=== PATIENT | female | born 1955 | race Caucasian/White ===

== ENCOUNTER 2016-04-14 14:04 | Inpatient (IN) | payer MEDICARE ==
[2016-04-14] MEDS: DUONEB 0.5-3 MG/3 ml Neb IH SCH ×3 (15:05→22:35)
[2016-04-14] MEDS ORDERED: TYLENOL 325 MG PO PRN (15:24)
[2016-04-14] MEDS ORDERED: Zofran 4 MG/2 ML VIAL IV PRN (15:24)
[2016-04-14] MEDS ORDERED: solu-MEDROL 125 MG IV ONE (15:26)
[2016-04-14 15:47] LABS: Mean Cell Volume 96.9 fl (78-100); Mean Corpuscular Hemoglobin 29.7 pg (26-32); Mean Platelet Volume 9.2 fl (6-9.5); Platelet Count 182 K/mm3 (150-450); Red Blood Count 4.78 M/mm3 (4.1-5.4); Red Cell Distribution Width 14.4 % (11.5-14.0)
[2016-04-14 15:48] LABS: ALBUMIN 3.2 g/dL (3.4-5.0); ALKALINE PHOSPHATASE 92 U/L (46-116); ANION GAP 14.6 MEQ/L (5-15); BILIRUBIN,TOTAL 0.2 mg/dL (0.2-1.0); BLOOD UREA NITROGEN 14 mg/dL (9-20); CHLORIDE 102 mEq/L (98-107); Carbon Dioxide 28.1 mEq/L (21-32); Glucose 87 MG/DL (70-110); Potassium 4.4 mEq/L (3.5-5.1); SGOT/AST 14 U/L (15-37); SODIUM 140 mEq/L (136-145); Total Protein 7.4 gm/dL (6.4-8.2)
[2016-04-14] MEDS: ROCEPHIN 1 Gm-D5w 50 ml Bag** 50 ML IV SCH (15:53)
[2016-04-14 15:56] LABS: SGPT/ALT 11 U/L (12-78)
[2016-04-14] MEDS: Zithromax 500 MG/ 250 ML NaCl Premix 250 ML IV SCH (16:25)
--- NOTE | 2016-04-14 16:38 | XRAY ---
Indication: Cough, congestion, short of breath. Comparison: March 30, 2016 PA/lateral chest unchanged again with bibasilar infiltrates/atelectasis and left-sided AICD. Heart is not enlarged. No new cardiopulmonary abnormalities.
[2016-04-14] MEDS ORDERED: Zanaflex 4 MG PO PRN (17:31)
[2016-04-14] MEDS: NEURONTIN 300 MG PO SCH (17:39)
[2016-04-14] MEDS ORDERED: MORPHINE SULFATE 4 MG INJ IV PRN (17:42)
--- NOTE | 2016-04-14 17:57 | PCM.HP ---
History of Present Illness - Chief Complaint Chief Complaint: COPD exacerbation Date: 04/14/16 History of Present Illness: is a 61 year old female. who continues to smoke with a history of coronary artery disease and copd who has been having worsening congestion for the last week and coughed a few days ago and developed a focal area of pain when she coughs on the right side of her chest only painful with the coughing so she tries not to. She has been getting progressively more short of breath and wheezing. her albuterol at home she has been afraid to use because it makes her cough and her chest hurts when she coughs. She has no orthopnea no history of heart failure last Echo was 06/2015 with EF of 58%. 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 She is compliant with her xarelto. No swelling in her extremities. No fevers or vomiting. - Review of Systems Constitutional: Fatigue, Weakness, No Fever, No Chills Eyes: No Symptoms Ears, Nose, & Throat: Sinus Drainage Respiratory: Cough, Short Of Breath, Wheezing Cardiac: No Chest Pain, No Edema, No Palpitations, No Syncope, No Orthopnea, No PND Abdominal/Gastrointestinal: No Abdominal Pain, No Nausea, No Vomiting, No Diarrhea Genitourinary Symptoms: No Dysuria Musculoskeletal: No Back Pain, No Neck Pain Skin: No Rash Neurological: No Dizziness, No Focal Weakness, No Sensory Changes Psychological: No Symptoms Endocrine: No Symptoms Hematologic/Lymphatic: No Symptoms Immunological/Allergic: No Symptoms Medications & Allergies Home Medications: Home Medication List Furosemide 40 mg [Lasix 40 MG] 40 mg PO DAILY 07/17/12 [History Confirmed 04/14/16] Potassium Chloride 20 Meq Tab [Potassium Chloride 20 MEQ TABLET] 20 meq PO DAILY 07/17/12 [History Confirmed 04/14/16] Aspirin 81 gm Chew [Baby Aspirin 81 mg Chew] 81 mg PO DAILY 11/30/13 [ History Confirmed 04/14/16] Omeprazole 20 MG [Prilosec 20 mg] 20 mg PO BID 11/30/13 [History Confirmed 04/14] Rivaroxaban 10 mg Tablet [Xarelto 10 mg Tablet] 20 mg PO DAILY 11/30/13 [ History Confirmed 04/14/16] Tizanidine HCl 4 mg [Zanaflex 4 MG] 4 mg PO HS 11/30/13 [History Confirmed 04/14/16] Gabapentin [Neurontin] 1,200 mg PO DAILY 07/04/15 [History Confirmed 04/14/16] Metformin HCl 1000 mg [Glucophage 1000 MG] 1,000 mg PO BID 07/04/15 [History Confirmed 04/14/16] Pramipexole Di-HCl [Mirapex] 0.125 mg PO HS #30 tablet 12/29/15 [Rx Confirmed ] Pravastatin Sodium 20 mg PO QHS 02/04/16 [History Confirmed 04/14/16] Gabapentin [Neurontin] 600 mg PO QAM 03/15/16 [History Confirmed 04/14/16] Levothyroxine Sodium [Synthroid] 175 mcg PO DAILY 03/15/16 [History Confirmed ] Gabapentin [Neurontin] 1,200 mg PO HS 04/14/16 [History Confirmed 04/14/16] Gabapentin [Neurontin] 600 mg PO DAILY 04/14/16 [History Confirmed 04/14/16] Allergies/Adverse Reactions: Allergies Allergy/AdvReac Type Severity Reaction Status Date / Time No Known Drug Allergies Allergy Verified 03/15/16 09:42 - Past Medical History Past Medical History: Yes Neurological History: Peripheral Neuropathy, Other ENT History: Cataracts Cardiac History: Coronary Artery Disease, High Cholesterol, Hypertension Respiratory History: COPD, Pneumonia, Sleep Apnea, Other Endocrine Medical History: Diabetes Type II, Hyperthyroidism Musculoskelatal History: Osteoporosis, Rheumatoid Arthritis GI Medical History: Hernia History: No Pertinent History Pyscho-Social History: No Pertinent History Reproductive Disorders: No Pertinent History Comment: pt wear c-pap at night. pt has restless leg syndrome. - Female History Are you now?: No - Past Surgical History Past Surgical History: Yes Neuro Surgical History: No Pertinent History Cardiac History: Angioplasty, CABG, Cardiac Catheterization, Cardiac Stent, Internal Defibrillator, Pacemaker, Vascular Surgery, Other Respiratory Surgery: No Pertinent History GI Surgical History: Cholecystectomy Genitourinary Surgical Hx: No Pertinent History Musculskeletal Surgical Hx: Other Female Surgical History: Hysterectomy Other Surgical History: pt had CABG in July 2015, had sternum removed in August due to infection, Pt states her breast bones are held together with the muscles from her breasts. She has had varicose veins tied off. She states they were not stripped. She has also had bilateral carpal tunnel surgery. And she has had surgery on her big toe . Pt wears a brace on her left leg due to neuropathy - Social History Smoking Status: Current every day smoker How long have you smoked: "35 years" Exposure to second hand smoke: Yes Alcohol: None Drug Use: none - Physical Exam Vital Signs: Vital Signs - 24 hr Temp Pulse Resp BP Pulse Ox 04/14/16 15:55 98.2 F 102 H 18 145/68 04/14/16 15:27 98.2 F 102 H 18 145/68 88 L 04/14/16 15:08 96 H 24 92 L General Appearance: mild distress, alert, obese Neurologic Exam: oriented x 3, cooperative Eye Exam: No scleral icterus, No pale conjunctivae Ears, Nose, Throat Exam: moist mucous membranes, No pharyngeal erythema Neck Exam: non-tender, supple Respiratory Exam: chest tenderness (right sided point tenderness), prolonged expirations, rhonchi, wheezing, No crackles/rales (diffuse expiratory wheezing with air trapping sternum is absent there is heaving where it would be) Cardiovascular Exam: regular rate/rhythm, No murmur, No edema Gastrointestinal/Abdomen Exam: soft, normal bowel sounds, No tenderness, No distention, No mass, No guarding Extremity Exam: normal inspection, No calf tenderness, No pedal edema Skin Exam: warm, dry, No rash Results - Labs Lab/Micro Results: Lab Results-Last 24 Hours 04/14/16 04/14/16 Range/Units 15:10 15:10 WBC 7.0 (4.0-10.5) K/mm3 RBC 4.78 (4.1-5.4) M/mm3 Hgb 14.2 (12.0-16.0) gm/dl Hct 46.3 (35-47) % MCV 96.9 (78-100) fl MCH 29.7 (26-32) pg MCHC 30.7 L (32-36) g/dl RDW 14.4 H (11.5-14.0) % Plt Count 182 (150-450) K/mm3 MPV 9.2 (6-9.5) fl Sodium 140 (136-145) mEq/L Potassium 4.4 (3.5-5.1) mEq/L Chloride 102 (98-107) mEq/L Carbon Dioxide 28.1 (21-32) mEq/L Anion Gap 14.6 (5-15) MEQ/L BUN 14 (9-20) mg/dL Creatinine 0.68 (0.55-1.30) mg/dl Estimated GFR > 60 ML/MIN Glucose 87 (70-110) MG/DL Calcium 9.1 (8.5-10.1) mg/dL Total Bilirubin 0.2 (0.2-1.0) mg/dL AST 14 L (15-37) U/L ALT 11 L (12-78) U/L Alkaline Phosphatase 92 (46-116) U/L NT-Pro-B Natriuret Pep 1013 H (0-125) pg/ml Serum Total Protein 7.4 (6.4-8.2) gm/dL Albumin 3.2 L (3.4-5.0) g/dL - Radiology Impressions Radiology Exams & Impressions: Radiology Procedures Category Date Time Status CHEST 2 VIEWS (PA AND LAT) Stat Exams 04/14/16 15:24 Completed - Other Procedures and Tests Respiratory Therapy 04/14/16 15:00 Respiratory Nebulizer Q4H 04/14/16 15:05 Oxygen NASAL CANNULA 2 lpm Assessment/Plan (1) COPD exacerbation Current Visit: Yes Status: Acute Assessment & Plan: solumedrol, ceftriaxone, azithromycin, chest x-ray was unchanged nebs oxygen wean as tolerated ekg reviewed no changes continue home meds hold metformin start sliding scale continue xarelto Code(s): J44.1 - CHRONIC OBSTRUCTIVE PULMONARY DISEASE W (ACUTE) EXACERBATION (2) Acute hypoxemic respiratory failure Current Visit: Yes Status: Acute Code(s): J96.01 - ACUTE RESPIRATORY FAILURE WITH HYPOXIA (3) Coronary artery disease Current Visit: Yes Status: Chronic Code(s): I25.10 - ATHSCL HEART DISEASE OF [place] CORONARY ARTERY W/O ANG PCTRS (4) Sleep apnea Current Visit: Yes Status: Chronic Code(s): G47.30 - SLEEP APNEA, UNSPECIFIED (5) Tobacco abuse Current Visit: Yes Status: Chronic Code(s): Z72.0 - TOBACCO USE (6) History of pulmonary embolism Current Visit: Yes Status: Chronic Code(s): Z86.711 - PERSONAL HISTORY OF PULMONARY EMBOLISM (7) Hypertension Current Visit: Yes Status: Chronic Code(s): I10 - ESSENTIAL (PRIMARY) HYPERTENSION (8) Peripheral neuropathy Current Visit: Yes Status: Chronic Code(s): G62.9 - POLYNEUROPATHY, UNSPECIFIED (9) Type 2 diabetes mellitus Current Visit: Yes Status: Chronic
[2016-04-14 18:06] LABS: Eosinophil 1 % (0.00-3.0); Platelet Estimate NORMAL (NORMAL); Total Cells Counted 100
[2016-04-14] MEDS ORDERED: solu-MEDROL 40 MG ONE (21:38)
[2016-04-14] MEDS: Mirapex 0.5 MG Tablet PO SCH (21:43)
[2016-04-14] MEDS: Neurontin 400 MG PO SCH (21:43)
[2016-04-14] MEDS: ZOCOR 20MG PO SCH (21:44)
[2016-04-14] MEDS: Protonix 40MG Tablet PO SCH (21:44)
[2016-04-14] MEDS: solu-MEDROL 40 MG IV SCH (21:44)
[2016-04-14] MEDS ORDERED: NON-FORMULARY ITEM (Pramipexole Di-Hcl [Mirapex] 0.125 MG) PO SCH (22:00)
[2016-04-14] MEDS ORDERED: NON-FORMULARY ITEM (Omeprazole 20 Mg [Prilosec 20 Mg] 20 MG) PO SCH (22:00)
[2016-04-14] MEDS ORDERED: NON-FORMULARY ITEM (Pravastatin Sodium [Pravastatin Sodium] 20 MG) PO SCH (22:00)
[2016-04-14 23:57] LABS: Collection Type CLEAN CATCH
[2016-04-14 23:58] LABS: COMPLETE URINE MICROSCOPIC? NO
[2016-04-15] MEDS: DUONEB 0.5-3 MG/3 ml Neb IH SCH ×6 (02:48→22:59)
[2016-04-15] MEDS ORDERED: solu-MEDROL 40 MG ONE (05:42)
[2016-04-15] MEDS: solu-MEDROL 40 MG IV SCH ×3 (05:45→21:53)
[2016-04-15] MEDS: NovoLOG Insulin SQ PRN ×4 (07:48→21:52)
[2016-04-15] MEDS: NEURONTIN 300 MG PO SCH ×2 (07:48→16:43)
--- NOTE | 2016-04-15 08:23 | PCM.NOTE ---
Date and Time: 04/15/16818 Subjective Assessment: Feeling much better today still only having pain with the coughing which is much improved breathing much better. Still requiring oxygen she thinks she may need oxygen all the time as she has had chronic worsening copd. no swelling no PND Objective Exam General Appearance: no apparent distress, obese Neurologic Exam: alert, oriented x 3, cooperative Skin Exam: warm, dry Ears, Nose, Throat Exam: moist mucous membranes Neck Exam: non-tender, supple Respiratory Exam: prolonged expirations, rhonchi, wheezing, No crackles/rales Cardiovascular Exam: regular rate/rhythm, normal heart sounds, normal peripheral pulses Gastrointestinal/Abdomen Exam: soft, normal bowel sounds, No tenderness Extremity Exam: other (trace left pedal edema), No calf tenderness OBJECTIVE DATA Vital Signs: Vital Signs - 24 hr Temp Pulse Resp BP Pulse Ox 04/15/16 07:41 97.8 F 91 H 18 162/73 92 L 04/15/16 06:54 91 H 18 92 L 04/15/16 04:00 97.7 F 110 H 20 172/82 92 L 04/15/16 02:49 101 H 20 94 L 04/14/16 23:47 98.4 F 93 H 16 119/56 94 L 04/14/16 22:35 87 20 90 L 04/14/16 19:48 98.1 F 108 H 17 141/68 94 L 04/14/16 18:33 109 H 22 90 L 04/14/16 15:55 98.2 F 102 H 18 145/68 04/14/16 15:27 98.2 F 102 H 18 145/68 88 L 04/14/16 15:08 96 H 24 92 L Oxygen-Last 24 hours O2 Percentage 2 Liters = 28% O2 Percentage 2 Liters = 28% O2 Percentage 2 Liters = 28% O2 Percentage 2 Liters = 28% Pain Assessment - Last Documented Pain Intensity 0 Pain Scale Used 0-10 Pain Scale Intake and Output: Intake & Output 04/12/16 04/13/16 04/14/16 04/15/16 11:59 11:59 11:59 11:59 Intake Total 1620 Output Total 1500 Balance 120 Weight 96.615 kg Lab Results: Accuchecks Date 04/15/16 Time 07:30 Accucheck Value: 200 Accucheck Value: 260 Lab Results-Last 24 Hours 04/14/16 04/14/16 04/14/16 Range/Units 15:10 15:10 23:00 WBC 7.0 (4.0-10.5) K/mm3 RBC 4.78 (4.1-5.4) M/mm3 Hgb 14.2 (12.0-16.0) gm/dl Hct 46.3 (35-47) % MCV 96.9 (78-100) fl MCH 29.7 (26-32) pg MCHC 30.7 L (32-36) g/dl RDW 14.4 H (11.5-14.0) % Plt Count 182 (150-450) K/mm3 MPV 9.2 (6-9.5) fl Segmented Neutrophils 69 H (36.0-66.0) % Lymphocytes (Manual) 21 L (24-44) % Monocytes (Manual) 9 (0.0-12.0) % Eosinophils (Manual) 1 (0.00-3.0) % Differential Comment NORMAL Platelet Estimate NORMAL (NORMAL) Sodium 140 (136-145) mEq/L Potassium 4.4 (3.5-5.1) mEq/L Chloride 102 (98-107) mEq/L Carbon Dioxide 28.1 (21-32) mEq/L Anion Gap 14.6 (5-15) MEQ/L BUN 14 (9-20) mg/dL Creatinine 0.68 (0.55-1.30) mg/dl Estimated GFR > 60 ML/MIN Glucose 87 (70-110) MG/DL Calcium 9.1 (8.5-10.1) mg/dL Total Bilirubin 0.2 (0.2-1.0) mg/dL AST 14 L (15-37) U/L ALT 11 L (12-78) U/L Alkaline Phosphatase 92 (46-116) U/L NT-Pro-B Natriuret Pep 1013 H (0-125) pg/ml Serum Total Protein 7.4 (6.4-8.2) gm/dL Albumin 3.2 L (3.4-5.0) g/dL Ur Collection Type CLEAN CATCH Urine Color YELLOW (YELLOW) Urine Appearance CLEAR (CLEAR) Urine pH 5.0 (5-6) Ur Specific [place] 1.010 (1.005-1.025) Urine Protein NEGATIVE (Negative) Urine Glucose (UA) 250 (NEGATIVE) mg/dL Urine Ketones NEGATIVE (NEGATIVE) Urine Nitrite NEGATIVE (NEGATIVE) Urine Bilirubin NEGATIVE (NEGATIVE) Urine Urobilinogen 0.2 (0-1) mg/dL Urine WBC (Auto) NEGATIVE (NEGATIVE) Urine RBC (Auto) NEGATIVE (0-5) [place]/ul Specimen Received 04/14/16:2300 Radiology Exams: Radiology Procedures Category Date Time Status CHEST 2 VIEWS (PA AND LAT) Stat Exams 04/14/16 15:24 Completed Assessment/Plan (1) COPD exacerbation Current Visit: Yes Status: Acute Assessment & Plan: wean the iv steroids continue the antibiotics and oxygen and nebs she may require O2 at discharge great improvement overnight hope for stable enough for home tomorrow on po meds. Code(s): J44.1 - CHRONIC OBSTRUCTIVE PULMONARY DISEASE W (ACUTE) EXACERBATION (2) Acute hypoxemic respiratory failure Current Visit: Yes Status: Acute Code(s): J96.01 - ACUTE RESPIRATORY FAILURE WITH HYPOXIA (3) Coronary artery disease Current Visit: Yes Status: Chronic Assessment & Plan: follows in [facility] last echo this past spring with EF of 58% Code(s): I25.10 - ATHSCL HEART DISEASE OF [place] CORONARY ARTERY W/O ANG PCTRS (4) Sleep apnea Current Visit: Yes Status: Chronic Code(s): G47.30 - SLEEP APNEA, UNSPECIFIED (5) Tobacco abuse Current Visit: Yes Status: Chronic Code(s): Z72.0 - TOBACCO USE (6) History of pulmonary embolism Current Visit: Yes Status: Chronic Code(s): Z86.711 - PERSONAL HISTORY OF PULMONARY EMBOLISM (7) Hypertension Current Visit: Yes Status: Chronic Code(s): I10 - ESSENTIAL (PRIMARY) HYPERTENSION (8) Peripheral neuropathy Current Visit: Yes Status: Chronic Code(s): G62.9 - POLYNEUROPATHY, UNSPECIFIED (9) Type 2 diabetes mellitus Current Visit: Yes Status: Chronic
[2016-04-15] MEDS: XARELTO 10 MG TABLET PO SCH (09:04)
[2016-04-15] MEDS: Protonix 40MG Tablet PO SCH ×2 (09:04→21:52)
[2016-04-15] MEDS: SYNTHROID 100 MCG PO SCH (09:05)
[2016-04-15] MEDS: ECOTRIN 81 MG PO SCH (09:05)
[2016-04-15] MEDS: Klor Con 10 MEQ PO SCH (09:05)
[2016-04-15] MEDS: SYNTHROID 75 MCG PO SCH (09:05)
[2016-04-15] MEDS: Lasix 40 MG PO SCH (09:05)
[2016-04-15] MEDS ORDERED: NON-FORMULARY ITEM (Potassium Chloride 20 Meq Tab [Potassium Chloride 20 Meq Tablet] 20 ME PO SCH (10:00)
[2016-04-15] MEDS ORDERED: NON-FORMULARY ITEM (Gabapentin [Neurontin] 600 MG) PO SCH ×2 (10:00)
[2016-04-15] MEDS ORDERED: Protonix 40MG Tablet PO SCH (10:00)
[2016-04-15] MEDS ORDERED: NON-FORMULARY ITEM (Levothyroxine Sodium [Synthroid] 175 MCG) PO SCH (10:00)
[2016-04-15] MEDS: Neurontin 400 MG PO SCH ×2 (11:48→21:52)
[2016-04-15] MEDS: Tussionex Pennkinetic Susp PO PRN (11:51)
[2016-04-15] MEDS ORDERED: solu-MEDROL 125 MG IV SCH (14:00)
[2016-04-15] MEDS: ROCEPHIN 1 Gm-D5w 50 ml Bag** 50 ML IV SCH (16:43)
[2016-04-15] MEDS: Zithromax 500 MG/ 250 ML NaCl Premix 250 ML IV SCH (17:40)
[2016-04-15] MEDS: ZOCOR 20MG PO SCH (21:53)
[2016-04-15] MEDS: Mirapex 0.5 MG Tablet PO SCH (21:58)
[2016-04-15] MEDS ORDERED: Zanaflex 4 MG PO PRN (22:28)
[2016-04-15] MEDS ORDERED: Mirapex 0.5 MG Tablet ONE (22:31)
[2016-04-16] MEDS: DUONEB 0.5-3 MG/3 ml Neb IH SCH ×2 (03:25→06:43)
[2016-04-16] MEDS: solu-MEDROL 40 MG IV SCH (05:37)
[2016-04-16 07:19] VITALS: BP 151/69; PULSE 97; O2SAT 97
[2016-04-16 07:23] LABS: BLOOD UREA NITROGEN 22 mg/dL (9-20); CHLORIDE 103 mEq/L (98-107); Carbon Dioxide 31.2 mEq/L (21-32); Glucose 236 MG/DL (70-110); Potassium 4.7 mEq/L (3.5-5.1); SODIUM 141 mEq/L (136-145)
[2016-04-16] MEDS: XARELTO 10 MG TABLET PO SCH (07:50)
[2016-04-16] MEDS: NEURONTIN 300 MG PO SCH (07:51)
[2016-04-16] MEDS: ECOTRIN 81 MG PO SCH (07:51)
[2016-04-16] MEDS: Protonix 40MG Tablet PO SCH (07:51)
[2016-04-16] MEDS: Klor Con 10 MEQ PO SCH (07:51)
[2016-04-16] MEDS: SYNTHROID 75 MCG PO SCH (07:51)
[2016-04-16] MEDS: SYNTHROID 100 MCG PO SCH (07:51)
[2016-04-16] MEDS: Lasix 40 MG PO SCH (07:51)
[2016-04-16] MEDS: NovoLOG Insulin SQ PRN (07:51)
[2016-04-16] MEDS: Tussionex Pennkinetic Susp PO PRN (09:19)
--- NOTE | 2016-04-16 09:46 | PCM.DS ---
Discharge Summary Date of Admission: 04/14/16 17:55 Admitting Physician: YUMIKO SNOW Primary Care Provider: DENISE LENZ Allergies Allergies No Known Drug Allergies Allergy (Verified 03/15/16 09:42) Hospital Summary - Hospital Course Hospital Course: patient was admitted and doing much better, her shortness of breath has resolved. she has had some cough, hx of cabg and sternum removal from infection. - Vitals & Intake/Output Vital Signs: Vital Signs Temperature 97.8 F 04/16/16 07:18 Pulse Rate 97 H 04/16/16 07:18 Respiratory Rate 22 04/16/16 07:18 Blood Pressure 151/69 04/16/16 07:18 O2 Sat by Pulse Oximetry 97 04/16/16 07:18 Oxygen-Last Documented O2 Percentage 2 Liters = 28% Intake & Output: Intake & Output 04/13/16 04/14/16 04/15/16 04/16/16 11:59 11:59 11:59 11:59 Intake Total 1620 1230 Output Total 1900 1500 Balance -280 -270 Weight 96.615 kg - Lab Result Diagrams: 04/14/16 15:10 04/16/16 05:05 Lab Results-Last 24 Hrs: Accuchecks Date 04/15/16 Time 11:30 Accucheck Value: 306 Accucheck Value: 262 Accucheck Value: 340 Lab Results-Last 24 Hours 04/16/16 Range/Units 05:05 Sodium 141 (136-145) mEq/L Potassium 4.7 (3.5-5.1) mEq/L Chloride 103 (98-107) mEq/L Carbon Dioxide 31.2 (21-32) mEq/L Anion Gap 11.0 (5-15) MEQ/L BUN 22 H (9-20) mg/dL Creatinine 0.77 (0.55-1.30) mg/dl Estimated GFR > 60 ML/MIN Glucose 236 H (70-110) MG/DL Calcium 9.0 (8.5-10.1) mg/dL TSH 3rd Generation 0.540 (0.358-3.740) mIU/L Micro Results-Entire Visit: Accuchecks Date 04/15/16 Time 11:30 Accucheck Value: 306 Accucheck Value: 262 Accucheck Value: 340 - Radiology Exams Ordered Rad Exams-Entire Visit: Radiology Procedures Category Date Time Status CHEST 2 VIEWS (PA AND LAT) Stat Exams 04/14/16 15:24 Completed - Procedures and Test Procedures and Tests throughout Hospitalization: Therapy Orders & Screens 04/14/16 15:00 Respiratory Nebulizer Q4H Comment: DUONEB Q4 04/14/16 15:05 Oxygen NASAL CANNULA 2 lpm Comment: 04/14/16 15:24 EKG STAT Comment: Respiratory Therapy Consult ROUTINE Comment: Reason For Exam: 04/14/16 16:19 Smoking Cessation Education ONCE Comment: Diagnosis: COPD exacerbation Smoking Status: Current every day smoker How long have you smoked: "35 years" Have you smoked in the past 12 months: Yes Approximately how many cigarettes per day: 10 Do you dip or chew tobacco: No If,Former Smoker,when did you quit: june 2015 04/14/16 22:00 BiPap/CPAP Assessment Comment: HOME SETTINGS Diagnosis: COPD exacerbation Discharge Exam General Appearance: no apparent distress, alert Respiratory Exam: normal breath sounds, lungs clear, No respiratory distress Cardiovascular Exam: regular rate/rhythm, normal heart sounds Gastrointestinal/Abdomen Exam: soft, No tenderness, No mass Extremity Exam: normal inspection, normal range of motion Final Diagnosis/Problem List - Final Discharge Diagnosis/Problem (1) COPD exacerbation Current Visit: Yes Status: Acute Assessment & Plan: qualified for home oxygen, home on po levaquin and prednisone, neb at home. (2) Acute hypoxemic respiratory failure Current Visit: Yes Status: Acute (3) Coronary artery disease Current Visit: Yes Status: Chronic (4) Type 2 diabetes mellitus Current Visit: Yes Status: Chronic - Discharge Disposition: Home, Self-Care Condition: Stable Prescriptions: New Albuterol/Ipratropium 3ml Neb* [DUONEB 0.5-3 MG/3 ml Neb] 3 ml IH Q4-6HPRN PRN #100 ampul.neb PRN Reason: Cough Prednisone 20 mg [Deltasone 20 mg] 20 mg PO UD #18 tablet Levofloxacin [Levaquin] 500 mg PO DAILY #7 tablet Continue Potassium Chloride 20 Meq Tab [Potassium Chloride 20 MEQ TABLET] 20 meq PO DAILY Furosemide 40 mg [Lasix 40 MG] 40 mg PO DAILY Aspirin 81 gm Chew [Baby Aspirin 81 mg Chew] 81 mg PO DAILY Omeprazole 20 MG [Prilosec 20 mg] 20 mg PO BID Tizanidine HCl 4 mg [Zanaflex 4 MG] 4 mg PO HS Rivaroxaban 10 mg Tablet [Xarelto 10 mg Tablet] 20 mg PO DAILY Metformin HCl 1000 mg [Glucophage 1000 MG] 1,000 mg PO BID Gabapentin [Neurontin] 1,200 mg PO DAILY Pramipexole Di-HCl [Mirapex] 0.125 mg PO HS #30 tablet Pravastatin Sodium 20 mg PO QHS Gabapentin [Neurontin] 600 mg PO QAM Levothyroxine Sodium [Synthroid] 175 mcg PO DAILY Gabapentin [Neurontin] 600 mg PO DAILY Gabapentin [Neurontin] 1,200 mg PO HS Follow up with: DENISE LENZ [Primary Care Provider] - 1 Week Forms: Patient Portal Information
[2016-04-16] MEDS ORDERED: Mirapex 0.5 MG Tablet PO SCH (22:00)
== END 2016-04-16 10:55 | disposition home or self-care (01) | DRG 190 ==
LOC: MED SURG 14:04 → OBSVTOIN 17:55 → MED SURG 17:55
PROVIDERS: ADMIT Family Medicine; ATTEND Family Medicine
DX: J44.1 Chronic obstructive pulmonary disease with (acute) exacerbation (principal); J96.01 Acute respiratory failure with hypoxia; I25.810 Atherosclerosis of coronary artery bypass graft(s) without angina pectoris; E11.9 Type 2 diabetes mellitus without complications; Z79.4 Long term (current) use of insulin; Z79.899 Other long term (current) drug therapy; G62.9 Polyneuropathy, unspecified; I10 Essential (primary) hypertension; G47.30 Sleep apnea, unspecified; E05.90 Thyrotoxicosis, unspecified without thyrotoxic crisis or storm; M81.0 Age-related osteoporosis without current pathological fracture; M06.9 Rheumatoid arthritis, unspecified; Z95.810 Presence of automatic (implantable) cardiac defibrillator; Z72.0 Tobacco use; Z86.711 Personal history of pulmonary embolism; Z79.01 Long term (current) use of anticoagulants
CPT/HCPCS: 36415; 71020; 80048; 80053; 81002; 82962; 83880; 84443; 85025; 93005; 94640; 94660; 94760; J0456; J0696; J2920; J2930

== ENCOUNTER 2016-04-22 18:19 | Inpatient (IN) | payer MEDICARE ==
[2016-04-22] MEDS ORDERED: MORPHINE SULFATE 4 MG INJ IV ONE (19:03)
--- NOTE | 2016-04-22 19:09 | ERPHSYRPT ---
- History of Present Illness Time Seen by Provider: 04/22/16 19:00 Source: patient Exam Limitations: no limitations Patient Subjective Stated Complaint: pt states she was discharged from [facility] with pnuemonia 6 days ago. pt states she finished levaquin today. pt states her cough has become worse over the past 2 days and c/o pain with coughing and movement. Triage Nursing Assessment: pt pink, warm, dry. rhinchi noted in all posterior lung patiño. pt afebrile. pt on home o2. Physician History: 61 y/o female with history of COPD, recently diagnosed pneumonia, pacemaker, HTN and CAD comes to the ER with complaints of worsening shortness of breath, productive cough and right sided pleuritic chest pain. Pt arrives very anxious with a HR in the 120's. Pt stopped her levaquin 6 days ago. Pt denies any chest pain, dizziness, palpitations, nausea, vomiting or abdominal pain. Timing/Duration: day(s) Activities at Onset: none Severity of Dyspnea-Max: moderate Severity of Dyspnea-Current: moderate Possible Cause: occasional episodes Modifying Factors: Improves With: activity Allergies/Adverse Reactions: No Known Drug Allergies Allergy (Verified 04/22/16 18:42) Home Medications: Furosemide 40 mg [Lasix 40 MG] 40 mg PO DAILY 07/17/12 [History] Potassium Chloride 20 Meq Tab [Potassium Chloride 20 MEQ TABLET] 20 meq PO DAILY 07/17/12 [History] Aspirin 81 gm Chew [Baby Aspirin 81 mg Chew] 81 mg PO DAILY 11/30/13 [ History] Omeprazole 20 MG [Prilosec 20 mg] 20 mg PO BID 11/30/13 [History] Rivaroxaban 10 mg Tablet [Xarelto 10 mg Tablet] 20 mg PO DAILY 11/30/13 [ History] Tizanidine HCl 4 mg [Zanaflex 4 MG] 4 mg PO HS 11/30/13 [History] Metformin HCl 1000 mg [Glucophage 1000 MG] 1,000 mg PO BID 07/04/15 [History] Pravastatin Sodium 20 mg PO QHS 02/04/16 [History] Gabapentin [Neurontin] 600 mg PO QAM 03/15/16 [History] Levothyroxine Sodium [Synthroid] 175 mcg PO DAILY 03/15/16 [History] Gabapentin [Neurontin] 1,200 mg PO HS 04/14/16 [History] Gabapentin [Neurontin] 600 mg PO DAILY 04/14/16 [History] Hx Tetanus, Diphtheria Vaccination/Date Given: Yes (up to date) Hx Influenza Vaccination/Date Given: Yes Hx Pneumococcal Vaccination/Date Given: Yes Immunizations Up to Date: Yes - Review of Systems Constitutional: No Fever, No Chills Eyes: No Symptoms Ears, Nose, & Throat: No Symptoms Respiratory: Cough, Dyspnea, Dyspnea on Exertion (TRISTAN) Cardiac: No Chest Pain, No Edema, No Syncope Abdominal/Gastrointestinal: No Abdominal Pain, No Nausea, No Vomiting, No Diarrhea Genitourinary Symptoms: No Dysuria Musculoskeletal: No Back Pain, No Neck Pain Skin: No Rash Neurological: No Dizziness, No Focal Weakness, No Sensory Changes Psychological: No Symptoms Endocrine: No Symptoms All Other Systems: Reviewed and Negative - Past Medical History Pertinent Past Medical History: Yes Neurological History: Peripheral Neuropathy, Other ENT History: Cataracts Cardiac History: Coronary Artery Disease, High Cholesterol, Hypertension Respiratory History: COPD, Pneumonia, Sleep Apnea, Other Endocrine Medical History: Diabetes Type II, Hyperthyroidism Musculoskeletal History: Osteoporosis, Rheumatoid Arthritis GI Medical History: Hernia History: No Pertinent History Psycho-Social History: No Pertinent History Female Reproductive Disorders: No Pertinent History Other Medical History: pt wear c-pap at night. pt has restless leg syndrome. - Past Surgical History Past Surgical History: Yes Neuro Surgical History: No Pertinent History Cardiac: Angioplasty, CABG, Cardiac Catheterization, Cardiac Stent, Internal Defibrillator, Pacemaker, Vascular Surgery, Other Respiratory: No Pertinent History Gastrointestinal: Cholecystectomy Genitourinary: No Pertinent History Musculoskeletal: Other Female Surgical History: Hysterectomy Other Surgical History: pt had CABG in July 2015, had sternum removed in August due to infection, Pt states her breast bones are held together with the muscles from her breasts. She has had varicose veins tied off. She states they were not stripped. She has also had bilateral carpal tunnel surgery. And she has had surgery on her big toe . Pt wears a brace on her left leg due to neuropathy - Social History Smoking Status: Current every day smoker How long have you smoked: 45 Exposure to second hand smoke: Yes Drug Use: none Patient Lives Alone: No - Female History Hx Now: No - Nursing Vital Signs Nursing Vital Signs: Initial Vital Signs Temperature 97.9 F Temperature Source Oral Pulse Rate 110 Respiratory Rate 18 Blood Pressure [Right Arm] 143/72 Pain Intensity 2 - Physical Exam General Appearance: mild distress, alert, anxiety Eye Exam: PERRL/EOMI Ears, Nose, Throat Exam: hearing grossly normal Neck Exam: normal inspection, supple Respiratory Exam: crackles/rales Cardiovascular/Chest Exam: normal heart sounds, regular rate/rhythm Abdominal/Gastrointestinal Exam: soft, No tenderness, No distention, No mass Extremity Exam: non-tender, normal range of motion, normal inspection, no calf tenderness, no pedal edema Neurologic Exam: alert, oriented x 3, cooperative, 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 tested, sensation nml, No motor deficits Skin Exam: normal color, warm, No dry SpO2: 95 Oxygen Delivery: Nasal Cannula Ordered Tests: Active Orders 24 hr Category Date Time Status [facility] Specialists STAT Care 04/22/16 18:46 Active EKG-ER Only STAT Care 04/22/16 19:04 Active IV Insertion STAT Care 04/22/16 19:03 Active Oxygen-ED Only NASAL CANNULA 2 lpm Care 04/22/16 18:46 Active Pulse Oximetry (ED) STAT Care 04/22/16 18:46 Active CHEST WITH CONTRAST [CT] Stat Exams 04/22/16 19:02 Taken BLOOD CULTURE Stat Lab 04/22/16 21:39 Received CBC W DIFF Stat Lab 04/22/16 19:20 Completed CMP Stat Lab 04/22/16 19:20 Completed Manual Differential NC Stat Lab 04/22/16 19:20 Completed NT PRO BNP Stat Lab 04/22/16 19:20 Completed PT INR [PROTIME WITH INR] Stat Lab 04/22/16 19:20 Completed PTT Stat Lab 04/22/16 19:20 Completed TROPONIN Stat Lab 04/22/16 19:20 Completed Medication Summary Generic Name Dose Route Start Last Admin Trade Name Freq PRN Reason Stop Dose Admin Azithromycin 250 mls @ 125 mls/hr 04/22/16 21:21 04/22/16 21:26 Zithromax 500 Mg/ 250 Ml Nacl Premix IV 04/22/16 23:20 125 mls/hr STAT ONE Administration Ceftriaxone Sodium/Dextrose 50 mls @ 100 mls/hr 04/22/16 21:21 04/22/16 21:26 Rocephin 1 Gm-D5w 50 Ml Bag IV 04/22/16 21:50 100 mls/hr STAT ONE Administration Discontinued Medications Generic Name Dose Route Start Last Admin Trade Name Nancy PRN Reason Stop Dose Admin Azithromycin Confirm 04/22/16 21:25 Zithromax 500 Mg/ 250 Ml Nacl Premix Administered 04/22/16 21:26 Dose 250 mls @ ud IV .STK-MED ONE Ceftriaxone Sodium/Dextrose Confirm 04/22/16 21:25 Rocephin 1 Gm-D5w 50 Ml Bag Administered 04/22/16 21:26 Dose 50 mls @ ud IV .STK-MED ONE Morphine Sulfate 4 mg 04/22/16 19:03 04/22/16 19:15 Morphine Sulfate 4 Mg Inj IV 04/22/16 19:04 4 mg STAT ONE Administration Morphine Sulfate Confirm 04/22/16 19:14 Morphine Sulfate 4 Mg Inj Administered 04/22/16 19:15 Dose 4 mg .ROUTE .STK-MED ONE Lab/Rad Data: Laboratory Result Diagrams 04/22/16 19:20 04/22/16 19:20 Laboratory Results 04/22/16 04/22/16 04/22/16 Range/Units 19:20 19:20 19:20 WBC (4.0-10.5) K/mm3 RBC (4.1-5.4) M/mm3 Hgb (12.0-16.0) gm/dl Hct (35-47) % MCV (78-100) fl MCH (26-32) pg MCHC (32-36) g/dl RDW (11.5-14.0) % Plt Count (150-450) K/mm3 MPV (6-9.5) fl Segmented Neutrophils (36.0-66.0) % Band Neutrophils (0.0-2.0) % Lymphocytes (Manual) (24-44) % Monocytes (Manual) (0.0-12.0) % Differential Comment Atypical Lymphocytes % Platelet Estimate (NORMAL) INR 1.49 (0.8-3.0) PTT 35.1 (25.3-37.0) SECONDS Sodium 140 (136-145) mEq/L Potassium 4.6 (3.5-5.1) mEq/L Chloride 98 (98-107) mEq/L Carbon Dioxide 27.4 (21-32) mEq/L Anion Gap 19.3 H (5-15) MEQ/L BUN 24 H (9-20) mg/dL Creatinine 0.98 (0.55-1.30) mg/dl Estimated GFR > 60 ML/MIN Glucose 168 H (70-110) MG/DL Calcium 9.6 (8.5-10.1) mg/dL Total Bilirubin 0.3 (0.2-1.0) mg/dL AST 11 L (15-37) U/L ALT 15 (12-78) U/L Alkaline Phosphatase 96 (46-116) U/L Troponin I < 0.017 (0.000-0.056) ng/ml NT-Pro-B Natriuret Pep 732 H (0-125) pg/ml Serum Total Protein 7.8 (6.4-8.2) gm/dL Albumin 3.6 (3.4-5.0) g/dL 04/22/16 Range/Units 19:20 WBC 13.8 H (4.0-10.5) K/mm3 RBC 5.36 (4.1-5.4) M/mm3 Hgb 15.9 (12.0-16.0) gm/dl Hct 51.8 H (35-47) % MCV 96.6 (78-100) fl MCH 29.7 (26-32) pg MCHC 30.7 L (32-36) g/dl RDW 14.2 H (11.5-14.0) % Plt Count 232 (150-450) K/mm3 MPV 9.4 (6-9.5) fl Segmented Neutrophils 76 H (36.0-66.0) % Band Neutrophils 4 H (0.0-2.0) % Lymphocytes (Manual) 15 L (24-44) % Monocytes (Manual) 2 (0.0-12.0) % Differential Comment NORMAL Atypical Lymphocytes 3 % Platelet Estimate NORMAL (NORMAL) INR (0.8-3.0) PTT (25.3-37.0) SECONDS Sodium (136-145) mEq/L Potassium (3.5-5.1) mEq/L Chloride (98-107) mEq/L Carbon Dioxide (21-32) mEq/L Anion Gap (5-15) MEQ/L BUN (9-20) mg/dL Creatinine (0.55-1.30) mg/dl Estimated GFR ML/MIN Glucose (70-110) MG/DL Calcium (8.5-10.1) mg/dL Total Bilirubin (0.2-1.0) mg/dL AST (15-37) U/L ALT (12-78) U/L Alkaline Phosphatase (46-116) U/L Troponin I (0.000-0.056) ng/ml NT-Pro-B Natriuret Pep (0-125) pg/ml Serum Total Protein (6.4-8.2) gm/dL Albumin (3.4-5.0) g/dL - Progress Progress: improved Progress Note: 04/22/16 21:46 The CTA chest shows multilobar infiltrates in the right middle lobe, left lingula and left lower lobe. Pt also has a white count of 13,000, increased from previous value. Pt will be started on rocephin and azithromycin. Pt has been admitted to Dr Salgado for multilobar pneumonia - Departure Time of Disposition: 21:48 Departure Disposition: In-patient Admission Clinical Impression: Pneumonia Condition: Stable Critical Care Time: Yes Critical Care Time(excluding separately billable procedures): 75-104 minutes
[2016-04-22] MEDS ORDERED: MORPHINE SULFATE 4 MG INJ ONE (19:14)
[2016-04-22 19:48] LABS: INR 1.49 (0.8-3.0); PROTIME 16.5 SECONDS (9.95-12.35)
[2016-04-22 19:51] LABS: PTT 35.1 SECONDS (25.3-37.0)
[2016-04-22 20:00] LABS: Mean Cell Volume 96.6 fl (78-100); Mean Corpuscular Hemoglobin 29.7 pg (26-32); Mean Platelet Volume 9.4 fl (6-9.5); Platelet Count 232 K/mm3 (150-450); Red Blood Count 5.36 M/mm3 (4.1-5.4); Red Cell Distribution Width 14.2 % (11.5-14.0); White Blood Count 13.8 K/mm3 (4.0-10.5)
[2016-04-22 20:05] LABS: ALBUMIN 3.6 g/dL (3.4-5.0); ALKALINE PHOSPHATASE 96 U/L (46-116); ANION GAP 19.3 MEQ/L (5-15); BILIRUBIN,TOTAL 0.3 mg/dL (0.2-1.0); BLOOD UREA NITROGEN 24 mg/dL (9-20); CHLORIDE 98 mEq/L (98-107); Carbon Dioxide 27.4 mEq/L (21-32); Glucose 168 MG/DL (70-110); Potassium 4.6 mEq/L (3.5-5.1); SGOT/AST 11 U/L (15-37); SGPT/ALT 15 U/L (12-78); SODIUM 140 mEq/L (136-145); Total Protein 7.8 gm/dL (6.4-8.2)
[2016-04-22] MEDS ORDERED: HOLD METFORMIN PRODUCTS FOR 48 HOURS MC PRN (21:00)
[2016-04-22 21:06] LABS: ATYPICAL LYMPHS 3 %; BAND 4 % (0.0-2.0); Total Cells Counted 100
[2016-04-22 21:07] LABS: Platelet Estimate NORMAL (NORMAL)
[2016-04-22] MEDS ORDERED: ROCEPHIN 1 Gm-D5w 50 ml Bag** 50 ML IV ONE ×2 (21:21→21:25)
[2016-04-22] MEDS ORDERED: Zithromax 500 MG/ 250 ML NaCl Premix 250 ML IV ONE ×2 (21:21→21:25)
[2016-04-22] MEDS: Sodium Chloride 0.9% 1000 ML 1,000 ML IV SCH (23:17)
[2016-04-22] MEDS: DUONEB 0.5-3 MG/3 ml Neb IH SCH (23:42)
[2016-04-23] MEDS: NEURONTIN 300 MG PO SCH ×3 (00:59→22:01)
[2016-04-23] MEDS: Protonix 40MG Tablet PO SCH ×3 (01:00→22:01)
[2016-04-23] MEDS: Mirapex 0.5 MG Tablet PO SCH ×2 (01:00→22:00)
[2016-04-23] MEDS ORDERED: Zanaflex 4 MG PO PRN (01:00)
[2016-04-23] MEDS: ZOCOR 20MG PO SCH ×2 (01:01→22:01)
[2016-04-23] MEDS: MORPHINE SULFATE 2 MG INJ IV PRN ×3 (01:01→22:03)
[2016-04-23] MEDS: DUONEB 0.5-3 MG/3 ml Neb IH SCH ×6 (03:28→23:18)
[2016-04-23 06:00] LABS: Mean Cell Volume 98.4 fl (78-100); Mean Corpuscular Hemoglobin 29.7 pg (26-32); Mean Platelet Volume 9.4 fl (6-9.5); Platelet Count 198 K/mm3 (150-450); Red Blood Count 4.88 M/mm3 (4.1-5.4); Red Cell Distribution Width 14.1 % (11.5-14.0); White Blood Count 13.5 K/mm3 (4.0-10.5)
[2016-04-23 06:18] LABS: ANION GAP 10.5 MEQ/L (5-15); BLOOD UREA NITROGEN 23 mg/dL (9-20); CHLORIDE 102 mEq/L (98-107); Carbon Dioxide 34.3 mEq/L (21-32); Glucose 93 MG/DL (70-110); Potassium 4.6 mEq/L (3.5-5.1); SODIUM 142 mEq/L (136-145)
[2016-04-23 08:14] LABS: BAND 2 % (0.0-2.0); Eosinophil 2 % (0.00-3.0); Platelet Estimate NORMAL (NORMAL); Total Cells Counted 100
--- NOTE | 2016-04-23 08:46 | XRAY ---
Indication: Chest pain, short of breath, and cough. History of PE. Multiple contiguous axial images obtained through the chest using 80 cc Isovue 370 contrast and PE protocol. Comparison: None There is good opacification of the pulmonary arteries. No filling defect or pulmonary embolus. Heart is borderline enlarged. Left-sided AICD and lead. Aorta is minimally calcified without aneurysm/dissection. A few mediastinal and right hilar calcified nodes. No pathologic mediastinal/hilar lymphadenopathy. Examination of the lung parenchyma demonstrates partial consolidating opacities versus atelectasis in the right middle lobe, inferior lingula, and left lung base. No effusion. Right middle lobe calcified granuloma. Bony thorax intact with mild osteopenia, old left rib fractures, and bridging spinal osteophytes. Sternum is surgically absent. Limited upper abdomen demonstrates fatty liver and mild biliary prominence with the common bile duct up to 12 mm in diameter presumed related to cholecystectomy. Impression: 1. Negative for pulmonary embolus. 2. Right middle lobe, lingula, and left lung base consolidating airspace disease versus atelectasis. 3. Incidental borderline cardiomegaly and fatty liver. Comment: Preliminary interpretation was made by [facility]. No critical discrepancy. CTDI 23.68
[2016-04-23] MEDS ORDERED: Ativan 1 MG PO PRN (09:13)
--- NOTE | 2016-04-23 09:18 | PCM.HP ---
History of Present Illness - Chief Complaint Chief Complaint: PNEU History of Present Illness: is a 61 year old female who was admitted at [facility] last week for pneumonia. She went home on levaquin po but never got any better; when she ran out of po antibiotics she came to the ER. Still having cough productive of yellow sputum. Denies fever. Tolerating po well. She was admitted with pneumonia, elevated WBC count, tachycardia. She has been on O2 at home since her PNA admission. Has not been sleeping well due to pain from her coughing (in the chest). - Review of Systems Respiratory: Cough, Short Of Breath, Wheezing Cardiac: Chest Pain All Other Systems: Reviewed and Negative Medications & Allergies Home Medications: Home Medication List Furosemide 40 mg [Lasix 40 MG] 40 mg PO DAILY 07/17/12 [History Confirmed 04/22/16] Potassium Chloride 20 Meq Tab [Potassium Chloride 20 MEQ TABLET] 20 meq PO DAILY 07/17/12 [History Confirmed 04/22/16] Aspirin 81 gm Chew [Baby Aspirin 81 mg Chew] 81 mg PO DAILY 11/30/13 [ History Confirmed 04/22/16] Omeprazole 20 MG [Prilosec 20 mg] 20 mg PO BID 11/30/13 [History Confirmed 04/22] Rivaroxaban 10 mg Tablet [Xarelto 10 mg Tablet] 20 mg PO DAILY 11/30/13 [ History Confirmed 04/22/16] Tizanidine HCl 4 mg [Zanaflex 4 MG] 4 mg PO HS 11/30/13 [History Confirmed 04/22/16] Metformin HCl 1000 mg [Glucophage 1000 MG] 1,000 mg PO BID 07/04/15 [History Confirmed 04/22/16] Pramipexole Di-HCl [Mirapex] 0.125 mg PO HS #30 tablet 12/29/15 [Rx Confirmed ] Pravastatin Sodium 20 mg PO QHS 02/04/16 [History Confirmed 04/22/16] Gabapentin [Neurontin] 600 mg PO QAM 03/15/16 [History Confirmed 04/22/16] Levothyroxine Sodium [Synthroid] 175 mcg PO DAILY 03/15/16 [History Confirmed ] Gabapentin [Neurontin] 1,200 mg PO HS 04/14/16 [History Confirmed 04/22/16] Gabapentin [Neurontin] 600 mg PO DAILY 04/14/16 [History Confirmed 04/22/16] Albuterol/Ipratropium 3ml Neb* [DUONEB 0.5-3 MG/3 ml Neb] 3 ml IH Q4-6HPRN PRN #100 ampul.neb 04/16/16 [Rx Confirmed 04/22/16] Levofloxacin [Levaquin] 500 mg PO DAILY #7 tablet 04/16/16 [Rx Confirmed ] Prednisone 20 mg [Deltasone 20 mg] 20 mg PO UD #18 tablet 04/16/16 [Rx Confirmed 04/22/16] Allergies/Adverse Reactions: Allergies Allergy/AdvReac Type Severity Reaction Status Date / Time No Known Drug Allergies Allergy Verified 04/22/16 18:42 - Past Medical History Past Medical History: Yes Neurological History: Peripheral Neuropathy, Other ENT History: Cataracts Cardiac History: Coronary Artery Disease, High Cholesterol, Hypertension Respiratory History: COPD, Pneumonia, Sleep Apnea, Other Endocrine Medical History: Diabetes Type II, Hyperthyroidism Musculoskelatal History: Osteoporosis, Rheumatoid Arthritis GI Medical History: Hernia History: No Pertinent History Pyscho-Social History: No Pertinent History Reproductive Disorders: No Pertinent History Comment: pt wear c-pap at night. pt has restless leg syndrome. - Female History Are you now?: No - Past Surgical History Past Surgical History: Yes Neuro Surgical History: No Pertinent History Cardiac History: Angioplasty, CABG, Cardiac Catheterization, Cardiac Stent, Internal Defibrillator, Pacemaker, Vascular Surgery, Other Respiratory Surgery: No Pertinent History GI Surgical History: Cholecystectomy Genitourinary Surgical Hx: No Pertinent History Musculskeletal Surgical Hx: Other Female Surgical History: Hysterectomy Other Surgical History: pt had CABG in July 2015, had sternum removed in August due to infection, Pt states her breast bones are held together with the muscles from her breasts. She has had varicose veins tied off. She states they were not stripped. She has also had bilateral carpal tunnel surgery. And she has had surgery on her big toe . Pt wears a brace on her left leg due to neuropathy - Social History Smoking Status: Current every day smoker How long have you smoked: 45 Exposure to second hand smoke: Yes Alcohol: None Drug Use: none - Physical Exam Vital Signs: Vital Signs - 24 hr Temp Pulse Resp BP Pulse Ox 04/23/16 08:00 19 04/23/16 07:20 97.6 F 94 H 19 176/77 92 L 04/23/16 06:56 91 H 18 92 L 04/23/16 04:00 97.8 F 103 H 20 164/75 94 L 04/23/16 03:28 95 H 23 94 L 04/23/16 00:00 18 04/22/16 23:59 99.1 F 102 H 18 131/63 96 04/22/16 23:42 101 H 18 95 04/22/16 23:24 99.1 F 102 H 18 131/63 96 04/22/16 22:17 105 H 22 117/66 95 04/22/16 21:48 95 04/22/16 19:26 110 H 18 143/72 96 04/22/16 18:36 97.9 F 113 H 24 131/69 95 04/22/16 18:20 95 Oxygen-Last 24 hours O2 Percentage 2 Liters = 28% O2 Percentage 2 Liters = 28% O2 Percentage 2 Liters = 28% O2 Percentage 2 Liters = 28% O2 Percentage 2 Liters = 28% O2 Percentage 2 Liters = 28% O2 Percentage 2 Liters = 28% O2 Percentage 2 Liters = 28% General Appearance: no apparent distress, obese Neurologic Exam: alert, oriented x 3, cooperative Eye Exam: eyes nml inspection Neck Exam: normal inspection Respiratory Exam: normal breath sounds, rhonchi (throughout), wheezing ( throughout) Cardiovascular Exam: regular rate/rhythm, normal heart sounds, No murmur Gastrointestinal/Abdomen Exam: soft, other (several abdominal wounds, healed), No tenderness, No distention Back Exam: normal inspection Extremity Exam: other (abnormal nails bilat), No pedal edema, No swelling Skin Exam: normal color, warm, dry Results - Labs Lab/Micro Results: Lab Results-Last 24 Hours 04/23/16 04/23/16 Range/Units 05:40 05:40 WBC 13.5 H (4.0-10.5) K/mm3 RBC 4.88 (4.1-5.4) M/mm3 Hgb 14.5 (12.0-16.0) gm/dl Hct 48.0 H (35-47) % MCV 98.4 (78-100) fl MCH 29.7 (26-32) pg MCHC 30.2 L (32-36) g/dl RDW 14.1 H (11.5-14.0) % Plt Count 198 (150-450) K/mm3 MPV 9.4 (6-9.5) fl Segmented Neutrophils 82 H (36.0-66.0) % Band Neutrophils 2 (0.0-2.0) % Lymphocytes (Manual) 12 L (24-44) % Monocytes (Manual) 2 (0.0-12.0) % Eosinophils (Manual) 2 (0.00-3.0) % Differential Comment NORMAL Platelet Estimate NORMAL (NORMAL) Sodium 142 (136-145) mEq/L Potassium 4.6 (3.5-5.1) mEq/L Chloride 102 (98-107) mEq/L Carbon Dioxide 34.3 H (21-32) mEq/L Anion Gap 10.5 (5-15) MEQ/L BUN 23 H (9-20) mg/dL Creatinine 0.84 (0.55-1.30) mg/dl Estimated GFR > 60 ML/MIN Glucose 93 (70-110) MG/DL Calcium 9.1 (8.5-10.1) mg/dL - Other Procedures and Tests Respiratory Therapy 04/22/16 23:00 Respiratory Nebulizer Q4H 04/22/16 23:45 Flutter Therapy UD 04/23/16 00:52 BiPap/CPAP Assessment ROUTINE Assessment/Plan (1) Pneumonia Current Visit: Yes Status: Acute Qualifiers: Pneumonia type: due to unspecified organism Laterality: bilateral Lung location: unspecified part of lung Qualified Code(s): J18.9 - Pneumonia, unspecified organism Assessment & Plan: Was on po levaquin. 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 Code(s): J18.9 - PNEUMONIA, UNSPECIFIED ORGANISM (2) Hypertension Current Visit: No Status: Chronic Assessment & Plan: some elevated bp here, although did have one BP 110s systolic; observe. Resume home meds. Code(s): I10 - ESSENTIAL (PRIMARY) HYPERTENSION (3) Type 2 diabetes mellitus Current Visit: No Status: Chronic Qualifiers: Diabetes mellitus complication status: without complication Diabetes mellitus professor of genetics insulin use: without professor of genetics use Qualified Code(s): E11.9 - Type 2 diabetes mellitus without complications Assessment & Plan: Holding metformin x 48 h due to CTA of the chest. (4) Chest pain Current Visit: Yes Status: Acute Assessment & Plan: PE and AR ruled out. I think just musculoskeletal due to coughing s/p CABG and sternal surgery in the past 1 yr. Code(s): R07.9 - CHEST PAIN, UNSPECIFIED (5) History of pulmonary embolism Current Visit: No Status: Chronic Assessment & Plan: on xarelto. Code(s): Z86.711 - PERSONAL HISTORY OF PULMONARY EMBOLISM
[2016-04-23] MEDS: Sodium Chloride 0.9% 1000 ML 1,000 ML IV SCH ×2 (09:53→19:57)
[2016-04-23] MEDS: solu-MEDROL 40 MG IV SCH ×2 (09:54→17:08)
[2016-04-23] MEDS ORDERED: NON-FORMULARY ITEM (Gabapentin [Neurontin] 600 MG) PO SCH (10:00)
[2016-04-23] MEDS ORDERED: NON-FORMULARY ITEM (Potassium Chloride 20 Meq Tab [Potassium Chloride 20 Meq Tablet] 20 ME PO SCH (10:00)
[2016-04-23] MEDS ORDERED: NON-FORMULARY ITEM (Levothyroxine Sodium [Synthroid] 175 MCG) PO SCH (10:00)
[2016-04-23] MEDS: SYNTHROID 150 MCG PO SCH (10:41)
[2016-04-23] MEDS: ECOTRIN 81 MG PO SCH (10:41)
[2016-04-23] MEDS: SYNTHROID 25 MCG PO SCH (10:41)
[2016-04-23] MEDS: Lasix 40 MG PO SCH (10:41)
[2016-04-23] MEDS: XARELTO 10 MG TABLET PO SCH (10:42)
[2016-04-23] MEDS: Klor Con 10 MEQ PO SCH (10:42)
[2016-04-23] MEDS: Norco 10/325 MG Tablet PO PRN ×2 (10:51→18:02)
[2016-04-23] MEDS: NovoLOG Insulin SQ PRN ×2 (17:08→22:16)
[2016-04-23] MEDS: ROCEPHIN 1 Gm-D5w 50 ml Bag** 50 ML IV SCH (21:59)
[2016-04-23] MEDS: Zanaflex 4 MG PO SCH (22:01)
[2016-04-23] MEDS: Zithromax 500 MG/ 250 ML NaCl Premix 250 ML IV SCH (22:44)
[2016-04-24] MEDS: solu-MEDROL 40 MG IV SCH ×3 (01:05→17:12)
[2016-04-24] MEDS: MORPHINE SULFATE 2 MG INJ IV PRN ×4 (02:43→22:15)
[2016-04-24] MEDS: DUONEB 0.5-3 MG/3 ml Neb IH SCH ×6 (03:11→22:50)
[2016-04-24] MEDS: NEURONTIN 300 MG PO SCH ×2 (08:26→21:20)
[2016-04-24] MEDS: Sodium Chloride 0.9% 1000 ML 1,000 ML IV SCH ×2 (08:28→18:51)
[2016-04-24] MEDS: NovoLOG Insulin SQ PRN ×3 (08:29→17:14)
[2016-04-24] MEDS: Lasix 40 MG PO SCH (09:44)
[2016-04-24] MEDS: ECOTRIN 81 MG PO SCH (09:44)
[2016-04-24] MEDS: SYNTHROID 25 MCG PO SCH (09:44)
[2016-04-24] MEDS: Klor Con 10 MEQ PO SCH (09:44)
[2016-04-24] MEDS: SYNTHROID 150 MCG PO SCH (09:44)
[2016-04-24] MEDS: Protonix 40MG Tablet PO SCH ×2 (09:44→21:20)
[2016-04-24] MEDS: XARELTO 10 MG TABLET PO SCH (09:44)
--- NOTE | 2016-04-24 13:04 | PCM.NOTE ---
Date and Time: 04/24/16 1259 Subjective Assessment: Pt is feeling much better, breathing is better. On 2L NC at home and currently on 1.5L NC. - Review of Systems Constitutional: No Fever Respiratory: Cough, Wheezing Objective Exam General Appearance: no apparent distress, obese Neurologic Exam: alert, oriented x 3, cooperative Skin Exam: normal color, warm, dry Respiratory Exam: diminished breath sounds (fair air exchange), wheezing ( throughout), No crackles/rales, No rhonchi Cardiovascular Exam: regular rate/rhythm, normal heart sounds Extremity Exam: No pedal edema, No swelling Back Exam: normal inspection OBJECTIVE DATA Vital Signs: Vital Signs - 24 hr Temp Pulse Resp BP Pulse Ox 04/24/16 12:00 18 04/24/16 11:39 98.1 F 96 H 18 141/63 91 L 04/24/16 10:46 93 H 20 94 L 04/24/16 08:00 17 04/24/16 07:38 98.1 F 83 17 136/63 94 L 04/24/16 07:14 92 H 20 94 L 04/24/16 04:00 20 04/24/16 03:52 98.1 F 85 20 143/67 93 L 04/24/16 03:11 85 20 93 L 04/24/16 00:00 18 04/23/16 23:59 97.8 F 78 18 132/63 98 04/23/16 23:18 78 18 98 04/23/16 20:00 98.9 F 97 H 18 138/62 92 L 04/23/16 19:09 94 H 18 92 L 04/23/16 16:00 98.4 F 98 H 17 121/54 91 L 04/23/16 15:35 18 04/23/16 14:22 95 H 18 92 L Oxygen-Last 24 hours O2 Percentage 2 Liters = 28% O2 Percentage 2 Liters = 28% O2 Percentage 2 Liters = 28% O2 Percentage 2 Liters = 28% O2 Percentage 2 Liters = 28% O2 Percentage 2 Liters = 28% Pain Assessment - Last Documented Pain Intensity 2 Pain Scale Used 0-10 Pain Scale Intake and Output: Intake & Output 04/22/16 04/23/16 04/24/16 04/25/16 11:59 11:59 11:59 11:59 Intake Total 1181 2986 Output Total 1 Balance 1180 2986 Weight 95.118 kg Lab Results: Accuchecks Date 04/23/16 Time 16:30 Accucheck Value: 348 Accucheck Value: 356 Accucheck Value: 231 Lab Results-Last 24 Hours 04/24/16 Range/Units 05:40 Hemoglobin A1c 5.8 (4.5-6.2) Assessment/Plan (1) Pneumonia Current Visit: Yes Status: Acute Qualifiers: Pneumonia type: due to unspecified organism Laterality: bilateral Lung location: unspecified part of lung Qualified Code(s): J18.9 - Pneumonia, unspecified organism Assessment & Plan: Doing much better! Stay on IV steroids for now, will likely need several more days of treatment before d/c home. Code(s): J18.9 - PNEUMONIA, UNSPECIFIED ORGANISM (2) Hypertension Current Visit: No Status: Chronic Assessment & Plan: stable, systolic BP 130s-140s. Code(s): I10 - ESSENTIAL (PRIMARY) HYPERTENSION (3) Type 2 diabetes mellitus Current Visit: No Status: Chronic Qualifiers: Diabetes mellitus complication status: without complication Diabetes mellitus joint terminal attack controller insulin use: without retirement use Qualified Code(s): E11.9 - Type 2 diabetes mellitus without complications Assessment & Plan: BS currently 300s after addition of the steroid - add lantus. (4) Chest pain Current Visit: Yes Status: Acute Assessment & Plan: occurs only with coughing. Code(s): R07.9 - CHEST PAIN, UNSPECIFIED (5) History of pulmonary embolism Current Visit: No Status: Chronic Code(s): Z86.711 - PERSONAL HISTORY OF PULMONARY EMBOLISM
[2016-04-24] MEDS: Mirapex 0.5 MG Tablet PO SCH (21:19)
[2016-04-24] MEDS: Zanaflex 4 MG PO SCH (21:20)
[2016-04-24] MEDS: ZOCOR 20MG PO SCH (21:20)
[2016-04-24] MEDS: ROCEPHIN 1 Gm-D5w 50 ml Bag** 50 ML IV SCH (21:20)
[2016-04-24] MEDS ORDERED: Lantus Insulin SQ SCH (22:00)
[2016-04-24] MEDS: Zithromax 500 MG/ 250 ML NaCl Premix 250 ML IV SCH (22:08)
[2016-04-25] MEDS: solu-MEDROL 40 MG IV SCH ×2 (00:39→08:48)
[2016-04-25] MEDS: DUONEB 0.5-3 MG/3 ml Neb IH SCH ×2 (02:53→07:01)
[2016-04-25] MEDS: MORPHINE SULFATE 2 MG INJ IV PRN (04:46)
[2016-04-25 05:52] LABS: ANION GAP 11.8 MEQ/L (5-15); BLOOD UREA NITROGEN 21 mg/dL (9-20); CHLORIDE 105 mEq/L (98-107); Carbon Dioxide 30.2 mEq/L (21-32); Glucose 174 MG/DL (70-110); Potassium 5.1 mEq/L (3.5-5.1); SODIUM 142 mEq/L (136-145)
[2016-04-25 06:20] LABS: Mean Cell Volume 97.1 fl (78-100); Mean Corpuscular Hemoglobin 29.5 pg (26-32); Mean Platelet Volume 9.7 fl (6-9.5); Platelet Count 209 K/mm3 (150-450); Red Blood Count 4.47 M/mm3 (4.1-5.4); Red Cell Distribution Width 13.7 % (11.5-14.0); White Blood Count 12.6 K/mm3 (4.0-10.5)
[2016-04-25 07:02] VITALS: BP 130/75
[2016-04-25 07:03] VITALS: PULSE 91; O2SAT 97
[2016-04-25] MEDS: NEURONTIN 300 MG PO SCH (07:25)
[2016-04-25] MEDS: NovoLOG Insulin SQ PRN (07:26)
[2016-04-25 07:27] LABS: BAND 7 % (0.0-2.0); Platelet Estimate NORMAL (NORMAL); Total Cells Counted 100
[2016-04-25] MEDS ORDERED: Glucophage 500 MG PO SCH (08:00)
--- NOTE | 2016-04-25 08:36 | PCM.DS ---
Discharge Summary Date of Admission: 04/22/16 23:01 Admitting Physician: DENISE LENZ Primary Care Provider: DENISE LENZ Allergies Allergies No Known Drug Allergies Allergy (Verified 04/22/16 18:42) Hospital Summary - Hospital Course Hospital Course: Pt admitted with pneumonia after being treated inpatient for the same a week ago. Improved steadily on IV antibiotics with the addition of IV steroids. BS have been elevated into the 300s; now in the 200s with the addition of lantus. Today she is feeling "95% better" and feeling better than when she was discharged home last Monday. On 2 L NC. Beatriz po well. - Vitals & Intake/Output Vital Signs: Vital Signs Temperature 98.2 F 04/25/16 07:00 Pulse Rate 91 H 04/25/16 07:01 Respiratory Rate 18 04/25/16 07:01 Blood Pressure 130/75 04/25/16 07:00 O2 Sat by Pulse Oximetry 97 04/25/16 07:01 Oxygen-Last Documented O2 Percentage 2 Liters = 28% Intake & Output: Intake & Output 04/22/16 04/23/16 04/24/16 04/25/16 11:59 11:59 11:59 11:59 Intake Total 1181 2986 2588 Output Total 1 Balance 1180 2986 2588 Weight 95.118 kg - Lab Result Diagrams: 04/25/16 05:04 04/25/16 05:04 Lab Results-Last 24 Hrs: Accuchecks Date 04/25/16 Date 04/24/16 Time 07:27 Time 11:30 Accucheck Value: 226 Accucheck Value: 194 Accucheck Value: 290 Accucheck Value: 219 Lab Results-Last 24 Hours 04/24/16 04/25/16 04/25/16 Range/Units 05:40 05:04 05:04 WBC 12.6 H (4.0-10.5) K/mm3 RBC 4.47 (4.1-5.4) M/mm3 Hgb 13.2 (12.0-16.0) gm/dl Hct 43.4 (35-47) % MCV 97.1 (78-100) fl MCH 29.5 (26-32) pg MCHC 30.4 L (32-36) g/dl RDW 13.7 (11.5-14.0) % Plt Count 209 (150-450) K/mm3 MPV 9.7 H (6-9.5) fl Gran % (36.0-66.0) % Lymphocytes % (24.0-44.0) % Monocytes % (0.0-12.0) % Eosinophils % (0.00-5.0) % Basophils % (0.0-0.4) % Segmented Neutrophils 89 H (36.0-66.0) % Band Neutrophils 7 H (0.0-2.0) % Lymphocytes (Manual) 3 L (24-44) % Monocytes (Manual) 1 (0.0-12.0) % Basophils # (0-0.4) Differential Comment NORMAL Platelet Estimate NORMAL (NORMAL) Sodium 142 (136-145) mEq/L Potassium 5.1 (3.5-5.1) mEq/L Chloride 105 (98-107) mEq/L Carbon Dioxide 30.2 (21-32) mEq/L Anion Gap 11.8 (5-15) MEQ/L BUN 21 H (9-20) mg/dL Creatinine 0.66 (0.55-1.30) mg/dl Estimated GFR > 60 ML/MIN Glucose 174 H (70-110) MG/DL Hemoglobin A1c 5.8 (4.5-6.2) Calcium 8.5 (8.5-10.1) mg/dL Micro Results-Entire Visit: Accuchecks Date 04/25/16 Date 04/24/16 Time 07:27 Time 11:30 Accucheck Value: 226 Accucheck Value: 194 Accucheck Value: 290 Accucheck Value: 219 - Procedures and Test Procedures and Tests throughout Hospitalization: Therapy Orders & Screens 04/22/16 23:00 Respiratory Nebulizer Q4H Comment: DUONEB Q4 HOURS 04/22/16 23:40 Respiratory Therapy Consult ROUTINE Comment: Reason For Exam: 04/22/16 23:45 Flutter Therapy UD Comment: Diagnosis: PNEU 04/23/16 00:52 BiPap/CPAP Assessment ROUTINE Comment: 7CMH2O WITH 2L AT NIGHT PER PT'S HOME USE Diagnosis: PNEU Discharge Exam General Appearance: no apparent distress Neurologic Exam: alert, oriented x 3, cooperative Skin Exam: normal color, warm, dry Eye Exam: eyes nml inspection Respiratory Exam: normal breath sounds, lungs clear, No crackles/rales, No rhonchi, No wheezing Cardiovascular Exam: regular rate/rhythm, normal heart sounds Extremity Exam: other (LUE with bruising just proximal to elbow; s/p blood draw) Final Diagnosis/Problem List - Final Discharge Diagnosis/Problem (1) Pneumonia Current Visit: Yes Status: Acute Assessment & Plan: Much better, lungs sound great today and she is feeling very good. Home on po cefdinir and prednisone. O2 from [facility]. (2) Hypertension Current Visit: No Status: Chronic Assessment & Plan: stable. (3) Type 2 diabetes mellitus Current Visit: No Status: Chronic Assessment & Plan: Home on lantus 10 units at hs and novolog sliding scale while she is on her steroid. f/u with me in 1 wk. (4) Chest pain Current Visit: Yes Status: Resolved (5) History of pulmonary embolism Current Visit: No Status: Chronic (6) PITA (obstructive sleep apnea) Current Visit: Yes Status: Acute Assessment & Plan: Will schedule outpatient sleep study in several weeks. - Discharge Disposition: Home, Self-Care Condition: Stable Prescriptions: New Cefdinir 300 mg PO BID #20 capsule Prednisone 10 mg [Deltasone 10 mg] 10 mg PO DAILY #48 tablet Insulin Glargine [Lantus Insulin] 10 unit SQ HS #1 unit Insulin Aspart [NovoLOG Insulin] 5 units SQ ACHS PRN #1 unit PRN Reason: Hyperglycemia Continue Potassium Chloride 20 Meq Tab [Potassium Chloride 20 MEQ TABLET] 20 meq PO DAILY Furosemide 40 mg [Lasix 40 MG] 40 mg PO DAILY Aspirin 81 gm Chew [Baby Aspirin 81 mg Chew] 81 mg PO DAILY Omeprazole 20 MG [Prilosec 20 mg] 20 mg PO BID Tizanidine HCl 4 mg [Zanaflex 4 MG] 4 mg PO HS Rivaroxaban 10 mg Tablet [Xarelto 10 mg Tablet] 20 mg PO DAILY Metformin HCl 1000 mg [Glucophage 1000 MG] 1,000 mg PO BID Pramipexole Di-HCl [Mirapex] 0.125 mg PO HS #30 tablet Pravastatin Sodium 20 mg PO QHS Gabapentin [Neurontin] 600 mg PO QAM Levothyroxine Sodium [Synthroid] 175 mcg PO DAILY Gabapentin [Neurontin] 600 mg PO DAILY Gabapentin [Neurontin] 1,200 mg PO HS Albuterol/Ipratropium 3ml Neb* [DUONEB 0.5-3 MG/3 ml Neb] 3 ml IH Q4-6HPRN PRN #100 ampul.neb PRN Reason: Cough Discontinued Prednisone 20 mg [Deltasone 20 mg] 20 mg PO UD #18 tablet Levofloxacin [Levaquin] 500 mg PO DAILY #7 tablet Follow up with: DENISE LENZ [Primary Care Provider] - Forms: Patient Portal Information
[2016-04-25] MEDS: XARELTO 10 MG TABLET PO SCH (09:14)
[2016-04-25] MEDS: Lasix 40 MG PO SCH (09:14)
[2016-04-25] MEDS: SYNTHROID 25 MCG PO SCH (09:15)
[2016-04-25] MEDS: ECOTRIN 81 MG PO SCH (09:15)
[2016-04-25] MEDS: SYNTHROID 150 MCG PO SCH (09:15)
[2016-04-25] MEDS: Protonix 40MG Tablet PO SCH (09:15)
[2016-04-25] MEDS: Klor Con 10 MEQ PO SCH (09:15)
== END 2016-04-25 10:00 | disposition home or self-care (01) | DRG 194 ==
LOC: ED 18:19 → MED SURG 23:01
PROVIDERS: ADMIT Family Medicine; ATTEND Family Medicine
DX: J18.9 Pneumonia, unspecified organism (principal); I25.810 Atherosclerosis of coronary artery bypass graft(s) without angina pectoris; I10 Essential (primary) hypertension; E11.9 Type 2 diabetes mellitus without complications; Z79.4 Long term (current) use of insulin; R07.9 Chest pain, unspecified; Z86.711 Personal history of pulmonary embolism; G47.33 Obstructive sleep apnea (adult) (pediatric); E05.90 Thyrotoxicosis, unspecified without thyrotoxic crisis or storm; M81.0 Age-related osteoporosis without current pathological fracture; M06.9 Rheumatoid arthritis, unspecified; Z79.01 Long term (current) use of anticoagulants; Z79.899 Other long term (current) drug therapy; Z95.810 Presence of automatic (implantable) cardiac defibrillator
CPT/HCPCS: 36000; 36415; 71260; 80048; 80053; 82962; 83036; 83880; 84484; 85025; 85610; 85730; 87040; 93005; 93041; 94640; 94660; 94760; 96365; 96367; 99284; J0456; J0696; J2270; J2920

== ENCOUNTER 2016-05-09 10:29 | Inpatient (IN) | payer MEDICARE ==
[2016-05-09] MEDS ORDERED: Colace 100 MG PO PRN (11:28)
[2016-05-09] MEDS ORDERED: TYLENOL 325 MG PO PRN (11:28)
[2016-05-09] MEDS ORDERED: Lasix 40 MG PO SCH (11:28)
[2016-05-09] MEDS ORDERED: DULCOLAX 5 MG PO PRN (11:28)
[2016-05-09] MEDS ORDERED: DEXTROSE IV SCH (12:00)
[2016-05-09] MEDS: NEURONTIN 300 MG PO SCH ×2 (12:00→20:06)
[2016-05-09] MEDS ORDERED: ZOSYN IV SCH (12:00)
[2016-05-09] MEDS ORDERED: WATER IV SCH (12:00)
[2016-05-09] MEDS: NovoLOG Insulin SQ SCH ×3 (12:01→22:31)
[2016-05-09] MEDS: Sodium Chloride 0.9% 10 ML FLUSH Syringe IV SCH ×2 (13:57→22:30)
[2016-05-09] MEDS: Zosyn INJ 4.5 GM in D5w 100ML Mini Bag 100 ML 100 ML IV SCH ×2 (13:57→23:51)
[2016-05-09] MEDS: DUONEB 0.5-3 MG/3 ml Neb IH SCH ×3 (15:14→22:56)
[2016-05-09] MEDS ORDERED: Lasix 40 MG/4 ML IV ONE (20:08)
[2016-05-09] MEDS: ZOCOR 20MG PO SCH (22:21)
[2016-05-09] MEDS: Protonix 40MG Tablet PO SCH (22:21)
[2016-05-09] MEDS: Mirapex 0.5 MG Tablet PO SCH (22:21)
[2016-05-09] MEDS: Zanaflex 4 MG PO SCH (22:21)
[2016-05-09] MEDS: Neurontin 400 MG PO SCH (22:21)
[2016-05-09] MEDS: Lantus Insulin SQ SCH (22:30)
[2016-05-09] MEDS: NovoLOG Insulin SQ PRN (22:31)
[2016-05-09] MEDS: OXYCODONE-ACETAMINOPHEN 10-325 PO PRN (22:32)
[2016-05-10] MEDS: DUONEB 0.5-3 MG/3 ml Neb IH SCH ×6 (02:54→22:38)
[2016-05-10] MEDS: Sodium Chloride 0.9% 10 ML FLUSH Syringe IV SCH ×2 (07:02→14:09)
[2016-05-10] MEDS: Zosyn INJ 4.5 GM in D5w 100ML Mini Bag 100 ML 100 ML IV SCH ×2 (07:02→14:08)
[2016-05-10] MEDS: NovoLOG Insulin SQ SCH ×3 (07:38→16:59)
--- NOTE | 2016-05-10 08:53 | PCM.NOTE ---
Date and Time: 05/10/16 0847 Subjective Assessment: She had 3000 mL out yesterday after IV lasix 80mg. Swelling decreased in LE but still having more purple color to R toes than usual. Has known PVD with some blockage in L groin. c/o pain posterior lower ribs bilat, with coughing/inspiration. Had a BM. - Review of Systems Constitutional: No Fever Respiratory: Cough Musculoskeletal: Back Pain Objective Exam General Appearance: no apparent distress Neurologic Exam: alert, oriented x 3, cooperative Skin Exam: warm, dry Respiratory Exam: lungs clear, other (decreased breath sounds, fair to good air exchange), No crackles/rales, No rhonchi, No wheezing Cardiovascular Exam: regular rate/rhythm, normal heart sounds Gastrointestinal/Abdomen Exam: soft, No tenderness Extremity Exam: other (trace pretibial edema bilat. R toes purple discoloration with cap refill < 2 sec and warmth) OBJECTIVE DATA Vital Signs: Vital Signs - 24 hr Temp Pulse Resp BP Pulse Ox 05/10/16 07:25 98.2 F 97 H 97 H 142/61 19 L 05/10/16 07:00 101 H 16 98 05/10/16 04:00 16 05/10/16 02:54 104 H 18 95 05/10/16 00:00 16 05/09/16 22:56 104 H 21 98 05/09/16 20:00 17 05/09/16 19:47 107 H 17 99 05/09/16 18:58 107 H 17 99 05/09/16 15:52 20 05/09/16 15:00 100 H 16 97 05/09/16 11:01 98 H 20 98 05/09/16 10:47 98.2 F 98 H 18 119/57 98 Oxygen-Last 24 hours O2 Percentage 2 Liters = 28% O2 Percentage 2 Liters = 28% O2 Percentage 2 Liters = 28% Pain Assessment - Last Documented Pain Intensity 3 [facility] Intake and Output: Intake & Output 05/07/16 05/08/16 05/09/16 05/10/16 11:59 11:59 11:59 11:59 Intake Total 1882 Output Total 3025 Balance -1143 Weight 100.879 kg Lab Results: Accuchecks Date 05/10/16 Date 05/09/16 Date 05/09/16 Date 05/09/16 Time 07:30 Time 22:00 Time 16:09 Time 11:22 Accucheck Value: 95 Accucheck Value: 283 Accucheck Value: 115 Accucheck Value: 126 Assessment/Plan (1) Pneumonia Current Visit: No Status: Acute Qualifiers: Pneumonia type: due to unspecified organism Lung location: unspecified part of lung Assessment & Plan: On IV antibiotics, improving. Code(s): J18.9 - PNEUMONIA, UNSPECIFIED ORGANISM (2) COPD exacerbation Current Visit: No Status: Acute Assessment & Plan: as above. Code(s): J44.1 - CHRONIC OBSTRUCTIVE PULMONARY DISEASE W (ACUTE) EXACERBATION (3) Back pain Current Visit: Yes Status: Acute Qualifiers: Back pain location: low back pain Assessment & Plan: I think related to coughing. check cxr Code(s): M54.9 - DORSALGIA, UNSPECIFIED (4) Edema Current Visit: No Status: Acute Assessment & Plan: responding well to lasix. if echo not done in last 6mo will repeat. telemetry Code(s): R60.9 - EDEMA, UNSPECIFIED (5) Type 2 diabetes mellitus Current Visit: No Status: Chronic Qualifiers: Diabetes mellitus complication status: without complication Assessment & Plan: stable
[2016-05-10] MEDS: Protonix 40MG Tablet PO SCH (09:41)
[2016-05-10] MEDS: ECOTRIN 81 MG PO SCH (09:41)
[2016-05-10] MEDS: Lasix 40 MG/4 ML IV SCH (09:41)
[2016-05-10] MEDS: NEURONTIN 300 MG PO SCH ×3 (09:41→19:38)
[2016-05-10] MEDS: XARELTO 10 MG TABLET PO SCH (09:41)
[2016-05-10] MEDS: Klor Con 10 MEQ PO SCH (09:41)
[2016-05-10] MEDS: SYNTHROID 75 MCG PO SCH (09:42)
[2016-05-10] MEDS: SYNTHROID 100 MCG PO SCH (09:42)
[2016-05-10] MEDS: LEVOFLOXACIN 750MG/150ML D5W 150 ML IV SCH (09:42)
[2016-05-10] MEDS: OXYCODONE-ACETAMINOPHEN 10-325 PO PRN (09:48)
--- NOTE | 2016-05-10 09:57 | XRAY ---
Indication: Posterior chest pain. Comparison: May 08, 2016. PA/lateral chest unchanged again hyperinflated with right base infiltrate/atelectasis. Heart is not enlarged and again demonstrate a left-sided AICD. No new/acute findings.
[2016-05-10] MEDS ORDERED: Aplisol ID SCH (10:00)
[2016-05-10 10:47] LABS: ANION GAP 9.1 MEQ/L (5-15); BLOOD UREA NITROGEN 19 mg/dL (9-20); CHLORIDE 99 mEq/L (98-107); Carbon Dioxide 34.4 mEq/L (21-32); Glucose 174 MG/DL (70-110); Potassium 3.9 mEq/L (3.5-5.1); SODIUM 139 mEq/L (136-145)
[2016-05-10 10:53] LABS: Mean Cell Volume 98.9 fl (78-100); Mean Corpuscular Hemoglobin 29.9 pg (26-32); Mean Platelet Volume 9.5 fl (6-9.5); Platelet Count 154 K/mm3 (150-450); Red Blood Count 4.65 M/mm3 (4.1-5.4); Red Cell Distribution Width 14.8 % (11.5-14.0); White Blood Count 6.2 K/mm3 (4.0-10.5)
[2016-05-10] MEDS: NovoLOG Insulin SQ PRN (11:02)
[2016-05-10 12:50] LABS: BAND 5 % (0.0-2.0); Eosinophil 2 % (0.00-3.0); Platelet Estimate NORMAL (NORMAL); Total Cells Counted 100
--- NOTE | 2016-05-10 15:35 | XRAY ---
Indication: PVD. Two-dimensional sonogram and color Doppler imaging of the major arteries of the left and right leg was performed. Comparison: None Examination of the right leg demonstrates minimal/mild scattered arteriosclerotic disease in the common femoral, superficial femoral, popliteal, and posterior tibial arteries. Dorsal pedal artery occluded. No other critical stenosis or obstruction. Arterial waveforms are multiphasic. Examination of the left leg also demonstrates minimal/mild scattered arteriosclerotic disease in the common femoral, superficial femoral, popliteal, posterior tibial, and dorsal pedal arteries. No critical stenosis or obstruction. Arterial waveforms are monophasic throughout. Ankle brachial indices not obtained as the patient could not tolerate. Impression: Scattered arteriosclerotic disease bilaterally as detailed with right dorsal pedal artery occluded. Contrast enhanced CTA abdominal aorta with bilateral leg runoff may yield further information if clinically warranted.
[2016-05-11] MEDS ORDERED: HOLD METFORMIN PRODUCTS FOR 48 HOURS MC PRN (00:05)
[2016-05-11] MEDS: Lantus Insulin SQ SCH ×2 (00:55→23:07)
[2016-05-11] MEDS: Mirapex 0.5 MG Tablet PO SCH ×2 (00:57→23:03)
[2016-05-11] MEDS: Neurontin 400 MG PO SCH ×2 (00:58→23:04)
[2016-05-11] MEDS: Sodium Chloride 0.9% 10 ML FLUSH Syringe IV SCH ×4 (00:59→23:14)
[2016-05-11] MEDS: Protonix 40MG Tablet PO SCH ×3 (00:59→23:05)
[2016-05-11] MEDS: Zanaflex 4 MG PO SCH ×2 (00:59→23:05)
[2016-05-11] MEDS: NovoLOG Insulin SQ SCH ×5 (00:59→23:08)
[2016-05-11] MEDS: OXYCODONE-ACETAMINOPHEN 10-325 PO PRN ×3 (01:00→18:10)
[2016-05-11] MEDS: Zosyn INJ 4.5 GM in D5w 100ML Mini Bag 100 ML 100 ML IV SCH ×4 (01:00→23:15)
[2016-05-11] MEDS: ZOCOR 20MG PO SCH ×2 (01:00→23:14)
[2016-05-11] MEDS: DUONEB 0.5-3 MG/3 ml Neb IH SCH ×6 (03:14→23:14)
[2016-05-11] MEDS: NEURONTIN 300 MG PO SCH ×3 (08:35→20:10)
[2016-05-11] MEDS: Klor Con 10 MEQ PO SCH (08:36)
[2016-05-11] MEDS: ECOTRIN 81 MG PO SCH (08:36)
[2016-05-11] MEDS: SYNTHROID 100 MCG PO SCH (08:36)
[2016-05-11] MEDS: Lasix 40 MG/4 ML IV SCH (08:36)
[2016-05-11] MEDS: XARELTO 10 MG TABLET PO SCH (08:37)
[2016-05-11] MEDS: LEVOFLOXACIN 750MG/150ML D5W 150 ML IV SCH (08:37)
[2016-05-11] MEDS: SYNTHROID 75 MCG PO SCH (08:37)
--- NOTE | 2016-05-11 09:42 | XRAY ---
Indication: PVD. Occluded right dorsal pedal artery. Conventional contrast enhanced CTA abdominal aorta with bilateral runoff was performed using 150 cc Isovue 370 contrast. Two-dimensional sagittal and coronal reformatted images obtained. Additional 3-dimensional reformatted images obtained using a separate workstation. Comparison: None. Abdominal aorta is normal in course and caliber with mild scattered calcifications. Normal branching celiac, superior mesenteric, and inferior mesenteric arteries. The SMA demonstrates additional scattered calcifications without critical stenosis/obstruction. A single renal artery supplies each kidney. Mild calcification seen in the proximal right main renal artery and minimal calcifications at the origin of the left main renal artery without critical stenosis, obstruction, or vascular malformation. Right leg runoff demonstrates mild scattered calcifications in the common iliac, internal/external iliac branches, and lesser degree the common femoral arteries without critical stenosis/obstruction. Minimal calcification seen in the deep femoral branch. Superficial femoral artery demonstrates mild scattered calcifications throughout without critical stenosis/obstruction. Minimal calcifications in the proximal popliteal artery. Trifurcation vessels demonstrates scattered calcifications in the proximal anterior tibial artery with the distal artery attenuated. Dorsal pedal and posterior tibial artery appears patent as it crosses the ankle joint to supply the right foot. Left leg runoff demonstrates mild scattered calcifications in the common iliac, internal/external iliac and common femoral arteries without critical stenosis/obstruction. Minimal calcifications in the deep femoral artery. Minimal scattered calcification seen in the remaining superficial femoral and popliteal arteries. Trifurcation vessels demonstrates minimal calcifications in the proximal anterior and posterior tibial arteries with the distal arteries attenuated. Normal three-vessel runoff into the left foot. Lung bases demonstrates bibasilar atelectasis/scarring small hiatal hernia, and borderline cardiomegaly. No consolidation or effusion. Noncontrasted stomach and bowel loops appear nonobstructed. There is moderate diffuse scattered colonic fecal debris including rectum. No free fluid/air. 13 cm splenomegaly. Scattered hepatic/splenic calcified granulomas. Previous cholecystectomy and hysterectomy. Small 1.6 cm left gluteal fold sebaceous cyst. Lower extremities demonstrates left lower leg muscular atrophy compared to the contralateral leg. Remaining liver, pancreas, spleen, pancreas, adrenal glands, kidneys, ureters, and bladder appear unremarkable. No pathologic retroperitoneal lymphadenopathy. Impression: 1. Mild scattered arteriosclerotic calcifications of the abdominal aorta without aneurysm/dissection. Additional scattered calcifications in the proximal superior mesenteric and both main renal arteries without critical stenosis/obstruction. 2. Right leg runoff demonstrates scattered arteriosclerotic calcifications without critical stenosis/obstruction. Normal three-vessel runoff into the right foot. 3. Left leg runoff also demonstrates scattered arteriosclerotic calcifications without critical stenosis/obstruction. Normal three-vessel runoff into the left foot. 4. Incidental CT findings including hiatal hernia, cardiomegaly, splenomegaly, and fecal stasis without obstruction. 5. Left lower leg muscular atrophy. Comment: Preliminary interpretation was made by [facility]. No critical discrepancy. CT DI 17.19
--- NOTE | 2016-05-11 10:19 | PCM.NOTE ---
Date and Time: 05/11/16 1013 Subjective Assessment: She is breathing well, cough is now productive. No LE edema. HR increased to 140 x 3 last night, resolved with valsalva. She notes that this happens several times a day, cardiology is aware and she was asymptomatic. SHe states if there is any difference will let us know. Objective Exam General Appearance: no apparent distress, obese Neurologic Exam: alert, oriented x 3, cooperative Skin Exam: normal color, warm, dry Respiratory Exam: lungs clear, diminished breath sounds (good air exchange), No crackles/rales, No rhonchi, No wheezing Cardiovascular Exam: regular rate/rhythm, normal heart sounds Gastrointestinal/Abdomen Exam: soft, No tenderness Extremity Exam: No pedal edema, No swelling OBJECTIVE DATA Vital Signs: Vital Signs - 24 hr Temp Pulse Resp BP Pulse Ox 05/11/16 08:00 22 05/11/16 07:25 98.3 F 101 H 22 119/57 94 L 05/11/16 06:57 101 H 16 94 L 05/11/16 04:00 18 05/11/16 03:00 92 H 18 96 05/11/16 00:00 20 05/10/16 22:40 102 H 20 96 05/10/16 20:00 98.5 F 105 H 17 112/57 95 05/10/16 19:06 108 H 22 98 05/10/16 16:00 18 05/10/16 14:25 105 H 18 98 05/10/16 12:00 16 05/10/16 10:34 105 H 16 98 Oxygen-Last 24 hours O2 Percentage 2 Liters = 28% Pain Assessment - Last Documented Pain Intensity 6 Pain Scale Used 0-10 Pain Scale Intake and Output: Intake & Output 05/08/16 05/09/16 05/10/16 05/11/16 11:59 11:59 11:59 11:59 Intake Total 1852 1940 Output Total 3125 700 Balance -1243 1240 Weight 100.879 kg Lab Results: Accuchecks Date 05/11/16 Date 05/10/16 Date 05/10/16 Time 07:30 Time 16:30 Time 11:01 Accucheck Value: 108 Accucheck Value: 155 Accucheck Value: 126 Accucheck Value: 280 Lab Results-Last 24 Hours 05/10/16 05/10/16 Range/Units 09:40 09:40 WBC 6.2 (4.0-10.5) K/mm3 RBC 4.65 (4.1-5.4) M/mm3 Hgb 13.9 (12.0-16.0) gm/dl Hct 46.0 (35-47) % MCV 98.9 (78-100) fl MCH 29.9 (26-32) pg MCHC 30.2 L (32-36) g/dl RDW 14.8 H (11.5-14.0) % Plt Count 154 (150-450) K/mm3 MPV 9.5 (6-9.5) fl Segmented Neutrophils 84 H (36.0-66.0) % Band Neutrophils 5 H (0.0-2.0) % Lymphocytes (Manual) 6 L (24-44) % Monocytes (Manual) 3 (0.0-12.0) % Eosinophils (Manual) 2 (0.00-3.0) % Differential Comment NORMAL Platelet Estimate NORMAL (NORMAL) Sodium 139 (136-145) mEq/L Potassium 3.9 (3.5-5.1) mEq/L Chloride 99 (98-107) mEq/L Carbon Dioxide 34.4 H (21-32) mEq/L Anion Gap 9.1 (5-15) MEQ/L BUN 19 (9-20) mg/dL Creatinine 0.96 (0.55-1.30) mg/dl Estimated GFR > 60 ML/MIN Glucose 174 H (70-110) MG/DL Calcium 9.1 (8.5-10.1) mg/dL NT-Pro-B Natriuret Pep 625 H (0-125) pg/ml Radiology Exams: Radiology Procedures Category Date Time Status ARTERIAL BILAT LOWER EXTREMITY [US] Routine Exams 05/10/16 08:48 Completed CHEST 2 VIEWS (PA AND LAT) Routine Exams 05/10/16 08:49 Completed CTA ABD/PEL W FEM RUNOFF [CT] Routine Exams 05/10/16 18:45 Completed ECHO W/2D AND DOPPLER [US] Routine Exams 05/11/16 08:00 Taken Assessment/Plan (1) Pneumonia Current Visit: No Status: Acute Qualifiers: Pneumonia type: due to unspecified organism Lung location: unspecified part of lung Assessment & Plan: improving Code(s): J18.9 - PNEUMONIA, UNSPECIFIED ORGANISM (2) Tachycardia Current Visit: Yes Status: Acute Assessment & Plan: Chronic, asymptomatic, and cardiology is aware. Appears sinus. Code(s): R00.0 - TACHYCARDIA, UNSPECIFIED (3) COPD exacerbation Current Visit: No Status: Acute Code(s): J44.1 - CHRONIC OBSTRUCTIVE PULMONARY DISEASE W (ACUTE) EXACERBATION (4) Edema Current Visit: No Status: Acute Assessment & Plan: improved wiht lasix. will continue for now. echo result pending. Code(s): R60.9 - EDEMA, UNSPECIFIED (5) Type 2 diabetes mellitus Current Visit: No Status: Chronic Qualifiers: Diabetes mellitus complication status: without complication
[2016-05-11 11:01] LABS: Mean Cell Volume 98.1 fl (78-100); Mean Corpuscular Hemoglobin 29.2 pg (26-32); Mean Platelet Volume 9.1 fl (6-9.5); Platelet Count 165 K/mm3 (150-450); Red Blood Count 4.66 M/mm3 (4.1-5.4); Red Cell Distribution Width 14.8 % (11.5-14.0); White Blood Count 6.7 K/mm3 (4.0-10.5)
[2016-05-11 11:20] LABS: BAND 4 % (0.0-2.0); Platelet Estimate NORMAL (NORMAL); Total Cells Counted 100
[2016-05-11 11:57] LABS: ANION GAP 10.1 MEQ/L (5-15); BLOOD UREA NITROGEN 16 mg/dL (9-20); CHLORIDE 102 mEq/L (98-107); Carbon Dioxide 33.9 mEq/L (21-32); Glucose 142 MG/DL (70-110); MAGNESIUM 1.9 mg/dL (1.8-2.4); Potassium 4.2 mEq/L (3.5-5.1); SODIUM 142 mEq/L (136-145)
--- NOTE | 2016-05-11 12:31 | ECHO ---
Transthoracic echocardiographic examination and color Doppler was done on 05/11/2016. INDICATION: Cardiomyopathy, hypertension, diabetes, post coronary bypass surgery. IMPRESSION: 1) GLOBAL LEFT VENTRICULAR HYPOKINESIA. EJECTION FRACTION OF ABOUT 30%. 2) MILD MITRAL REGURGITATION. 3) MODERATELY DILATED LEFT ATRIUM. 4) MILD PULMONARY INSUFFICIENCY. 5) MILDLY DILATED LEFT VENTRICLE. The left ventricle is visualized and demonstrated global type of hypokinesia. Ejection fraction about 30%. The left ventricle appears to be mildly dilated. Left ventricular thickness is normal. The mitral valve is seen and this has a low flow characteristic suggest of decreased cardiac output. There is mild mitral regurgitation. Left atrium is mildly enlarged. The aortic valve is sclerotic but opens adequately. Right side chambers are normal. There is mild pulmonic insufficiency.
[2016-05-11] MEDS: NovoLOG Insulin SQ PRN (23:09)
[2016-05-12] MEDS: DUONEB 0.5-3 MG/3 ml Neb IH SCH ×2 (03:09→07:04)
[2016-05-12] MEDS: Zosyn INJ 4.5 GM in D5w 100ML Mini Bag 100 ML 100 ML IV SCH (06:28)
[2016-05-12] MEDS: Sodium Chloride 0.9% 10 ML FLUSH Syringe IV SCH (06:34)
[2016-05-12 07:07] VITALS: O2SAT 99
[2016-05-12 07:29] VITALS: BP 115/55; PULSE 91
[2016-05-12] MEDS: NovoLOG Insulin SQ SCH (07:56)
[2016-05-12] MEDS: SYNTHROID 100 MCG PO SCH (09:00)
[2016-05-12] MEDS: XARELTO 10 MG TABLET PO SCH (09:00)
[2016-05-12] MEDS: Lasix 40 MG/4 ML IV SCH (09:00)
[2016-05-12] MEDS: SYNTHROID 75 MCG PO SCH (09:00)
[2016-05-12] MEDS: LEVOFLOXACIN 750MG/150ML D5W 150 ML IV SCH (09:00)
[2016-05-12] MEDS: ECOTRIN 81 MG PO SCH (09:00)
[2016-05-12] MEDS: Klor Con 10 MEQ PO SCH (09:00)
[2016-05-12] MEDS: Protonix 40MG Tablet PO SCH (09:00)
[2016-05-12] MEDS: NEURONTIN 300 MG PO SCH (09:02)
--- NOTE | 2016-05-12 09:04 | PCM.DS ---
Discharge Summary Date of Admission: 05/09/16 10:30 Admitting Physician: DENISE LENZ Primary Care Provider: DENISE LENZ Allergies Allergies No Known Drug Allergies Allergy (Verified 04/22/16 18:42) Hospital Summary - Hospital Course Hospital Course: She was admitted for the third time recently with pneumonia. Treated based on a sputum culture. She has recovered steadily. Some increased LE edema which resolved with IV lasix (she does take lasix at home). She had some purple discoloration of her R toes with the edema; arterial doppler suspicious for dorsalis pedis occlusion, but CTA with no blockages. She is still coughing. Tired and falls asleep during the day. Does have PITA and is using CPAP but not sure about her setting; has repeat sleep study later on this month. - Vitals & Intake/Output Vital Signs: Vital Signs Temperature 98.8 F 05/12/16 07:28 Pulse Rate 91 H 05/12/16 07:28 Respiratory Rate 20 05/12/16 07:28 Blood Pressure 115/55 05/12/16 07:28 O2 Sat by Pulse Oximetry 99 05/12/16 07:28 Oxygen-Last Documented O2 Percentage 2 Liters = 28% Intake & Output: Intake & Output 05/09/16 05/10/16 05/11/16 05/12/16 11:59 11:59 11:59 11:59 Intake Total 1882 1940 2320 Output Total 3125 1600 Balance -1878 556 8512 Weight 100.879 kg - Lab Result Diagrams: 05/11/16 10:51 05/11/16 10:51 Lab Results-Last 24 Hrs: Accuchecks Date 05/12/16 Date 05/11/16 Date 05/11/16 Date 05/11/16 Time 07:30 Time 22:00 Time 16:30 Time 11:30 Accucheck Value: 118 Accucheck Value: 204 Accucheck Value: 162 Accucheck Value: 152 Lab Results-Last 24 Hours 05/11/16 05/11/16 Range/Units 10:51 10:51 WBC 6.7 (4.0-10.5) K/mm3 RBC 4.66 (4.1-5.4) M/mm3 Hgb 13.6 (12.0-16.0) gm/dl Hct 45.7 (35-47) % MCV 98.1 (78-100) fl MCH 29.2 (26-32) pg MCHC 29.8 L (32-36) g/dl RDW 14.8 H (11.5-14.0) % Plt Count 165 (150-450) K/mm3 MPV 9.1 (6-9.5) fl Segmented Neutrophils 71 H (36.0-66.0) % Band Neutrophils 4 H (0.0-2.0) % Lymphocytes (Manual) 20 L (24-44) % Monocytes (Manual) 1 (0.0-12.0) % Differential Comment NORMAL Platelet Estimate NORMAL (NORMAL) Sodium 142 (136-145) mEq/L Potassium 4.2 (3.5-5.1) mEq/L Chloride 102 (98-107) mEq/L Carbon Dioxide 33.9 H (21-32) mEq/L Anion Gap 10.1 (5-15) MEQ/L BUN 16 (9-20) mg/dL Creatinine 0.90 (0.55-1.30) mg/dl Estimated GFR > 60 ML/MIN Glucose 142 H (70-110) MG/DL Calcium 9.2 (8.5-10.1) mg/dL Magnesium 1.9 (1.8-2.4) mg/dL Micro Results-Entire Visit: Accuchecks Date 05/12/16 Date 05/11/16 Date 05/11/16 Date 05/11/16 Time 07:30 Time 22:00 Time 16:30 Time 11:30 Accucheck Value: 118 Accucheck Value: 204 Accucheck Value: 162 Accucheck Value: 152 - Radiology Exams Ordered Rad Exams-Entire Visit: Radiology Procedures Category Date Time Status ARTERIAL BILAT LOWER EXTREMITY [US] Routine Exams 05/10/16 08:48 Completed CHEST 2 VIEWS (PA AND LAT) Routine Exams 05/10/16 08:49 Completed CTA ABD/PEL W FEM RUNOFF [CT] Routine Exams 05/10/16 18:45 Completed ECHO W/2D AND DOPPLER [US] Routine Exams 05/11/16 08:00 Draft - Procedures and Test Procedures and Tests throughout Hospitalization: Therapy Orders & Screens 05/09/16 10:46 BiPap/CPAP Assessment ROUTINE Comment: RT to titrate and maintain spo2 >92% Diagnosis: Infection requiring I.V. Antibiotics 05/09/16 10:50 Oxygen NASAL CANNULA 2 lpm Comment: RT to titrate and maintain spo2 >92% Diagnosis: Infection requiring I.V. Antibiotics 05/09/16 15:00 Respiratory Nebulizer Q4H Comment: Diagnosis: Infection requiring I.V. Antibiotics 05/11/16 10:16 EKG ROUTINE Comment: Diagnosis: Infection requiring I.V. Antibiotics Discharge Exam General Appearance: no apparent distress, obese Neurologic Exam: alert, oriented x 3, cooperative Skin Exam: normal color, warm, dry Respiratory Exam: normal breath sounds, prolonged expirations, No crackles/rales , No rhonchi, No wheezing Cardiovascular Exam: regular rate/rhythm, normal heart sounds Extremity Exam: other (pedal pulses 2+R, 1+ L), No pedal edema, No swelling Final Diagnosis/Problem List - Final Discharge Diagnosis/Problem (1) Pneumonia Current Visit: No Status: Acute Assessment & Plan: Much improved, will send home on bactrim (sputum cx grew Stentrophomonas multophilis, susceptible to vancomycin and bactrim). F/u in 1 wk. (2) Tachycardia Current Visit: Yes Status: Acute Assessment & Plan: INtermittent, asymptomatic; per pt cardiology is aware. (3) COPD exacerbation Current Visit: No Status: Acute (4) Edema Current Visit: No Status: Chronic Assessment & Plan: home on home dose of lasix. (5) Type 2 diabetes mellitus Current Visit: No Status: Chronic Assessment & Plan: stable - Discharge Disposition: Home, Self-Care Condition: Good Prescriptions: New Sulfamethoxazole/Trimethoprim [Bactrim Ds Tablet] 1 each PO BID #20 tablet Continue Potassium Chloride 20 Meq Tab [Potassium Chloride 20 MEQ TABLET] 20 meq PO DAILY Furosemide 40 mg [Lasix 40 MG] 40 mg PO DAILY Aspirin 81 gm Chew [Baby Aspirin 81 mg Chew] 81 mg PO DAILY Omeprazole 20 MG [Prilosec 20 mg] 20 mg PO BID Tizanidine HCl 4 mg [Zanaflex 4 MG] 4 mg PO HS Rivaroxaban 10 mg Tablet [Xarelto 10 mg Tablet] 20 mg PO DAILY Metformin HCl 1000 mg [Glucophage 1000 MG] 1,000 mg PO BID Pramipexole Di-HCl [Mirapex] 0.125 mg PO HS #30 tablet Pravastatin Sodium 20 mg PO QHS Gabapentin [Neurontin] 600 mg PO QAM Levothyroxine Sodium [Synthroid] 175 mcg PO DAILY Gabapentin [Neurontin] 1,200 mg PO HS Albuterol/Ipratropium 3ml Neb* [DUONEB 0.5-3 MG/3 ml Neb] 3 ml IH Q4-6HPRN PRN #100 ampul.neb PRN Reason: Cough Insulin Glargine [Lantus Insulin] 10 unit SQ HS #1 unit Insulin Aspart [NovoLOG Insulin] 5 units SQ ACHS PRN #1 unit PRN Reason: Hyperglycemia Gabapentin 400 mg [Neurontin 400 MG] 600 mg PO LUNCH Gabapentin 400 mg [Neurontin 400 MG] 600 mg PO QPM Docusate Sodium 100 mg [Colace 100 MG] 100 mg PO DAILY PRN PRN PRN Reason: Constipation Discontinued Cefdinir 300 mg PO BID #20 capsule Prednisone 10 mg [Deltasone 10 mg] 20 mg PO DAILY
[2016-05-20] MEDS ORDERED: Aplisol ID SCH (10:00)
== END 2016-05-12 10:35 | disposition home or self-care (01) | DRG 194 ==
LOC: MED SURG 10:30
PROVIDERS: ADMIT Family Medicine; ATTEND Family Medicine
DX: J18.9 Pneumonia, unspecified organism (principal); J44.1 Chronic obstructive pulmonary disease with (acute) exacerbation; I25.810 Atherosclerosis of coronary artery bypass graft(s) without angina pectoris; R00.0 Tachycardia, unspecified; R60.9 Edema, unspecified; E11.9 Type 2 diabetes mellitus without complications; Z79.4 Long term (current) use of insulin; I10 Essential (primary) hypertension; G62.9 Polyneuropathy, unspecified; E05.90 Thyrotoxicosis, unspecified without thyrotoxic crisis or storm; G47.33 Obstructive sleep apnea (adult) (pediatric); M81.0 Age-related osteoporosis without current pathological fracture; M06.9 Rheumatoid arthritis, unspecified; R79.89 Other specified abnormal findings of blood chemistry; M54.9 Dorsalgia, unspecified; E78.00 Pure hypercholesterolemia, unspecified; E66.01 Morbid (severe) obesity due to excess calories; Z86.711 Personal history of pulmonary embolism; Z79.01 Long term (current) use of anticoagulants; Z79.899 Other long term (current) drug therapy; I25.2 Old myocardial infarction; Z72.0 Tobacco use
CPT/HCPCS: 36415; 71020; 75635; 80048; 82962; 83735; 83880; 85025; 93005; 93306; 93925; 94640; 94660; 94760; J1940; J1956; J2543

== ENCOUNTER 2016-08-07 21:20 | Emergency (ER) | payer MEDICARE ==
[2016-08-07] MEDS ORDERED: Phenergan 25 MG INJ IM ONE (21:43)
[2016-08-07] MEDS ORDERED: DILAUDID 2 MG INJECTION IM STA (21:43)
[2016-08-07] MEDS ORDERED: Phenergan 25 MG INJ ONE (21:50)
[2016-08-07] MEDS ORDERED: Hydromorphone 1 mg/ml Ampule ONE (21:51)
--- NOTE | 2016-08-07 22:09 | ERPHSYRPT ---
- History of Present Illness Time Seen by Provider: 08/07/16 21:30 Source: patient Exam Limitations: clinical condition Patient Subjective Stated Complaint: PT STS SAT DOWN ON BED LAST NIGHT TO REMOVE SHOES AND THEN COULDN'T GET UP FROM BED, TROUBLE STANDING UP, PAIN RT SIDE OF BACK. PT STS PAIN SHOOTS IN BACK, WAXES AND WANES, WORSE WITH MOVEMENT. RATES PAIN 10/10. STS HOME MEDS SHE TOOK DID NOT HELP. Triage Nursing Assessment: PT ALERT, ORIENTED, ANSWERS ALL QUESTIONS APPROPRIATELY. SKIN P/W/D, RESPS NON-LABORED. PT GRIMACES WITH MOVEMENT. LOOSE COUGH NOTED. PT ABLE TO TRANSFER CAR TO WHEELCHAIR AND WHEELCHAIR TO BED WITH ASSIST X 2. Physician History: PATIENT WITH LONGSTANDING HISTORY OF PERIPHERAL NEUROPATHY, SCIATICA, CHRONIC PAIN SYNDROME, COMPLAINS OF SEVERE LOWER BACK PAIN SINCE LAST NIGHT. DENIES TRAUMA OR INJURY, HAS LIMITED RANGE OF MOTION DUE TO PAIN DISCOMFORT. Timing/Duration: yesterday Method of Injury: unknown Quality: burning, sharp Back Pain Location: lumbar spine Back Pain Radiation: buttocks Severity of Pain-Max: severe Severity of Pain-Current: severe Modifying Factors: Improves With: movement Associated Symptoms: tingling in legs/feet (CHRONIC PARESTHESIA LEFT LEG), lower back pain Previous symptoms: same symptoms as today Allergies/Adverse Reactions: No Known Drug Allergies Allergy (Verified 08/07/16 22:09) Home Medications: Furosemide 40 mg [Lasix 40 MG] 40 mg PO DAILY 07/17/12 [History] Potassium Chloride 20 Meq Tab [Potassium Chloride 20 MEQ TABLET] 20 meq PO DAILY 07/17/12 [History] Aspirin 81 gm Chew [Baby Aspirin 81 mg Chew] 81 mg PO DAILY 11/30/13 [ History] Omeprazole 20 MG [Prilosec 20 mg] 20 mg PO BID 11/30/13 [History] Rivaroxaban 10 mg Tablet [Xarelto 10 mg Tablet] 20 mg PO DAILY 11/30/13 [ History] Tizanidine HCl 4 mg [Zanaflex 4 MG] 8 mg PO HS 11/30/13 [History] Metformin HCl 1000 mg [Glucophage 1000 MG] 1,000 mg PO TID 07/04/15 [History] Pravastatin Sodium 20 mg PO QHS 02/04/16 [History] Gabapentin [Neurontin] 600 mg PO QAM 03/15/16 [History] Levothyroxine Sodium [Synthroid] 175 mcg PO DAILY 03/15/16 [History] Gabapentin [Neurontin] 1,200 mg PO HS 04/14/16 [History] Gabapentin 400 mg [Neurontin 400 MG] 1,200 mg PO LUNCH 05/04/16 [History] Gabapentin 400 mg [Neurontin 400 MG] 600 mg PO QPM 05/04/16 [History] Docusate Sodium 100 mg [Colace 100 MG] 100 mg PO BID 05/08/16 [History] Hydrocodone Bit/Acetaminophen [Hydrocodon-Acetaminophn 10-325] 1 each PO BID PRN PRN 08/07/16 [History] Hx Tetanus, Diphtheria Vaccination/Date Given: Yes Hx Influenza Vaccination/Date Given: Yes Hx Pneumococcal Vaccination/Date Given: Yes Immunizations Up to Date: Yes - Review of Systems Constitutional: No Fever, No Chills Eyes: No Symptoms Ears, Nose, & Throat: No Symptoms Respiratory: No Symptoms, No Cough, No Dyspnea Cardiac: No Symptoms, No Chest Pain, No Edema, No Syncope Abdominal/Gastrointestinal: No Symptoms, No Abdominal Pain, No Nausea, No Vomiting, No Diarrhea Genitourinary Symptoms: No Symptoms, No Dysuria Musculoskeletal: No Symptoms, Back Pain, No Neck Pain Skin: No Rash Neurological: Parasthesia, No Dizziness, No Focal Weakness, No Sensory Changes Psychological: No Symptoms Endocrine: No Symptoms All Other Systems: Reviewed and Negative - Past Medical History Pertinent Past Medical History: Yes Neurological History: Peripheral Neuropathy, Other ENT History: Cataracts Cardiac History: Coronary Artery Disease, High Cholesterol, Hypertension, Myocardial Infarction ([place]) Respiratory History: COPD, Pneumonia, Sleep Apnea, Other Endocrine Medical History: Diabetes Type II, Hyperthyroidism Musculoskeletal History: Osteoporosis, Rheumatoid Arthritis GI Medical History: Hernia History: No Pertinent History Psycho-Social History: No Pertinent History Female Reproductive Disorders: No Pertinent History Other Medical History: pt wear c-pap at night. pt has restless leg syndrome. - Past Surgical History Past Surgical History: Yes Neuro Surgical History: No Pertinent History Cardiac: Angioplasty, CABG, Cardiac Catheterization, Cardiac Stent, Internal Defibrillator, Pacemaker, Vascular Surgery, Other Respiratory: No Pertinent History Gastrointestinal: Cholecystectomy Genitourinary: No Pertinent History Musculoskeletal: Other Female Surgical History: Hysterectomy Other Surgical History: pt had CABG in July 2015, had sternum removed in August due to infection, Pt states her breast bones are held together with the muscles from her breasts. She has had varicose veins tied off. She states they were not stripped. She has also had bilateral carpal tunnel surgery. And she has had surgery on her big toe . Pt wears a brace on her left leg due to neuropathy - Social History Smoking Status: Current every day smoker How long have you smoked: 40+ Exposure to second hand smoke: No Drug Use: none Patient Lives Alone: No - Female History Hx Now: No - Nursing Vital Signs Temperature: 98.9 F Temperature Source: Oral Pulse Rate: 109 Respiratory Rate: 18 Pain Intensity: 10 - Physical Exam General Appearance: moderate distress Eye Exam: PERRL/EOMI, eyes nml inspection Neck Exam: normal inspection Respiratory Exam: normal breath sounds Cardiovascular Exam: regular rate/rhythm Gastrointestinal Exam: soft, normal bowel sounds, No tenderness, No mass Back Exam: vertebral tenderness, decreased range of motion, point tenderness (L- 1 TO L-5 RIGHT PARASPINAL TENDERNESS) Extremity Exam: normal inspection, normal range of motion Neurologic Exam: alert, normal mood/affect Skin Exam: normal color SpO2 Interpretation: normal SpO2: 95 Oxygen Delivery: Room Air - CT Exams Lumbar Spine CT Interpretation: Tele-radiologist Report (THERE IS MULTILEVEL LUMBAR DISC AFNORMALITIES, PRODUCING A MULTILEVEL NEUROFORAMINAL STENOSIS MOST PRONOUNCED AT THE LEFT L5-S-1) Ordered Tests: Active Orders 24 hr Category Date Time Status Oxygen-ED Only NASAL CANNULA 2 lpm Care 08/07/16 22:43 Active LUMBAR SPINE W/O [CT] Stat Exams 08/07/16 21:44 Taken Medication Summary Discontinued Medications Generic Name Dose Route Start Last Admin Trade Name Freq PRN Reason Stop Dose Admin Hydromorphone HCl 2 mg 08/07/16 21:43 08/07/16 21:53 Dilaudid 2 Mg Injection IM 08/07/16 21:44 2 mg STAT STA Administration Hydromorphone HCl Confirm 08/07/16 21:51 Hydromorphone 1 Mg/Ml Ampule Administered 08/07/16 21:52 Dose 2 mg .ROUTE .STK-MED ONE Promethazine HCl 12.5 mg 08/07/16 21:43 08/07/16 21:52 Phenergan 25 Mg Inj IM 08/07/16 21:44 12.5 mg STAT ONE Administration Promethazine HCl Confirm 08/07/16 21:50 Phenergan 25 Mg Inj Administered 08/07/16 21:51 Dose 25 mg .ROUTE .STK-MED ONE - Progress Progress: improved Progress Note: 08/07/16 22:09 PATIENT GIVEN DILAUDID 2MG/PHENERGAN 12.5MG IM Counseled pt/family regarding: diagnosis, need for follow-up, rad results - Departure Time of Disposition: 23:58 Departure Disposition: Home Clinical Impression: LUMBAR DEGENERATIVE DISC DISEASE Condition: Stable Critical Care Time: No Additional Instructions: CONSULT YOUR FAMILY PHYSICIAN FOR EVALUATION AND REFERRAL TO PAIN CLINIC. AMBULATE WITH WALKER ASSISTANCE. NORCO 10/325 EVERY 4 HOURS FOR PAIN. VALIUM 5MG TWICE DAILY FOR MUSCLE SPASM. Prescriptions: Hydrocodone/APAP 10/325 mg [[place] 10/325 MG Tablet] 1 tab PO Q4H PRN PRN # 20 tablet PRN Reason: Pain Diazepam 5 mg [Valium 5 MG] 5 mg PO BIDPRN PRN #15 tablet PRN Reason: Muscle Spasms
[2016-08-07 23:40] VITALS: O2SAT 95
[2016-08-08 00:29] VITALS: BP 132/73; PULSE 100
--- NOTE | 2016-08-08 09:10 | XRAY ---
Indication: Intractable low back pain. Multiple contiguous axial images obtained through the lumbar spine. Sagittal and coronal reformatted images obtained. Comparison: January 03, 2014. Axial images again demonstrates multilevel degenerative disc disease with endplate spurring and vacuum disc phenomena again greatest at the L5-S1 level. Stable left L5-S1 foraminal stenosis. No disc herniation or spinal canal stenosis. Sagittal and coronal reformatted images again demonstrates moderate levorotoscoliosis centered at the L3 level. Stable multilevel degenerative disc space narrowing. No acute compression fracture or subluxation. Visualized noncontrasted soft tissues again demonstrates heavy aortoiliac calcifications without AAA. Impression: Stable multilevel degenerative spondylosis and levorotoscoliosis. No new/acute findings. Comment: Preliminary interpretation was made by [facility]. No discrepancy. CT DI 152.84
== END 2016-08-08 00:41 | disposition home or self-care (01) ==
LOC: ED 21:20
DX: M51.36 Other intervertebral disc degeneration, lumbar region (principal); M54.5 Low back pain; Z79.01 Long term (current) use of anticoagulants; Z79.899 Other long term (current) drug therapy; I25.10 Atherosclerotic heart disease of native coronary artery without angina pectoris; E78.00 Pure hypercholesterolemia, unspecified; I10 Essential (primary) hypertension; I25.2 Old myocardial infarction; E11.9 Type 2 diabetes mellitus without complications
CPT/HCPCS: 72131; 99284; J1170; J2550

== ENCOUNTER 2016-08-19 20:38 | Emergency (ER) | payer MEDICARE ==
--- NOTE | 2016-08-19 21:08 | ERPHSYRPT ---
- History of Present Illness Time Seen by Provider: 08/19/16 21:00 Source: patient Exam Limitations: no limitations Physician History: Pt. with weakness/dizziness for past 2 day but worse at 5 PM today. Denies syncope/pre-syncope symptoms, chest or abdominal pain, but noted with headaches , continued cough and stated dx. with pneumonia X 3 this past year. Denies any fever, chills, SOB, N/V/D, sore throat or congestion. Held BP meds today due to low BP, 82/62 at 5PM to day and 78/56 at 6PM. Denies any numbness, tingling or weakness or extremities Timing/Duration: day(s) (2), constant Severity: moderate Modifying Factors: Improves With: movement (worsens dizziness) Associated Symptoms: weakness, No nausea, No vomiting, No abdominal pain, No shortness of breath, No chest pain, No fever Allergies/Adverse Reactions: No Known Drug Allergies Allergy (Verified 08/19/16 21:56) Home Medications: Furosemide 40 mg [Lasix 40 MG] 40 mg PO DAILY 07/17/12 [History] Potassium Chloride 20 Meq Tab [Potassium Chloride 20 MEQ TABLET] 20 meq PO DAILY 07/17/12 [History] Aspirin 81 gm Chew [Baby Aspirin 81 mg Chew] 81 mg PO DAILY 11/30/13 [ History] Omeprazole 20 MG [Prilosec 20 mg] 20 mg PO BID 11/30/13 [History] Rivaroxaban 10 mg Tablet [Xarelto 10 mg Tablet] 20 mg PO DAILY 11/30/13 [ History] Tizanidine HCl 4 mg [Zanaflex 4 MG] 8 mg PO HS 11/30/13 [History] Metformin HCl 1000 mg [Glucophage 1000 MG] 1,000 mg PO TID 07/04/15 [History] Pravastatin Sodium 20 mg PO QHS 02/04/16 [History] Gabapentin [Neurontin] 600 mg PO QAM 03/15/16 [History] Levothyroxine Sodium [Synthroid] 175 mcg PO DAILY 03/15/16 [History] Gabapentin [Neurontin] 1,200 mg PO HS 04/14/16 [History] Gabapentin 400 mg [Neurontin 400 MG] 1,200 mg PO LUNCH 05/04/16 [History] Gabapentin 400 mg [Neurontin 400 MG] 600 mg PO QPM 05/04/16 [History] Docusate Sodium 100 mg [Colace 100 MG] 100 mg PO BID 05/08/16 [History] Hydrocodone Bit/Acetaminophen [Hydrocodon-Acetaminophn 10-325] 1 each PO BID PRN PRN 08/07/16 [History] Hx Tetanus, Diphtheria Vaccination/Date Given: Yes Hx Influenza Vaccination/Date Given: Yes Hx Pneumococcal Vaccination/Date Given: Yes - Review of Systems Constitutional: Fatigue, Weakness Eyes: No Symptoms Ears, Nose, & Throat: No Symptoms Respiratory: Cough, No Dyspnea Cardiac: Edema, Palpitations, No Chest Pain, No Syncope Abdominal/Gastrointestinal: No Symptoms, No Abdominal Pain, No Nausea, No Vomiting, No Diarrhea Genitourinary Symptoms: No Dysuria Musculoskeletal: No Back Pain, No Neck Pain Skin: No Rash Neurological: No Symptoms, No Dizziness, No Focal Weakness, No Sensory Changes Psychological: No Symptoms Endocrine: No Symptoms Hematologic/Lymphatic: No Symptoms All Other Systems: Reviewed and Negative - Past Medical History Pertinent Past Medical History: Yes Neurological History: Peripheral Neuropathy, Other ENT History: Cataracts Cardiac History: Coronary Artery Disease, High Cholesterol, Hypertension, Myocardial Infarction ([place]) Respiratory History: COPD, Pneumonia, Sleep Apnea, Other Endocrine Medical History: Diabetes Type II, Hyperthyroidism Musculoskeletal History: Osteoporosis, Rheumatoid Arthritis GI Medical History: Hernia History: No Pertinent History Psycho-Social History: No Pertinent History Female Reproductive Disorders: No Pertinent History Other Medical History: pt wear c-pap at night. pt has restless leg syndrome. - Past Surgical History Past Surgical History: Yes Neuro Surgical History: No Pertinent History Cardiac: Angioplasty, CABG, Cardiac Catheterization, Cardiac Stent, Internal Defibrillator, Pacemaker, Vascular Surgery, Other Respiratory: No Pertinent History Gastrointestinal: Cholecystectomy Genitourinary: No Pertinent History Musculoskeletal: Other Female Surgical History: Hysterectomy Other Surgical History: pt had CABG in July 2015, had sternum removed in August due to infection, Pt states her breast bones are held together with the muscles from her breasts. She has had varicose veins tied off. She states they were not stripped. She has also had bilateral carpal tunnel surgery. And she has had surgery on her big toe . Pt wears a brace on her left leg due to neuropathy - Social History Smoking Status: Current every day smoker How long have you smoked: 40+ Exposure to second hand smoke: No Drug Use: none Patient Lives Alone: No Significant Family History: no pertinent family hx - Female History Hx Now: No - Nursing Vital Signs Nursing Vital Signs: Initial Vital Signs Temperature 99.0 F Temperature Source Oral Pulse Rate 118 Respiratory Rate 24 Blood Pressure [Left Arm] 120/64 Blood Pressure [Right Arm] 107/56 Pain Intensity 0 - Physical Exam General Appearance: no apparent distress, alert Eye Exam: PERRL/EOMI, eyes nml inspection Ears, Nose, Throat Exam: normal ENT inspection, TMs normal, pharynx normal, moist mucous membranes Neck Exam: normal inspection, non-tender, supple, full range of motion Respiratory Exam: normal breath sounds, lungs clear, diminished breath sounds, rhonchi (intermittent), No respiratory distress Cardiovascular Exam: normal heart sounds, normal peripheral pulses, tachycardia , edema (+1 pitting pedal edema) Gastrointestinal/Abdomen Exam: soft, normal bowel sounds, No tenderness, No mass Back Exam: normal inspection, normal range of motion, No CVA tenderness, No vertebral tenderness Extremity Exam: normal inspection, normal range of motion, pelvis stable, pedal edema (+1-2 pitting edema) Neurologic Exam: alert, oriented x 3, cooperative, normal mood/affect, nml cerebellar function, nml station & gait, sensation nml, No motor deficits Skin Exam: normal color, warm, dry, No rash Lymphatic Exam: No adenopathy - Course Nursing assessment & vital signs reviewed: Yes EKG Interpreted by Me: RATE ([id number]), Sinus Tach, Left [place] Deviation, NORMAL QRS, Non-specific ST Changes, Other (compared to EKG on 08/10 essentially unchanged except for tachycardia) - Radiology Exams Chest X-ray Interpretation: Teleradiologist Report, Pneumonia (interstial edema) Ordered Tests: Active Orders 24 hr Category Date Time Status Maintenance And Operations Supervisor STAT Care 08/19/16 21:11 Active EKG-ER Only STAT Care 08/19/16 21:11 Active IV Insertion STAT Care 08/19/16 21:11 Active Orthostatic Vital Signs STAT Care 08/19/16 21:11 Active Oxygen-ED Only NASAL CANNULA 2 lpm Care 08/19/16 22:16 Active CHEST 1 VIEW (PORTABLE) Stat Exams 08/19/16 21:12 Taken BNP [NT PRO BNP] Stat Lab 08/19/16 21:30 Completed CBC W DIFF Stat Lab 08/19/16 21:30 Completed CMP Stat Lab 08/19/16 21:30 Completed Manual Differential NC Stat Lab 08/19/16 21:30 Completed TROPONIN Stat Lab 08/19/16 21:30 Completed UA W/RFX UR CULTURE Stat Lab 08/19/16 21:30 Completed Medication Summary Generic Name Dose Route Start Last Admin Trade Name Freq PRN Reason Stop Dose Admin Sodium Chloride 1,000 mls @ 50 mls/hr 08/19/16 22:45 08/19/16 22:43 Sodium Chloride 0.9% 1000 Ml IV 09/18/16 22:44 50 mls/hr .Q20H AMISH Administration Ceftriaxone Sodium/Dextrose 1 g in 50 mls @ 100 mls/hr 08/19/16 23:18 Rocephin 1 Gm-D5w 50 Ml Bag IV 08/19/16 23:47 STAT STA Azithromycin 500 mg in 250 mls @ 250 mls/hr 08/19/16 23:18 Zithromax 500 Mg/ 250 Ml Nacl Premix IV 08/20/16 00:17 STAT STA Discontinued Medications Generic Name Dose Route Start Last Admin Trade Name Freq PRN Reason Stop Dose Admin Sodium Chloride 500 mls @ 999 mls/hr 08/19/16 21:11 08/19/16 21:53 Sodium Chloride 0.9% 1000 Ml IV 08/19/16 21:41 999 mls/hr .Q31M STA Administration Sodium Chloride Confirm 08/19/16 21:51 Sodium Chloride 0.9% 1000 Ml Administered 08/19/16 21:52 Dose 1,000 mls @ ud .ROUTE .K-MED ONE Lab/Rad Data: Laboratory Result Diagrams 08/19/16 21:30 08/19/16 21:30 Laboratory Results 08/19/16 08/19/16 08/19/16 Range/Units 21:30 21:30 21:30 WBC (4.0-10.5) K/mm3 RBC (4.1-5.4) M/mm3 Hgb (12.0-16.0) gm/dl Hct (35-47) % MCV (78-100) fl MCH (26-32) pg MCHC (32-36) g/dl RDW (11.5-14.0) % Plt Count (150-450) K/mm3 MPV (6-9.5) fl Segmented Neutrophils (36.0-66.0) % Lymphocytes (Manual) (24-44) % Monocytes (Manual) (0.0-12.0) % Eosinophils (Manual) (0.00-3.0) % Differential Comment Platelet Estimate (NORMAL) Sodium 140 (136-145) mEq/L Potassium 4.2 (3.5-5.1) mEq/L Chloride 105 (98-107) mEq/L Carbon Dioxide 30.2 (21-32) mEq/L Anion Gap 8.5 (5-15) MEQ/L BUN 13 (9-20) mg/dL Creatinine 0.72 (0.55-1.30) mg/dl Estimated GFR > 60 ML/MIN Glucose 93 (70-110) MG/DL Calcium 9.2 (8.5-10.1) mg/dL Total Bilirubin 0.30 (0.2-1.0) mg/dL AST 8 L (15-37) U/L ALT 11 L (12-78) U/L Alkaline Phosphatase 85 (46-116) U/L Troponin I < 0.017 (0.000-0.056) ng/ml NT-Pro-B Natriuret Pep 1810 H (0-125) pg/ml Serum Total Protein 6.7 (6.4-8.2) gm/dL Albumin 3.1 L (3.4-5.0) g/dL Ur Collection Type CCMS Urine Color YELLOW (YELLOW) Urine Appearance CLEAR (CLEAR) Urine pH 7.0 (5-6) Ur Specific [place] 1.015 (1.005-1.025) Urine Protein NEGATIVE (Negative) Urine Glucose (UA) NEGATIVE (NEGATIVE) mg/dL Urine Ketones NEGATIVE (NEGATIVE) Urine Nitrite NEGATIVE (NEGATIVE) Urine Bilirubin NEGATIVE (NEGATIVE) Urine Urobilinogen 0.2 (0-1) mg/dL Urine WBC (Auto) NEGATIVE (NEGATIVE) Urine RBC (Auto) NEGATIVE (0-5) [place]/ul Specimen Received [id number] Range/Units 21:30 WBC 9.3 (4.0-10.5) K/mm3 RBC 4.48 (4.1-5.4) M/mm3 Hgb 12.5 (12.0-16.0) gm/dl Hct 40.6 (35-47) % MCV 90.6 (78-100) fl MCH 27.9 (26-32) pg MCHC 30.8 L (32-36) g/dl RDW 14.7 H (11.5-14.0) % Plt Count 204 (150-450) K/mm3 MPV 9.2 (6-9.5) fl Segmented Neutrophils 71 H (36.0-66.0) % Lymphocytes (Manual) 20 L (24-44) % Monocytes (Manual) 7 (0.0-12.0) % Eosinophils (Manual) 2 (0.00-3.0) % Differential Comment NORMAL Platelet Estimate NORMAL (NORMAL) Sodium (136-145) mEq/L Potassium (3.5-5.1) mEq/L Chloride (98-107) mEq/L Carbon Dioxide (21-32) mEq/L Anion Gap (5-15) MEQ/L BUN (9-20) mg/dL Creatinine (0.55-1.30) mg/dl Estimated GFR ML/MIN Glucose (70-110) MG/DL Calcium (8.5-10.1) mg/dL Total Bilirubin (0.2-1.0) mg/dL AST (15-37) U/L ALT (12-78) U/L Alkaline Phosphatase (46-116) U/L Troponin I (0.000-0.056) ng/ml NT-Pro-B Natriuret Pep (0-125) pg/ml Serum Total Protein (6.4-8.2) gm/dL Albumin (3.4-5.0) g/dL Ur Collection Type Urine Color (YELLOW) Urine Appearance (CLEAR) Urine pH (5-6) Ur Specific [place] (1.005-1.025) Urine Protein (Negative) Urine Glucose (UA) (NEGATIVE) mg/dL Urine Ketones (NEGATIVE) Urine Nitrite (NEGATIVE) Urine Bilirubin (NEGATIVE) Urine Urobilinogen (0-1) mg/dL Urine WBC (Auto) (NEGATIVE) Urine RBC (Auto) (0-5) Efrani/ul Specimen Received - Progress Progress: improved Progress Note: 08/19/16 21:39 Pt. given IVF's. Resting very comfortably, NAD. Pt. given Zithromax/Rocephin 08/19/16 23:[address] Other (Dr. Lord at 11:25P and agrees to transfer) Counseled pt/family regarding: lab results, diagnosis, rad results - Departure Time of Disposition: 23:25 Departure Disposition: Transfer ([facility] Clinical Impression: Pneumonia, CHF (congestive heart failure) Condition: Stable Critical Care Time: No Instructions: Heart Failure
[2016-08-19 21:48] LABS: Mean Cell Volume 90.6 fl (78-100); Mean Corpuscular Hemoglobin 27.9 pg (26-32); Mean Platelet Volume 9.2 fl (6-9.5); Platelet Count 204 K/mm3 (150-450); Red Blood Count 4.48 M/mm3 (4.1-5.4); Red Cell Distribution Width 14.7 % (11.5-14.0); White Blood Count 9.3 K/mm3 (4.0-10.5)
[2016-08-19] MEDS ORDERED: Sodium Chloride 0.9% 1000 ML 1,000 ML ONE (21:51)
[2016-08-19 21:55] LABS: ADD URINE CULTURE? NO (NO); COMPLETE URINE MICROSCOPIC? NO; Collection Type CCMS
[2016-08-19 22:11] LABS: ALBUMIN 3.1 g/dL (3.4-5.0); ALKALINE PHOSPHATASE 85 U/L (46-116); ANION GAP 8.5 MEQ/L (5-15); BLOOD UREA NITROGEN 13 mg/dL (9-20); CHLORIDE 105 mEq/L (98-107); Carbon Dioxide 30.2 mEq/L (21-32); Glucose 93 MG/DL (70-110); Potassium 4.2 mEq/L (3.5-5.1); SGOT/AST 8 U/L (15-37); SGPT/ALT 11 U/L (12-78); SODIUM 140 mEq/L (136-145); Total Protein 6.7 gm/dL (6.4-8.2)
[2016-08-19 22:12] LABS: TROPONIN < 0.017 ng/ml (0.000-0.056)
[2016-08-19 22:15] VITALS: BP 120/64; PULSE 118; O2SAT 86
[2016-08-19 22:44] LABS: Eosinophil 2 % (0.00-3.0); Total Cells Counted 100
[2016-08-19 22:45] LABS: Platelet Estimate NORMAL (NORMAL)
[2016-08-19] MEDS ORDERED: Sodium Chloride 0.9% 1000 ML 1,000 ML IV SCH (22:45)
[2016-08-19] MEDS ORDERED: ROCEPHIN 1 Gm-D5w 50 ml Bag** 1 G/50 ML IVPB IV STA (23:18)
[2016-08-19] MEDS ORDERED: Zithromax 500 MG/ 250 ML NaCl Premix 500 MG/250 ML IVPB IV STA (23:18)
[2016-08-19] MEDS ORDERED: ROCEPHIN 1 Gm-D5w 50 ml Bag** 1 G/50 ML IVPB IV ONE (23:31)
[2016-08-19] MEDS ORDERED: Zithromax 500 MG/ 250 ML NaCl Premix 500 MG/250 ML IVPB IV ONE (23:52)
--- NOTE | 2016-08-20 06:46 | XRAY ---
Indication: Weakness. Comparison: May 10, 2016. Portable chest demonstrates cardiomegaly with mild central vascular prominence and left-sided AICD. New right base infiltrate and small bibasilar effusions. Bony thorax intact again with mild osteopenia. Impression: Mild CHF. Right base pneumonic infiltrate. Comment: Preliminary interpretation was made by [facility]. No discrepancy.
== END 2016-08-20 00:17 ==
LOC: ED 20:38
DX: J18.9 Pneumonia, unspecified organism (principal); I50.9 Heart failure, unspecified; R53.1 Weakness; Z79.899 Other long term (current) drug therapy; Z79.84 Long term (current) use of oral hypoglycemic drugs
CPT/HCPCS: 36000; 36415; 71010; 80053; 81002; 83880; 84484; 85025; 93005; 93041; 96360; 96361; 96365; 96367; 99285; J0456; J0696

== ENCOUNTER 2016-10-27 20:49 | Observation (INO) | payer MEDICARE ==
[2016-10-27] MEDS ORDERED: Hydromorphone 1 mg/ml Ampule IV ONE (21:39)
[2016-10-27] MEDS ORDERED: Phenergan 25 MG INJ IV ONE (21:39)
[2016-10-27] MEDS ORDERED: CLINDAMYCIN-D5W 900 MG/50 ML*** 900 MG/50 ML BAG IV STA (21:43)
[2016-10-27] MEDS ORDERED: Sodium Chloride 0.9% 1000 ML 1,000 ML IV SCH (21:45)
--- NOTE | 2016-10-27 21:51 | ERPHSYRPT ---
- History of Present Illness Time Seen by Provider: 10/27/16 21:31 Source: patient Exam Limitations: no limitations Patient Subjective Stated Complaint: pt states she has been having swelling of lower ext since last night. states she normally has edema in the lt foot, but has swelling in bilat lower ext up to thighs at this time. states she had a hard area behind her rt knee. states this began after she had an EMG with dr hyatt yesterday Triage Nursing Assessment: pt alert and oriented, answers questions approp. pt ambulatory with slow gait noted. respirations nonlabored with occasional moist cough noted. +2 edema to rt leg up to thigh and +3 edema to lt leg to thigh. Physician History: PT HAD AN EMG YESTERDAY OF HER RIGHT LEG AND ARM AT [facility] BY DR HYATT. TODAY PT HAS HAD SWELLING, PAIN AND PINK DISCOLORATION OF THE RIGHT LOWER LEG WITH NAUSEA AND A HEADACHE. PT DENIES FEVER, VOMITING, DIARRHEA. PT ALSO C/ O PAIN, SWELLING AND HARD KNOTS IN HER LOWER ABDOMEN FOR THE PAST 3 WEEKS. Allergies/Adverse Reactions: sulfamethoxazole [From Bactrim] Allergy (Verified 10/27/16 21:12) trimethoprim [From Bactrim] Allergy (Verified 10/27/16 21:12) Home Medications: Potassium Chloride 20 Meq Tab [Potassium Chloride 20 MEQ TABLET] 20 meq PO DAILY 07/17/12 [History] Aspirin 81 gm Chew [Baby Aspirin 81 mg Chew] 81 mg PO DAILY 11/30/13 [ History] Omeprazole 20 MG [Prilosec 20 mg] 20 mg PO BID 11/30/13 [History] Rivaroxaban 10 mg Tablet [Xarelto 10 mg Tablet] 20 mg PO DAILY 11/30/13 [ History] Tizanidine HCl 4 mg [Zanaflex 4 MG] 8 mg PO HS 11/30/13 [History] Metformin HCl 1000 mg [Glucophage 1000 MG] 1,000 mg PO TID 07/04/15 [History] Pravastatin Sodium 20 mg PO QHS 02/04/16 [History] Gabapentin [Neurontin] 600 mg PO QAM 03/15/16 [History] Levothyroxine Sodium [Synthroid] 175 mcg PO DAILY 03/15/16 [History] Gabapentin [Neurontin] 1,200 mg PO HS 04/14/16 [History] Gabapentin 400 mg [Neurontin 400 MG] 1,200 mg PO LUNCH 05/04/16 [History] Gabapentin 400 mg [Neurontin 400 MG] 600 mg PO QPM 05/04/16 [History] Docusate Sodium 100 mg [Colace 100 MG] 100 mg PO BID 05/08/16 [History] Enalapril Maleate 2.5 mg PO BID 08/19/16 [History] Furosemide [Lasix] 20 mg PO DAILY 08/19/16 [History] Nebivolol HCl [Bystolic] 2.5 mg PO DAILY 08/19/16 [History] Hx Tetanus, Diphtheria Vaccination/Date Given: Yes Hx Influenza Vaccination/Date Given: Yes Hx Pneumococcal Vaccination/Date Given: Yes Immunizations Up to Date: Yes - Review of Systems Constitutional: No Fever Respiratory: No Dyspnea Cardiac: No Chest Pain Abdominal/Gastrointestinal: Abdominal Pain, Nausea, No Vomiting, No Diarrhea Musculoskeletal: Other (SWELLING, PAIN AND PINK DISCOLORATION OF THE RIGHT LOWER LEG TODAY) Neurological: Headache All Other Systems: Reviewed and Negative - Past Medical History Pertinent Past Medical History: Yes Neurological History: Peripheral Neuropathy, Other ENT History: Cataracts Cardiac History: Coronary Artery Disease, High Cholesterol, Hypertension, Myocardial Infarction (SD) Respiratory History: COPD, Pneumonia, Sleep Apnea, Other Endocrine Medical History: Diabetes Type II, Hyperthyroidism Musculoskeletal History: Osteoporosis, Rheumatoid Arthritis GI Medical History: Hernia History: No Pertinent History Psycho-Social History: No Pertinent History Female Reproductive Disorders: No Pertinent History Other Medical History: pt wear c-pap at night. pt has restless leg syndrome. - Past Surgical History Past Surgical History: Yes Neuro Surgical History: No Pertinent History Cardiac: Angioplasty, CABG, Cardiac Catheterization, Cardiac Stent, Internal Defibrillator, Pacemaker, Vascular Surgery, Other Respiratory: No Pertinent History Gastrointestinal: Cholecystectomy Genitourinary: No Pertinent History Musculoskeletal: Other Female Surgical History: Hysterectomy Other Surgical History: pt had CABG in July 2015, had sternum removed in August due to infection, Pt states her breast bones are held together with the muscles from her breasts. She has had varicose veins tied off. She states they were not stripped. She has also had bilateral carpal tunnel surgery. And she has had surgery on her big toe . Pt wears a brace on her left leg due to neuropathy - Social History Smoking Status: Current every day smoker How long have you smoked: 40+ Exposure to second hand smoke: No Drug Use: none Patient Lives Alone: No Significant Family History: no pertinent family hx - Female History Hx Now: No - Nursing Vital Signs Nursing Vital Signs: Initial Vital Signs Temperature 98.4 F 10/27/16 21:03 Pulse Rate 100 H 10/27/16 21:03 Respiratory Rate 18 10/27/16 21:03 Blood Pressure 122/69 10/27/16 21:03 O2 Sat by Pulse Oximetry 94 L 10/27/16 21:03 Pain Scale Pain Intensity 4 - Physical Exam General Appearance: alert Eye Exam: eyes nml inspection Ears, Nose, Throat Exam: TMs normal, pharynx normal, moist mucous membranes Neck Exam: normal inspection Respiratory Exam: lungs clear Cardiovascular Exam: normal heart sounds Gastrointestinal/Abdomen Exam: normal bowel sounds, tenderness (LOWER ABDOMENL IS MILDLY TENDER, MILDLY ERYTHEMATOUS AND WARM.) Back Exam: normal inspection Extremity Exam: tenderness (MILD TENDERNESS, ERYTHEMA AND WARMTH OF THE RIGHT LEG) Neurologic Exam: alert, cooperative SpO2 Interpretation: normal SpO2: 94 Oxygen Delivery: Room Air - Course Nursing assessment & vital signs reviewed: Yes - CT Exams Abdomen/Pelvis CT Interpretation: Tele-radiologist Report (NO ACUTE INTRA-ABDOMINAL OR INTRA- PELVIC ABNORMALITY. PROBABLE HYDROSTTIC PULMONARY EDEMA, SMALL BILATERAL PLEURAL EFFUSIONS. INCREASED ATTENUATION OF THEVENTRAL ABDOMINAL WALL SUBCUTANEOUS TISSUES POSSIBLY EDEMA AND/OR CELLULITIS. ) - Radiology Ultrasound Exam Right Venous Lower Extremity Ultrasound: Other (TECH REPORT: NO DVT) Ordered Tests: Active Orders 24 hr Category Date Time Status IV Insertion STAT Care 10/27/16 21:39 Active ABDOMEN AND PELVIS W/0 CONTRAS [CT] Stat Exams 10/27/16 21:51 Taken VENOUS UNILAT/LIMITED EXTREMIT [US] Stat Exams 10/27/16 21:44 Taken AMYLASE Stat Lab 10/27/16 21:50 Completed BLOOD CULTURE Stat Lab 10/27/16 21:50 Received CBC W DIFF Stat Lab 10/27/16 21:50 Completed CMP Stat Lab 10/27/16 21:50 Completed LIPASE Stat Lab 10/27/16 21:50 Completed Manual Differential NC Stat Lab 10/27/16 21:50 Completed UA W/RFX UR CULTURE Stat Lab 10/27/16 22:15 Completed Medication Summary Generic Name Dose Route Start Last Admin Trade Name Nancy PRN Reason Stop Dose Admin Sodium Chloride 1,000 mls @ 100 mls/hr 10/27/16 21:45 10/27/16 22:19 Sodium Chloride 0.9% 1000 Ml IV 11/26/16 21:44 100 mls/hr .Q10H AMISH Administration Discontinued Medications Generic Name Dose Route Start Last Admin Trade Name Nancy PRN Reason Stop Dose Admin Hydromorphone HCl 1 mg 10/27/16 21:39 10/27/16 22:18 Hydromorphone 1 Mg/Ml Ampule IV 10/27/16 21:40 1 mg STAT ONE Administration Hydromorphone HCl Confirm 10/27/16 22:08 Hydromorphone 1 Mg/Ml Ampule Administered 10/27/16 22:09 Dose 1 mg .ROUTE .STK-MED ONE Clindamycin HCl/Dextrose 900 mg in 50 mls @ 100 mls/hr 10/27/16 21:43 22:19 Clindamycin-D5w 900 Mg/50 Ml IV 10/27/16 22:12 100 mls/hr STAT STA Administration Clindamycin HCl/Dextrose Confirm 10/27/16 22:08 Clindamycin-D5w 900 Mg/50 Ml Administered 10/27/16 22:09 Dose 900 mg in 50 mls @ ud IV .STK-MED ONE Promethazine HCl 12.5 mg 10/27/16 21:39 10/27/16 22:18 Phenergan 25 Mg Inj IV 10/27/16 21:40 12.5 mg STAT ONE Administration Promethazine HCl Confirm 10/27/16 22:07 Phenergan 25 Mg Inj Administered 10/27/16 22:08 Dose 25 mg .ROUTE .STK-MED ONE Lab/Rad Data: Laboratory Result Diagrams 10/27/16 21:50 10/27/16 21:50 Laboratory Results 10/27/16 10/27/16 10/27/16 Range/Units 22:15 21:50 21:50 WBC 6.3 (4.0-10.5) K/mm3 RBC 4.47 (4.1-5.4) M/mm3 Hgb 11.9 L (12.0-16.0) gm/dl Hct 40.2 (35-47) % MCV 89.9 (78-100) fl MCH 26.6 (26-32) pg MCHC 29.6 L (32-36) g/dl RDW 16.4 H (11.5-14.0) % Plt Count 249 (150-450) K/mm3 MPV 9.3 (6-9.5) fl Segmented Neutrophils 72 H (36.0-66.0) % Band Neutrophils 3 H (0.0-2.0) % Lymphocytes (Manual) 20 L (24-44) % Monocytes (Manual) 3 (0.0-12.0) % Eosinophils (Manual) 2 (0.00-3.0) % Differential Comment NORMAL Platelet Estimate NORMAL (NORMAL) Sodium 139 (136-145) mEq/L Potassium 4.2 (3.5-5.1) mEq/L Chloride 102 (98-107) mEq/L Carbon Dioxide 28.0 (21-32) mEq/L Anion Gap 12.9 (5-15) MEQ/L BUN 13 (9-20) mg/dL Creatinine 0.90 (0.55-1.30) mg/dl Estimated GFR > 60 ML/MIN Glucose 121 H (70-110) MG/DL Calcium 9.0 (8.5-10.1) mg/dL Total Bilirubin 0.40 (0.2-1.0) mg/dL AST 14 L (15-37) U/L ALT 13 (12-78) U/L Alkaline Phosphatase 98 (46-116) U/L Serum Total Protein 7.6 (6.4-8.2) gm/dL Albumin 3.4 (3.4-5.0) g/dL Amylase 40 (25-115) U/L Lipase 70 L (73-393) U/L Ur Collection Type CLEAN CATCH Urine Color YELLOW (YELLOW) Urine Appearance CLEAR (CLEAR) Urine pH 6.0 (5-6) Ur Specific [place] 1.010 (1.005-1.025) Urine Protein NEGATIVE (Negative) Urine Ketones NEGATIVE (NEGATIVE) Urine Blood NEGATIVE (0-5) [place]/ul Urine Nitrite NEGATIVE (NEGATIVE) Urine Bilirubin NEGATIVE (NEGATIVE) Urine Urobilinogen NORMAL (0-1) mg/dL Ur Leukocyte Esterase NEGATIVE (NEGATIVE) Urine Glucose NEGATIVE (NEGATIVE) mg/dL Specimen Received 10/27/167 - Progress Discussed with : Roxana ([id number] - ADMIT) - Departure Time of Disposition: 23:52 Departure Disposition: Observation Clinical Impression: CELLULITIS OF THE RIGHT LEG, PN, CAD, HTN, COPD, DM, RA, RLS, CELLULITIS OF LOWER ABDOMINAL WALL Condition: Stable Critical Care Time: No Referrals: DENISE LENZ [Primary Care Provider] -
[2016-10-27] MEDS ORDERED: Phenergan 25 MG INJ ONE (22:07)
[2016-10-27] MEDS ORDERED: CLINDAMYCIN-D5W 900 MG/50 ML*** 900 MG/50 ML BAG IV ONE (22:08)
[2016-10-27] MEDS ORDERED: Hydromorphone 1 mg/ml Ampule ONE (22:08)
[2016-10-27] MEDS ORDERED: Sodium Chloride 0.9% 1000 ML 1,000 ML ONE (22:08)
[2016-10-27 22:19] LABS: Mean Cell Volume 89.9 fl (78-100); Mean Corpuscular Hemoglobin 26.6 pg (26-32); Mean Platelet Volume 9.3 fl (6-9.5); Platelet Count 249 K/mm3 (150-450); Red Blood Count 4.47 M/mm3 (4.1-5.4); Red Cell Distribution Width 16.4 % (11.5-14.0); White Blood Count 6.3 K/mm3 (4.0-10.5)
[2016-10-27 22:21] LABS: ADD URINE CULTURE? NO (NO); Bilirubin NEGATIVE (NEGATIVE); Blood NEGATIVE Ery/ul (0-5); COMPLETE URINE MICROSCOPIC? NO; Collection Type CLEAN CATCH; Glucose NEGATIVE (NEGATIVE); Leukocyte Esterase NEGATIVE (NEGATIVE)
[2016-10-27 22:54] LABS: ALBUMIN 3.4 g/dL (3.4-5.0); ALKALINE PHOSPHATASE 98 U/L (46-116); ANION GAP 12.9 MEQ/L (5-15); BLOOD UREA NITROGEN 13 mg/dL (9-20); CHLORIDE 102 mEq/L (98-107); Glucose 121 MG/DL (70-110); LIPASE 70 U/L (73-393); Potassium 4.2 mEq/L (3.5-5.1); SGOT/AST 14 U/L (15-37); SGPT/ALT 13 U/L (12-78); SODIUM 139 mEq/L (136-145); Total Protein 7.6 gm/dL (6.4-8.2)
[2016-10-27 22:59] LABS: BAND 3 % (0.0-2.0); Eosinophil 2 % (0.00-3.0); Platelet Estimate NORMAL (NORMAL); Total Cells Counted 100
[2016-10-28] MEDS ORDERED: NovoLOG Insulin SQ PRN (00:45)
[2016-10-28] MEDS ORDERED: DILAUDID 2 MG INJECTION IV PRN (00:45)
[2016-10-28] MEDS ORDERED: TYLENOL 325 MG PO PRN (00:45)
[2016-10-28] MEDS ORDERED: Phenergan 25 MG INJ IV PRN (00:45)
[2016-10-28] MEDS: CLINDAMYCIN-D5W 600 MG/50 ML*** 600 MG/50 ML BAG IV SCH ×5 (02:20→23:12)
[2016-10-28] MEDS: Sodium Chloride 0.9% 1000 ML 1,000 ML IV SCH ×3 (02:21→22:21)
[2016-10-28 05:56] LABS: Mean Cell Volume 91.6 fl (78-100); Mean Corpuscular Hemoglobin 26.6 pg (26-32); Platelet Count 222 K/mm3 (150-450); Red Blood Count 4.17 M/mm3 (4.1-5.4); Red Cell Distribution Width 16.5 % (11.5-14.0); White Blood Count 5.1 K/mm3 (4.0-10.5)
[2016-10-28 06:19] LABS: ALBUMIN 3.1 g/dL (3.4-5.0); ALKALINE PHOSPHATASE 82 U/L (46-116); ANION GAP 10.8 MEQ/L (5-15); BLOOD UREA NITROGEN 11 mg/dL (9-20); CHLORIDE 105 mEq/L (98-107); Carbon Dioxide 28.6 mEq/L (21-32); Glucose 95 MG/DL (70-110); SGOT/AST 10 U/L (15-37); SGPT/ALT 8 U/L (12-78); SODIUM 140 mEq/L (136-145); Total Protein 6.9 gm/dL (6.4-8.2)
[2016-10-28] MEDS: PROVENTIL 2.5 MG/3 ML NEB IH PRN ×2 (07:25→22:42)
[2016-10-28 08:32] LABS: BAND 2 % (0.0-2.0); Eosinophil 2 % (0.00-3.0); Metamyelocyte 2 %; Total Cells Counted 100
--- NOTE | 2016-10-28 08:32 | PCM.HP ---
History of Present Illness - Chief Complaint Chief Complaint: cellulitis rt lower leg, cellulitis of lower abd wall History of Present Illness: is a 61 year old female with diabetes who had an EMG of RUE and RLE 2d ago. Yesterday she noticed increased swelling and mild erythema to R lower extremity with some discomfort; pt was also nauseated. She went to the ER and U/S was negative for DVT. She was treated with some IV clindamycin and admitted for cellulitis. This morning she is denying pain. Her swelling has improved. She is tolerating po well. Denies fever. - Review of Systems Respiratory: Cough (chronic - sees pulmonology) Cardiac: Edema (bilat; R>L) Abdominal/Gastrointestinal: Nausea Musculoskeletal: Back Pain (chronic) Skin: Cellulitis Psychological: No Anxiety, No Depression, No Suicidal Ideations All Other Systems: Reviewed and Negative Medications & Allergies Home Medications: Home Medication List Potassium Chloride 20 Meq Tab [Potassium Chloride 20 MEQ TABLET] 20 meq PO DAILY 07/17/12 [History Confirmed 10/27/16] Aspirin 81 gm Chew [Baby Aspirin 81 mg Chew] 81 mg PO DAILY 11/30/13 [ History Confirmed 10/27/16] Omeprazole 20 MG [Prilosec 20 mg] 20 mg PO BID 11/30/13 [History Confirmed 10/27] Rivaroxaban 10 mg Tablet [Xarelto 10 mg Tablet] 20 mg PO DAILY 11/30/13 [ History Confirmed 10/27/16] Tizanidine HCl 4 mg [Zanaflex 4 MG] 8 mg PO HS 11/30/13 [History Confirmed 10/27/16] Metformin HCl 1000 mg [Glucophage 1000 MG] 1,000 mg PO TID 07/04/15 [History Confirmed 10/27/16] Pramipexole Di-HCl [Mirapex] 0.125 mg PO HS #30 tablet 12/29/15 [Rx Confirmed ] Pravastatin Sodium 20 mg PO QHS 02/04/16 [History Confirmed 10/27/16] Gabapentin [Neurontin] 600 mg PO QAM 03/15/16 [History Confirmed 10/27/16] Levothyroxine Sodium [Synthroid] 175 mcg PO DAILY 12/20/16 [History Confirmed ] Gabapentin [Neurontin] 1,200 mg PO HS 04/14/16 [History Confirmed 10/27/16] Albuterol/Ipratropium 3ml Neb* [DUONEB 0.5-3 MG/3 ml Neb] 3 ml IH Q4-6HPRN PRN #100 ampul.neb 04/16/16 [Rx Confirmed 10/27/16] Gabapentin 400 mg [Neurontin 400 MG] 1,200 mg PO LUNCH 05/04/16 [History Confirmed 10/27/16] Gabapentin 400 mg [Neurontin 400 MG] 600 mg PO QPM 05/04/16 [History Confirmed 10/27/16] Docusate Sodium 100 mg [Colace 100 MG] 100 mg PO BID 05/08/16 [History Confirmed 10/27/16] Hydrocodone/APAP 10/325 mg [[place] 10/325 MG Tablet] 1 tab PO Q4H PRN PRN # 20 tablet 08/07/16 [Rx Confirmed 10/27/16] Enalapril Maleate 2.5 mg PO BID 08/19/16 [History Confirmed 10/27/16] Furosemide [Lasix] 20 mg PO DAILY 08/19/16 [History Confirmed 10/27/16] Allergies/Adverse Reactions: Allergies Allergy/AdvReac Type Severity Reaction Status Date / Time sulfamethoxazole Allergy Verified 10/27/16 21:12 [From Bactrim] trimethoprim [From Bactrim] Allergy Verified 10/27/16 21:12 - Past Medical History Past Medical History: Yes Neurological History: Peripheral Neuropathy, Other ENT History: Cataracts Cardiac History: Coronary Artery Disease, High Cholesterol, Hypertension Respiratory History: COPD, Pneumonia, Sleep Apnea, Other Endocrine Medical History: Diabetes Type II, Hyperthyroidism Musculoskelatal History: Osteoporosis, Rheumatoid Arthritis GI Medical History: Hernia History: No Pertinent History Pyscho-Social History: No Pertinent History Reproductive Disorders: No Pertinent History Comment: pt wear c-pap at night. pt has restless leg syndrome. - Female History Are you now?: No - Past Surgical History Past Surgical History: Yes Neuro Surgical History: No Pertinent History Cardiac History: Angioplasty, CABG, Cardiac Catheterization, Cardiac Stent, Internal Defibrillator, Pacemaker, Vascular Surgery, Other Respiratory Surgery: No Pertinent History GI Surgical History: Cholecystectomy Genitourinary Surgical Hx: No Pertinent History Musculskeletal Surgical Hx: Other Female Surgical History: Hysterectomy Other Surgical History: pt had CABG in July 2015, had sternum removed in August due to infection, Pt states her breast bones are held together with the muscles from her breasts. She has had varicose veins tied off. She states they were not stripped. She has also had bilateral carpal tunnel surgery. And she has had surgery on her big toe . Pt wears a brace on her left leg due to neuropathy - Social History Smoking Status: Current every day smoker How long have you smoked: 40+ Exposure to second hand smoke: No Alcohol: None Drug Use: none Significant Family History: no pertinent family hx - Physical Exam Vital Signs: Vital Signs - 24 hr Temp Pulse Resp BP Pulse Ox 10/28/16 07:26 98.3 F 115 H 20 151/55 94 L 10/28/16 07:25 116 H 22 91 L 10/28/16 03:54 18 10/28/16 01:40 94 H 18 96 10/28/16 00:51 98.5 F 100 H 19 112/56 95 10/27/16 23:52 94 L 10/27/16 22:54 101 H 18 121/69 96 10/27/16 21:50 101 H 18 123/73 96 10/27/16 21:03 98.4 F 100 H 18 122/69 94 L Oxygen-Last 24 hours O2 Percentage 2 Liters = 28% O2 Percentage 3 Liters = 32% O2 Percentage 3 Liters = 32% O2 Percentage 3 Liters = 32% O2 Percentage 3 Liters = 32% General Appearance: no apparent distress, obese Neurologic Exam: alert, oriented x 3, cooperative Eye Exam: eyes nml inspection Respiratory Exam: normal breath sounds, lungs clear, prolonged expirations, No crackles/rales, No rhonchi, No wheezing Cardiovascular Exam: regular rate/rhythm, normal heart sounds, No murmur Gastrointestinal/Abdomen Exam: soft, normal bowel sounds, No tenderness, No distention, No guarding, No rebound Back Exam: normal inspection, No CVA tenderness Extremity Exam: swelling (2+ pretibial edema on R, 1+ on L. There is very mild edema anterior R lower leg with no increased warmth. R knee with no edema.) Skin Exam: warm, dry Results - Labs Lab/Micro Results: Accuchecks Date 10/28/16 Time 07:29 Accucheck Value: 95 Lab Results-Last 24 Hours 10/28/16 10/28/16 Range/Units 05:40 05:40 WBC 5.1 (4.0-10.5) K/mm3 RBC 4.17 (4.1-5.4) M/mm3 Hgb 11.1 L (12.0-16.0) gm/dl Hct 38.2 (35-47) % MCV 91.6 (78-100) fl MCH 26.6 (26-32) pg MCHC 29.1 L (32-36) g/dl RDW 16.5 H (11.5-14.0) % Plt Count 222 (150-450) K/mm3 MPV 9.0 (6-9.5) fl Sodium 140 (136-145) mEq/L Potassium 4.0 (3.5-5.1) mEq/L Chloride 105 (98-107) mEq/L Carbon Dioxide 28.6 (21-32) mEq/L Anion Gap 10.8 (5-15) MEQ/L BUN 11 (9-20) mg/dL Creatinine 0.82 (0.55-1.30) mg/dl Estimated GFR > 60 ML/MIN Glucose 95 (70-110) MG/DL Calcium 8.8 (8.5-10.1) mg/dL Total Bilirubin 0.30 (0.2-1.0) mg/dL AST 10 L (15-37) U/L ALT 8 L (12-78) U/L Alkaline Phosphatase 82 (46-116) U/L Serum Total Protein 6.9 (6.4-8.2) gm/dL Albumin 3.1 L (3.4-5.0) g/dL Accuchecks Date 10/28/16 Time 07:29 Accucheck Value: 95 - Other Procedures and Tests Respiratory Therapy 10/28/16 01:39 Respiratory Nebulizer UD 10/28/16 01:40 BiPap/CPAP Assessment ROUTINE Assessment/Plan (1) Cellulitis Current Visit: Yes Status: Acute Qualifiers: Site of cellulitis: extremity Site of cellulitis of extremity: lower extremity Laterality: right Qualified Code(s): L03.115 - Cellulitis of right lower limb Assessment & Plan: This cellulitis is subtle, but I am continuing her treatment for three reasons : she has a photo on her phone that appears to show a bit more erythema than I am now appreciating; and she was having nausea and feeling ill when the leg started having swelling and erythema, and the nausea has resolved today; and she is diabetic. I anticipate she will d/c home on po meds tomorrow. Code(s): L03.90 - CELLULITIS, UNSPECIFIED (2) Morbid obesity Current Visit: No Status: Chronic Code(s): E66.01 - MORBID (SEVERE) OBESITY DUE TO EXCESS CALORIES (3) PITA (obstructive sleep apnea) Current Visit: No Status: Chronic Code(s): G47.33 - OBSTRUCTIVE SLEEP APNEA (ADULT) (PEDIATRIC) (4) Peripheral neuropathy Current Visit: No Status: Chronic Qualifiers: Peripheral neuropathy type: idiopathic neuropathy, unspecified Qualified Code(s): G60.9 - Hereditary and idiopathic neuropathy, unspecified Assessment & Plan: EMG just done 2d ago Code(s): G62.9 - POLYNEUROPATHY, UNSPECIFIED (5) Type 2 diabetes mellitus Current Visit: No Status: Chronic Qualifiers: Diabetes mellitus complication status: with neurologic complications Diabetes mellitus complication detail: with polyneuropathy Diabetes mellitus snf insulin use: without termite renewal 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 will cover with SS insulin.
[2016-10-28 08:33] LABS: Platelet Estimate NORMAL (NORMAL)
--- NOTE | 2016-10-28 09:18 | XRAY ---
Indication: Lower abdomen/pelvic swelling. Multiple contiguous axial images obtained through the abdomen and pelvis without contrast as ordered. Comparison: CTA exam May 10, 2016. Lung bases again demonstrates cardiomegaly with now interstitial pulmonary edema and small bibasilar effusions favoring cardiac decompensation. Due to patient's body habitus, portion of the left anterior lateral abdomen not included in the [id number]. There is also mild respiration artifact. Visualized anterior abdomen/pelvis demonstrates new cutaneous/subcutaneous induration favoring inflammation. No suspicious fluid or air collection. Noncontrasted stomach and bowel loops appear nonobstructed. No free fluid/air. Again a few hepatic/splenic calcified granulomas, left renal cyst, cholecystectomy, and hysterectomy. Remaining liver, pancreas, spleen, adrenal glands, kidneys, ureters, and bladder appear unremarkable for noncontrast exam. There remains moderate/advanced aortoiliac calcifications without AAA. Osseous structures intact again with mild degenerative changes throughout the spine. Impression: 1. New anterior abdominal cutaneous/subcutaneous induration. Rule out cellulitis. 2. Stable left renal cyst, arteriosclerotic disease, and evidence for old granulomatous disease. 3. No new or acute intra-abdominal/pelvic abnormalities on this noncontrast exam. 4. Again cardiomegaly with new pulmonary edema and bibasilar effusions favoring cardiac decompensation. Comment: Preliminary interpretation was made by [facility]. No discrepancy. CT DI 23.65
--- NOTE | 2016-10-28 09:21 | XRAY ---
Indication: Pain, swelling, and erythema. Two-dimensional sonogram and color Doppler imaging of the major venous vessels of the right leg was performed. Comparison: None No thrombus seen in the examined deep venous vessels of the right leg including greater saphenous vein. Veins demonstrate normal compressibility. Venous waveforms are normal with and without augmentation. At the level of the calf, there is subcutaneous and deep soft tissue swelling/edema without focal fluid collection. Impression: Right leg negative for DVT. Calf swelling/edema. Comment: Preliminary report was given.
[2016-10-28] MEDS ORDERED: Norco 10/325 MG Tablet PO PRN (09:56)
[2016-10-28] MEDS ORDERED: DUONEB 0.5-3 MG/3 ml Neb IH PRN (09:56)
[2016-10-28] MEDS ORDERED: ECOTRIN 81 MG PO SCH (10:00)
[2016-10-28] MEDS ORDERED: LASIX 20 MG PO SCH (10:00)
[2016-10-28] MEDS ORDERED: XARELTO 10 MG TABLET PO SCH (10:00)
[2016-10-28] MEDS ORDERED: SYNTHROID 100 MCG PO SCH (10:00)
[2016-10-28] MEDS ORDERED: NON-FORMULARY ITEM (Levothyroxine Sodium [Synthroid] 175 MCG) PO SCH (10:00)
[2016-10-28] MEDS ORDERED: NON-FORMULARY ITEM (Omeprazole 20 Mg [Prilosec 20 Mg] 20 MG) PO SCH (10:00)
[2016-10-28] MEDS ORDERED: BABY ASPIRIN 81 MG CHEW PO SCH (10:00)
[2016-10-28] MEDS ORDERED: NON-FORMULARY ITEM (Gabapentin [Neurontin] 600 MG) PO SCH (10:00)
[2016-10-28] MEDS ORDERED: NON-FORMULARY ITEM (Potassium Chloride 20 Meq Tab [Potassium Chloride 20 Meq Tablet] 20 ME PO SCH (10:00)
[2016-10-28] MEDS ORDERED: ENALAPRIL MALEATE 2.5 MG PO SCH (10:00)
[2016-10-28] MEDS ORDERED: Klor Con 10 MEQ PO SCH (10:15)
[2016-10-28] MEDS: Colace 100 MG PO SCH ×2 (10:44→21:27)
[2016-10-28] MEDS: NEURONTIN 300 MG PO SCH ×2 (10:44→12:18)
[2016-10-28] MEDS: Protonix 40MG Tablet PO SCH ×2 (10:50→21:26)
[2016-10-28] MEDS: Vasotec 5 MG PO SCH ×2 (10:51→21:26)
[2016-10-28] MEDS ORDERED: Neurontin 400 MG PO SCH ×3 (12:00→22:00)
[2016-10-28] MEDS ORDERED: Glucophage 500 MG PO SCH (12:00)
[2016-10-28] MEDS: DUONEB 0.5-3 MG/3 ml Neb IH SCH ×2 (15:16→18:52)
[2016-10-28] MEDS ORDERED: NEURONTIN 300 MG PO SCH (17:00)
[2016-10-28] MEDS ORDERED: NON-FORMULARY ITEM (Pramipexole Di-Hcl [Mirapex] 0.125 MG) PO SCH (22:00)
[2016-10-28] MEDS ORDERED: NON-FORMULARY ITEM (Pravastatin Sodium [Pravastatin Sodium] 20 MG) PO SCH (22:00)
[2016-10-28] MEDS ORDERED: Zanaflex 4 MG PO SCH (22:00)
[2016-10-28] MEDS ORDERED: Mirapex 0.5 MG Tablet PO SCH (22:00)
[2016-10-28] MEDS ORDERED: ZOCOR 20MG PO SCH (22:00)
[2016-10-29] MEDS: DUONEB 0.5-3 MG/3 ml Neb IH SCH (05:36)
[2016-10-29] MEDS: CLINDAMYCIN-D5W 600 MG/50 ML*** 600 MG/50 ML BAG IV SCH (05:44)
[2016-10-29 08:04] VITALS: BP 122/68; PULSE 120; O2SAT 96
--- NOTE | 2016-10-29 09:05 | PCM.DCORD ---
- Discharge Discharge Date: 10/29/16 Disposition: Home, Self-Care Condition: Stable Prescriptions: New Clindamycin HCl 300 mg PO QID #48 capsule Continue Potassium Chloride 20 Meq Tab [Potassium Chloride 20 MEQ TABLET] 20 meq PO DAILY Aspirin 81 gm Chew [Baby Aspirin 81 mg Chew] 81 mg PO DAILY Omeprazole 20 MG [Prilosec 20 mg] 20 mg PO BID Tizanidine HCl 4 mg [Zanaflex 4 MG] 8 mg PO HS Rivaroxaban 10 mg Tablet [Xarelto 10 mg Tablet] 20 mg PO DAILY Metformin HCl 1000 mg [Glucophage 1000 MG] 1,000 mg PO TID Pramipexole Di-HCl [Mirapex] 0.125 mg PO HS #30 tablet Pravastatin Sodium 20 mg PO QHS Gabapentin [Neurontin] 600 mg PO QAM Levothyroxine Sodium [Synthroid] 175 mcg PO DAILY Gabapentin [Neurontin] 1,200 mg PO HS Albuterol/Ipratropium 3ml Neb* [DUONEB 0.5-3 MG/3 ml Neb] 3 ml IH Q4-6HPRN PRN #100 ampul.neb PRN Reason: Cough Gabapentin 400 mg [Neurontin 400 MG] 1,200 mg PO LUNCH Gabapentin 400 mg [Neurontin 400 MG] 600 mg PO QPM Docusate Sodium 100 mg [Colace 100 MG] 100 mg PO BID Hydrocodone/APAP 10/325 mg [[place] 10/325 MG Tablet] 1 tab PO Q4H PRN PRN #20 tablet PRN Reason: Pain Enalapril Maleate 2.5 mg PO BID Furosemide [Lasix] 20 mg PO DAILY Follow up with: DENISE LENZ [Primary Care Provider] -
[2016-10-29] MEDS ORDERED: SYNTHROID 75 MCG PO SCH (10:00)
--- NOTE | 2016-10-30 17:07 | PCM.DS ---
Discharge Summary Date of Admission: 10/28/16 00:32 Date of Discharge: 10/29/16 Admitting Physician: DENISE LENZ Primary Care Provider: DENISE LENZ Allergies Allergies sulfamethoxazole [From Bactrim] Allergy (Verified 10/27/16 21:12) trimethoprim [From Bactrim] Allergy (Verified 10/27/16 21:12) Hospital Summary - Hospital Course Hospital Course: Patient has history of sever infections and diabetes mellitus and developed worsening infection in lower extremity was worsening and was started on keflex took 2 doses and presented to ED where she was started on clindamycin IV and the redness in the leg improved. She has had warmth and induration in the subcutaneous tissue without redness of the pannus fora bout 2 to 3 weeks prior to arrival and this persists at time of discharge. CT showed evidence of possible infectionwithout evidence of abscess. She was improving on the clinda so was discharged on her home medications and po clinda to complete a 14 day coarse for cellutlis and panniculitis. - Vitals & Intake/Output Vital Signs: Vital Signs Temperature 98 F 10/29/16 08:00 Pulse Rate 120 H 10/29/16 08:00 Respiratory Rate 22 10/29/16 08:00 Blood Pressure 122/68 10/29/16 08:00 O2 Sat by Pulse Oximetry 96 10/29/16 08:00 Oxygen-Last Documented O2 Percentage 3 Liters = 32% Intake & Output: Intake & Output 10/28/16 10/29/16 10/30/16 10/31/16 11:59 11:59 11:59 11:59 Intake Total 240 1692 Output Total 1200 Balance 240 492 Weight 108.771 kg 108.136 kg - Lab Result Diagrams: 10/28/16 05:40 10/28/16 05:40 - Procedures and Test Procedures and Tests throughout Hospitalization: Therapy Orders & Screens 10/28/16 01:39 Respiratory Nebulizer UD Comment: q2 prn Albuterol 10/28/16 01:40 BiPap/CPAP Assessment ROUTINE Comment: 10/28/16 11:32 Respiratory Nebulizer QID Comment: Diagnosis: cellulitis rt lower leg, cellulitis of lower abd wall Discharge Exam General Appearance: no apparent distress, alert, obese Neurologic Exam: alert, oriented x 3, cooperative, normal mood/affect, nml cerebellar function, sensation nml, No motor deficits Skin Exam: normal color, warm, dry, other (pannus with pea due orange changes and warmth no redness mild tenderness no fluctuance. No redness of the lower extremities. The lower extremities are cool to touch.) Eye Exam: PERRL, EOMI, eyes nml inspection Ears, Nose, Throat Exam: normal ENT inspection, pharynx normal, moist mucous membranes Neck Exam: normal inspection, non-tender, supple, full range of motion Respiratory Exam: normal breath sounds, lungs clear, No respiratory distress Cardiovascular Exam: regular rate/rhythm, murmur Gastrointestinal/Abdomen Exam: soft, No tenderness, No mass Extremity Exam: normal inspection, normal range of motion Back Exam: normal inspection, normal range of motion, No CVA tenderness, No vertebral tenderness Pelvic Exam: deferred Rectal Exam: deferred Final Diagnosis/Problem List - Final Discharge Diagnosis/Problem (1) Panniculitis Status: Acute (2) Cellulitis Status: Acute (3) Coronary artery disease Status: Chronic (4) Diabetes mellitus Status: Chronic (5) History of pulmonary embolism Status: Chronic (6) Hypertension Status: Chronic (7) Morbid obesity Status: Chronic (8) PITA (obstructive sleep apnea) Status: Chronic (9) Peripheral neuropathy Status: Chronic - Discharge Disposition: Home, Self-Care Condition: Stable Prescriptions: New Clindamycin HCl 300 mg PO QID #48 capsule Continue Potassium Chloride 20 Meq Tab [Potassium Chloride 20 MEQ TABLET] 20 meq PO DAILY Aspirin 81 gm Chew [Baby Aspirin 81 mg Chew] 81 mg PO DAILY Omeprazole 20 MG [Prilosec 20 mg] 20 mg PO BID Tizanidine HCl 4 mg [Zanaflex 4 MG] 8 mg PO HS Rivaroxaban 10 mg Tablet [Xarelto 10 mg Tablet] 20 mg PO DAILY Metformin HCl 1000 mg [Glucophage 1000 MG] 1,000 mg PO TID Pramipexole Di-HCl [Mirapex] 0.125 mg PO HS #30 tablet Pravastatin Sodium 20 mg PO QHS Gabapentin [Neurontin] 600 mg PO QAM Levothyroxine Sodium [Synthroid] 175 mcg PO DAILY Gabapentin [Neurontin] 1,200 mg PO HS Albuterol/Ipratropium 3ml Neb* [DUONEB 0.5-3 MG/3 ml Neb] 3 ml IH Q4-6HPRN PRN #100 ampul.neb PRN Reason: Cough Gabapentin 400 mg [Neurontin 400 MG] 1,200 mg PO LUNCH Gabapentin 400 mg [Neurontin 400 MG] 600 mg PO QPM Docusate Sodium 100 mg [Colace 100 MG] 100 mg PO BID Hydrocodone/APAP 10/325 mg [[place] 10/325 MG Tablet] 1 tab PO Q4H PRN PRN #20 tablet PRN Reason: Pain Enalapril Maleate 2.5 mg PO BID Furosemide [Lasix] 20 mg PO DAILY Instructions: Cellulitis -- Adult Follow up with: DENISE LENZ [Primary Care Provider] - Call for Appointment Forms: Discharge Instructions, Patient Portal Information
== END 2016-10-29 10:00 | disposition home or self-care (01) ==
LOC: ED 20:49 → MED SURG 10-28 00:32
PROVIDERS: ADMIT Family Medicine; ATTEND Family Medicine
DX: M79.3 Panniculitis, unspecified (principal); L03.311 Cellulitis of abdominal wall; I25.810 Atherosclerosis of coronary artery bypass graft(s) without angina pectoris; E11.42 Type 2 diabetes mellitus with diabetic polyneuropathy; Z79.4 Long term (current) use of insulin; Z86.711 Personal history of pulmonary embolism; I10 Essential (primary) hypertension; E66.01 Morbid (severe) obesity due to excess calories; J44.9 Chronic obstructive pulmonary disease, unspecified; G47.33 Obstructive sleep apnea (adult) (pediatric); M81.0 Age-related osteoporosis without current pathological fracture; M06.9 Rheumatoid arthritis, unspecified; E05.90 Thyrotoxicosis, unspecified without thyrotoxic crisis or storm; Z79.01 Long term (current) use of anticoagulants; Z79.899 Other long term (current) drug therapy; Z72.0 Tobacco use
CPT/HCPCS: 36000; 36415; 74176; 80053; 81002; 82150; 82962; 83690; 85025; 87040; 93268; 93971; 94640; 94660; 94760; 96360; 96361; 96365; 96374; 96375; 99285; G0378; J1170; J2550; A9270-GY

== ENCOUNTER 2017-01-08 18:37 | Inpatient (IN) | payer MEDICARE ==
--- NOTE | 2017-01-08 19:13 | ERPHSYRPT ---
- History of Present Illness Time Seen by Provider: 01/08/17 19:13 Source: patient Exam Limitations: no limitations Patient Subjective Stated Complaint: PT states "I think I have pneumonia again and my right side and back hurt." Triage Nursing Assessment: Pt alert and oriented X 3, skin pwd. Pt ambulates with a slow shuffling gait, coughing, audible rhonchi noted. Pt able to speak in clear full sentences. Pt coughing up thick white sputum. Physician History: The patient is a 61-year-old female with her daughter complaining of worsening cough for 3 days. The cough is very loose and not very productive. She denies fever or chills. She has a history of frequent pneumonia. She thinks she may have pneumonia. She uses supplemental O2 at home at 2-3 L. Her past medical history is significant for pneumonia, congestive heart failure, COPD, sleep apnea, diabetes, pulmonary embolism, coronary artery disease, and peripheral neuropathy. Timing/Duration: day(s) (3) Cough Quality/Degree: moderate, dry cough Possible Cause: occasional episodes Modifying Factors: Improves With: nothing Associated Symptoms: cough, shortness of breath, No fever, No chills Allergies/Adverse Reactions: sulfamethoxazole [From Bactrim] Allergy (Verified 10/27/16 21:12) trimethoprim [From Bactrim] Allergy (Verified 10/27/16 21:12) Home Medications: Aspirin 81 mg PO DAILY 01/08/17 [History] Furosemide [Lasix] 20 mg PO HS PRN 01/08/17 [History] Furosemide [Lasix] 40 mg PO BID 01/08/17 [History] Gabapentin [Neurontin] 1,200 mg PO HS 01/08/17 [History] Gabapentin [Neurontin] 1,200 mg PO LUNCH 01/08/17 [History] Gabapentin [Neurontin] 600 mg PO BREAKFAST 01/08/17 [History] Gabapentin [Neurontin] 600 mg PO DINNER 01/08/17 [History] Levothyroxine Sodium 175 mcg PO DAILY 01/08/17 [History] Metoprolol Tartrate 25 mg [Lopressor 25MG Tab] 12.5 mg PO BID 01/08/17 [ History] Omeprazole 20 mg PO BID 01/08/17 [History] Oxycodone HCl/Acetaminophen [Percocet 10-325 mg Tablet] 1 each PO QID PRN [History] Potassium Chloride 10 Meq Tab* [Klor Con 10 MEQ] 10 meq PO BID 01/08/17 [ History] Pramipexole Di-HCl 0.5 mg [Mirapex 0.5 MG Tablet] 0.5 mg PO HS 01/08/17 [ History] Pravastatin Sodium 20 mg PO HS 01/08/17 [History] Rivaroxaban [Xarelto] 20 mg PO DAILY 01/08/17 [History] Sacubitril/Valsartan [Entresto 24 mg-26 mg Tablet] 1 each PO BID 01/08/17 [ History] Tizanidine HCl 4 mg [Zanaflex 4 MG] 8 mg PO HS 01/08/17 [History] Hx Tetanus, Diphtheria Vaccination/Date Given: No Hx Influenza Vaccination/Date Given: Yes Hx Pneumococcal Vaccination/Date Given: Yes Immunizations Up to Date: Yes - Review of Systems Constitutional: No Fever, No Chills Eyes: No Symptoms Ears, Nose, & Throat: No Symptoms Respiratory: Cough, Dyspnea Cardiac: No Chest Pain, No Edema, No Syncope Abdominal/Gastrointestinal: No Abdominal Pain, No Nausea, No Vomiting, No Diarrhea Genitourinary Symptoms: No Dysuria Musculoskeletal: No Back Pain, No Neck Pain Skin: No Rash Neurological: No Dizziness, No Focal Weakness, No Sensory Changes Psychological: No Symptoms Endocrine: No Symptoms Hematologic/Lymphatic: No Symptoms Immunological/Allergic: No Symptoms All Other Systems: Reviewed and Negative - Past Medical History Pertinent Past Medical History: Yes Neurological History: Peripheral Neuropathy, Other ENT History: Cataracts Cardiac History: Coronary Artery Disease, High Cholesterol, Hypertension Respiratory History: COPD, Pneumonia, Sleep Apnea, Other Endocrine Medical History: Diabetes Type II, Hyperthyroidism Musculoskeletal History: Osteoporosis, Rheumatoid Arthritis GI Medical History: Hernia History: No Pertinent History Psycho-Social History: No Pertinent History Female Reproductive Disorders: No Pertinent History Other Medical History: pt wear c-pap at night. pt has restless leg syndrome. - Past Surgical History Past Surgical History: Yes Neuro Surgical History: No Pertinent History Cardiac: Angioplasty, CABG, Cardiac Catheterization, Cardiac Stent, Internal Defibrillator, Pacemaker, Vascular Surgery, Other Respiratory: No Pertinent History Gastrointestinal: Cholecystectomy Genitourinary: No Pertinent History Musculoskeletal: Other Female Surgical History: Hysterectomy Other Surgical History: pt had CABG in July 2015, had sternum removed in August due to infection, Pt states her breast bones are held together with the muscles from her breasts. She has had varicose veins tied off. She states they were not stripped. She has also had bilateral carpal tunnel surgery. And she has had surgery on her big toe . Pt wears a brace on her left leg due to neuropathy - Social History Smoking Status: Current every day smoker How long have you smoked: 40 Exposure to second hand smoke: Yes Drug Use: none Patient Lives Alone: No Significant Family History: no pertinent family hx - Female History Hx Last Menstrual Period: none Hx Now: No - Nursing Vital Signs Nursing Vital Signs: Initial Vital Signs Temperature 98.7 F 01/08/17 18:43 Pulse Rate 106 H 01/08/17 18:43 Respiratory Rate 24 01/08/17 18:43 Blood Pressure 135/68 01/08/17 18:43 O2 Sat by Pulse Oximetry 92 L 01/08/17 18:43 Pain Scale Pain Intensity 9 - Physical Exam General Appearance: no apparent distress, alert Eye Exam: PERRL/EOMI, eyes nml inspection Ears, Nose, Throat Exam: normal ENT inspection, TMs normal, pharynx normal, moist mucous membranes Neck Exam: normal inspection, non-tender, supple, full range of motion Respiratory Exam: crackles/rales Cardiovascular Exam: regular rate/rhythm, normal heart sounds Gastrointestinal/Abdomen Exam: soft, No tenderness Pelvic Exam: not done Rectal Exam: not done Back Exam: normal inspection, No CVA tenderness, No vertebral tenderness Extremity Exam: pedal edema Neurologic Exam: alert, oriented x 3, cooperative, normal mood/affect, sensation nml, No motor deficits Skin Exam: normal color, warm, dry, No rash Lymphatic Exam: No adenopathy SpO2 Interpretation: normal SpO2: 94 Oxygen Delivery: Nasal Cannula - Course EKG Interpreted by Me: RATE, Sinus Rhythm, Left Olive Deviation, NORMAL INTERVALS , NORMAL QRS, Other (ST depression in V2. comp ekg 08/19/16) - Radiology Exams Chest X-ray Interpretation: Interpreted by me, Infiltrates, Other (increased pulmonary vascular congestion. 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 Care 01/08/17 19:13 Active Catheter-[place] STAT Care 01/08/17 19:35 Active Clean Catch Urine Specimen STAT Care 01/08/17 19:47 Active EKG-ER Only STAT Care 01/08/17 18:54 Active IV Insertion STAT Care 01/08/17 19:11 Active Oxygen-ED Only NASAL CANNULA 3 lpm Care 01/08/17 19:13 Active CHEST 1 VIEW (PORTABLE) Stat Exams 01/08/17 18:56 Taken BNP [NT PRO BNP] Stat Lab 01/08/17 17:12 Completed CBC Stat Lab 01/08/17 19:12 Completed CMP Stat Lab 01/08/17 19:12 Completed UA W/RFX UR CULTURE Stat Lab 01/08/17 19:36 Ordered Medication Summary Discontinued Medications Generic Name Dose Route Start Last Admin Trade Name Freq PRN Reason Stop Dose Admin Furosemide 40 mg 01/08/17 19:35 01/08/17 19:42 Lasix 40 Mg/4 Ml IV 01/08/17 19:36 40 mg STAT ONE Administration Furosemide Confirm 01/08/17 19:39 Lasix 40 Mg/4 Ml Administered 01/08/17 19:40 Dose 40 mg .ROUTE .STK-MED ONE Lab/Rad Data: Laboratory Result Diagrams 01/08/17 19:12 01/08/17 19:12 Laboratory Results 01/08/17 01/08/17 01/08/17 Range/Units 19:12 19:12 17:12 WBC 9.1 (4.0-10.5) K/mm3 RBC 4.26 (4.1-5.4) M/mm3 Hgb 10.8 L (12.0-16.0) gm/dl Hct 37.3 (35-47) % MCV 87.6 (78-100) fl MCH 25.3 L (26-32) pg MCHC 29.0 L (32-36) g/dl RDW 17.2 H (11.5-14.0) % Plt Count 209 (150-450) K/mm3 MPV 8.5 (6-9.5) fl Sodium 137 (136-145) mEq/L Potassium 4.4 (3.5-5.1) mEq/L Chloride 100 (98-107) mEq/L Carbon Dioxide 30.4 (21-32) mEq/L Anion Gap 11.3 (5-15) MEQ/L BUN 17 (9-20) mg/dL Creatinine 0.84 (0.55-1.30) mg/dl Estimated GFR > 60 ML/MIN Glucose 115 H (70-110) MG/DL Calcium 8.7 (8.5-10.1) mg/dL Total Bilirubin 0.50 (0.2-1.0) mg/dL AST 11 L (15-37) U/L ALT 10 L (12-78) U/L Alkaline Phosphatase 100 (46-116) U/L NT-Pro-B Natriuret Pep 3684 H (0-125) pg/ml Serum Total Protein 7.2 (6.4-8.2) gm/dL Albumin 3.3 L (3.4-5.0) g/dL - Progress Progress: improved Blood Culture(s) Obtained: Yes Antibiotics given: Yes Discussed with : Nan Will see patient in: hospital (full admit) Counseled pt/family regarding: lab results, diagnosis, rad results - Departure Time of Disposition: 19:56 Departure Disposition: In-patient Admission Clinical Impression: CHF (congestive heart failure), Infiltrate noted on imaging study Condition: Stable Critical Care Time: No Referrals: DENISE LENZ [Primary Care Provider] - Instructions: Heart Failure Additional Instructions: You have congestive heart failure and an infiltrate with possible pneumonia. You're being admitted per Dr. [place]. You were given Lasix 40 mg and Rocephin 1 g by IV in the ER.
[2017-01-08 19:17] LABS: Mean Cell Volume 87.6 fl (78-100); Mean Platelet Volume 8.5 fl (6-9.5); Platelet Count 209 K/mm3 (150-450); Red Blood Count 4.26 M/mm3 (4.1-5.4); Red Cell Distribution Width 17.2 % (11.5-14.0); White Blood Count 9.1 K/mm3 (4.0-10.5)
[2017-01-08 19:32] LABS: Mean Corpuscular Hemoglobin 25.3 pg (26-32)
[2017-01-08] MEDS ORDERED: Lasix 40 MG/4 ML IV ONE (19:35)
[2017-01-08 19:38] LABS: ALBUMIN 3.3 g/dL (3.4-5.0); ALKALINE PHOSPHATASE 100 U/L (46-116); ANION GAP 11.3 MEQ/L (5-15); BLOOD UREA NITROGEN 17 mg/dL (9-20); CHLORIDE 100 mEq/L (98-107); Carbon Dioxide 30.4 mEq/L (21-32); Glucose 115 MG/DL (70-110); Potassium 4.4 mEq/L (3.5-5.1); SGOT/AST 11 U/L (15-37); SGPT/ALT 10 U/L (12-78); SODIUM 137 mEq/L (136-145); Total Protein 7.2 gm/dL (6.4-8.2)
[2017-01-08] MEDS ORDERED: Lasix 40 MG/4 ML ONE (19:39)
[2017-01-08] MEDS ORDERED: ROCEPHIN 1 Gm-D5w 50 ml Bag** 1 G/50 ML IVPB IV STA (19:55)
[2017-01-08 20:01] LABS: ADD URINE CULTURE? NO (NO); Bilirubin NEGATIVE (NEGATIVE); Blood NEGATIVE Ery/ul (0-5); COMPLETE URINE MICROSCOPIC? NO; Collection Type CLEAN CATCH; Glucose NEGATIVE (NEGATIVE); Leukocyte Esterase NEGATIVE (NEGATIVE)
[2017-01-08] MEDS ORDERED: ROCEPHIN 1 Gm-D5w 50 ml Bag** 1 G/50 ML IVPB IV ONE (20:15)
[2017-01-08] MEDS ORDERED: Zithromax 500 MG/ 250 ML NaCl Premix 500 MG/250 ML IVPB IV ONE (20:54)
[2017-01-08] MEDS ORDERED: Neurontin 400 MG PO SCH (22:00)
[2017-01-08] MEDS: PROVENTIL 2.5 MG/3 ML NEB IH SCH (22:03)
[2017-01-08] MEDS ORDERED: PROVENTIL 2.5 MG/3 ML NEB IH ONE (22:12)
[2017-01-08] MEDS: Klor Con 10 MEQ PO SCH (22:16)
[2017-01-08] MEDS: Mirapex 0.5 MG Tablet PO SCH (22:17)
[2017-01-08] MEDS: Lopressor 25MG Tab PO SCH (22:17)
[2017-01-08] MEDS: Protonix 20MG Tablet PO SCH (22:18)
[2017-01-08] MEDS: OXYCODONE-ACETAMINOPHEN 10-325 PO PRN (22:19)
[2017-01-08] MEDS: Zanaflex 4 MG PO SCH (22:19)
[2017-01-08] MEDS: ZOCOR 20MG PO SCH (22:21)
[2017-01-09] MEDS: PROVENTIL 2.5 MG/3 ML NEB IH SCH ×6 (03:05→23:15)
[2017-01-09 06:09] LABS: Mean Cell Volume 88.8 fl (78-100); Mean Platelet Volume 9.3 fl (6-9.5); Platelet Count 210 K/mm3 (150-450); Red Blood Count 4.09 M/mm3 (4.1-5.4); Red Cell Distribution Width 17.2 % (11.5-14.0); White Blood Count 8.5 K/mm3 (4.0-10.5)
[2017-01-09 06:15] LABS: Mean Corpuscular Hemoglobin 25.1 pg (26-32)
[2017-01-09 06:22] LABS: ANION GAP 10.6 MEQ/L (5-15); BLOOD UREA NITROGEN 18 mg/dL (9-20); CHLORIDE 102 mEq/L (98-107); Carbon Dioxide 31.7 mEq/L (21-32); Glucose 89 MG/DL (70-110); Potassium 4.4 mEq/L (3.5-5.1); SODIUM 140 mEq/L (136-145)
[2017-01-09] MEDS: OXYCODONE-ACETAMINOPHEN 10-325 PO PRN ×3 (07:18→22:42)
--- NOTE | 2017-01-09 08:35 | XRAY ---
Indication: Short of breath. Comparison: November 01, 2016. Portable chest again demonstrates cardiomegaly with a left-sided AICD, vascular congestion, pulmonary edema, and bibasilar infiltrates/atelectasis/effusions favoring cardiac decompensation. Superimposed pneumonia not completely excluded.
[2017-01-09] MEDS ORDERED: Tussionex Pennkinetic Susp PO PRN (08:36)
--- NOTE | 2017-01-09 08:42 | PCM.HP ---
History of Present Illness - Chief Complaint Chief Complaint: CHF History of Present Illness: is a 61 year old female with hx COPD and CHF who was admitted to hospital yesterday with 3d of increased cough and yellow/white-frothy sputum production. She was found to have bibasilar infiltrates/atelectasis and was admitted for CHF exacerbation/possible pneumonia. She was given IV lasix 40mg x 1 and started on rocehpin and zithromax IV. She denies any fever at home. Beatriz po but overall her appetite has been a little decreased recently. Denies CP /SOB. She is having back pain that is worse when she coughs; the Percocet is not keeping her pain at bay. She notes that DR. Kern presribes her neurontin and she takes 600mg with her meals and 1200mg at night. - Review of Systems Constitutional: Weight Loss (minimal ) Respiratory: Cough, Wheezing Musculoskeletal: Back Pain Skin: Cellulitis (recently treated with Keflex) Psychological: No Anxiety, No Depression, No Suicidal Ideations Medications & Allergies Home Medications: Home Medication List Aspirin 81 mg PO DAILY 01/08/17 [History Confirmed 01/08/17] Furosemide [Lasix] 20 mg PO HS PRN 01/08/17 [History Confirmed 01/08/17] Furosemide [Lasix] 40 mg PO BID 01/08/17 [History Confirmed 01/08/17] Gabapentin [Neurontin] 1,200 mg PO HS 01/08/17 [History Confirmed 01/08/17] Gabapentin [Neurontin] 1,200 mg PO LUNCH 01/08/17 [History Confirmed 01/08/17] Gabapentin [Neurontin] 600 mg PO BREAKFAST 01/08/17 [History Confirmed 01/08/17] Gabapentin [Neurontin] 600 mg PO DINNER 01/08/17 [History Confirmed 01/08/17] Levothyroxine Sodium 175 mcg PO DAILY 01/08/17 [History Confirmed 01/08/17] Metoprolol Tartrate 25 mg [Lopressor 25MG Tab] 12.5 mg PO BID 01/08/17 [ History Confirmed 01/08/17] Omeprazole 20 mg PO BID 01/08/17 [History Confirmed 01/08/17] Oxycodone HCl/Acetaminophen [Percocet 10-325 mg Tablet] 1 each PO QID PRN [History Confirmed 01/08/17] Potassium Chloride 10 Meq Tab* [Klor Con 10 MEQ] 10 meq PO BID 01/08/17 [ History Confirmed 01/08/17] Pramipexole Di-HCl 0.5 mg [Mirapex 0.5 MG Tablet] 0.5 mg PO HS 01/08/17 [ History Confirmed 01/08/17] Pravastatin Sodium 20 mg PO HS 01/08/17 [History Confirmed 01/08/17] Rivaroxaban [Xarelto] 20 mg PO DAILY 01/08/17 [History Confirmed 01/08/17] Sacubitril/Valsartan [Entresto 24 mg-26 mg Tablet] 1 each PO BID 01/08/17 [ History Confirmed 01/08/17] Tizanidine HCl 4 mg [Zanaflex 4 MG] 8 mg PO HS 01/08/17 [History Confirmed 01/08/17] Allergies/Adverse Reactions: Allergies Allergy/AdvReac Type Severity Reaction Status Date / Time sulfamethoxazole Allergy Verified 10/27/16 21:12 [From Bactrim] trimethoprim [From Bactrim] Allergy Verified 10/27/16 21:12 - Past Medical History Past Medical History: Yes Neurological History: Peripheral Neuropathy, Other ENT History: Cataracts Cardiac History: Coronary Artery Disease, High Cholesterol, Hypertension Respiratory History: COPD, Pneumonia, Sleep Apnea, Other Endocrine Medical History: Diabetes Type II, Hyperthyroidism Musculoskelatal History: Osteoporosis, Rheumatoid Arthritis GI Medical History: Hernia History: No Pertinent History Pyscho-Social History: No Pertinent History Reproductive Disorders: No Pertinent History Comment: Pt does wear C-Pap at night and supplimental O2 at 3L when needed. Takes albuterol breathing Txs as needed as well. - Female History Hx Last Menstrual Period: none Are you now?: No - Past Surgical History Past Surgical History: Yes Neuro Surgical History: No Pertinent History Cardiac History: Angioplasty, CABG, Cardiac Catheterization, Cardiac Stent, Internal Defibrillator, Pacemaker, Vascular Surgery, Other Respiratory Surgery: No Pertinent History GI Surgical History: Cholecystectomy Genitourinary Surgical Hx: No Pertinent History Musculskeletal Surgical Hx: Other Female Surgical History: Hysterectomy Other Surgical History: pt had CABG in July 2015, had sternum removed in August due to infection, Pt states her breast bones are held together with the muscles from her breasts. She has had varicose veins tied off. She states they were not stripped. She has also had bilateral carpal tunnel surgery. And she has had surgery on her big toe . Pt wears a brace on her left leg due to neuropathy - Social History Smoking Status: Current every day smoker How long have you smoked: 40 yrs Exposure to second hand smoke: Yes Alcohol: None Drug Use: none Significant Family History: no pertinent family hx - Physical Exam Vital Signs: Vital Signs - 24 hr Temp Pulse Resp BP Pulse Ox 01/09/17 08:00 98.2 F 98 H 22 100/58 93 L 01/09/17 04:00 98.0 F 86 18 107/53 90 L 01/09/17 03:06 86 18 89 L 01/09/17 01:00 98.0 F 113 H 18 137/55 90 L 01/09/17 00:00 98.0 F 113 H 18 137/55 90 L 01/08/17 22:03 100 H 18 92 L 01/08/17 20:49 99.0 F 102 H 18 118/59 93 L 01/08/17 20:22 84 20 126/76 95 01/08/17 20:02 94 L 01/08/17 19:33 96 H 24 126/73 95 01/08/17 18:43 98.7 F 106 H 24 135/68 94 L Oxygen-Last 24 hours O2 Percentage 3 Liters = 32% O2 Percentage 5 Liters = 40% O2 Percentage 3 Liters = 32% O2 Percentage 3 Liters = 32% O2 Percentage 3 Liters = 32% O2 Percentage 3 Liters = 32% O2 Percentage 3 Liters = 32% O2 Percentage 3 Liters = 32% O2 Percentage 3 Liters = 32% O2 Percentage 3 Liters = 32% Oxygen Flowrate (L/min)-RT 5 Oxygen Flowrate (L/min)-RT 3 General Appearance: no apparent distress, alert, obese Neurologic Exam: oriented x 3, cooperative Eye Exam: eyes nml inspection Ears, Nose, Throat Exam: moist mucous membranes Neck Exam: normal inspection, non-tender, No lymphadenopathy Respiratory Exam: diminished breath sounds, wheezing (exp wheezing throughout), No crackles/rales, No rhonchi Cardiovascular Exam: regular rate/rhythm, normal heart sounds, No murmur Gastrointestinal/Abdomen Exam: soft, No tenderness, No distention, No mass Back Exam: normal inspection Extremity Exam: pedal edema (L, 1+ pretibial edema. none on R. Calluses heels bilat.) Skin Exam: normal color, warm, dry Results - Labs Lab/Micro Results: Lab Results-Last 24 Hours 01/09/17 01/09/17 Range/Units 05:24 05:24 WBC 8.5 (4.0-10.5) K/mm3 RBC 4.09 L (4.1-5.4) M/mm3 Hgb 10.3 L (12.0-16.0) gm/dl Hct 36.3 (35-47) % MCV 88.8 (78-100) fl MCH 25.1 L (26-32) pg MCHC 28.4 L (32-36) g/dl RDW 17.2 H (11.5-14.0) % Plt Count 210 (150-450) K/mm3 MPV 9.3 (6-9.5) fl Sodium 140 (136-145) mEq/L Potassium 4.4 (3.5-5.1) mEq/L Chloride 102 (98-107) mEq/L Carbon Dioxide 31.7 (21-32) mEq/L Anion Gap 10.6 (5-15) MEQ/L BUN 18 (9-20) mg/dL Creatinine 0.85 (0.55-1.30) mg/dl Estimated GFR > 60 ML/MIN Glucose 89 (70-110) MG/DL Calcium 9.0 (8.5-10.1) mg/dL NT-Pro-B Natriuret Pep 5006 H (0-125) pg/ml Slides for Path Review YES - Other Procedures and Tests Respiratory Therapy 01/09/17 03:00 neb [Respiratory Nebulizer] Q4H Assessment/Plan (1) COPD exacerbation Current Visit: No Status: Acute Assessment & Plan: On IV rocephin and zithromax. WIll add steroid for the wheezing. Code(s): J44.1 - CHRONIC OBSTRUCTIVE PULMONARY DISEASE W (ACUTE) EXACERBATION (2) CHF (congestive heart failure) Current Visit: Yes Status: Acute Qualifiers: Congestive heart failure type: unspecified congestive heart failure type Congestive heart failure chronicity: acute on chronic Qualified Code(s): I50.9 - Heart failure, unspecified Assessment & Plan: WIll continue IV lasix and recheck BMP, BNP in a.m. Code(s): I50.9 - HEART FAILURE, UNSPECIFIED (3) Chronic pain Current Visit: No Status: Acute Qualifiers: Chronic pain type: chronic pain syndrome Qualified Code(s): G89.4 - Chronic pain syndrome Assessment & Plan: WIll increase her percocet to 2 po q4h prn. If not helping would change to oxycodone. Code(s): G89.29 - OTHER CHRONIC PAIN (4) Neuropathy of left lower extremity Current Visit: No Status: Acute Assessment & Plan: She is on a large amount of neurontin; it is written by Dr. Kern. Code(s): G57.92 - UNSPECIFIED MONONEUROPATHY OF LEFT LOWER LIMB (5) Pneumonia Current Visit: No Status: Acute Qualifiers: Pneumonia type: due to unspecified organism Laterality: bilateral Lung location: lower lobe of lung Qualified Code(s): J18.9 - Pneumonia, unspecified organism Assessment & Plan: on IV antibiotics. Code(s): J18.9 - PNEUMONIA, UNSPECIFIED ORGANISM (6) Type 2 diabetes mellitus Current Visit: No Status: Chronic Qualifiers: Diabetes mellitus complication status: with neurologic complications Diabetes mellitus complication detail: with polyneuropathy Diabetes mellitus fdc insulin use: without fdc use Qualified Code(s): E11.42 - Type 2 diabetes mellitus with diabetic polyneuropathy Assessment & Plan: Check BS and observe.
--- NOTE | 2017-01-09 09:28 | XRAY ---
Indication: Back pain. Comparison: December 23, 2015. Two-view thoracic spine again demonstrates osteopenia and multilevel osteophytes without acute fracture or suspicious bony lesions. Again there is cardiomegaly with partially visualized left-sided AICD and new right base infiltrate/atelectasis/effusion.
--- NOTE | 2017-01-09 09:32 | XRAY ---
Indication: Back pain. Comparison: CT lumbar spine August 07, 2016. 5 views of the lumbar spine unchanged again demonstrating osteopenia, multilevel degenerative spondylosis, levorotoscoliosis, and aortoiliac calcifications. No new/acute findings.
[2017-01-09] MEDS ORDERED: Zithromax 500 MG/ 250 ML NaCl Premix 500 MG/250 ML IVPB IV SCH (10:00)
[2017-01-09] MEDS ORDERED: Lasix 40 MG/4 ML IV SCH ×2 (10:00)
[2017-01-09] MEDS: Lopressor 25MG Tab PO SCH ×2 (11:06→21:57)
[2017-01-09] MEDS: Protonix 20MG Tablet PO SCH (11:07)
[2017-01-09] MEDS: NEURONTIN 300 MG PO SCH ×4 (11:07→22:48)
[2017-01-09] MEDS: solu-MEDROL 40 MG IV SCH ×3 (11:08→21:58)
[2017-01-09] MEDS: Klor Con 10 MEQ PO SCH ×2 (11:08→21:57)
[2017-01-09] MEDS ORDERED: ENOXAPARIN SODIUM SQ SCH (11:45)
[2017-01-09] MEDS ORDERED: Lasix 40 MG/4 ML IV ONE (17:00)
[2017-01-09] MEDS ORDERED: MEDICATION INTERVENTION MC PRN (18:34)
[2017-01-09] MEDS: Mirapex 0.5 MG Tablet PO SCH (21:56)
[2017-01-09] MEDS: Zanaflex 4 MG PO SCH (21:57)
[2017-01-09] MEDS: Protonix 40MG Tablet PO SCH (21:57)
[2017-01-09] MEDS: ZOCOR 20MG PO SCH (21:57)
[2017-01-09] MEDS ORDERED: NON-FORMULARY ITEM (Sacubitril/Valsartan [Entresto 24 Mg-26 Mg Tablet] 1 EACH) PO SCH (22:00)
[2017-01-09] MEDS ORDERED: NON-FORMULARY ITEM (Omeprazole [Omeprazole] 20 MG) PO SCH (22:00)
[2017-01-09] MEDS: ROCEPHIN 1 Gm-D5w 50 ml Bag** 1 G/50 ML IVPB IV SCH (22:30)
[2017-01-09] MEDS: Zithromax 500 MG/ 250 ML NaCl Premix 500 MG/250 ML IVPB IV SCH (23:15)
[2017-01-10 02:05] LABS: A-aADO2 204; ARTERIAL BLD GAS O2 SATURATION 97.5 % (95-100); ARTERIAL BLOOD GAS BASE EXCESS 6.7 (-2.0-2.0); ARTERIAL BLOOD GAS FIO2 50 %; ARTERIAL BLOOD GAS PO2 83 mmHg (75-100); ARTERIAL BLOOD GAS pH 7.38 (7.35-7.45)
[2017-01-10 02:06] LABS: ALLEN TEST OK? YES
[2017-01-10 05:49] LABS: Mean Cell Volume 88.6 fl (78-100); Platelet Count 206 K/mm3 (150-450); Red Blood Count 4.02 M/mm3 (4.1-5.4); Red Cell Distribution Width 16.8 % (11.5-14.0); White Blood Count 7.7 K/mm3 (4.0-10.5)
[2017-01-10 05:57] LABS: Mean Corpuscular Hemoglobin 25.3 pg (26-32)
[2017-01-10 06:15] LABS: ANION GAP 8.2 MEQ/L (5-15); BLOOD UREA NITROGEN 32 mg/dL (9-20); CHLORIDE 102 mEq/L (98-107); Carbon Dioxide 33.2 mEq/L (21-32); Glucose 160 MG/DL (70-110); Potassium 4.6 mEq/L (3.5-5.1); SODIUM 139 mEq/L (136-145)
[2017-01-10 07:05] LABS: Platelet Estimate NORMAL (NORMAL); Total Cells Counted 100
[2017-01-10 07:06] LABS: ANISOCYTOSIS 1+; Hypochromia 1+
[2017-01-10] MEDS: PROVENTIL 2.5 MG/3 ML NEB IH SCH ×5 (07:16→22:59)
--- NOTE | 2017-01-10 08:32 | XRAY ---
Indication: Short of breath and cough. Comparison: One day earlier. Portable chest again demonstrates left-sided AICD and cardiomegaly with interval worsening bibasilar infiltrates/atelectasis/effusions favoring worsening cardiac decompensation.
--- NOTE | 2017-01-10 08:51 | PCM.NOTE ---
Date and Time: 01/10/17848 Subjective Assessment: Overnight her pulse was elevated in the 120s and her O2 sat decreased and she was on bipap overnight. Throughout she was feeling good, up to the restroom without issues. This morning she states she feels better than at admission. Her pulse currently in the 80s. On O2 per [place]. - Review of Systems Constitutional: No Fever Respiratory: Cough Objective Exam General Appearance: no apparent distress, alert Neurologic Exam: oriented x 3, cooperative Skin Exam: normal color, warm, dry Respiratory Exam: diminished breath sounds, wheezing (scattered throughout), No crackles/rales, No rhonchi Cardiovascular Exam: regular rate/rhythm, normal heart sounds, No murmur Gastrointestinal/Abdomen Exam: soft, normal bowel sounds Extremity Exam: pedal edema (1+ pretibial edema bilat) OBJECTIVE DATA Vital Signs: Vital Signs - 24 hr Temp Pulse Resp BP Pulse Ox 01/10/17 07:31 97.4 F 88 17 101/58 95 01/10/17 05:00 96.9 F 64 16 109/58 98 01/10/17 03:40 16 01/10/17 03:00 85 13 98 01/10/17 01:00 98.0 F 79 14 84/49 81 L 01/10/17 00:00 14 01/09/17 23:00 94 H 20 89 L 01/09/17 21:00 98.4 F 104 H 22 107/51 91 L 01/09/17 20:00 22 01/09/17 19:00 114 H 18 98 01/09/17 16:32 99.1 F 116 H 18 118/69 90 L 01/09/17 16:00 20 01/09/17 15:34 115 H 20 97 01/09/17 13:17 97 F 87 20 103/59 01/09/17 12:00 22 01/09/17 11:00 89 22 93 L Oxygen-Last 24 hours O2 Percentage 5 Liters = 40% O2 Percentage 3 Liters = 32% Pain Assessment - Last Documented Pain Intensity 0 Pain Scale Used 0-10 Pain Scale Intake and Output: Intake & Output 01/07/17 01/08/17 01/09/17 01/10/17 11:59 11:59 11:59 11:59 Intake Total 580 920 Output Total 1200 1750 Balance -620 -830 Weight 104.462 kg 104.326 kg Lab Results: Lab Results-Last 24 Hours 01/09/17 01/10/17 01/10/17 Range/Units 17:15 01:50 05:10 WBC 7.7 (4.0-10.5) K/mm3 RBC 4.02 L (4.1-5.4) M/mm3 Hgb 10.2 L (12.0-16.0) gm/dl Hct 35.6 (35-47) % MCV 88.6 (78-100) fl MCH 25.3 L (26-32) pg MCHC 28.7 L (32-36) g/dl RDW 16.8 H (11.5-14.0) % Plt Count 206 (150-450) K/mm3 MPV 9.0 (6-9.5) fl Segmented Neutrophils 88 H (36.0-66.0) % Lymphocytes (Manual) 7 L (24-44) % Monocytes (Manual) 5 (0.0-12.0) % Differential Comment ABNORMAL Platelet Estimate NORMAL (NORMAL) Hypochromasia 1+ Anisocytosis 1+ Puncture Site RIGHT RADIAL pCO2 56 H (35-45) mmHg pO2 83 (75-100) mmHg Base Excess 6.7 H (-2.0-2.0) O2 Saturation 95.0 (94-100) g/dF ABG pH 7.38 (7.35-7.45) ABG HCO3 33.1 H* (22-28) ABG O2 Sat (Measured) 97.5 (95-100) % Vasu Test YES A-a Gradient 204 a/A Ratio 0.29 Hemoglobin 10.7 Carboxyhemoglobin 2.2 (0.0-6.9) % THgb Methemoglobin 0.5 L (1.4-1.5) % Potassium 4.7 (3.5-5.1) Temperature 37.0 C POC O2 Flow Rate 50 % Sodium (136-145) mEq/L Chloride (98-107) mEq/L Carbon Dioxide (21-32) mEq/L Anion Gap (5-15) MEQ/L BUN (9-20) mg/dL Creatinine (0.55-1.30) mg/dl Estimated GFR ML/MIN Glucose (70-110) MG/DL Calcium (8.5-10.1) mg/dL Troponin I < 0.017 (0.000-0.056) ng/ml NT-Pro-B Natriuret Pep (0-125) pg/ml 01/10/17 Range/Units 05:10 WBC (4.0-10.5) K/mm3 RBC (4.1-5.4) M/mm3 Hgb (12.0-16.0) gm/dl Hct (35-47) % MCV (78-100) fl MCH (26-32) pg MCHC (32-36) g/dl RDW (11.5-14.0) % Plt Count (150-450) K/mm3 MPV (6-9.5) fl Segmented Neutrophils (36.0-66.0) % Lymphocytes (Manual) (24-44) % Monocytes (Manual) (0.0-12.0) % Differential Comment Platelet Estimate (NORMAL) Hypochromasia Anisocytosis Puncture Site pCO2 (35-45) mmHg pO2 (75-100) mmHg Base Excess (-2.0-2.0) O2 Saturation (94-100) g/dF ABG pH (7.35-7.45) ABG HCO3 (22-28) ABG O2 Sat (Measured) (95-100) % Vasu Test A-a Gradient a/A Ratio Hemoglobin Carboxyhemoglobin (0.0-6.9) % THgb Methemoglobin (1.4-1.5) % Potassium 4.6 (3.5-5.1) Temperature C POC O2 Flow Rate % Sodium 139 (136-145) mEq/L Chloride 102 (98-107) mEq/L Carbon Dioxide 33.2 H (21-32) mEq/L Anion Gap 8.2 (5-15) MEQ/L BUN 32 H (9-20) mg/dL Creatinine 0.90 (0.55-1.30) mg/dl Estimated GFR > 60 ML/MIN Glucose 160 H (70-110) MG/DL Calcium 8.9 (8.5-10.1) mg/dL Troponin I (0.000-0.056) ng/ml NT-Pro-B Natriuret Pep 6471 H (0-125) pg/ml Radiology Exams: Radiology Procedures Category Date Time Status CHEST 1 VIEW (PORTABLE) Stat Exams 01/09/17 16:49 Completed ECHO W/2D AND DOPPLER [US] Routine Exams 01/10/17 08:00 Ordered LUMBAR COMPLETE (MIN 4 VIEWS) Routine Exams 01/09/17 Completed THORACIC SPINE (AP,LAT,SWIMM) Routine Exams 01/09/17 Completed Multi-Disciplinary Progress Notes: Multi-Disciplinary Progress Notes 01/10/17 01:14 Respiratory Note by Lacie Haro Pt SpO2 on home unit CPAP with 6LPM bled inline was found to be 81%. Patient BP is also decreased, otherwise no distress noted. Patient states, she "feels fine". Patient did state she sees pulmonology with Dr. Siddiqi. Patient has bilateral diffuse inspiratory crackles and a loose non-productive cough. Placed patient on bipap of 12/6 and 50%. SpO2 did increase to 94%. Dr. Schmidt notified via telephone and orders recieved VO/TO to continue bipap and draw ABG in 1hour @0150. RT to call physician if significant results. Initialized on 01/10/17 01:14 - END OF NOTE Assessment/Plan (1) COPD exacerbation Current Visit: Yes Status: Acute Assessment & Plan: on IV rocephin and zithromax Code(s): J44.1 - CHRONIC OBSTRUCTIVE PULMONARY DISEASE W (ACUTE) EXACERBATION (2) CHF (congestive heart failure) Current Visit: Yes Status: Acute Qualifiers: Congestive heart failure type: unspecified congestive heart failure type Congestive heart failure chronicity: acute on chronic Qualified Code(s): I50.9 - Heart failure, unspecified Assessment & Plan: IV lasix 80mg daily Code(s): I50.9 - HEART FAILURE, UNSPECIFIED (3) Chronic pain Current Visit: Yes Status: Chronic Qualifiers: Chronic pain type: chronic pain syndrome Qualified Code(s): G89.4 - Chronic pain syndrome Code(s): G89.29 - OTHER CHRONIC PAIN (4) Neuropathy of left lower extremity Current Visit: Yes Status: Chronic Code(s): G57.92 - UNSPECIFIED MONONEUROPATHY OF LEFT LOWER LIMB (5) Pneumonia Current Visit: No Status: Deleted Qualifiers: Pneumonia type: due to unspecified organism Laterality: bilateral Lung location: lower lobe of lung Qualified Code(s): J18.9 - Pneumonia, unspecified organism Code(s): J18.9 - PNEUMONIA, UNSPECIFIED ORGANISM (6) Type 2 diabetes mellitus Current Visit: No Status: Chronic Qualifiers: Diabetes mellitus complication status: with neurologic complications Diabetes mellitus complication detail: with polyneuropathy Diabetes mellitus ad terminal makeup operator insulin use: without ad terminal makeup operator use Qualified Code(s): E11.42 - Type 2 diabetes mellitus with diabetic polyneuropathy
[2017-01-10] MEDS ORDERED: DULCOLAX 5 MG PO PRN (08:52)
[2017-01-10] MEDS: SYNTHROID 75 MCG PO SCH (09:48)
[2017-01-10] MEDS: solu-MEDROL 40 MG IV SCH ×3 (09:48→21:47)
[2017-01-10] MEDS: NEURONTIN 300 MG PO SCH ×4 (09:48→23:17)
[2017-01-10] MEDS: Protonix 40MG Tablet PO SCH ×2 (09:48→21:51)
[2017-01-10] MEDS: XARELTO 10 MG TABLET PO SCH (09:48)
[2017-01-10] MEDS: ECOTRIN 81 MG PO SCH (09:48)
[2017-01-10] MEDS: Klor Con 10 MEQ PO SCH ×2 (09:48→21:51)
[2017-01-10] MEDS: SYNTHROID 100 MCG PO SCH (09:48)
[2017-01-10] MEDS: Lopressor 25MG Tab PO SCH ×2 (09:49→21:51)
[2017-01-10] MEDS ORDERED: NON-FORMULARY ITEM (Aspirin [Aspirin] 81 MG) PO SCH (10:00)
[2017-01-10] MEDS ORDERED: LASIX 80 MG PO SCH (10:00)
[2017-01-10] MEDS ORDERED: Lasix 40 MG/4 ML IV SCH (10:00)
[2017-01-10] MEDS ORDERED: NON-FORMULARY ITEM (Rivaroxaban [Xarelto] 20 MG) PO SCH (10:00)
[2017-01-10] MEDS ORDERED: LEVOTHYROXINE SODIUM 175 MCG PO SCH (10:00)
[2017-01-10] MEDS ORDERED: Colace 100 MG PO PRN (11:23)
[2017-01-10] MEDS: Lasix 40 MG/4 ML IV SCH (12:20)
[2017-01-10] MEDS: OXYCODONE-ACETAMINOPHEN 10-325 PO PRN (14:17)
[2017-01-10] MEDS: Zanaflex 4 MG PO SCH (21:50)
[2017-01-10] MEDS: Mirapex 0.5 MG Tablet PO SCH (21:51)
[2017-01-10] MEDS: ZOCOR 20MG PO SCH (21:51)
[2017-01-10] MEDS: ROCEPHIN 1 Gm-D5w 50 ml Bag** 1 G/50 ML IVPB IV SCH (21:55)
[2017-01-10] MEDS: Zithromax 500 MG/ 250 ML NaCl Premix 500 MG/250 ML IVPB IV SCH (23:16)
[2017-01-11] MEDS: PROVENTIL 2.5 MG/3 ML NEB IH SCH ×3 (03:00→12:09)
[2017-01-11 08:09] LABS: Mean Cell Volume 89.5 fl (78-100); Mean Platelet Volume 9.3 fl (6-9.5); Platelet Count 206 K/mm3 (150-450); Red Blood Count 4.27 M/mm3 (4.1-5.4); Red Cell Distribution Width 16.9 % (11.5-14.0); White Blood Count 8.9 K/mm3 (4.0-10.5)
[2017-01-11 08:28] LABS: ANION GAP 7.7 MEQ/L (5-15); BLOOD UREA NITROGEN 32 mg/dL (9-20); CHLORIDE 104 mEq/L (98-107); Carbon Dioxide 33.9 mEq/L (21-32); Glucose 161 MG/DL (70-110); Potassium 5.2 mEq/L (3.5-5.1); SODIUM 140 mEq/L (136-145)
--- NOTE | 2017-01-11 08:32 | PCM.DS ---
Discharge Summary Date of Admission: 01/08/17 20:36 Admitting Physician: DENISE LENZ Primary Care Provider: DENISE LENZ Allergies Allergies sulfamethoxazole [From Bactrim] Allergy (Verified 10/27/16 21:12) trimethoprim [From Bactrim] Allergy (Verified 10/27/16 21:12) Hospital Summary - Hospital Course Hospital Course: Pt admitted with COPD exacerbation and CHF, on IV antibiotics and IV lasix. Her second hospital night she had tachycardia and increased oxygen requirement although she did not feel ill. She was on bipap that evening and by morning her HR was normal. She feels that her breating is much better, she feels overall "100%" better than at admission. Beatriz po well. Labs are pending; if they are reasonable pt may go home today. If marked abnormalities will keep her at least another day. - Vitals & Intake/Output Vital Signs: Vital Signs Temperature 97.9 F 01/11/17 07:25 Pulse Rate 79 01/11/17 07:25 Respiratory Rate 18 01/11/17 07:25 Blood Pressure 105/59 01/11/17 07:25 O2 Sat by Pulse Oximetry 95 01/11/17 08:11 Oxygen-Last Documented O2 Percentage 5 Liters = 40% Intake & Output: Intake & Output 01/08/17 01/09/17 01/10/17 01/11/17 11:59 11:59 11:59 11:59 Intake Total 378 505 5481 Output Total 1200 2050 1999 Balance -620 -3110 -394 Weight 104.462 kg 104.326 kg 101.35 kg - Lab Result Diagrams: 01/11/17 07:52 01/10/17 05:10 Lab Results-Last 24 Hrs: Lab Results-Last 24 Hours 01/11/17 Range/Units 07:52 WBC 8.9 (4.0-10.5) K/mm3 RBC 4.27 (4.1-5.4) M/mm3 Hgb 10.7 L (12.0-16.0) gm/dl Hct 38.2 (35-47) % MCV 89.5 (78-100) fl MCH 25.0 L (26-32) pg MCHC 28.0 L (32-36) g/dl RDW 16.9 H (11.5-14.0) % Plt Count 206 (150-450) K/mm3 MPV 9.3 (6-9.5) fl - Radiology Exams Ordered Rad Exams-Entire Visit: Radiology Procedures Category Date Time Status CHEST 1 VIEW (PORTABLE) Stat Exams 01/09/17 16:49 Completed ECHO W/2D AND DOPPLER [US] Routine Exams 01/10/17 08:00 Taken - Procedures and Test Procedures and Tests throughout Hospitalization: Therapy Orders & Screens 01/08/17 21:40 RT Screen per Nursing Assess ONCE Comment: Protocol Order Physician Instructions: Greater than 3 points order RT Admission Screen Reason For Exam: Triggered on Admission Diagnosis: CHF Diagnosis: CHF Pneumonia: No Home O2: Yes: 3L per [place] Asthma: No CHF: Yes Home CPAP/BIPAP: Yes Home Nebs/MDI: Yes Total Points: 18 Smoking Cessation Education ONCE Comment: Diagnosis: CHF Smoking Status: Current every day smoker How long have you smoked: 40 yrs Have you smoked in the past 12 months: Yes Approximately how many cigarettes per day: half a pack/day Do you dip or chew tobacco: No If,Former Smoker,when did you quit: june 2015 01/09/17 03:00 neb [Respiratory Nebulizer] Q4H Comment: Diagnosis: CHF 01/09/17 19:00 Respiratory Nebulizer Q4H Comment: Diagnosis: CHF 01/10/17 00:55 BiPap/CPAP Assessment ROUTINE Comment: Diagnosis: CHF Discharge Exam General Appearance: no apparent distress, alert, obese Neurologic Exam: oriented x 3, cooperative Skin Exam: normal color, warm, dry Respiratory Exam: lungs clear, diminished breath sounds, No crackles/rales, No rhonchi, No wheezing Cardiovascular Exam: regular rate/rhythm, normal heart sounds, No murmur Extremity Exam: swelling (trace LE edema bilat), other (chronic venous stasis change LE bilat) Final Diagnosis/Problem List - Final Discharge Diagnosis/Problem (1) COPD exacerbation Current Visit: Yes Status: Acute Assessment & Plan: Home on po augmentin; treated here with rocephin and zithromax IV. (2) CHF (congestive heart failure) Current Visit: Yes Status: Acute Assessment & Plan: clinically she appears to be doing well. Labs pending. (3) Chronic pain Current Visit: Yes Status: Chronic (4) Neuropathy of left lower extremity Current Visit: Yes Status: Chronic (5) Type 2 diabetes mellitus Current Visit: No Status: Chronic - Discharge Disposition: Home, Self-Care Condition: Stable Prescriptions: No Action Pravastatin Sodium 20 mg PO HS Furosemide [Lasix] 40 mg PO BID Aspirin 81 mg PO DAILY Furosemide [Lasix] 20 mg PO HS PRN PRN Reason: edema Pramipexole Di-HCl 0.5 mg [Mirapex 0.5 MG Tablet] 0.5 mg PO HS Potassium Chloride 10 Meq Tab* [Klor Con 10 MEQ] 10 meq PO BID Levothyroxine Sodium 175 mcg PO DAILY Tizanidine HCl 4 mg [Zanaflex 4 MG] 8 mg PO HS Omeprazole 20 mg PO BID Oxycodone HCl/Acetaminophen [Percocet 10-325 mg Tablet] 1 each PO QID PRN PRN Reason: Pain Gabapentin [Neurontin] 1,200 mg PO HS Gabapentin [Neurontin] 600 mg PO DINNER Gabapentin [Neurontin] 1,200 mg PO LUNCH Gabapentin [Neurontin] 600 mg PO BREAKFAST Metoprolol Tartrate 25 mg [Lopressor 25MG Tab] 12.5 mg PO BID Sacubitril/Valsartan [Entresto 24 mg-26 mg Tablet] 1 each PO BID Rivaroxaban [Xarelto] 20 mg PO DAILY Instructions: Heart Failure Additional Instructions: You have congestive heart failure and an infiltrate with possible pneumonia. You're being admitted per Dr. [place]. You were given Lasix 40 mg and Rocephin 1 g by IV in the ER. Follow up with: DENISE LENZ [Primary Care Provider] -
--- NOTE | 2017-01-11 09:06 | PCM.DCORD ---
- Discharge Disposition: Home, Self-Care Condition: Stable Prescriptions: New Amoxicillin/Potassium Clav [Augmentin 875-125 Tablet] 875 mg PO BID #20 tablet Prednisone 20 mg [Deltasone 20 mg] 20 mg PO DAILY #17 tablet Prednisone 20 mg [Deltasone 20 mg] 60 mg PO DAILY tablet Continue Pravastatin Sodium 20 mg PO HS Furosemide [Lasix] 40 mg PO BID Aspirin 81 mg PO DAILY Furosemide [Lasix] 20 mg PO HS PRN PRN Reason: edema Pramipexole Di-HCl 0.5 mg [Mirapex 0.5 MG Tablet] 0.5 mg PO HS Levothyroxine Sodium 175 mcg PO DAILY Tizanidine HCl 4 mg [Zanaflex 4 MG] 8 mg PO HS Omeprazole 20 mg PO BID Oxycodone HCl/Acetaminophen [Percocet 10-325 mg Tablet] 1 each PO QID PRN PRN Reason: Pain Gabapentin [Neurontin] 1,200 mg PO HS Gabapentin [Neurontin] 600 mg PO DINNER Gabapentin [Neurontin] 1,200 mg PO LUNCH Gabapentin [Neurontin] 600 mg PO BREAKFAST Metoprolol Tartrate 25 mg [Lopressor 25MG Tab] 12.5 mg PO BID Sacubitril/Valsartan [Entresto 24 mg-26 mg Tablet] 1 each PO BID Rivaroxaban [Xarelto] 20 mg PO DAILY Discontinued Potassium Chloride 10 Meq Tab* [Klor Con 10 MEQ] 10 meq PO BID Instructions: Heart Failure Additional Instructions: You have congestive heart failure and an infiltrate with possible pneumonia. You're being admitted per Dr. [place]. You were given Lasix 40 mg and Rocephin 1 g by IV in the ER. Follow up with: DENISE LENZ [Primary Care Provider] -
[2017-01-11] MEDS: XARELTO 10 MG TABLET PO SCH ×2 (09:41→09:44)
[2017-01-11] MEDS: ECOTRIN 81 MG PO SCH (09:42)
[2017-01-11] MEDS: NEURONTIN 300 MG PO SCH (09:45)
[2017-01-11] MEDS: Lopressor 25MG Tab PO SCH (09:45)
[2017-01-11] MEDS: SYNTHROID 75 MCG PO SCH (09:45)
[2017-01-11] MEDS: Protonix 40MG Tablet PO SCH (09:46)
[2017-01-11] MEDS: Lasix 40 MG/4 ML IV SCH (09:46)
[2017-01-11] MEDS: SYNTHROID 100 MCG PO SCH (09:46)
[2017-01-11] MEDS: OXYCODONE-ACETAMINOPHEN 10-325 PO PRN (09:54)
[2017-01-11] MEDS ORDERED: DELTASONE 20 MG PO SCH (10:00)
[2017-01-11 11:09] VITALS: BP 117/62
[2017-01-11 12:14] VITALS: PULSE 81; O2SAT 94
--- NOTE | 2017-01-12 11:41 | ECHO ---
Transthoracic echocardiographic examination and color Doppler was done on 01/10/2017. INDICATION: Shortness of breath, coronary artery disease, tachycardia. IMPRESSION: 1) GLOBAL LEFT VENTRICLE HYPOKINESIA. EJECTION FRACTION OF AROUND 20%. 2) MODEATE MITRAL REGURGITATION. 3) MODERATE TRICUSPID REGURGITATION. RIGHT VENTRICULAR SYSTOLIC PRESSURE OF 43 MM OF MERCURY SUGGESTIVE OF MILD TO MODERATE PULMONARY HYPERTENSION. 4) DILATED LEFT VENTRICLE. 5) MODEDARTELY DILATED LEFT ATRIUM. 6) MILDLY DILATED RIGHT SIDE CHAMBERS. 7) PACEMAKER/ICD ELECTRODE RIGHT VENTRICLE. 8) MILD PULMONIC INSUFFICIENCY. 9) LEFT VENTRICULAR DIASTOLIC DYSFUNCTION. The left ventricle is visualized and demonstrated a global-type of hypokinesia. Ejection fraction around 20%. The left ventricle is mild to moderately dilated. The left ventricular wall thickness is somewhat thin. The mitral valve has a low flow characteristic. It has some calcification. Color flow study demonstrated some moderate mitral regurgitation. Tissue Doppler study of the lateral mitral annulus suggests left ventricular diastolic dysfunction. The left atrium is moderately dilated. The aortic valve is sclerotic with no significant gradient across the left ventricular outflow tract. The right side chambers are mildly dilated. There is moderate tricuspid regurgitation. Right ventricular systolic pressure of 43 mm of Mercury. There is also trace pulmonic insufficiency. There is a pacemaker/ICD electrode in the right ventricle.
== END 2017-01-11 12:55 | disposition home or self-care (01) | DRG 192 ==
LOC: ED 18:37 → MED SURG 20:36
PROVIDERS: ADMIT Family Medicine; ATTEND Family Medicine
DX: J44.1 Chronic obstructive pulmonary disease with (acute) exacerbation (principal); I50.9 Heart failure, unspecified; G89.29 Other chronic pain; F45.42 Pain disorder with related psychological factors; G57.92 Unspecified mononeuropathy of left lower limb; E11.42 Type 2 diabetes mellitus with diabetic polyneuropathy; I10 Essential (primary) hypertension; G47.30 Sleep apnea, unspecified; E05.90 Thyrotoxicosis, unspecified without thyrotoxic crisis or storm; M81.0 Age-related osteoporosis without current pathological fracture; M06.9 Rheumatoid arthritis, unspecified; Z79.01 Long term (current) use of anticoagulants; Z79.899 Other long term (current) drug therapy; Z95.810 Presence of automatic (implantable) cardiac defibrillator; Z72.0 Tobacco use
CPT/HCPCS: 36000; 36415; 36600; 71010; 72072; 72110; 80048; 80053; 81002; 82375; 82803; 83880; 84484; 85025; 85027; 87040; 93005; 93041; 93306; 94002; 94003; 94640; 94760; 96374; 99285; J0456; J0696; J1940; J2920; A9270-GY; J7506

== ENCOUNTER 2017-04-25 13:37 | Inpatient (IN) | payer MEDICARE ==
[2017-04-25] MEDS ORDERED: TYLENOL 325 MG (14:42)
[2017-04-25] MEDS ORDERED: Sodium Chloride 0.9% 1000 ML 1,000 ML (14:42)
[2017-04-25] MEDS: Sodium Chloride 0.9% 1000 ML 1,000 ML IV ×2 (14:44→19:50)
[2017-04-25] MEDS: TYLENOL 325 MG PO ×2 (14:44→21:11)
[2017-04-25 14:53] LABS: Lactic Acid 1.4 (0.4-2.0)
[2017-04-25 15:02] LABS: BASOPHIL % 0.1 % (0.0-0.4); Basophil (Absolute #) 0.02 (0-0.4); Eosinophil (Absolute #) 0 (0-0.5); Granulocyte Absolute (ANC) 15.39 (1.4-6.9); Granulocytes % 89.9 % (36.0-66.0); Hematocrit 40.5 % (35-47); Hemoglobin 11.9 gm/dl (12.0-16.0); Lymphocyte (Absolute #) 0.86 (1.0-4.6); Mean Cell Volume 86.5 fl (78-100); Mean Corpuscular Hemoglobin 25.4 pg (26-32); Mean Corpuscular Hgb Concent. 29.4 g/dl (32-36); Mean Platelet Volume 8.8 fl (6-9.5); Monocyte (Absolute #) 0.85 (0.0-1.3); Platelet Count 164 K/mm3 (150-450); Red Blood Count 4.68 M/mm3 (4.1-5.4); White Blood Count 17.1 K/mm3 (4.0-10.5)
[2017-04-25 15:03] LABS: ADD MANUAL DIFF? NO (NO)
[2017-04-25] MEDS ORDERED: ROCEPHIN 1 Gm-D5w 50 ml Bag** 1 G/50 ML IVPB IV (15:41)
[2017-04-25] MEDS ORDERED: Zithromax 500 MG/ 250 ML NaCl Premix 500 MG/250 ML IVPB IV (15:42)
[2017-04-25] MEDS: ROCEPHIN 1 Gm-D5w 50 ml Bag** 1 G/50 ML IVPB IV (15:43)
[2017-04-25 15:48] LABS: ALBUMIN 3.1 g/dL (3.4-5.0); ALKALINE PHOSPHATASE 90 U/L (46-116); ANION GAP 12.6 MEQ/L (5-15); Appearance CLEAR (CLEAR); BLOOD UREA NITROGEN 18 mg/dL (9-20); CHLORIDE 100 mEq/L (98-107); Calcium 8.8 mg/dL (8.5-10.1); Carbon Dioxide 27.8 mEq/L (21-32); Collection Type CLEAN CATCH; Creatinine 1 1.08 mg/dl (0.55-1.30); EST GLOMERULAR FILTRATION RATE 54 ML/MIN; Glucose 120 MG/DL (70-110); Leukocyte Esterase NEGATIVE (NEGATIVE); Nitrite NEGATIVE (NEGATIVE); Potassium 3.7 mEq/L (3.5-5.1); SGOT/AST 42 U/L (15-37); SGPT/ALT 15 U/L (12-78); SODIUM 137 mEq/L (136-145); Total Protein 7.4 gm/dL (6.4-8.2)
[2017-04-25 15:49] LABS: Bilirubin NEGATIVE (NEGATIVE); Blood 50 Ery/ul (0-5); COMPLETE URINE MICROSCOPIC? YES; Glucose NEGATIVE (NEGATIVE); Ketones NEGATIVE (NEGATIVE); Protein,Urine Dip TRACE (Negative); Urobilinogen NORMAL mg/dL (0-1)
[2017-04-25 15:51] LABS: ADD URINE CULTURE? NO (NO); Epithelial Cells FEW /HPF (FEW)
[2017-04-25 16:09] LABS: INFLUENZA A NEGATIVE (NEGATIVE)
[2017-04-25 16:09] LABS: INFLUENZA B NEGATIVE (NEGATIVE); RESPIRATORY SYNCTIAL VIRUS NEGATIVE (Negative)
[2017-04-25] MEDS: Zithromax 500 MG/ 250 ML NaCl Premix 500 MG/250 ML IVPB IV (16:20)
[2017-04-25 16:48] LABS: VBG BASE EXCESS 3.5 (-2.0-2.0); VBG CARBOXYHEMOGLOBIN 4.3 % T HGB (0.0-6.9); VBG HCO3- 28.5 meq/L (22-28); VBG HEMOGLOBIN 12.3; VBG O2 SATURATION 89.1 (95-100); VBG PCO2 44 mm/Hg (42-55); VBG PO2 49 mm/Hg (25-40); VBG POTASSIUM 3.3 (3.5-5.1); VBG pH 7.42 (7.32-7.42)
[2017-04-25 16:50] LABS: Lactic Acid 0.6 (0.4-2.0)
[2017-04-25] MEDS: DUONEB 0.5-3 MG/3 ml Neb IH ×2 (19:38→23:20)
[2017-04-25] MEDS: Tamiflu 75MG Capsule PO (21:12)
[2017-04-25] MEDS: Pepcid 20 MG VIAL IV (21:12)
[2017-04-25] MEDS: Sinemet 25/100 MG PO (22:07)
[2017-04-25] MEDS: Colace 100 MG PO (22:07)
[2017-04-25] MEDS: NEURONTIN 300 MG PO (22:07)
[2017-04-25] MEDS: Mirapex 0.5 MG Tablet PO (22:08)
[2017-04-26] MEDS: DUONEB 0.5-3 MG/3 ml Neb IH ×6 (03:37→23:09)
[2017-04-26] MEDS: TYLENOL 325 MG PO (03:47)
[2017-04-26] MEDS: Sodium Chloride 0.9% 1000 ML 1,000 ML IV ×2 (05:23→17:52)
[2017-04-26 05:44] LABS: BASOPHIL % 0.2 % (0.0-0.4); Basophil (Absolute #) 0.02 (0-0.4); Eosinophil % 0.1 % (0.00-5.0); Eosinophil (Absolute #) 0.01 (0-0.5); Granulocyte Absolute (ANC) 8.49 (1.4-6.9); Hematocrit 35.1 % (35-47); Hemoglobin 10.3 gm/dl (12.0-16.0); Lymphocyte (Absolute #) 0.89 (1.0-4.6); Lymphocytes % 8.9 % (24.0-44.0); Mean Cell Volume 87.8 fl (78-100); Mean Corpuscular Hgb Concent. 29.3 g/dl (32-36); Mean Platelet Volume 9.4 fl (6-9.5); Monocyte (Absolute #) 0.58 (0.0-1.3); Monocytes % 5.8 % (0.0-12.0); Platelet Count 143 K/mm3 (150-450); Red Cell Distribution Width 17.1 % (11.5-14.0)
[2017-04-26 05:48] LABS: ADD MANUAL DIFF? NO (NO); Mean Corpuscular Hemoglobin 25.7 pg (26-32)
[2017-04-26 06:04] LABS: ALBUMIN 2.6 g/dL (3.4-5.0); ALKALINE PHOSPHATASE 81 U/L (46-116); ANION GAP 10.7 MEQ/L (5-15); BLOOD UREA NITROGEN 19 mg/dL (9-20); CHLORIDE 106 mEq/L (98-107); Calcium 8.4 mg/dL (8.5-10.1); Creatinine 1 0.73 mg/dl (0.55-1.30); EST GLOMERULAR FILTRATION RATE > 60 ML/MIN; Glucose 88 MG/DL (70-110); Potassium 3.7 mEq/L (3.5-5.1); SGOT/AST 35 U/L (15-37); SODIUM 139 mEq/L (136-145); Total Protein 6.6 gm/dL (6.4-8.2)
[2017-04-26 06:55] LABS: SGPT/ALT < 6 U/L (12-78)
[2017-04-26 08:08] LABS: HEMOGLOBIN A1C 6.1 (4.5-6.2)
[2017-04-26] MEDS ORDERED: Zanaflex 4 MG PO (09:04)
[2017-04-26] MEDS: XARELTO 10 MG TABLET PO (09:23)
[2017-04-26] MEDS: SYNTHROID 100 MCG PO (09:24)
[2017-04-26] MEDS: NEURONTIN 300 MG PO ×2 (09:24→18:29)
[2017-04-26] MEDS: Klor Con 10 MEQ PO ×2 (09:24→20:48)
[2017-04-26] MEDS: Tamiflu 75MG Capsule PO ×2 (09:24→20:48)
[2017-04-26] MEDS: SYNTHROID 75 MCG PO (09:24)
[2017-04-26] MEDS: LASIX 20 MG PO ×2 (09:24→17:11)
[2017-04-26] MEDS: ECOTRIN 81 MG PO (09:24)
[2017-04-26] MEDS: Protonix 40MG Tablet PO ×2 (09:25→20:48)
[2017-04-26] MEDS: Pepcid 20 MG VIAL IV ×2 (09:25→20:51)
[2017-04-26] MEDS: Colace 100 MG PO (09:26)
[2017-04-26] MEDS ORDERED: OLODATEROL HCL IH (10:00)
[2017-04-26] MEDS ORDERED: NON-FORMULARY ITEM (Potassium Chloride [Potassium Chloride] 10 MEQ) PO (10:00)
[2017-04-26] MEDS ORDERED: NON-FORMULARY ITEM (Rivaroxaban [Xarelto] 20 MG) PO (10:00)
[2017-04-26] MEDS ORDERED: NON-FORMULARY ITEM (Gabapentin [Neurontin] 600 MG) PO (10:00)
[2017-04-26] MEDS ORDERED: LEVOTHYROXINE SODIUM 175 MCG PO (10:00)
[2017-04-26] MEDS ORDERED: TIZANIDINE HCL 4 MG PO (10:00)
[2017-04-26] MEDS ORDERED: NON-FORMULARY ITEM (Omeprazole [Omeprazole] 20 MG) PO (10:00)
[2017-04-26] MEDS ORDERED: NON-FORMULARY ITEM (Aspirin [Aspirin] 81 MG) PO (10:00)
[2017-04-26] MEDS ORDERED: TIOTROPIUM BR IH (10:00)
[2017-04-26] MEDS: ROCEPHIN 1 Gm-D5w 50 ml Bag** 1 G/50 ML IVPB IV (10:06)
[2017-04-26] MEDS: Zithromax 500 MG/ 250 ML NaCl Premix 500 MG/250 ML IVPB IV (11:48)
[2017-04-26] MEDS: Lopressor 25MG Tab PO ×2 (12:08→20:49)
[2017-04-26] MEDS: OXYCODONE-ACETAMINOPHEN 10-325 PO ×2 (12:54→20:48)
[2017-04-26] MEDS ORDERED: Colace 100 MG PO (13:32)
[2017-04-26] MEDS: Neurontin 400 MG PO ×2 (17:10→20:48)
[2017-04-26] MEDS: Sinemet 25/100 MG PO (20:48)
[2017-04-26] MEDS: ZOCOR 20MG PO (20:48)
[2017-04-26] MEDS: PATIENT OWN MEDICATION PO (20:50)
[2017-04-26] MEDS ORDERED: Mirapex 0.5 MG Tablet PO (22:00)
[2017-04-26] MEDS ORDERED: NON-FORMULARY ITEM (Pravastatin Sodium [Pravastatin Sodium] 20 MG) PO (22:00)
[2017-04-27] MEDS: DUONEB 0.5-3 MG/3 ml Neb IH ×6 (03:30→23:29)
[2017-04-27] MEDS: Sodium Chloride 0.9% 1000 ML 1,000 ML IV ×4 (03:54→23:15)
[2017-04-27] MEDS ORDERED: LASIX 20 MG PO (08:24)
[2017-04-27 08:44] LABS: Hematocrit 35.5 % (35-47); Hemoglobin 10.4 gm/dl (12.0-16.0); Mean Cell Volume 88.1 fl (78-100); Mean Corpuscular Hemoglobin 25.8 pg (26-32); Mean Corpuscular Hgb Concent. 29.3 g/dl (32-36); Mean Platelet Volume 8.6 fl (6-9.5); Platelet Count 144 K/mm3 (150-450); Red Blood Count 4.03 M/mm3 (4.1-5.4); White Blood Count 6.5 K/mm3 (4.0-10.5)
[2017-04-27 09:03] LABS: BLOOD UREA NITROGEN 14 mg/dL (9-20); CHLORIDE 106 mEq/L (98-107); Calcium 8.5 mg/dL (8.5-10.1); Carbon Dioxide 28.3 mEq/L (21-32); Creatinine 1 0.76 mg/dl (0.55-1.30); EST GLOMERULAR FILTRATION RATE > 60 ML/MIN; Glucose 111 MG/DL (70-110); Potassium 3.7 mEq/L (3.5-5.1); SODIUM 140 mEq/L (136-145)
[2017-04-27] MEDS: XARELTO 10 MG TABLET PO (09:06)
[2017-04-27] MEDS: Lopressor 25MG Tab PO ×2 (09:06→21:35)
[2017-04-27] MEDS: SYNTHROID 75 MCG PO (09:07)
[2017-04-27] MEDS: Pepcid 20 MG VIAL IV ×2 (09:07→21:36)
[2017-04-27] MEDS: Protonix 40MG Tablet PO ×2 (09:07→21:35)
[2017-04-27] MEDS: ROCEPHIN 1 Gm-D5w 50 ml Bag** 1 G/50 ML IVPB IV (09:07)
[2017-04-27] MEDS: ECOTRIN 81 MG PO (09:07)
[2017-04-27] MEDS: SYNTHROID 100 MCG PO (09:07)
[2017-04-27] MEDS: PATIENT OWN MEDICATION PO ×2 (09:07→21:40)
[2017-04-27] MEDS: NEURONTIN 300 MG PO ×2 (09:07→18:31)
[2017-04-27] MEDS: Lasix 40 MG PO ×2 (09:07→17:08)
[2017-04-27] MEDS: Tamiflu 75MG Capsule PO ×2 (09:09→21:35)
[2017-04-27] MEDS: Klor Con 10 MEQ PO ×2 (09:09→21:34)
[2017-04-27] MEDS: Zithromax 500 MG/ 250 ML NaCl Premix 500 MG/250 ML IVPB IV (10:40)
[2017-04-27] MEDS: NovoLOG Insulin SQ (11:18)
[2017-04-27] MEDS: OXYCODONE-ACETAMINOPHEN 10-325 PO ×2 (14:34→21:42)
[2017-04-27] MEDS: Neurontin 400 MG PO ×2 (17:08→21:36)
[2017-04-27] MEDS: ZOCOR 20MG PO (21:35)
[2017-04-27] MEDS: Sinemet 25/100 MG PO (21:35)
[2017-04-28] MEDS: Sodium Chloride 0.9% 1000 ML 1,000 ML IV (05:54)
[2017-04-28 06:19] LABS: BLOOD UREA NITROGEN 18 mg/dL (9-20); CHLORIDE 108 mEq/L (98-107); Calcium 8.5 mg/dL (8.5-10.1); Carbon Dioxide 26.6 mEq/L (21-32); Creatinine 1 0.75 mg/dl (0.55-1.30); EST GLOMERULAR FILTRATION RATE > 60 ML/MIN; Glucose 104 MG/DL (70-110); Potassium 4.1 mEq/L (3.5-5.1); SODIUM 142 mEq/L (136-145)
[2017-04-28] MEDS: DUONEB 0.5-3 MG/3 ml Neb IH (06:48)
[2017-04-28] MEDS: NEURONTIN 300 MG PO (08:55)
[2017-04-28 13:41] LABS: Slide Review NO
== END 2017-04-28 10:15 | disposition home or self-care (01) ==
LOC: ED 13:37 → ICU 18:01 → MED SURG 04-27 12:03
CPT/HCPCS: 36000; 36415; 71045; 80048; 80053; 81000; 82805; 82962; 83036; 83605; 85025; 85027; 87040; 87631; 93005; 93041; 93268; 93971; 94150; 94640; 94760; 96360; 96361; 96365; 96367; 97161-GP; 97530-GP; 99285; G0378; J0456; J0696; P9612

== ENCOUNTER 2018-01-02 12:05 | Observation (INO) | payer MEDICARE ==
--- NOTE | 2018-01-02 12:12 | ERPHSYRPT ---
- History of Present Illness Time Seen by Provider: 01/02/18 12:11 Source: patient, family Exam Limitations: no limitations Physician History: 62 y/o white female presents with chest congestion. pt sent to ED from Dr. Schmidt's office for evaluation. pt underwent a cabg in 2016. since then pt has had a sternectomy secondary to infection and has a defibrillator in place. pt has had several bouts of pneumonia. pt has had a cough for 3 weeks. she is currently on steroids. pt has been on z pack, amoxicillin and levaquin over last 3 weeks. pt states she has seen her design printer balloon and director of transportation within the last [address] schmidt sent pt to ED for evaluation and possible admission for IV antibx per pt. pt also has h/o chf. Timing/Duration: week(s) (3) Severity: mild Associated Symptoms: shortness of breath, cough, No nausea, No vomiting, No abdominal pain, No chest pain, No fever, No headaches, No loss of appetite, No malaise, No syncope, No seizure Allergies/Adverse Reactions: sulfamethoxazole [From Bactrim] Allergy (Verified 10/27/16 21:12) trimethoprim [From Bactrim] Allergy (Verified 10/27/16 21:12) Home Medications: Aspirin 81 mg PO DAILY 01/08/17 [History] Furosemide [Lasix] 40 mg PO DAILY 01/08/17 [History] Gabapentin [Neurontin] 600 mg PO QID 01/08/17 [History] Levothyroxine Sodium 175 mcg PO DAILY 01/08/17 [History] Omeprazole 20 mg PO BID 01/08/17 [History] Pravastatin Sodium 20 mg PO HS 01/08/17 [History] Rivaroxaban [Xarelto] 20 mg PO DAILY 01/08/17 [History] Carbidopa/Levodopa [Carbidopa-Levo 25-100 Tab] 1 each PO HS 04/25/17 [History] Docusate Sodium [Doc-Q-Lace] 100 mg PO BIDPRN PRN 04/25/17 [History] Metoprolol Tartrate 12.5 mg PO BID 04/25/17 [History] Oxycodone / APAP 10/325 mg [Oxycodone-Acetaminophen 10-325] 1 tab PO Q6HPRN PRN 04/25/17 [History] Potassium Chloride 10 meq PO BID 04/25/17 [History] Tiotropium Br/Olodaterol HCl [Stiolto Respimat Inhal [place]] 1 puff IH DAILY [History] Tizanidine HCl [Zanaflex] 4 mg PO BID 04/25/17 [History] Furosemide 20 mg [Lasix 20 mg] 20 mg PO DAILY PRN PRN 04/26/17 [History] Sacubitril/Valsartan [Entresto 24 mg-26 mg Tablet] 1 tab PO BID 04/26/17 [ History] Hx Tetanus, Diphtheria Vaccination/Date Given: No Hx Influenza Vaccination/Date Given: Yes Hx Pneumococcal Vaccination/Date Given: Yes - Review of Systems Constitutional: No Symptoms, No Fever, No Chills Eyes: No Symptoms, No Discharge, No Eye Pain Ears, Nose, & Throat: No Symptoms, No Ear Pain, No Mouth Pain, No Mouth Swelling , No Painful Swallowing Respiratory: Cough, Dyspnea, No Stridor, No Wheezing Cardiac: No Symptoms, No Chest Pain, No Edema, No Palpitations, No Syncope Abdominal/Gastrointestinal: No Symptoms, No Abdominal Pain, No Nausea, No Vomiting, No Diarrhea Genitourinary Symptoms: No Symptoms, No Dysuria, No Frequency, No Hematuria Musculoskeletal: No Symptoms, No Arthralgias, No Back Pain, No Neck Pain, No Deformity, No Fall, No Injury Skin: No Symptoms Neurological: No Symptoms Psychological: No Symptoms Endocrine: No Symptoms Hematologic/Lymphatic: No Symptoms Immunological/Allergic: No Symptoms All Other Systems: Reviewed and Negative - Past Medical History Pertinent Past Medical History: Yes Neurological History: Peripheral Neuropathy ENT History: Cataracts Cardiac History: Arrhythmia, Coronary Artery Disease, High Cholesterol, Hypertension Respiratory History: COPD, Sleep Apnea Endocrine Medical History: Diabetes Type II, Hypothyroidism Musculoskeletal History: Arthritis, Osteoarthritis, Rheumatoid Arthritis GI Medical History: Hernia History: No Pertinent History Psycho-Social History: No Pertinent History Female Reproductive Disorders: No Pertinent History Other Medical History: Pacemaker and defibrillator, O2 as needed, - Past Surgical History Past Surgical History: Yes Neuro Surgical History: No Pertinent History Cardiac: Angioplasty, CABG, Cardiac Catheterization, Cardiac Stent, Internal Defibrillator, Pacemaker, Vascular Surgery, Other Respiratory: No Pertinent History Gastrointestinal: Cholecystectomy Genitourinary: No Pertinent History Musculoskeletal: Other Female Surgical History: Hysterectomy Other Surgical History: pt had CABG in July 2015, had sternum removed in August due to infection, Pt states her breast bones are held together with the muscles from her breasts. She has had varicose veins tied off. She states they were not stripped. She has also had bilateral carpal tunnel surgery. And she has had surgery on her big toe . Pt wears a brace on her left leg due to neuropathy - Social History Smoking Status: Current every day smoker How long have you smoked: years Exposure to second hand smoke: Yes Drug Use: none Patient Lives Alone: No Significant Family History: no pertinent family hx - Nursing Vital Signs Nursing Vital Signs: Initial Vital Signs Temperature 99.1 F 01/02/18 12:05 Pulse Rate 95 H 01/02/18 12:05 Respiratory Rate 22 01/02/18 12:05 Blood Pressure 109/77 01/02/18 12:05 O2 Sat by Pulse Oximetry 92 L 01/02/18 12:05 Pain Scale Pain Intensity 0 - Physical Exam General Appearance: no apparent distress, alert, anxiety Eye Exam: PERRL/EOMI, eyes nml inspection Ears, Nose, Throat Exam: normal ENT inspection, TMs normal Neck Exam: normal inspection, non-tender, supple, full range of motion Respiratory Exam: airway intact, rhonchi (right upper lobe), No chest tenderness , No lungs clear, No respiratory distress, No accessory muscle use, No wheezing , No stridor Cardiovascular Exam: normal heart sounds, normal peripheral pulses, tachycardia Gastrointestinal/Abdomen Exam: soft, normal bowel sounds, No tenderness, No guarding, No rebound Pelvic Exam: not done Rectal Exam: not done Extremity Exam: normal inspection, normal range of motion, pelvis stable Neurologic Exam: alert, oriented x 3, cooperative, service center appraiser II-XII nml as tested Skin Exam: normal color, warm, dry Lymphatic Exam: No adenopathy SpO2 Interpretation: normal - Course Nursing assessment & vital signs reviewed: Yes EKG Interpreted by Me: RATE (112), Left Wishek Deviation, NORMAL INTERVALS (pt has defibrillator in place. when compared to ekg of 04/25/17 no change), Non- specific ST Changes Ordered Tests: Active Orders 24 hr Category Date Time Status Professor Of Music STAT Care 01/02/18 12:32 Active EKG-ER Only STAT Care 01/02/18 12:30 Active IV Insertion STAT Care 01/02/18 12:30 Active Pulse Oximetry (ED) STAT Care 01/02/18 12:30 Active CHEST WITH CONTRAST [CT] Stat Exams 01/02/18 12:31 Completed BLOOD CULTURE Stat Lab 01/02/18 12:59 Received CBC W DIFF Stat Lab 01/02/18 12:50 Completed CMP Stat Lab 01/02/18 12:50 Completed Lactic Acid Stat Lab 01/02/18 12:45 Completed Manual Differential NC Stat Lab 01/02/18 12:50 Completed NT PRO BNP Stat Lab 01/02/18 12:50 Completed TROPONIN Q3H Lab 01/02/18 15:45 Ordered TROPONIN Q3H Lab 01/02/18 18:45 Ordered TROPONIN Q3H Lab 01/02/18 21:45 Ordered Transfer Order Routine Transfer 01/02/18 Ordered Medication Summary Discontinued Medications Generic Name Dose Route Start Last Admin Trade Name Freq PRN Reason Stop Dose Admin Oxycodone/Acetaminophen 1 tab 01/02/18 15:47 Percocet Tablet 5/325mg PO 01/02/18 15:48 STAT STA Lab/Rad Data: Laboratory Result Diagrams 01/02/18 12:50 01/02/18 12:50 Laboratory Results 01/02/18 01/02/18 01/02/18 Range/Units 12:50 12:50 12:45 WBC 11.7 H (4.0-10.5) K/mm3 RBC 5.03 (4.1-5.4) M/mm3 Hgb 13.1 (12.0-16.0) gm/dl Hct 44.0 (35-47) % MCV 87.5 (78-100) fl MCH 26.0 (26-32) pg MCHC 29.8 L (32-36) g/dl RDW 18.9 H (11.5-14.0) % Plt Count 166 (150-450) K/mm3 MPV 9.4 (6-9.5) fl Gran % LAST MODEL DEPARTMENT SUPERVISOR Eos # (Auto) LAST MODEL DEPARTMENT SUPERVISOR Absolute Lymphs (auto) LAST MODEL DEPARTMENT SUPERVISOR Absolute Monos (auto) LAST MODEL DEPARTMENT SUPERVISOR Lymphocytes % LAST MODEL DEPARTMENT SUPERVISOR Monocytes % LAST MODEL DEPARTMENT SUPERVISOR Eosinophils % LAST MODEL DEPARTMENT SUPERVISOR Basophils % LAST MODEL DEPARTMENT SUPERVISOR Absolute Granulocytes 10.40 H (1.4-6.9) Segmented Neutrophils 87 H (36.0-66.0) % Band Neutrophils 3 H (0.0-2.0) % Lymphocytes (Manual) 9 L (24-44) % Basophils (Manual) 1 (0.0-1.0) % Basophils # LAST MODEL DEPARTMENT SUPERVISOR Platelet Estimate NORMAL (NORMAL) RBC Morphology NORMAL Sodium 137 (137-145) mmol/L Potassium 4.2 (3.5-5.1) mmol/L Chloride 101 (98-107) mmol/L Carbon Dioxide 28 (22-30) mmol/L Anion Gap 12.4 (5-15) MEQ/L BUN 13 (7-17) mg/dL Creatinine 0.58 (0.52-1.04) mg/dL Estimated GFR > 60.0 ML/MIN Glucose 132 H (74-106) mg/dL Lactic Acid 0.9 (0.4-2.0) Calcium 8.9 (8.4-10.2) mg/dL Total Bilirubin 0.60 (0.2-1.3) mg/dL AST 13 L (14-36) U/L ALT 5 (0-35) U/L Alkaline Phosphatase 97 (38-126) U/L NT-Pro-B Natriuret Pep 889 (0-900) pg/mL Serum Total Protein 6.7 (6.3-8.2) g/dL Albumin 3.9 (3.5-5.0) g/dL cxr- left upper lobe hazy airspace dz - Progress Progress: re-examined Progress Note: 01/02/18 15:[address] schmidt regarding pts hx, condition, lab, ekg and xray results. she accepts pt for admission. i am to order rocephin and zithromax. Discussed with : Roxana Will see patient in: hospital (observation) Counseled pt/family regarding: lab results, diagnosis, rad results - Departure Time of Disposition: 15:40 Departure Disposition: Observation Clinical Impression: Pneumonia Condition: Stable Critical Care Time: No Referrals: DENISE SCHMIDT [Primary Care Provider] -
[2018-01-02 13:07] LABS: Hemoglobin 13.1 gm/dl (12.0-16.0); Mean Cell Volume 87.5 fl (78-100); Mean Corpuscular Hgb Concent. 29.8 g/dl (32-36); Mean Platelet Volume 9.4 fl (6-9.5); Platelet Count 166 K/mm3 (150-450); Red Blood Count 5.03 M/mm3 (4.1-5.4); Red Cell Distribution Width 18.9 % (11.5-14.0); White Blood Count 11.7 K/mm3 (4.0-10.5)
[2018-01-02 13:37] LABS: ALBUMIN 3.9 g/dL (3.5-5.0); ALKALINE PHOSPHATASE 97 U/L (38-126); ANION GAP 12.4 MEQ/L (5-15); BLOOD UREA NITROGEN 13 mg/dL (7-17); CHLORIDE 101 mmol/L (98-107); Calcium 8.9 mg/dL (8.4-10.2); Carbon Dioxide 28 mmol/L (22-30); Creatinine 1 0.58 mg/dL (0.52-1.04); Glucose 132 mg/dL (74-106); NT PRO BNP 889 pg/mL (0-900); Potassium 4.2 mmol/L (3.5-5.1); SGOT/AST 13 U/L (14-36); SODIUM 137 mmol/L (137-145); Total Protein 6.7 g/dL (6.3-8.2)
[2018-01-02 14:01] LABS: SGPT/ALT 5 U/L (0-35)
[2018-01-02 15:09] LABS: BAND 3 % (0.0-2.0); Basophil 1 % (0.0-1.0); Lymphocytes 9 % (24-44); Neutrophils 87 % (36.0-66.0); Total Cells Counted 100
[2018-01-02 15:10] LABS: Platelet Estimate NORMAL (NORMAL)
--- NOTE | 2018-01-02 15:19 | XRAY ---
Indication: Cough and congestion 3 weeks. Multiple contiguous axial images obtained through the chest using 80 cc Isovue 370 contrast. Comparison: CT chest without contrast June 06, 2016. Study study degraded by respiration artifact. Heart is now enlarged again with CABG surgery and left-sided AICD. Aorta remains minimally calcified without aneurysm/dissection. Stable distal paratracheal and right hilar calcified nodes. Again subcarinal node today measuring 1.5 x 1.9 cm, previously 1.8 x 2.6 cm. No pathologic hilar lymphadenopathy. Examination of the lung parenchyma again demonstrates mild/moderate bilateral dependent atelectasis, left base subsegmental atelectasis, and inferior right upper lobe calcified granuloma. New hazy left lung airspace disease greatest in the upper lobe. No consolidation or effusion. Bony thorax demonstrates osteopenia, multilevel spinal degenerative osteophytes, and old bilateral rib fractures. Limited upper abdomen again demonstrates fatty liver, cholecystectomy, and hepatic/splenic calcified granulomas. Impression: 1. New left lung airspace disease without consolidation/effusion. 2. Cardiomegaly without naomi CHF. 3. Interval diminished subcarinal adenopathy. 4. Stable fatty liver and evidence for old granulomatous disease. CT DI 34.69
[2018-01-02] MEDS ORDERED: PERCOCET TABLET 5/325MG PO STA (15:47)
[2018-01-02] MEDS ORDERED: PERCOCET TABLET 5/325MG ONE (15:51)
[2018-01-02] MEDS ORDERED: Zofran 4 MG/2 ML VIAL IV PRN (16:27)
[2018-01-02] MEDS ORDERED: TYLENOL 325 MG PO PRN (16:27)
[2018-01-02] MEDS: Zithromax 500 MG/ 250 ML NaCl Premix 500 MG/250 ML IVPB IV SCH (17:17)
[2018-01-02] MEDS: ROCEPHIN 1 Gm-D5w 50 ml Bag** 1 G/50 ML IVPB IV SCH (17:17)
[2018-01-02] MEDS ORDERED: OXYCODONE-ACETAMINOPHEN 10-325 PO PRN (18:04)
[2018-01-02] MEDS: HOLD METFORMIN PRODUCTS FOR 48 HOURS MC SCH (18:51)
[2018-01-02] MEDS: DUONEB 0.5-3 MG/3 ml Neb IH SCH ×2 (18:55→22:54)
[2018-01-02] MEDS: Lopressor 25MG Tab PO SCH (21:01)
[2018-01-02] MEDS: Protonix 40MG Tablet PO SCH (21:02)
[2018-01-02] MEDS: ZOCOR 20MG PO SCH (21:02)
[2018-01-02] MEDS: Sinemet 25/100 MG PO SCH (21:03)
[2018-01-02] MEDS ORDERED: NEURONTIN 300 MG PO SCH (22:00)
[2018-01-03] MEDS: DUONEB 0.5-3 MG/3 ml Neb IH SCH ×6 (02:56→22:56)
[2018-01-03 05:52] LABS: Granulocyte Absolute (ANC) 6.81 (1.4-6.9); Hematocrit 42.6 % (35-47); Hemoglobin 12.4 gm/dl (12.0-16.0); Mean Cell Volume 88.9 fl (78-100); Mean Corpuscular Hemoglobin 25.9 pg (26-32); Mean Corpuscular Hgb Concent. 29.1 g/dl (32-36); Mean Platelet Volume 9.4 fl (6-9.5); Platelet Count 156 K/mm3 (150-450); Red Blood Count 4.79 M/mm3 (4.1-5.4); Red Cell Distribution Width 19.5 % (11.5-14.0); White Blood Count 8.8 K/mm3 (4.0-10.5)
[2018-01-03 06:10] LABS: ALBUMIN 3.6 g/dL (3.5-5.0); ALKALINE PHOSPHATASE 107 U/L (38-126); ANION GAP 8.9 MEQ/L (5-15); BLOOD UREA NITROGEN 18 mg/dL (7-17); CHLORIDE 102 mmol/L (98-107); Calcium 8.4 mg/dL (8.4-10.2); Carbon Dioxide 31 mmol/L (22-30); Creatinine 1 0.77 mg/dL (0.52-1.04); Glucose 144 mg/dL (74-106); NT PRO BNP 844 pg/mL (0-900); Potassium 3.8 mmol/L (3.5-5.1); SGOT/AST 9 U/L (14-36); SGPT/ALT 10 U/L (0-35); SODIUM 138 mmol/L (137-145); Total Protein 6.3 g/dL (6.3-8.2)
[2018-01-03] MEDS ORDERED: OXYCODONE-ACETAMINOPHEN 10-325 PO PRN (06:44)
[2018-01-03] MEDS ORDERED: Nitrostat 0.4 MG Tablet SL PRN (07:08)
[2018-01-03] MEDS ORDERED: NYSTOP 30 GM CREAM TP PRN (07:08)
[2018-01-03] MEDS ORDERED: NYSTOP POWDER 15 GM TP PRN (07:08)
[2018-01-03 07:57] LABS: ANISOCYTOSIS 1+; Lymphocytes 16 % (24-44); Monocyte 6 % (0.0-12.0); Neutrophils 78 % (36.0-66.0); Platelet Estimate NORMAL (NORMAL); Total Cells Counted 100
[2018-01-03] MEDS: Sinemet 25/100 MG PO SCH ×2 (08:16→21:24)
[2018-01-03] MEDS ORDERED: KENALOG 0.1% CREAM 15 GM TP PRN (08:18)
[2018-01-03] MEDS: NEURONTIN 300 MG PO SCH ×2 (08:35→11:30)
[2018-01-03] MEDS: Protonix 40MG Tablet PO SCH ×2 (09:03→21:24)
[2018-01-03] MEDS: Lopressor 25MG Tab PO SCH ×2 (09:03→21:23)
[2018-01-03] MEDS: Zithromax 500 MG/ 250 ML NaCl Premix 500 MG/250 ML IVPB IV SCH (09:06)
[2018-01-03] MEDS: PATIENT OWN MEDICATION IH SCH (09:08)
--- NOTE | 2018-01-03 09:09 | PCM.HP ---
History of Present Illness - Chief Complaint Chief Complaint: pneumonia History of Present Illness: is a 62 year old female with DM, CAD, CHF, and COPD who was admitted through the ER with pneumonia yesterday. She was treated outpatient for 3 weeks with po antibiotics and continued to worsen. Denies fever. Did not have SOB, just cough. CT chest w L airspace disease. Feeling better this morning. - Review of Systems Constitutional: No Fever Respiratory: Cough, No Short Of Breath All Other Systems: Reviewed and Negative Medications & Allergies Home Medications: Home Medication List Furosemide [Lasix] 40 mg PO DAILY 01/08/17 [History Confirmed 01/02/18] Gabapentin [Neurontin] 600 mg PO UD 01/08/17 [History Confirmed 01/03/18] Levothyroxine Sodium 175 mcg PO DAILY 01/08/17 [History Confirmed 01/02/18] Omeprazole 20 mg PO BID 01/08/17 [History Confirmed 01/02/18] Pravastatin Sodium 20 mg PO HS 01/08/17 [History Confirmed 01/02/18] Rivaroxaban [Xarelto] 20 mg PO DAILY 01/08/17 [History Confirmed 01/02/18] Carbidopa/Levodopa [Carbidopa-Levo 25-100 Tab] 1 each PO BID 04/25/17 [History Confirmed 01/02/18] Metoprolol Tartrate 12.5 mg PO BID 04/25/17 [History Confirmed 01/02/18] Oxycodone / APAP 10/325 mg [Oxycodone-Acetaminophen 10-325] 1 tab PO Q4H PRN 04/25/17 [History Confirmed 01/02/18] Potassium Chloride 20 meq PO DAILY 04/25/17 [History Confirmed 01/02/18] Tiotropium Br/Olodaterol HCl [Stiolto Respimat Inhal [place]] 1 puff IH DAILY [History Confirmed 01/02/18] Fluocinonide/Emollient Base [Fluocinonide-E 0.05% Cream] 1 gm TOP BID 01/02/18 [ History Confirmed 01/02/18] Fluticasone Propionate [Flonase NASAL] 2 sprays NS DAILY 01/02/18 [ History Confirmed 01/02/18] Methotrexate Sodium 2.5 mg [Trexall 2.5 mg] 5 tab PO WEEKLY 01/02/18 [ History Confirmed 01/02/18] Nitroglycerin 0.4 mg Tablet [Nitrostat 0.4 MG Tablet] 0.4 mg SL Q5MIN PRN MR X 3 PRN 01/02/18 [History Confirmed 01/02/18] Nystatin Cream 30 gm [Nystop 30 gm Cream] 30 gm TP BIDPRN PRN 01/02/18 [ History Confirmed 01/02/18] Nystatin Powder 15 gm [Nystop Powder 15 gm] 15 gm TP BIDPRN PRN 01/02/18 [ History Confirmed 01/02/18] Prednisone 20 mg [Deltasone 20 mg] 10 mg PO DAILY 01/02/18 [History Confirmed 01/02/18] Sacubitril/Valsartan [Entresto 24 mg-26 mg Tablet] 1 each PO DAILY 01/02/18 [ History Confirmed 01/02/18] Gabapentin [Neurontin] 1,200 mg PO UD 01/03/18 [History Confirmed 01/03/18] Allergies/Adverse Reactions: Allergies Allergy/AdvReac Type Severity Reaction Status Date / Time sulfamethoxazole Allergy Verified 01/02/18 16:36 [From Bactrim] trimethoprim [From Bactrim] Allergy Verified 01/02/18 16:36 - Past Medical History Past Medical History: Yes Neurological History: Peripheral Neuropathy ENT History: Cataracts Cardiac History: Arrhythmia, Congestive Heart Failure, Coronary Artery Disease, High Cholesterol, Hypertension Respiratory History: COPD, Sleep Apnea Endocrine Medical History: Diabetes Type II, Hypothyroidism Musculoskelatal History: Arthritis, Osteoarthritis, Rheumatoid Arthritis GI Medical History: Hernia History: No Pertinent History Pyscho-Social History: No Pertinent History Reproductive Disorders: No Pertinent History Comment: Pacemaker and defibrillator, O2 as needed CPAP at [facility] - Female History Are you now?: No - Past Surgical History Past Surgical History: Yes Neuro Surgical History: No Pertinent History Cardiac History: Angioplasty, CABG, Cardiac Catheterization, Cardiac Stent, Internal Defibrillator, Pacemaker, Vascular Surgery, Other Respiratory Surgery: No Pertinent History GI Surgical History: Cholecystectomy Genitourinary Surgical Hx: No Pertinent History Musculskeletal Surgical Hx: Other Female Surgical History: Hysterectomy Other Surgical History: pt had CABG in July 2015, had sternum removed in August due to infection, Pt states her breast bones are held together with the muscles from her breasts. She has had varicose veins tied off. She states they were not stripped. She has also had bilateral carpal tunnel surgery. And she has had surgery on her big toe . Pt wears a brace on her left leg due to neuropathy - Social History Smoking Status: Current every day smoker How long have you smoked: 40 Exposure to second hand smoke: Yes Alcohol: None Drug Use: none Significant Family History: no pertinent family hx - Physical Exam Vital Signs: Vital Signs - 24 hr Temp Pulse Resp BP Pulse Ox 01/03/18 07:41 18 01/03/18 07:04 98.2 F 108 H 18 104/62 100 01/03/18 06:35 109 H 20 98 01/03/18 04:00 16 01/03/18 03:52 98.2 F 105 H 16 124/57 95 01/03/18 02:56 105 H 16 95 01/03/18 00:00 18 01/02/18 23:43 98.5 F 83 18 120/59 94 L 01/02/18 22:54 115 H 16 91 L 01/02/18 20:00 20 01/02/18 19:49 98.5 F 98 H 20 109/51 96 01/02/18 18:55 90 20 91 L 01/02/18 17:11 93 L 01/02/18 16:27 98.1 F 87 18 120/66 93 L 01/02/18 15:29 98.0 F 90 18 110/64 99 01/02/18 13:56 98.0 F 112 H 24 112/69 97 01/02/18 12:58 117 H 28 H 119/89 90 L 01/02/18 12:47 92 L 01/02/18 12:14 93 L 01/02/18 12:05 99.1 F 95 H 22 109/77 92 L Oxygen-Last 24 hours O2 Percentage 3 Liters = 32% O2 Percentage 3 Liters = 32% O2 Percentage 3 Liters = 32% O2 Percentage 3 Liters = 32% General Appearance: no apparent distress, alert, obese Neurologic Exam: oriented x 3, cooperative Eye Exam: eyes nml inspection Ears, Nose, Throat Exam: moist mucous membranes Neck Exam: normal inspection, non-tender, No lymphadenopathy Respiratory Exam: diminished breath sounds, prolonged expirations, No crackles/ rales, No rhonchi, No wheezing Cardiovascular Exam: regular rate/rhythm, normal heart sounds, No murmur Gastrointestinal/Abdomen Exam: soft, normal bowel sounds, No tenderness, No distention, No mass, No guarding, No rebound Back Exam: normal inspection, No rash Extremity Exam: swelling (trace pretibial edema bilat) Skin Exam: normal color, warm, dry, No rash Results - Labs Lab/Micro Results: Lab Results-Last 24 Hours 01/02/18 01/02/18 01/02/18 Range/Units 12:45 12:50 12:50 WBC 11.7 H (4.0-10.5) K/mm3 RBC 5.03 (4.1-5.4) M/mm3 Hgb 13.1 (12.0-16.0) gm/dl Hct 44.0 (35-47) % MCV 87.5 (78-100) fl MCH 26.0 (26-32) pg MCHC 29.8 L (32-36) g/dl RDW 18.9 H (11.5-14.0) % Plt Count 166 (150-450) K/mm3 MPV 9.4 (6-9.5) fl Gran % SLIP INJECTOR AND APPLICATOR Eos # (Auto) SLIP INJECTOR AND APPLICATOR Absolute Lymphs (auto) SLIP INJECTOR AND APPLICATOR Absolute Monos (auto) SLIP INJECTOR AND APPLICATOR Lymphocytes % SLIP INJECTOR AND APPLICATOR Monocytes % SLIP INJECTOR AND APPLICATOR Eosinophils % SLIP INJECTOR AND APPLICATOR Basophils % SLIP INJECTOR AND APPLICATOR Absolute Granulocytes 10.40 H (1.4-6.9) Segmented Neutrophils 87 H (36.0-66.0) % Band Neutrophils 3 H (0.0-2.0) % Lymphocytes (Manual) 9 L (24-44) % Monocytes (Manual) (0.0-12.0) % Basophils (Manual) 1 (0.0-1.0) % Basophils # SLIP INJECTOR AND APPLICATOR Platelet Estimate NORMAL (NORMAL) RBC Morphology NORMAL Anisocytosis Sodium 137 (137-145) mmol/L Potassium 4.2 (3.5-5.1) mmol/L Chloride 101 (98-107) mmol/L Carbon Dioxide 28 (22-30) mmol/L Anion Gap 12.4 (5-15) MEQ/L BUN 13 (7-17) mg/dL Creatinine 0.58 (0.52-1.04) mg/dL Estimated GFR > 60.0 ML/MIN Glucose 132 H (74-106) mg/dL Lactic Acid 0.9 (0.4-2.0) Calcium 8.9 (8.4-10.2) mg/dL Total Bilirubin 0.60 (0.2-1.3) mg/dL AST 13 L (14-36) U/L ALT 5 (0-35) U/L Alkaline Phosphatase 97 (38-126) U/L Troponin I (0.000-0.034) ng/mL NT-Pro-B Natriuret Pep 889 (0-900) pg/mL Serum Total Protein 6.7 (6.3-8.2) g/dL Albumin 3.9 (3.5-5.0) g/dL 01/02/18 01/03/18 01/03/18 Range/Units 16:18 05:29 05:29 WBC 8.8 (4.0-10.5) K/mm3 RBC 4.79 (4.1-5.4) M/mm3 Hgb 12.4 (12.0-16.0) gm/dl Hct 42.6 (35-47) % MCV 88.9 (78-100) fl MCH 25.9 L (26-32) pg MCHC 29.1 L (32-36) g/dl RDW 19.5 H (11.5-14.0) % Plt Count 156 (150-450) K/mm3 MPV 9.4 (6-9.5) fl Gran % Eos # (Auto) Absolute Lymphs (auto) Absolute Monos (auto) Lymphocytes % Monocytes % Eosinophils % Basophils % Absolute Granulocytes 6.81 (1.4-6.9) Segmented Neutrophils 78 H (36.0-66.0) % Band Neutrophils (0.0-2.0) % Lymphocytes (Manual) 16 L (24-44) % Monocytes (Manual) 6 (0.0-12.0) % Basophils (Manual) (0.0-1.0) % Basophils # Platelet Estimate NORMAL (NORMAL) RBC Morphology ABNORMAL Anisocytosis 1+ Sodium 138 (137-145) mmol/L Potassium 3.8 (3.5-5.1) mmol/L Chloride 102 (98-107) mmol/L Carbon Dioxide 31 H (22-30) mmol/L Anion Gap 8.9 (5-15) MEQ/L BUN 18 H (7-17) mg/dL Creatinine 0.77 (0.52-1.04) mg/dL Estimated GFR > 60.0 ML/MIN Glucose 144 H (74-106) mg/dL Lactic Acid (0.4-2.0) Calcium 8.4 (8.4-10.2) mg/dL Total Bilirubin 0.20 (0.2-1.3) mg/dL AST 9 L (14-36) U/L ALT 10 (0-35) U/L Alkaline Phosphatase 107 (38-126) U/L Troponin I < 0.012 (0.000-0.034) ng/mL NT-Pro-B Natriuret Pep 844 (0-900) pg/mL Serum Total Protein 6.3 (6.3-8.2) g/dL Albumin 3.6 (3.5-5.0) g/dL - Radiology Impressions Radiology Exams & Impressions: Radiology Procedures Category Date Time Status CHEST WITH CONTRAST [CT] Stat Exams 01/02/18 12:31 Completed - Other Procedures and Tests Respiratory Therapy 01/02/18 17:11 Respiratory Therapy Assessment DAILY 01/02/18 17:12 Oxygen NASAL CANNULA 3 lpm Peak Expiratory Flow Rate ONCE Assessment/Plan (1) Pneumonia Current Visit: Yes Status: Acute Qualifiers: Pneumonia type: due to unspecified organism Laterality: left Lung location: upper lobe of lung Qualified Code(s): J18.1 - Lobar pneumonia, unspecified organism Assessment & Plan: Feeling much better, on day #2 of rocephin and zithromax. Will need at least another day, but possibly several, before discharge to home. Code(s): J18.9 - PNEUMONIA, UNSPECIFIED ORGANISM (2) Failure of outpatient treatment Current Visit: No Status: Acute Code(s): Z78.9 - OTHER SPECIFIED HEALTH STATUS (3) CHF (congestive heart failure) Current Visit: No Status: Chronic Qualifiers: Qualified Code(s): I50.9 - Heart failure, unspecified Code(s): I50.9 - HEART FAILURE, UNSPECIFIED (4) COPD (chronic obstructive pulmonary disease) Current Visit: No Status: Chronic Qualifiers: COPD type: emphysema Emphysema type: unspecified Qualified Code(s): J43.9 - Emphysema, unspecified (5) Coronary artery disease Current Visit: No Status: Chronic Qualifiers: Coronary Disease-Associated Artery/Lesion type: bypass graft [place] vs. transplanted heart: [place] heart Associated angina: without angina Qualified Code(s): I25.810 - Atherosclerosis of coronary artery bypass graft(s) without angina pectoris Code(s): I25.10 - ATHSCL HEART DISEASE OF [place] CORONARY ARTERY W/O ANG PCTRS (6) Diabetes mellitus Current Visit: No Status: Chronic Qualifiers: Diabetes mellitus type: type 2 Diabetes mellitus long distance operator insulin use: without long distance operator use Diabetes mellitus complication status: with circulatory complication Diabetes mellitus complication detail: with other circulatory complications Qualified Code(s): E11.59 - Type 2 diabetes mellitus with other circulatory complications Code(s): E11.9 - TYPE 2 DIABETES MELLITUS WITHOUT COMPLICATIONS (7) History of pulmonary embolism Current Visit: No Status: Chronic Code(s): Z86.711 - PERSONAL HISTORY OF PULMONARY EMBOLISM (8) Hypertension Current Visit: No Status: Chronic Qualifiers: Hypertension type: essential hypertension Qualified Code(s): I10 - Essential (primary) hypertension Code(s): I10 - ESSENTIAL (PRIMARY) HYPERTENSION (9) Tobacco abuse Current Visit: No Status: Chronic Code(s): Z72.0 - TOBACCO USE
[2018-01-03] MEDS ORDERED: NON-FORMULARY ITEM (Sacubitril/Valsartan [Entresto 24 Mg-26 Mg Tablet] 1 EACH) PO SCH (10:00)
[2018-01-03] MEDS ORDERED: SYNTHROID 75 MCG PO SCH (10:00)
[2018-01-03] MEDS ORDERED: DELTASONE 20 MG PO SCH (10:00)
[2018-01-03] MEDS ORDERED: NON-FORMULARY ITEM (Potassium Chloride [Potassium Chloride] 20 MEQ) PO SCH (10:00)
[2018-01-03] MEDS ORDERED: NON-FORMULARY ITEM (Rivaroxaban [Xarelto] 20 MG) PO SCH (10:00)
[2018-01-03] MEDS ORDERED: Flonase NASAL NS PRN (10:00)
[2018-01-03] MEDS ORDERED: FLUZONE QUAD (36mo-64yo) 2018-2019 SYRINGE IM ONE (10:00)
[2018-01-03] MEDS ORDERED: ENTRESTO 49 MG-51 MG TABLET PO SCH (10:00)
[2018-01-03] MEDS ORDERED: LEVOTHYROXINE SODIUM 175 MCG PO SCH (10:00)
[2018-01-03] MEDS ORDERED: FLUOCINONIDE TOP SCH (10:00)
[2018-01-03] MEDS ORDERED: Klor Con 10 MEQ PO SCH (10:00)
[2018-01-03] MEDS ORDERED: DELTASONE 10 MG PO SCH (10:00)
[2018-01-03] MEDS ORDERED: Lasix 40 MG PO SCH (10:00)
[2018-01-03] MEDS ORDERED: EMOLLIENT BASE TOP SCH (10:00)
[2018-01-03] MEDS ORDERED: PATIENT OWN MEDICATION IH SCH (10:00)
[2018-01-03] MEDS ORDERED: SYNTHROID 100 MCG PO SCH (10:00)
[2018-01-03] MEDS: HOLD METFORMIN PRODUCTS FOR 48 HOURS MC SCH (10:19)
[2018-01-03] MEDS: ROCEPHIN 1 Gm-D5w 50 ml Bag** 1 G/50 ML IVPB IV SCH (11:01)
[2018-01-03] MEDS: Neurontin 400 MG PO SCH ×2 (17:46→21:33)
[2018-01-03] MEDS ORDERED: XARELTO 10 MG TABLET PO SCH (18:00)
[2018-01-03] MEDS: ZOCOR 20MG PO SCH (21:24)
[2018-01-04] MEDS: DUONEB 0.5-3 MG/3 ml Neb IH SCH ×2 (03:00→07:18)
[2018-01-04] MEDS: PATIENT OWN MEDICATION IH SCH (07:23)
[2018-01-04 07:39] VITALS: BP 131/65; PULSE 108; O2SAT 97
[2018-01-04] MEDS: NEURONTIN 300 MG PO SCH (08:33)
--- NOTE | 2018-01-04 08:38 | PCM.DS ---
Discharge Summary Date of Admission: 01/03/18 13:12 Admitting Physician: DENISE LENZ Primary Care Provider: DENISE LENZ Allergies Allergies sulfamethoxazole [From Bactrim] Allergy (Verified 01/02/18 16:36) unable to remember trimethoprim [From Bactrim] Allergy (Verified 01/02/18 16:36) Hospital Summary - Hospital Course Hospital Course: Pt admitted through ER with chest discomfort after battling a respiratory illness x 3 weeks outpatient. She was given po zithromax, then po amoxicillin, then po levaquin and still felt very poor. Was admitted and put on IV rocephin and zithromax. She felt much better the next morning, and better still today. Would like to go home. Sending pt home on po augmentin and diflucan. - Vitals & Intake/Output Vital Signs: Vital Signs Temperature 97.6 F 01/04/18 04:00 Pulse Rate 108 H 01/04/18 07:38 Respiratory Rate 20 01/04/18 07:38 Blood Pressure 131/65 01/04/18 07:38 O2 Sat by Pulse Oximetry 97 01/04/18 07:38 Oxygen-Last Documented O2 Percentage 3 Liters = 32% Intake & Output: Intake & Output 01/01/18 01/02/18 01/03/18 01/04/18 11:59 11:59 11:59 11:59 Intake Total 2019 156 Output Total 250 Balance 2019 1310 Weight 107 kg 109.6 kg - Lab Result Diagrams: 01/03/18 05:29 01/03/18 05:29 - Radiology Exams Ordered Rad Exams-Entire Visit: Radiology Procedures Category Date Time Status CHEST WITH CONTRAST [CT] Stat Exams 01/02/18 12:31 Completed - Procedures and Test Procedures and Tests throughout Hospitalization: Therapy Orders & Screens 01/02/18 16:27 Respiratory Therapy Consult ROUTINE Comment: Reason For Exam: 01/02/18 17:11 Respiratory Nebulizer Q4H Comment: Respiratory Therapy Assessment DAILY Comment: 01/02/18 17:12 Oxygen NASAL CANNULA 3 lpm Comment: Peak Expiratory Flow Rate ONCE Comment: Reason For Exam: 01/02/18 17:16 RT Screen per Nursing Assess ONCE Comment: Protocol Order Physician Instructions: Greater than 3 points order RT Admission Screen Reason For Exam: Triggered on Admission Diagnosis: pneumonia Diagnosis: pneumonia Pneumonia: Yes Home O2: Yes Asthma: No CHF: Yes Home CPAP/BIPAP: Yes Home Nebs/MDI: Yes Total Points: 21 Smoking Cessation Education ONCE Comment: Diagnosis: pneumonia Smoking Status: Current every day smoker How long have you smoked: 40 Have you smoked in the past 12 months: Yes Approximately how many cigarettes per day: 10 Do you dip or chew tobacco: No If,Former Smoker,when did you quit: . 01/03/18 23:57 Respiratory MDI DAILY Comment: STIOLTO 2 PUFFS DAILY PT'S HOME MED Diagnosis: PNEUMONIA, SOB, FAILED OUTPATIENT Discharge Exam General Appearance: no apparent distress (Very well appearing. Sitting up in chair with her own pants on, hospital gown on. Talking and laughing with family member.), alert, obese Neurologic Exam: oriented x 3, cooperative Skin Exam: normal color, warm, dry, No rash Ears, Nose, Throat Exam: moist mucous membranes Neck Exam: normal inspection Respiratory Exam: diminished breath sounds, prolonged expirations, No crackles/ rales, No rhonchi, No wheezing Cardiovascular Exam: regular rate/rhythm, normal heart sounds, No murmur Extremity Exam: other (leg brace on L leg), No swelling Back Exam: normal inspection, No rash Final Diagnosis/Problem List - Final Discharge Diagnosis/Problem (1) Pneumonia Current Visit: Yes Status: Acute Assessment & Plan: Much improved. Home today on po augmentin. (2) Failure of outpatient treatment Current Visit: No Status: Acute (3) CHF (congestive heart failure) Current Visit: No Status: Chronic (4) COPD (chronic obstructive pulmonary disease) Current Visit: No Status: Chronic (5) Coronary artery disease Current Visit: No Status: Chronic (6) Diabetes mellitus Current Visit: No Status: Chronic (7) History of pulmonary embolism Current Visit: No Status: Chronic (8) Hypertension Current Visit: No Status: Chronic Assessment & Plan: BP very good here. (9) Tobacco abuse Current Visit: No Status: Chronic - Discharge Disposition: Home, Self-Care Condition: Good Prescriptions: New Cefdinir 300 mg PO BID #14 capsule Fluconazole [Diflucan] 150 mg PO DAILY #1 tablet Continue Pravastatin Sodium 20 mg PO HS Furosemide [Lasix] 40 mg PO DAILY Levothyroxine Sodium 175 mcg PO DAILY Omeprazole 20 mg PO BID Gabapentin [Neurontin] 600 mg PO UD Rivaroxaban [Xarelto] 20 mg PO DAILY Potassium Chloride 20 meq PO DAILY Carbidopa/Levodopa [Carbidopa-Levo 25-100 Tab] 1 each PO BID Metoprolol Tartrate 12.5 mg PO BID Tiotropium Br/Olodaterol HCl [Stiolto Respimat Inhal [place]] 1 puff IH DAILY Oxycodone / APAP 10/325 mg [Oxycodone-Acetaminophen 10-325] 1 tab PO Q4H PRN PRN Reason: Pain Prednisone 20 mg [Deltasone 20 mg] 10 mg PO DAILY Nystatin Powder 15 gm [Nystop Powder 15 gm] 15 gm TP BIDPRN PRN PRN Reason: yeast Nystatin Cream 30 gm [Nystop 30 gm Cream] 30 gm TP BIDPRN PRN PRN Reason: yeast Nitroglycerin 0.4 mg Tablet [Nitrostat 0.4 MG Tablet] 0.4 mg SL Q5MIN PRN MR X 3 PRN PRN Reason: Chest Pain Methotrexate Sodium 2.5 mg [Trexall 2.5 mg] 5 tab PO WEEKLY Fluticasone Propionate [Flonase NASAL] 2 sprays NS DAILY Fluocinonide/Emollient Base [Fluocinonide-E 0.05% Cream] 1 gm TOP BID Sacubitril/Valsartan [Entresto 24 mg-26 mg Tablet] 1 each PO DAILY Gabapentin [Neurontin] 1,200 mg PO UD Follow up with: DENISE LENZ [Primary Care Provider] - 1 Week
== END 2018-01-04 10:15 | disposition home or self-care (01) ==
LOC: ED 12:05 → MED SURG 16:26 → OBSVTOIN 01-03 13:12 → INTOOBSV 01-03 13:12
PROVIDERS: ADMIT Family Medicine; ATTEND Family Medicine
DX: J18.9 Pneumonia, unspecified organism (principal); Z78.9 Other specified health status; I50.9 Heart failure, unspecified; I25.810 Atherosclerosis of coronary artery bypass graft(s) without angina pectoris; J44.9 Chronic obstructive pulmonary disease, unspecified; E11.9 Type 2 diabetes mellitus without complications; I10 Essential (primary) hypertension; E78.00 Pure hypercholesterolemia, unspecified; G47.30 Sleep apnea, unspecified; E03.9 Hypothyroidism, unspecified; M19.90 Unspecified osteoarthritis, unspecified site; G62.9 Polyneuropathy, unspecified; M06.9 Rheumatoid arthritis, unspecified; Z23 Encounter for immunization; Z86.718 Personal history of other venous thrombosis and embolism; Z79.01 Long term (current) use of anticoagulants; Z79.899 Other long term (current) drug therapy; Z72.0 Tobacco use
CPT/HCPCS: 36000; 36415; 71260; 80053; 83605; 83880; 84484; 85025; 87040; 93005; 93041; 94150; 94640; 94760; 99285; G0378; 90686; G0008; J0456; J0696; J2405; A9270-GY

== ENCOUNTER 2018-02-10 22:22 | Emergency (ER) | payer MEDICARE ==
[2018-02-10] MEDS ORDERED: CLINDAMYCIN-D5W 600 MG/50 ML*** 600 MG/50 ML BAG IV (23:20)
[2018-02-10] MEDS: Cleocin Phosphate IV 600 MG/4 ML IV (23:26)
[2018-02-10 23:34] LABS: BASOPHIL % 0.4 % (0.0-0.4); Basophil (Absolute #) 0.03 (0-0.4); Eosinophil % 1.2 % (0.00-5.0); Granulocyte Absolute (ANC) 6.78 (1.4-6.9); Granulocytes % 81.5 % (36.0-66.0); Hematocrit 40.4 % (35-47); Lymphocyte (Absolute #) 0.92 (1.0-4.6); Lymphocytes % 11.1 % (24.0-44.0); Mean Cell Volume 93.3 fl (78-100); Mean Corpuscular Hemoglobin 27.7 pg (26-32); Mean Corpuscular Hgb Concent. 29.7 g/dl (32-36); Monocyte (Absolute #) 0.48 (0.0-1.3); Monocytes % 5.8 % (0.0-12.0); Platelet Count 204 K/mm3 (150-450); Red Blood Count 4.33 M/mm3 (4.1-5.4); Red Cell Distribution Width 20.3 % (11.5-14.0); White Blood Count 8.3 K/mm3 (4.0-10.5)
[2018-02-10 23:35] LABS: ADD MANUAL DIFF? NO (NO)
[2018-02-10 23:54] LABS: ANION GAP 13.3 MEQ/L (5-15); BLOOD UREA NITROGEN 21 mg/dL (7-17); CHLORIDE 101 mmol/L (98-107); Calcium 8.8 mg/dL (8.4-10.2); Carbon Dioxide 26 mmol/L (22-30); Creatinine 1 0.68 mg/dL (0.52-1.04); EST GLOMERULAR FILTRATION RATE > 60.0 ML/MIN; Glucose 153 mg/dL (74-106); Potassium 4.5 mmol/L (3.5-5.1); SODIUM 136 mmol/L (137-145)
[2018-02-11] MEDS ORDERED: CLEOCIN 150 MG CAPSULE ×2 (00:22→00:32)
[2018-02-11] MEDS: CLEOCIN 150 MG CAPSULE PO (00:23)
[2018-02-11] MEDS ORDERED: CLEOCIN 150 MG CAPSULE PO (10:00)
== END 2018-02-11 01:00 | disposition home or self-care (01) ==
LOC: ED 02-11 01:00
CPT/HCPCS: 36000; 36415; 80048; 85025; 99284

== ENCOUNTER 2018-05-19 12:01 | Inpatient (IN) | payer MEDICARE ==
[2018-05-19] MEDS ORDERED: Rocephin 1000 MG INJ IM STA (12:29)
[2018-05-19] MEDS ORDERED: TYLENOL 325 MG PO STA (12:29)
--- NOTE | 2018-05-19 12:38 | ERPHSYRPT ---
- History of Present Illness Time Seen by Provider: 05/19/18 12:13 Source: patient, family Exam Limitations: no limitations Physician History: patient being treated for cellulitis- started on keflex 14 days ago- recd Rocephin IM this week; got better; now increased redness both lower legs; hot to touch; clear weeping right; fever and chills last night; no sorethroat; no cough or SOb; no N&V; no GUsymptoms; past hs 2016; no recent trauma Timing/Duration: today (fever and chills), yesterday (worse), week(s) (onset), gradual onset, worse Fever Severity: severe (last night wit chills) Fever Therapy PENETRATION TESTER: Acetaminophen Associated Symptoms: No abdominal pain, No chest pain, No confusion, No cough, No diaphoresis, No headache, No muscle aches, No nausea/vomiting, No shortness of breath, No sore throat, No stiff neck, No syncope International travel in last 2 weeks: No Allergies/Adverse Reactions: sulfamethoxazole [From Bactrim] Allergy (Verified 05/19/18 12:31) unable to remember trimethoprim [From Bactrim] Allergy (Verified 05/19/18 12:31) Home Medications: Furosemide [Lasix] 40 mg PO DAILY 01/08/17 [History] Gabapentin [Neurontin] 600 mg PO UD 01/08/17 [History] Levothyroxine Sodium 175 mcg PO DAILY 01/08/17 [History] Omeprazole 20 mg PO BID 01/08/17 [History] Pravastatin Sodium 20 mg PO HS 01/08/17 [History] Rivaroxaban [Xarelto] 20 mg PO DAILY 01/08/17 [History] Carbidopa/Levodopa [Carbidopa-Levo 25-100 Tab] 1 each PO BID 04/25/17 [History] Metoprolol Tartrate 12.5 mg PO BID 04/25/17 [History] Oxycodone / APAP 10/325 mg [Oxycodone-Acetaminophen 10-325] 1 tab PO Q4H PRN 04/25/17 [History] Potassium Chloride 20 meq PO DAILY 04/25/17 [History] Tiotropium Br/Olodaterol HCl [Stiolto Respimat Inhal [place]] 1 puff IH DAILY [History] Fluocinonide/Emollient Base [Fluocinonide-E 0.05% Cream] 1 gm TOP BID 01/02/18 [ History] Fluticasone Propionate [Flonase NASAL] 2 sprays NS DAILY 01/02/18 [History ] Methotrexate Sodium 2.5 mg [Trexall 2.5 mg] 5 tab PO WEEKLY 01/02/18 [ History] Nitroglycerin 0.4 mg Tablet [Nitrostat 0.4 MG Tablet] 0.4 mg SL Q5MIN PRN MR X 3 PRN 01/02/18 [History] Nystatin Cream 30 gm [Nystop 30 gm Cream] 30 gm TP BIDPRN PRN 01/02/18 [ History] Nystatin Powder 15 gm [Nystop Powder 15 gm] 15 gm TP BIDPRN PRN 01/02/18 [ History] Prednisone 20 mg [Deltasone 20 mg] 10 mg PO DAILY 01/02/18 [History] Sacubitril/Valsartan [Entresto 24 mg-26 mg Tablet] 1 each PO DAILY 01/02/18 [ History] Gabapentin [Neurontin] 1,200 mg PO UD 01/03/18 [History] Hx Tetanus, Diphtheria Vaccination/Date Given: Yes Hx Influenza Vaccination/Date Given: Yes Hx Pneumococcal Vaccination/Date Given: Yes - Review of Systems Constitutional: Fever, Chills Eyes: No Symptoms Ears, Nose, & Throat: No Symptoms Respiratory: No Cough, No Dyspnea, No Wheezing Cardiac: No Chest Pain, No Palpitations, No Syncope Abdominal/Gastrointestinal: No Abdominal Pain, No Nausea, No Vomiting, No Diarrhea Genitourinary Symptoms: No Dysuria, No Frequency, No Hematuria, No Hesitancy, No Incontinence, No Urgency, No Flank Pain Musculoskeletal: No Symptoms Skin: Cellulitis (bilateral lowre extremities), No Pruritis, No Rash Neurological: No Symptoms Psychological: No Symptoms Endocrine: No Symptoms Hematologic/Lymphatic: No Symptoms Immunological/Allergic: No Symptoms - Past Medical History Pertinent Past Medical History: Yes Neurological History: Peripheral Neuropathy ENT History: Cataracts Cardiac History: Arrhythmia, Coronary Artery Disease, High Cholesterol, Hypertension, Myocardial Infarction ([place]) Respiratory History: COPD, Sleep Apnea Endocrine Medical History: Diabetes Type II Musculoskeletal History: Arthritis, Degenerative Disk Disease, Osteoarthritis, Rheumatoid Arthritis GI Medical History: Hernia History: No Pertinent History Psycho-Social History: No Pertinent History Female Reproductive Disorders: No Pertinent History Other Medical History: Pacemaker and defibrillator, O2 as needed CPAP at [facility] - Past Surgical History Past Surgical History: Yes Neuro Surgical History: No Pertinent History Cardiac: Angioplasty, CABG, Cardiac Catheterization, Cardiac Stent, Internal Defibrillator, Pacemaker, Vascular Surgery, Other Respiratory: No Pertinent History Gastrointestinal: Cholecystectomy Genitourinary: No Pertinent History Musculoskeletal: Other Female Surgical History: Hysterectomy Other Surgical History: pt had CABG in July 2015, had sternum removed in August due to infection, Pt states her breast bones are held together with the muscles from her breasts. She has had varicose veins tied off. She states they were not stripped. She has also had bilateral carpal tunnel surgery. And she has had surgery on her big toe . Pt wears a brace on her left leg due to neuropathy - Social History Smoking Status: Current every day smoker How long have you smoked: 40 Exposure to second hand smoke: Yes Alcohol Use: None Drug Use: none Patient Lives Alone: No Significant Family History: no pertinent family hx - Female History Hx Now: No - Nursing Vital Signs Nursing Vital Signs: Initial Vital Signs Temperature 98.2 F 05/19/18 12:18 Pulse Rate 108 H 05/19/18 12:18 Respiratory Rate 18 05/19/18 12:18 Blood Pressure 122/75 05/19/18 12:18 O2 Sat by Pulse Oximetry 97 05/19/18 12:18 Pain Scale Pain Intensity 6 - Physical Exam General Appearance: moderate distress, alert, obese Eye Exam: PERRL/EOMI, eyes nml inspection ENT Exam: normal ENT inspection, no apparent trauma, hearing grossly normal, TMs normal, pharynx normal, No nasal congestion, No pharyngeal erythema, No tonsillar exudate Neck Exam: normal inspection, non-tender, supple, full range of motion, trachea midline, No JVD, No lymphadenopathy (R), No lymphadenopathy (L), No stiff neck, No meningismus Respiratory Exam: normal breath sounds, chest non-tender, lungs clear, no respiratory distress, no accessory muscle use, No crackles/rales, No rhonchi, No wheezing Cardiovascular/Chest Exam: normal heart sounds, regular rate/rhythm, normal peripheral pulses, No murmur, No edema, No JVD Gastrointestinal/Abdominal Exam: soft, non tender, no guarding, no organomegaly , normal bowel sounds, No no distention, No rebound Pelvic Exam: deferred Rectal Exam: deferred Extremity Exam: non-tender, normal range of motion, normal capillary refill, no calf tenderness, no pedal edema, inflammation (bilateral lowre with redness and heat), No normal inspection (red cellulitis), No mauri's sign, No joint swelling Neurologic Exam: alert, oriented x 3, cooperative, soil chemist II-XII nml as tested, normal mood/affect Skin Exam: normal color, warm, dry, other (bilateral red lower extremities with increased warmth and clear weeping right without distal defecits; no proximal lymphadenitis or angitis), No rash, No petechiae, No cyanosis Lymphatic: No adenopathy - Course Nursing assessment & vital signs reviewed: Yes Ordered Tests: Active Orders 24 hr Category Date Time Status Accucheck ACHS Care 05/19/18 13:49 Ordered Accucheck STAT Care 05/19/18 12:29 Active Call Admit Doctor for Orders ON ADMISSION Care 05/19/18 13:50 Ordered Cath for Specimen-Straight STAT Care 05/19/18 12:31 Active Code Status Order ROUTINE Care 05/19/18 13:49 Ordered Fall Protocol ROUTINE Care 05/19/18 13:50 Ordered IV Care Q6H Care 05/19/18 13:49 Ordered IV Insertion STAT Care 05/19/18 12:[address] in Observation ROUTINE Care 05/19/18 13:49 Ordered Pulse Oximetry (ED) STAT Care 05/19/18 12:29 Active Rectal Temperature STAT Care 05/19/18 12:29 Active [place] ROUTINE Care 05/19/18 13:49 Ordered Weight,Daily 0600 Care 05/19/18 13:49 Ordered 1800 Calorie ADA Diet 05/19/18 Dinner Ordered BLOOD CULTURE Stat Lab 05/19/18 13:00 Received CBC W DIFF Stat Lab 05/19/18 12:55 Completed CMP Stat Lab 05/19/18 12:55 Completed CULTURE,WOUND Stat Lab 05/19/18 12:55 Received Lactic Acid Stat Lab 05/19/18 12:56 Completed UA W/RFX UR CULTURE Stat Lab 05/19/18 12:55 Completed Transfer Order Routine Transfer 05/19/18 Ordered Medication Summary Generic Name Dose Route Start Last Admin Trade Name Nancy PRN Reason Stop Dose Admin Ceftriaxone Sodium mg 05/19/18 12:29 Rocephin 1000 Mg Inj IM 05/19/18 12:30 STAT STA Sodium Chloride 1,000 mls @ 100 mls/hr 05/19/18 12:30 05/19/18 13:07 Sodium Chloride 0.9% 1000 Ml IV 06/18/18 12:29 100 mls/hr .Q10H AMISH Administration Discontinued Medications Generic Name Dose Route Start Last Admin Trade Name Nancy PRN Reason Stop Dose Admin Acetaminophen 650 mg 05/19/18 12:29 05/19/18 13:07 Tylenol 325 Mg PO 05/19/18 12:30 650 mg STAT STA Administration Acetaminophen Confirm 05/19/18 13:04 Tylenol 325 Mg Administered 05/19/18 13:05 Dose 650 mg .ROUTE .Transactiv-MED ONE Lab/Rad Data: Laboratory Result Diagrams 05/19/18 12:55 05/19/18 12:55 Laboratory Results 05/19/18 05/19/18 05/19/18 Range/Units 12:56 12:55 12:55 WBC (4.0-10.5) K/mm3 RBC (4.1-5.4) M/mm3 Hgb (12.0-16.0) gm/dl Hct (35-47) % MCV (78-100) fl MCH (26-32) pg MCHC (32-36) g/dl RDW (11.5-14.0) % Plt Count (150-450) K/mm3 MPV (6-9.5) fl Gran % (36.0-66.0) % Eos # (Auto) (0-0.5) Absolute Lymphs (auto) (1.0-4.6) Absolute Monos (auto) (0.0-1.3) Lymphocytes % (24.0-44.0) % Monocytes % (0.0-12.0) % Eosinophils % (0.00-5.0) % Basophils % (0.0-0.4) % Absolute Granulocytes (1.4-6.9) Basophils # (0-0.4) Sodium 137 (137-145) mmol/L Potassium 4.1 (3.5-5.1) mmol/L Chloride 102 (98-107) mmol/L Carbon Dioxide 30 (22-30) mmol/L Anion Gap 9.3 (5-15) MEQ/L BUN 13 (7-17) mg/dL Creatinine 0.69 (0.52-1.04) mg/dL Estimated GFR > 60.0 ML/MIN Glucose 147 H (74-106) mg/dL Lactic Acid 1.3 (0.4-2.0) Calcium 9.1 (8.4-10.2) mg/dL Total Bilirubin 0.60 (0.2-1.3) mg/dL AST 18 (14-36) U/L ALT 9 (0-35) U/L Alkaline Phosphatase 94 (38-126) U/L Serum Total Protein 7.1 (6.3-8.2) g/dL Albumin 3.9 (3.5-5.0) g/dL Urine Color ANA (YELLOW) Urine Appearance SLIGHTLY CLOUDY (CLEAR) Urine pH 5.0 (5-6) Ur Specific [place] 1.031 (1.005-1.025) Urine Protein 30 (Negative) Urine Ketones TRACE (NEGATIVE) Urine Blood NEGATIVE (0-5) [place]/ul Urine Nitrite NEGATIVE (NEGATIVE) Urine Bilirubin SMALL (NEGATIVE) Urine Urobilinogen 2 (0-1) mg/dL Ur Leukocyte Esterase NEGATIVE (NEGATIVE) Urine WBC (Auto) 0-2 (0-5) /HPF Urine RBC (Auto) NONE (0-2) /HPF U Epithel Cells (Auto) RARE (FEW) /HPF Urine Bacteria (Auto) RARE (NEGATIVE) /HPF Urine Mucus (Auto) SLIGHT (NEGATIVE) /HPF Urine Culture Reflexed NO (NO) Urine Glucose NEGATIVE (NEGATIVE) mg/dL 05/19/18 Range/Units 12:55 WBC 6.8 (4.0-10.5) K/mm3 RBC 4.21 (4.1-5.4) M/mm3 Hgb 11.7 L (12.0-16.0) gm/dl Hct 40.0 (35-47) % MCV 95.0 (78-100) fl MCH 27.7 (26-32) pg MCHC 29.3 L (32-36) g/dl RDW 19.6 H (11.5-14.0) % Plt Count 189 (150-450) K/mm3 MPV 9.1 (6-9.5) fl Gran % 81.4 H (36.0-66.0) % Eos # (Auto) 0.15 (0-0.5) Absolute Lymphs (auto) 0.64 L (1.0-4.6) Absolute Monos (auto) 0.46 (0.0-1.3) Lymphocytes % 9.4 L (24.0-44.0) % Monocytes % 6.7 (0.0-12.0) % Eosinophils % 2.2 (0.00-5.0) % Basophils % 0.3 (0.0-0.4) % Absolute Granulocytes 5.56 (1.4-6.9) Basophils # 0.02 (0-0.4) Sodium (137-145) mmol/L Potassium (3.5-5.1) mmol/L Chloride (98-107) mmol/L Carbon Dioxide (22-30) mmol/L Anion Gap (5-15) MEQ/L BUN (7-17) mg/dL Creatinine (0.52-1.04) mg/dL Estimated GFR ML/MIN Glucose (74-106) mg/dL Lactic Acid (0.4-2.0) Calcium (8.4-10.2) mg/dL Total Bilirubin (0.2-1.3) mg/dL AST (14-36) U/L ALT (0-35) U/L Alkaline Phosphatase (38-126) U/L Serum Total Protein (6.3-8.2) g/dL Albumin (3.5-5.0) g/dL Urine Color (YELLOW) Urine Appearance (CLEAR) Urine pH (5-6) Ur Specific [place] (1.005-1.025) Urine Protein (Negative) Urine Ketones (NEGATIVE) Urine Blood (0-5) [place]/ul Urine Nitrite (NEGATIVE) Urine Bilirubin (NEGATIVE) Urine Urobilinogen (0-1) mg/dL Ur Leukocyte Esterase (NEGATIVE) Urine WBC (Auto) (0-5) /HPF Urine RBC (Auto) (0-2) /HPF U Epithel Cells (Auto) (FEW) /HPF Urine Bacteria (Auto) (NEGATIVE) /HPF Urine Mucus (Auto) (NEGATIVE) /HPF Urine Culture Reflexed (NO) Urine Glucose (NEGATIVE) mg/dL reviewed - Progress Progress: unchanged, re-examined (after tests) Progress Note: 05/19/18 12:39 cultures done; lab pending; meds and IV fluids ordered; will monitor and recheck ; daughter at bedside 05/19/18 13:40 recheck and no change ua , cbc and cmp unremarkable bs 147 05/19/18 13:41 lactat 1.3; no change in exam; family at bedside; Dr Montana will be contacted for disposition; he was and will admit to Obs for failed OP therapy of cellulits patient and family notified 05/19/18 13:52 Dr Montana consulted and will place in OBS and start on Vancomycin Discussed with .: Nan (consulted and will admit to OBS) Will see patient in: hospital (observation) Counseled pt/family regarding: lab results, diagnosis, need for follow-up - Departure Time of Disposition: 13:46 Departure Disposition: Observation Clinical Impression: cellulits bilateral lower legs failed OP, Diabetes mellitus Condition: Stable Critical Care Time: No Referrals: DENISE LENZ [Primary Care Provider] - KARENA MONTANA [ACTIVE STAFF] -
[2018-05-19] MEDS ORDERED: TYLENOL 325 MG ONE (13:04)
[2018-05-19] MEDS: Sodium Chloride 0.9% 1000 ML 1,000 ML IV SCH (13:07)
[2018-05-19 13:10] LABS: BASOPHIL % 0.3 % (0.0-0.4); Basophil (Absolute #) 0.02 (0-0.4); Eosinophil % 2.2 % (0.00-5.0); Eosinophil (Absolute #) 0.15 (0-0.5); Granulocyte Absolute (ANC) 5.56 (1.4-6.9); Granulocytes % 81.4 % (36.0-66.0); Hemoglobin 11.7 gm/dl (12.0-16.0); Lymphocyte (Absolute #) 0.64 (1.0-4.6); Lymphocytes % 9.4 % (24.0-44.0); Mean Corpuscular Hemoglobin 27.7 pg (26-32); Mean Corpuscular Hgb Concent. 29.3 g/dl (32-36); Mean Platelet Volume 9.1 fl (6-9.5); Monocyte (Absolute #) 0.46 (0.0-1.3); Monocytes % 6.7 % (0.0-12.0); Platelet Count 189 K/mm3 (150-450); Red Blood Count 4.21 M/mm3 (4.1-5.4); Red Cell Distribution Width 19.6 % (11.5-14.0); White Blood Count 6.8 K/mm3 (4.0-10.5)
[2018-05-19 13:31] LABS: Appearance SLIGHTLY CLOUDY (CLEAR); Bacteria RARE /HPF (NEGATIVE); Bilirubin SMALL (NEGATIVE); Blood NEGATIVE Ery/ul (0-5); Epithelial Cells RARE /HPF (FEW); Glucose NEGATIVE (NEGATIVE); Ketones TRACE (NEGATIVE); Leukocyte Esterase NEGATIVE (NEGATIVE); Mucus SLIGHT /HPF (NEGATIVE); Nitrite NEGATIVE (NEGATIVE); Protein,Urine Dip 30 (Negative); Specific Gravity 1.031 (1.005-1.025); Urobilinogen 2 mg/dL (0-1); WBC 0-2 /HPF (0-5)
[2018-05-19 13:32] LABS: ALBUMIN 3.9 g/dL (3.5-5.0); ALKALINE PHOSPHATASE 94 U/L (38-126); ANION GAP 9.3 MEQ/L (5-15); BLOOD UREA NITROGEN 13 mg/dL (7-17); CHLORIDE 102 mmol/L (98-107); Calcium 9.1 mg/dL (8.4-10.2); Carbon Dioxide 30 mmol/L (22-30); Creatinine 1 0.69 mg/dL (0.52-1.04); Glucose 147 mg/dL (74-106); Potassium 4.1 mmol/L (3.5-5.1); SGOT/AST 18 U/L (14-36); SGPT/ALT 9 U/L (0-35); SODIUM 137 mmol/L (137-145); Total Protein 7.1 g/dL (6.3-8.2)
[2018-05-19] MEDS ORDERED: ROCEPHIN 1 Gm-D5w 50 ml Bag** 1 G/50 ML IVPB IV ONE ×2 (14:00→14:02)
[2018-05-19] MEDS ORDERED: Sodium Chloride 0.9% 1000 ML 1,000 ML IV SCH (14:00)
[2018-05-19] MEDS: VANCOCIN 1 GM VIAL*** 1 GM in Sodium Chloride 0.9% 250 ML 250 ML IV SCH ×2 (15:10→22:09)
[2018-05-19] MEDS: OXYCODONE-ACETAMINOPHEN 10-325 PO PRN (20:21)
[2018-05-19] MEDS: ZOCOR 20MG PO SCH (20:22)
[2018-05-19] MEDS: Protonix 40MG Tablet PO SCH (20:22)
[2018-05-19] MEDS: Lopressor 25MG Tab PO SCH ×2 (20:22→20:30)
[2018-05-19] MEDS: Sinemet 25/100 MG PO SCH ×2 (20:23→20:30)
[2018-05-19] MEDS ORDERED: NEURONTIN 300 MG PO SCH (22:00)
[2018-05-20] MEDS: OXYCODONE-ACETAMINOPHEN 10-325 PO PRN ×5 (00:34→21:37)
[2018-05-20] MEDS: Sodium Chloride 0.9% 1000 ML 1,000 ML IV SCH (00:36)
[2018-05-20] MEDS ORDERED: NYSTOP POWDER 15 GM TP PRN (08:17)
[2018-05-20] MEDS ORDERED: NYSTOP 30 GM CREAM TP PRN (08:17)
[2018-05-20] MEDS ORDERED: Nitrostat 0.4 MG Tablet SL PRN (08:17)
[2018-05-20] MEDS: XARELTO 10 MG TABLET PO SCH (09:01)
[2018-05-20] MEDS: Klor Con 10 MEQ PO SCH (09:01)
[2018-05-20] MEDS: NEURONTIN 300 MG PO SCH ×2 (09:02→12:48)
[2018-05-20] MEDS: Lasix 40 MG PO SCH (09:02)
[2018-05-20] MEDS: SYNTHROID 100 MCG PO SCH (09:02)
[2018-05-20] MEDS: ENTRESTO 49 MG-51 MG TABLET PO SCH (09:03)
[2018-05-20] MEDS: Protonix 40MG Tablet PO SCH ×2 (09:04→21:19)
[2018-05-20] MEDS: SYNTHROID 75 MCG PO SCH (09:04)
[2018-05-20] MEDS: Sinemet 25/100 MG PO SCH ×2 (09:04→21:19)
[2018-05-20] MEDS: Lopressor 25MG Tab PO SCH ×2 (09:05→21:20)
[2018-05-20] MEDS: Flonase NASAL NS SCH (09:05)
[2018-05-20] MEDS: PATIENT OWN MEDICATION IH SCH (09:18)
[2018-05-20] MEDS: VANCOCIN 1 GM VIAL*** 1 GM in Sodium Chloride 0.9% 250 ML 250 ML IV SCH ×2 (09:56→21:19)
[2018-05-20] MEDS ORDERED: NON-FORMULARY ITEM (Potassium Chloride [Potassium Chloride] 20 MEQ) PO SCH (10:00)
[2018-05-20] MEDS ORDERED: OLODATEROL HCL IH SCH (10:00)
[2018-05-20] MEDS ORDERED: TIOTROPIUM BR IH SCH (10:00)
[2018-05-20] MEDS ORDERED: NON-FORMULARY ITEM (Rivaroxaban [Xarelto] 20 MG) PO SCH (10:00)
[2018-05-20] MEDS ORDERED: DIFLUCAN PO PRN (10:00)
[2018-05-20] MEDS ORDERED: NON-FORMULARY ITEM (Sacubitril/Valsartan [Entresto 24 Mg-26 Mg Tablet] 1 EACH) PO SCH (10:00)
[2018-05-20] MEDS ORDERED: LEVOTHYROXINE SODIUM 175 MCG PO SCH (10:00)
[2018-05-20] MEDS: Bactroban OINTMENT TP SCH (12:28)
[2018-05-20] MEDS: Neurontin 400 MG PO SCH ×2 (17:11→21:19)
[2018-05-20] MEDS: ZOCOR 20MG PO SCH (21:19)
[2018-05-21] MEDS: OXYCODONE-ACETAMINOPHEN 10-325 PO PRN ×4 (03:32→22:37)
[2018-05-21 05:44] LABS: BASOPHIL % 0.3 % (0.0-0.4); Basophil (Absolute #) 0.02 (0-0.4); Eosinophil % 3.4 % (0.00-5.0); Eosinophil (Absolute #) 0.22 (0-0.5); Granulocyte Absolute (ANC) 4.38 (1.4-6.9); Granulocytes % 66.7 % (36.0-66.0); Hematocrit 35.6 % (35-47); Hemoglobin 10.2 gm/dl (12.0-16.0); Lymphocyte (Absolute #) 1.22 (1.0-4.6); Lymphocytes % 18.6 % (24.0-44.0); Mean Cell Volume 96.5 fl (78-100); Mean Corpuscular Hemoglobin 27.6 pg (26-32); Mean Corpuscular Hgb Concent. 28.7 g/dl (32-36); Mean Platelet Volume 9.3 fl (6-9.5); Monocyte (Absolute #) 0.72 (0.0-1.3); Platelet Count 171 K/mm3 (150-450); Red Blood Count 3.69 M/mm3 (4.1-5.4); Red Cell Distribution Width 19.6 % (11.5-14.0); White Blood Count 6.6 K/mm3 (4.0-10.5)
[2018-05-21 05:51] LABS: ALBUMIN 3.2 g/dL (3.5-5.0); ALKALINE PHOSPHATASE 91 U/L (38-126); ANION GAP 6.9 MEQ/L (5-15); BLOOD UREA NITROGEN 12 mg/dL (7-17); CHLORIDE 103 mmol/L (98-107); Calcium 8.5 mg/dL (8.4-10.2); Carbon Dioxide 31 mmol/L (22-30); Creatinine 1 0.73 mg/dL (0.52-1.04); Glucose 109 mg/dL (74-106); Potassium 4.3 mmol/L (3.5-5.1); SGOT/AST 12 U/L (14-36); SODIUM 137 mmol/L (137-145); Total Protein 5.9 g/dL (6.3-8.2)
[2018-05-21 06:11] LABS: SGPT/ALT 5 U/L (0-35)
[2018-05-21] MEDS: PATIENT OWN MEDICATION IH SCH (07:44)
[2018-05-21] MEDS: NEURONTIN 300 MG PO SCH ×2 (07:54→12:02)
[2018-05-21 08:12] LABS: Slide Review 1 YES
--- NOTE | 2018-05-21 08:39 | HP ---
CHIEF COMPLAINT: Swelling, redness and pain in the legs. HISTORY OF PRESENT ILLNESS: The patient is a 63 year-old white female with recurrent cellulitis of lower extremities who has failed outpatient therapy. She presented herself to the emergency room after feeling worse and having some chills. She was verified that she had cellulitis of both lower extremities and was admitted to the hospital for IV antibiotic treatment with Vancomycin. PAST MEDICAL/SURGICAL HISTORY: Otherwise significant for coronary artery disease. She had a coronary artery bypass graft and in fact she had her sternum removed due to infection after the coronary artery bypass graft. The patient also has history of diabetes mellitus type 2 which she is currently not on medication for because she has lost a lot of weight. She does check her sugars intermittently at home. She also has a history of cholecystectomy and hysterectomy. HOME MEDICATIONS: Lasix 40 mg a day, Neurontin 600 mg a day, levothyroxine 175 mcg a day, omeprazole 20 mg b.i.d., Pravastatin 20 mg a day, Xarelto 20 mg a day, carbidopa-levodopa 25/100 b.i.d., metoprolol 12.5 mg b.i.d., oxycodone 10/325 mg, potassium 20 mEq a day, Stalevo inhaler. She is on Fluocinonide cream, Flonase nasal spray, methotrexate five tablets once a week, nitroglycerin 0.4 mg a day, Nystatin cream and powder, prednisone 20 mg half tablet daily, Entresto 24/ daily. ALLERGIES: BACTRIM. PHYSICAL EXAMINATION: Vital signs on admission showed temperature 98.2F, pulse 108, respiratory rate 18, blood pressure 122/75. O2 saturation 97%. HEENT: Normocephalic, atraumatic. Pupils equal round reactive to light. Extraocular movements intact. She is wearing oxygen per nasal cannula. Oropharynx is pink and moist. NECK: Supple without lymphadenopathy, thyromegaly or JVD. CHEST: Clear to auscultation with good air movement bilaterally. HEART: Regular rate and rhythm without significant murmurs, rubs or gallops. ABDOMEN: Soft. No palpable masses. EXTREMITIES: Reveal the swelling in the lower extremities as well as redness and warmth over both lower extremities from the ankle to the knee. NEUROLOGIC: The patient is alert and oriented x3. No focal deficits are noted. LAB DATA AND TESTS: The patient's lactic acid was 1.3, glucose 147 nonfasting, BUN 13, creatinine 0.69. Electrolytes were normal. Liver enzymes were normal. White blood cell count 6,800, hemoglobin 11.7, PLT count 189,000. UA specific gravity 1.031, white blood cell 0 to 2 per high power field but otherwise negative. ASSESSMENT: A patient with failed outpatient therapy for cellulitis. She has been admitted to the hospital for IV Vancomycin. She will be continued on her usual home medications. It is noted she previously received one dose of IV Rocephin in the emergency room as well.
--- NOTE | 2018-05-21 09:20 | PCM.NOTE ---
Date and Time: 05/21/18914 Subjective Assessment: She says her legs are much better than they were on admission, with decreased redness and swelling. She has been tolerating po, but requests to be off the diabetic diet. - Review of Systems Constitutional: No Fever Respiratory: No Short Of Breath Objective Exam General Appearance: no apparent distress, obese Neurologic Exam: alert, oriented x 3, cooperative Respiratory Exam: lungs clear, diminished breath sounds (good air exchange), wheezing (faint, scattered), No crackles/rales, No rhonchi Cardiovascular Exam: regular rate/rhythm, normal heart sounds, No murmur Gastrointestinal/Abdomen Exam: soft, normal bowel sounds, No tenderness, No distention, No mass, No guarding, No rebound Extremity Exam: other (bilat anterior LE with mild erythema, trace edema. Feet with pedal pulses + bilat, trace edema.) OBJECTIVE DATA Vital Signs: Vital Signs - 24 hr Temp Pulse Resp BP Pulse Ox 05/21/18 07:44 86 18 93 L 05/21/18 07:38 98.6 F 90 20 118/57 93 L 05/21/18 04:00 98.0 F 82 17 115/54 95 05/21/18 00:00 99.2 F 84 19 113/55 93 L 05/20/18 20:22 91 L 05/20/18 19:53 98.9 F 84 18 102/52 93 L 05/20/18 16:00 98.5 F 95 H 18 105/56 94 L 05/20/18 12:00 98.1 F 82 18 132/60 96 05/20/18 09:21 94 H 20 92 L Oxygen-Last 24 hours O2 Percentage 2 Liters = 28% O2 Percentage 2 Liters = 28% O2 Percentage 2 Liters = 28% O2 Percentage 2 Liters = 28% O2 Percentage 3 Liters = 32% Pain Assessment - Last Documented Pain Intensity 0 Pain Scale Used 0-10 Pain Scale Intake and Output: Intake & Output 05/18/18 05/19/18 05/20/18 05/21/18 11:59 11:59 11:59 11:59 Intake Total 3030 2180 Balance 3030 2180 Weight 114.2 kg 117 kg Lab Results: Lab Results-Last 24 Hours 05/19/18 05/21/18 05/21/18 Range/Units 12:30 05:13 05:13 WBC 6.6 (4.0-10.5) K/mm3 RBC 3.69 L (4.1-5.4) M/mm3 Hgb 10.2 L (12.0-16.0) gm/dl Hct 35.6 (35-47) % MCV 96.5 (78-100) fl MCH 27.6 (26-32) pg MCHC 28.7 L (32-36) g/dl RDW 19.6 H (11.5-14.0) % Plt Count 171 (150-450) K/mm3 MPV 9.3 (6-9.5) fl Gran % 66.7 H (36.0-66.0) % Eos # (Auto) 0.22 (0-0.5) Absolute Lymphs (auto) 1.22 (1.0-4.6) Absolute Monos (auto) 0.72 (0.0-1.3) Lymphocytes % 18.6 L (24.0-44.0) % Monocytes % 11.0 (0.0-12.0) % Eosinophils % 3.4 (0.00-5.0) % Basophils % 0.3 (0.0-0.4) % Absolute Granulocytes 4.38 (1.4-6.9) Basophils # 0.02 (0-0.4) Sodium 137 (137-145) mmol/L Potassium 4.3 (3.5-5.1) mmol/L Chloride 103 (98-107) mmol/L Carbon Dioxide 31 H (22-30) mmol/L Anion Gap 6.9 (5-15) MEQ/L BUN 12 (7-17) mg/dL Creatinine 0.73 (0.52-1.04) mg/dL Estimated GFR > 60.0 ML/MIN Glucose 109 H (74-106) mg/dL Hemoglobin A1c 5.74 (4.5-6.0) % Calcium 8.5 (8.4-10.2) mg/dL Total Bilirubin 0.30 (0.2-1.3) mg/dL AST 12 L (14-36) U/L ALT 5 (0-35) U/L Alkaline Phosphatase 91 (38-126) U/L Serum Total Protein 5.9 L (6.3-8.2) g/dL Albumin 3.2 L (3.5-5.0) g/dL Slides for Path Review YES Assessment/Plan (1) Cellulitis of leg Current Visit: Yes Status: Acute Qualifiers: Laterality: unspecified laterality Qualified Code(s): L03.119 - Cellulitis of unspecified part of limb Assessment & Plan: Much better on vancomycin - will complete 3 d of vancomycin and plan to send pt home tomorrow. (2) Failure of outpatient treatment Current Visit: No Status: Acute Code(s): Z78.9 - OTHER SPECIFIED HEALTH STATUS (3) Diabetes mellitus Current Visit: Yes Status: Chronic Qualifiers: Diabetes mellitus type: type 2 Diabetes mellitus detention insulin use: without detention use Diabetes mellitus complication status: with neurologic complications Diabetes mellitus complication detail: with unspecified neuropathy Qualified Code(s): E11.40 - Type 2 diabetes mellitus with diabetic neuropathy, unspecified Assessment & Plan: Has been controlling sugars without meds. Code(s): E11.9 - TYPE 2 DIABETES MELLITUS WITHOUT COMPLICATIONS (4) CHF (congestive heart failure) Current Visit: No Status: Chronic Qualifiers: Heart failure type: systolic Heart failure chronicity: chronic Qualified Code(s): I50.22 - Chronic systolic (congestive) heart failure Code(s): I50.9 - HEART FAILURE, UNSPECIFIED (5) COPD (chronic obstructive pulmonary disease) Current Visit: No Status: Chronic Qualifiers: COPD type: unspecified COPD Qualified Code(s): J44.9 - Chronic obstructive pulmonary disease, unspecified (6) Coronary artery disease Current Visit: No Status: Chronic Qualifiers: Coronary Disease-Associated Artery/Lesion type: [place] artery [place] vs. transplanted heart: [place] heart Associated angina: without angina Qualified Code(s): I25.10 - Atherosclerotic heart disease of [place] coronary artery without angina pectoris Code(s): I25.10 - ATHSCL HEART DISEASE OF [place] CORONARY ARTERY W/O ANG PCTRS (7) History of pulmonary embolism Current Visit: No Status: Chronic Assessment & Plan: on xarelto Code(s): Z86.711 - PERSONAL HISTORY OF PULMONARY EMBOLISM
[2018-05-21] MEDS ORDERED: TROUGH DRUG LEVELS IJ ONE (09:30)
[2018-05-21] MEDS: Sinemet 25/100 MG PO SCH ×2 (10:06→22:12)
[2018-05-21] MEDS: Lopressor 25MG Tab PO SCH ×2 (10:06→22:10)
[2018-05-21] MEDS: Klor Con 10 MEQ PO SCH (10:06)
[2018-05-21] MEDS: Lasix 40 MG PO SCH (10:06)
[2018-05-21] MEDS: XARELTO 10 MG TABLET PO SCH (10:07)
[2018-05-21] MEDS: SYNTHROID 100 MCG PO SCH (10:08)
[2018-05-21] MEDS: ENTRESTO 49 MG-51 MG TABLET PO SCH (10:08)
[2018-05-21] MEDS: SYNTHROID 75 MCG PO SCH (10:08)
[2018-05-21] MEDS: Protonix 40MG Tablet PO SCH ×2 (10:08→22:12)
[2018-05-21] MEDS: Bactroban OINTMENT TP SCH (10:14)
[2018-05-21] MEDS: Flonase NASAL NS SCH (10:14)
[2018-05-21] MEDS: VANCOCIN 1 GM VIAL*** 1 GM in Sodium Chloride 0.9% 250 ML 250 ML IV SCH ×2 (10:17→22:13)
[2018-05-21] MEDS: Neurontin 400 MG PO SCH ×2 (17:02→22:11)
[2018-05-21] MEDS: ZOCOR 20MG PO SCH (22:12)
[2018-05-22 04:19] VITALS: O2SAT 95
[2018-05-22] MEDS: OXYCODONE-ACETAMINOPHEN 10-325 PO PRN ×2 (04:35→10:08)
[2018-05-22 07:08] VITALS: BP 107/61; PULSE 111
--- NOTE | 2018-05-22 08:38 | PCM.DS ---
Discharge Summary Date of Admission: 05/20/18 07:00 Admitting Physician: KARENA NDIAYE Primary Care Provider: DENISE LENZ Allergies Allergies sulfamethoxazole [From Bactrim] Allergy (Verified 05/19/18 12:31) unable to remember trimethoprim [From Bactrim] Allergy (Verified 05/19/18 12:31) Hospital Summary - Hospital Course Hospital Course: Pt is 63 yo female pt of mine from [facility] with DM, COPD, CHF, HTN, CAD with hx PE who came to ER with bilateral LE cellulitis. She had been on keflex 500mg po QID for about 2 weeks and had received an injection of rocephin at one point with no improvement. She was started on IV vancomycin and has improved steadily throughout her stay here. This morning she denies any pain of LE and the erythema is at baseline. She would like to discharge to home and I agree. will send her on po clindamycin; she is to contact me immediately if any worsening and would set up outpatient vancomycin. - Vitals & Intake/Output Vital Signs: Vital Signs Temperature 98.6 F 05/22/18 07:07 Pulse Rate 111 H 05/22/18 07:07 Respiratory Rate 20 05/22/18 07:07 Blood Pressure 107/61 05/22/18 07:07 O2 Sat by Pulse Oximetry 95 05/22/18 07:07 Oxygen-Last Documented O2 Percentage 2 Liters = 28% Intake & Output: Intake & Output 05/19/18 05/20/18 05/21/18 05/22/18 11:59 11:59 11:59 11:59 Intake Total 3030 2180 1969 Balance 3030 2180 1969 Weight 114.2 kg 117 kg 115 kg - Lab Result Diagrams: 05/21/18 05:13 05/21/18 05:13 Lab Results-Last 24 Hrs: Lab Results-Last 24 Hours 05/21/18 Range/Units 09:40 Vancomycin Trough 12.15 (10-20) ug/mL Micro Results-Entire Visit: Microbiology 05/19/18 13:00 Blood Culture - Preliminary Blood NO GROWTH TO DATE 05/19/18 12:55 Blood Culture - Preliminary Blood NO GROWTH TO DATE 05/20/18 11:20 MRSA Screen - Preliminary Nare - Right NO GROWTH TO DATE 05/19/18 12:55 Wound Culture - Preliminary Leg - Right Lower ORGANISMS ISOLATED ARE CONSISTENT WITH NORMAL SKIN NELSON LIGHT GROWTH, NO PREDOMINANT ORGANISM - Procedures and Test Procedures and Tests throughout Hospitalization: Therapy Orders & Screens 05/19/18 16:19 Oxygen NASAL CANNULA 2 lpm Comment: Diagnosis: CELLULITIS Respiratory Therapy Assessment DAILY Comment: Diagnosis: CELLULITIS 05/19/18 21:00 BiPap/CPAP ROUTINE Comment: PER HOME SETTINGS [id number] Diagnosis: CELLULITIS 05/20/18 07:00 Respiratory MDI DAILY Comment: STIOLTO 2 PUFFS DAILY Diagnosis: CELLULITIS Discharge Exam General Appearance: no apparent distress, alert, obese Neurologic Exam: oriented x 3, cooperative Skin Exam: warm, dry, No rash Ears, Nose, Throat Exam: moist mucous membranes Neck Exam: normal inspection Respiratory Exam: diminished breath sounds, wheezing (faint scattered expiratory ), No crackles/rales, No rhonchi Cardiovascular Exam: regular rate/rhythm, normal heart sounds, No edema Gastrointestinal/Abdomen Exam: soft, normal bowel sounds, No tenderness, No distention, No mass, No guarding, No rebound Extremity Exam: swelling (1+ pretibial edema bilat), other (mild erythema to anterior lower legs bilat) Back Exam: normal inspection, No rash Final Diagnosis/Problem List - Final Discharge Diagnosis/Problem (1) Cellulitis of leg Current Visit: Yes Status: Acute Assessment & Plan: much improved. Home on 1 week of clindamycin - pt to f/u with me outpatient. (2) Failure of outpatient treatment Current Visit: No Status: Acute (3) Diabetes mellitus Current Visit: Yes Status: Chronic (4) CHF (congestive heart failure) Current Visit: No Status: Chronic (5) COPD (chronic obstructive pulmonary disease) Current Visit: No Status: Chronic Assessment & Plan: mild wheezing today, pt has this at baseline, no c/o change in cough/sob. (6) Coronary artery disease Current Visit: No Status: Chronic (7) History of pulmonary embolism Current Visit: No Status: Chronic - Discharge Disposition: Home, Self-Care Condition: Stable Prescriptions: New Clindamycin HCl 300 mg PO QID #28 capsule Continue Pravastatin Sodium 20 mg PO HS Furosemide [Lasix] 40 mg PO DAILY Levothyroxine Sodium 175 mcg PO DAILY Omeprazole 20 mg PO BID Gabapentin [Neurontin] 600 mg PO UD Rivaroxaban [Xarelto] 20 mg PO DAILY Potassium Chloride 20 meq PO DAILY Carbidopa/Levodopa [Carbidopa-Levo 25-100 Tab] 1 each PO BID Metoprolol Tartrate 12.5 mg PO BID Tiotropium Br/Olodaterol HCl [Stiolto Respimat Inhal [place]] 1 puff IH DAILY Oxycodone / APAP 10/325 mg [Oxycodone-Acetaminophen 10-325] 1 tab PO Q4H PRN PRN Reason: Pain Nystatin Powder 15 gm [Nystop Powder 15 gm] 15 gm TP BIDPRN PRN PRN Reason: yeast Nystatin Cream 30 gm [Nystop 30 gm Cream] 30 gm TP BIDPRN PRN PRN Reason: yeast Nitroglycerin 0.4 mg Tablet [Nitrostat 0.4 MG Tablet] 0.4 mg SL Q5MIN PRN MR X 3 PRN PRN Reason: Chest Pain Methotrexate Sodium 2.5 mg [Trexall 2.5 mg] 5 tab PO WEEKLY Fluticasone Propionate [Flonase NASAL] 2 sprays NS DAILY Sacubitril/Valsartan [Entresto 24 mg-26 mg Tablet] 1 each PO DAILY Gabapentin [Neurontin] 1,200 mg PO UD Fluconazole [Diflucan] 150 mg PO DAILY #1 tablet Follow up with: DENISE LENZ [Primary Care Provider] - 1 Week
[2018-05-22] MEDS: Sinemet 25/100 MG PO SCH (09:58)
[2018-05-22] MEDS: Klor Con 10 MEQ PO SCH (09:58)
[2018-05-22] MEDS: Protonix 40MG Tablet PO SCH (09:58)
[2018-05-22] MEDS: SYNTHROID 100 MCG PO SCH (09:58)
[2018-05-22] MEDS: XARELTO 10 MG TABLET PO SCH (09:58)
[2018-05-22] MEDS: SYNTHROID 75 MCG PO SCH (09:58)
[2018-05-22] MEDS: Lopressor 25MG Tab PO SCH (09:59)
[2018-05-22] MEDS: Flonase NASAL NS SCH (09:59)
[2018-05-22] MEDS: ENTRESTO 49 MG-51 MG TABLET PO SCH (10:00)
[2018-05-22] MEDS: Lasix 40 MG PO SCH (10:01)
[2018-05-22] MEDS: Bactroban OINTMENT TP SCH (10:02)
[2018-05-22] MEDS: NEURONTIN 300 MG PO SCH (10:08)
[2018-05-22] MEDS: VANCOCIN 1 GM VIAL*** 1 GM in Sodium Chloride 0.9% 250 ML 250 ML IV SCH (10:09)
[2018-05-25] MEDS ORDERED: TREXALL 2.5 MG PO SCH (10:00)
== END 2018-05-22 12:30 | disposition home or self-care (01) | DRG 603 ==
LOC: ED 12:01 → MED SURG 14:18 → UNDOADMOB 14:18 → MED SURG 05-20 07:00 → OBSVTOIN 05-20 07:00 → INTOOBSV 05-20 07:00
PROVIDERS: ADMIT Family Medicine; ATTEND Family Medicine
DX: L03.116 Cellulitis of left lower limb (principal); L03.115 Cellulitis of right lower limb; I50.9 Heart failure, unspecified; E11.9 Type 2 diabetes mellitus without complications; I25.2 Old myocardial infarction; Z79.899 Other long term (current) drug therapy; J44.9 Chronic obstructive pulmonary disease, unspecified; M19.90 Unspecified osteoarthritis, unspecified site; M06.9 Rheumatoid arthritis, unspecified; I25.10 Atherosclerotic heart disease of native coronary artery without angina pectoris; I10 Essential (primary) hypertension; Z86.711 Personal history of pulmonary embolism; Z95.1 Presence of aortocoronary bypass graft
CPT/HCPCS: 36000; 36415; 80053; 80202; 81001; 82962; 83036; 83605; 85025; 87040; 87070; 94640; 94660; 94760; 96360; 96365; 96374; 99285; G0378; P9612; J0696; J3370; A9270-GY

== ENCOUNTER 2018-07-18 10:23 | Day surgery (SDC) | payer MEDICARE ==
[2018-07-18] MEDS ORDERED: Depo-Medrol 40 MG/ML IM ONE (10:24)
[2018-07-18] MEDS ORDERED: Xylocaine-Mpf 2 ML IJ ONE (10:24)
[2018-07-18] MEDS ORDERED: Marcaine 0.5% SDV 10 ML IJ ONE (10:24)
[2018-07-18] MEDS ORDERED: Ketamine HCl 50 MG/ML IV ONE (10:24)
[2018-07-18] MEDS ORDERED: DIPRIVAN 200 MG/20 ML IV ONE (10:24)
--- NOTE | 2018-07-18 14:01 | XRAY ---
Indication: Right shoulder injection. Intraoperative fluoroscopy was provided for 15 seconds. Single digital spot image submitted for interpretation demonstrates needle tip projecting over the right superior glenohumeral joint. Small amount of contrast injected for needle tip placement. Correlate with intraoperative findings/report.
[2018-07-18] MEDS ORDERED: Lactated Ringers 1,000 ML IV ONE (15:39)
--- NOTE | 2018-07-19 10:06 | XRAY ---
15 seconds fluoroscopy time in surgery for right shoulder injection.
== END 2018-07-18 12:42 | disposition home or self-care (01) ==
LOC: SDC-PAIN 10:23
PROVIDERS: ATTEND Psychiatry & Neurology Pain Medicine
DX: M25.511 Pain in right shoulder (principal); M19.011 Primary osteoarthritis, right shoulder; Z79.899 Other long term (current) drug therapy; E11.9 Type 2 diabetes mellitus without complications; J44.9 Chronic obstructive pulmonary disease, unspecified; I10 Essential (primary) hypertension; E78.00 Pure hypercholesterolemia, unspecified; Z95.0 Presence of cardiac pacemaker; M06.9 Rheumatoid arthritis, unspecified; K21.9 Gastro-esophageal reflux disease without esophagitis
CPT/HCPCS: 20610; 73030; 77002; 82962; J1030; J2704; Q9966

== ENCOUNTER 2018-07-30 20:26 | Emergency (ER) | payer MEDICARE ==
[2018-07-30] MEDS ORDERED: solu-MEDROL 125 MG IV ONE (23:00)
[2018-07-30] MEDS ORDERED: DUONEB 0.5-3 MG/3 ml Neb IH ONE ×2 (23:00→23:33)
--- NOTE | 2018-07-30 23:06 | ERPHSYRPT ---
- History of Present Illness Time Seen by Provider: 07/30/18 22:54 Source: patient Exam Limitations: no limitations Patient Subjective Stated Complaint: pt reports having a cough x 6 days, was placed on levaquin when cough started "because I get pneumonia easy". denies fever. Triage Nursing Assessment: pink/warm/dry, resp easy, frequent moist cough noted , a&ox4, steady gait to room. Physician History: 63-year-old white female with history of peripheral neuropathy, cataracts, who states she has had diabetes in the past but has improved, COPD, sleep apnea, arrhythmia, coronary disease, hyperlipidemia, high blood pressure, myocardial infarction, hernia, arthritis, degenerative disc disease, osteoarthritis, rheumatoid arthritis, pacer defibrillator, who uses oxygen at home and CPAP at night Patient arrives with complaint of cough congestion shortness of breath wheezing symptoms for 6 days she states she's been on Levaquin and was given an injection of steroids by her family 6 days ago. Past medical history includes peripheral neuropathy, cataracts, diabetes, COPD, sleep apnea, arrhythmia, coronary disease, hyperlipidemia, high blood pressure, myocardial infarction, hernia, arthritis, degenerative disc disease posture arthritis, rheumatoid arthritis, pacer defibrillator, O2 use at home, CPAP at night.. This past surgical history includes cataracts, tonsillectomy and adenoidectomy, angioplasty, cardiac catheter, cardiac stent, internal defibrillator/pacer, vascular surgery, cholecystectomy, hysterectomy, CABG, sternal removed in 2016, carpal tunnel surgery, patient apparently had dropfoot in the past social history positive for tobacco use patient denies alcohol or illicit drug use Timing/Duration: day(s) (6 days) Activities at Onset: none Severity of Dyspnea-Max: moderate Severity of Dyspnea-Current: moderate Possible Cause: occasional episodes Modifying Factors: Improves With: nothing, albuterol nebulizer Associated Symptoms: constant, cough, wheezing (your to have thrown in), No intermittent, No anxiety, No chest pain/discomfort, No edema, No fever, No insomnia, No loss of appetite, No lightheadedness, No weakness, No ankle swelling, No chills, No hemoptysis, No calf pain, No dizziness, No heaviness, No heart racing, No lightheadedness, No leg swelling, No muscle spasms feet, No muscle spasms hands, No painful breathing, No productive cough, No sweating, No tightness, No tingling face International travel in last 2 weeks: No Allergies/Adverse Reactions: sulfamethoxazole [From Bactrim] Allergy (Verified 07/30/18 20:34) unable to remember trimethoprim [From Bactrim] Allergy (Verified 07/30/18 20:35) Home Medications: Furosemide [Lasix] 40 mg PO DAILY 01/08/17 [History] Gabapentin [Neurontin] 600 mg PO UD 01/08/17 [History] Levothyroxine Sodium 175 mcg PO DAILY 01/08/17 [History] Omeprazole 20 mg PO BID 01/08/17 [History] Pravastatin Sodium 20 mg PO HS 01/08/17 [History] Rivaroxaban [Xarelto] 20 mg PO DAILY 01/08/17 [History] Carbidopa/Levodopa [Carbidopa-Levo 25-100 Tab] 1 each PO BID 04/25/17 [History] Metoprolol Tartrate 12.5 mg PO BID 04/25/17 [History] Oxycodone / APAP 10/325 mg [Oxycodone-Acetaminophen 10-325] 1 tab PO Q4H PRN 04/25/17 [History] Potassium Chloride 20 meq PO DAILY 04/25/17 [History] Tiotropium Br/Olodaterol HCl [Stiolto Respimat Inhal [place]] 1 puff IH DAILY [History] Fluticasone Propionate [Flonase NASAL] 2 sprays NS DAILY 01/02/18 [History ] Methotrexate Sodium 2.5 mg [Trexall 2.5 mg] 5 tab PO WEEKLY 01/02/18 [ History] Nitroglycerin 0.4 mg Tablet [Nitrostat 0.4 MG Tablet] 0.4 mg SL Q5MIN PRN MR X 3 PRN 01/02/18 [History] Nystatin Cream 30 gm [Nystop 30 gm Cream] 30 gm TP BIDPRN PRN 01/02/18 [ History] Nystatin Powder 15 gm [Nystop Powder 15 gm] 15 gm TP BIDPRN PRN 01/02/18 [ History] Sacubitril/Valsartan [Entresto 24 mg-26 mg Tablet] 1 each PO DAILY 01/02/18 [ History] Gabapentin [Neurontin] 1,200 mg PO UD 01/03/18 [History] Hx Tetanus, Diphtheria Vaccination/Date Given: Yes Hx Influenza Vaccination/Date Given: Yes Hx Pneumococcal Vaccination/Date Given: Yes Immunizations Up to Date: Yes - Review of Systems Constitutional: No Fever, No Chills Eyes: No Symptoms Ears, Nose, & Throat: No Symptoms Respiratory: Cough, Dyspnea, Wheezing Cardiac: No Chest Pain, No Edema, No Syncope Abdominal/Gastrointestinal: No Abdominal Pain, No Nausea, No Vomiting, No Diarrhea Genitourinary Symptoms: No Dysuria Musculoskeletal: No Back Pain, No Neck Pain Skin: No Rash Neurological: No Dizziness, No Focal Weakness, No Sensory Changes Psychological: No Symptoms Endocrine: No Symptoms All Other Systems: Reviewed and Negative - Past Medical History Pertinent Past Medical History: Yes Neurological History: Peripheral Neuropathy ENT History: Cataracts Cardiac History: Arrhythmia, Coronary Artery Disease, High Cholesterol, Hypertension, Myocardial Infarction ([place]) Respiratory History: COPD, Sleep Apnea Endocrine Medical History: Diabetes Type II Musculoskeletal History: Arthritis, Degenerative Disk Disease, Osteoarthritis, Rheumatoid Arthritis GI Medical History: Hernia History: No Pertinent History Psycho-Social History: No Pertinent History Female Reproductive Disorders: No Pertinent History Other Medical History: Pacemaker and defibrillator, O2 as needed CPAP at [facility] - Past Surgical History Past Surgical History: Yes Neuro Surgical History: No Pertinent History Cardiac: Angioplasty, CABG, Cardiac Catheterization, Cardiac Stent, Internal Defibrillator, Pacemaker, Vascular Surgery, Other Respiratory: No Pertinent History Gastrointestinal: Cholecystectomy Genitourinary: No Pertinent History Musculoskeletal: Other Female Surgical History: Hysterectomy Other Surgical History: pt had CABG in July 2015, had sternum removed in 2016 due to infection, Pt states her breast bones are held together with the muscles from her breasts. She has had varicose veins tied off. She states they were not stripped. She has also had bilateral carpal tunnel surgery. And she has had surgery on her big toe . Pt wears a brace on her left leg due to neuropathy - Social History Smoking Status: Current every day smoker How long have you smoked: 40 Exposure to second hand smoke: Yes Alcohol Use: None Drug Use: none Patient Lives Alone: No Significant Family History: no pertinent family hx - Female History Hx Now: No - Nursing Vital Signs Nursing Vital Signs: Initial Vital Signs Temperature 98.8 F 07/30/18 20:35 Pulse Rate 108 H 07/30/18 20:35 Respiratory Rate 18 07/30/18 20:35 Blood Pressure 111/75 07/30/18 20:35 O2 Sat by Pulse Oximetry 92 L 07/30/18 20:35 Pain Scale Pain Intensity 0 - Physical Exam General Appearance: mild distress, alert Eye Exam: PERRL/EOMI Ears, Nose, Throat Exam: hearing grossly normal, normal ENT inspection, normal pharynx, No abnormal TM (R), No abnormal TM (L), No sinus pain/drainage, No hearing decreased, No nasal congestion, No pharyngeal erythema, No tonsillar exudate Neck Exam: normal inspection, supple Respiratory Exam: diminished breath sounds, rhonchi, wheezing Cardiovascular/Chest Exam: normal heart sounds, regular rate/rhythm Abdominal/Gastrointestinal Exam: soft, No tenderness, No distention, No mass Extremity Exam: non-tender, normal range of motion, normal inspection, no calf tenderness, no pedal edema Peripheral Pulses Exam: dorsalis-pedis (R): 2+, dorsalis-pedis (L): 2+ Neurologic Exam: alert, oriented x 3, cooperative, 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 nml as tested, sensation nml, No motor deficits Skin Exam: normal color, warm, No dry SpO2 Interpretation: normal (91%) SpO2: 91 - Course Nursing assessment & vital signs reviewed: Yes EKG Interpreted by Me: RATE (80 bpm), Left [place] Deviation, Other (EKG: Sinus rhythm, left axis deviation, no acute ST or T wave changes notedcompared to January 02, 2018) - Radiology Exams Chest X-ray Interpretation: Interpreted by me (chest x-ray: Right lower lobe infiltrate) Ordered Tests: Active Orders 24 hr Category Date Time Status Pin Feather Machine Operator STAT Care 07/30/18 23:00 Active EKG-ER Only STAT Care 07/30/18 23:00 Active IV Insertion STAT Care 07/30/18 23:00 Active Pulse Oximetry (ED) STAT Care 07/30/18 23:00 Active CHEST 1 VIEW (PORTABLE) Stat Exams 07/30/18 23:00 Taken BLOOD CULTURE Stat Lab 07/30/18 23:20 Received CBC W DIFF Stat Lab 07/30/18 23:20 Completed CMP Stat Lab 07/30/18 23:20 Completed CULTURE,SPUTUM Stat Lab 07/30/18 23:00 Uncollected Lactic Acid Stat Lab 07/30/18 23:06 Completed NT PRO BNP Stat Lab 07/30/18 23:20 Completed TROPONIN Q3H Lab 07/30/18 23:20 Completed TROPONIN Q3H Lab 07/31/18 02:00 Ordered TROPONIN Q3H Lab 07/31/18 05:00 Ordered TROPONIN Q3H Lab 07/31/18 08:00 Ordered TROPONIN Q3H Lab 07/31/18 11:00 Ordered UA W/RFX UR CULTURE Stat Lab 07/31/18 00:00 Completed VENOUS BLOOD GAS Stat Lab 07/30/18 23:00 Completed Peak Expiratory Flow Rate ONCE RT 07/30/18 23:40 Active Respiratory Nebulizer STAT RT 07/30/18 23:01 Completed Respiratory Therapy Assessment DAILY RT 07/30/18 23:41 Active Medication Summary Generic Name Dose Route Start Last Admin Trade Name Freq PRN Reason Stop Dose Admin Ceftriaxone Sodium/Dextrose 1 g in 50 mls @ 100 mls/hr 07/31/18 00:17 00:43 Rocephin 1 Gm-D5w 50 Ml Bag IV 07/31/18 00:46 100 mls/hr STAT STA Administration Discontinued Medications Generic Name Dose Route Start Last Admin Trade Name Freq PRN Reason Stop Dose Admin Albuterol/Ipratropium 3 ml 07/30/18 23:00 07/30/18 23:34 Duoneb 0.5-3 Mg/3 Ml Neb IH 07/30/18 23:01 3 ml STAT ONE Administration Albuterol/Ipratropium Confirm 07/30/18 23:33 Duoneb 0.5-3 Mg/3 Ml Neb Administered 07/30/18 23:34 Dose 3 ml IH .STK-MED ONE Methylprednisolone Sodium Succinate 125 mg 07/30/18 23:00 07/30/18 23:14 Solu-Medrol 125 Mg IV 07/30/18 23:01 125 mg STAT ONE Administration Methylprednisolone Sodium Succinate Confirm 07/30/18 23:13 Solu-Medrol 125 Mg Administered 07/30/18 23:14 Dose 125 mg .ROUTE .STK-MED ONE Lab/Rad Data: Laboratory Result Diagrams 07/30/18 23:20 07/30/18 23:20 Laboratory Results 07/31/18 07/30/18 07/30/18 Range/Units 00:00 23:20 23:20 WBC 8.4 (4.0-10.5) K/mm3 RBC 4.54 (4.1-5.4) M/mm3 Hgb 12.2 (12.0-16.0) gm/dl Hct 41.8 (35-47) % MCV 92.1 (78-100) fl MCH 26.9 (26-32) pg MCHC 29.2 L (32-36) g/dl RDW 19.1 H (11.5-14.0) % Plt Count 162 (150-450) K/mm3 MPV 9.2 (6-9.5) fl Gran % 74.6 H (36.0-66.0) % Eos # (Auto) 0.27 (0-0.5) Absolute Lymphs (auto) 1.21 (1.0-4.6) Absolute Monos (auto) 0.63 (0.0-1.3) Lymphocytes % 14.5 L (24.0-44.0) % Monocytes % 7.5 (0.0-12.0) % Eosinophils % 3.2 (0.00-5.0) % Basophils % 0.2 (0.0-0.4) % Absolute Granulocytes 6.22 (1.4-6.9) Basophils # 0.02 (0-0.4) pO2/FiO2 Ratio % VBG pH (7.32-7.42) VBG pCO2 at Pat Temp (42-55) mm/Hg VBG pO2 at Pat Temp (25-40) mm/Hg VBG HCO3 (22-28) meq/L VBG O2 Sat ([place]) (95-100) VBG Base Excess (-2.0-2.0) VBG Hemoglobin VBG Carboxyhemoglobin (0.0-6.9) % T HGB POC Potassium (3.5-5.1) Sodium 140 (137-145) mmol/L Potassium 4.7 (3.5-5.1) mmol/L Chloride 101 (98-107) mmol/L Carbon Dioxide 30 (22-30) mmol/L Anion Gap 13.3 (5-15) MEQ/L BUN 16 (7-17) mg/dL Creatinine 0.97 (0.52-1.04) mg/dL Estimated GFR > 60.0 ML/MIN Glucose 99 (74-106) mg/dL Lactic Acid (0.4-2.0) Calcium 9.4 (8.4-10.2) mg/dL Total Bilirubin 0.30 (0.2-1.3) mg/dL AST 14 (14-36) U/L ALT 8 (0-35) U/L Alkaline Phosphatase 115 (38-126) U/L Troponin I (0.000-0.034) ng/mL NT-Pro-B Natriuret Pep 459 (0-900) pg/mL Serum Total Protein 7.7 (6.3-8.2) g/dL Albumin 4.2 (3.5-5.0) g/dL Urine Color YELLOW (YELLOW) Urine Appearance CLEAR (CLEAR) Urine pH 6.0 (5-6) Ur Specific [place] 1.012 (1.005-1.025) Urine Protein NEGATIVE (Negative) Urine Ketones NEGATIVE (NEGATIVE) Urine Blood NEGATIVE (0-5) [place]/ul Urine Nitrite NEGATIVE (NEGATIVE) Urine Bilirubin NEGATIVE (NEGATIVE) Urine Urobilinogen NEGATIVE (0-1) mg/dL Ur Leukocyte Esterase NEGATIVE (NEGATIVE) Urine WBC (Auto) NONE (0-5) /HPF Urine RBC (Auto) NONE (0-2) /HPF U Epithel Cells (Auto) NONE (FEW) /HPF Urine Culture Reflexed NO (NO) Urine Glucose NEGATIVE (NEGATIVE) mg/dL 07/30/18 07/30/18 07/30/18 Range/Units 23:20 23:06 23:00 WBC (4.0-10.5) K/mm3 RBC (4.1-5.4) M/mm3 Hgb (12.0-16.0) gm/dl Hct (35-47) % MCV (78-100) fl MCH (26-32) pg MCHC (32-36) g/dl RDW (11.5-14.0) % Plt Count (150-450) K/mm3 MPV (6-9.5) fl Gran % (36.0-66.0) % Eos # (Auto) (0-0.5) Absolute Lymphs (auto) (1.0-4.6) Absolute Monos (auto) (0.0-1.3) Lymphocytes % (24.0-44.0) % Monocytes % (0.0-12.0) % Eosinophils % (0.00-5.0) % Basophils % (0.0-0.4) % Absolute Granulocytes (1.4-6.9) Basophils # (0-0.4) pO2/FiO2 Ratio 28.0 % VBG pH 7.35 (7.32-7.42) VBG pCO2 at Pat Temp 60 H (42-55) mm/Hg VBG pO2 at Pat Temp 19 L (25-40) mm/Hg VBG HCO3 33.1 H* (22-28) meq/L VBG O2 Sat ([place]) 30.6 L (95-100) VBG Base Excess 5.7 H (-2.0-2.0) VBG Hemoglobin 13.0 VBG Carboxyhemoglobin 7.7 H* (0.0-6.9) % T HGB POC Potassium 4.5 (3.5-5.1) Sodium (137-145) mmol/L Potassium (3.5-5.1) mmol/L Chloride (98-107) mmol/L Carbon Dioxide (22-30) mmol/L Anion Gap (5-15) MEQ/L BUN (7-17) mg/dL Creatinine (0.52-1.04) mg/dL Estimated GFR ML/MIN Glucose (74-106) mg/dL Lactic Acid 0.8 (0.4-2.0) Calcium (8.4-10.2) mg/dL Total Bilirubin (0.2-1.3) mg/dL AST (14-36) U/L ALT (0-35) U/L Alkaline Phosphatase (38-126) U/L Troponin I < 0.012 (0.000-0.034) ng/mL NT-Pro-B Natriuret Pep (0-900) pg/mL Serum Total Protein (6.3-8.2) g/dL Albumin (3.5-5.0) g/dL Urine Color (YELLOW) Urine Appearance (CLEAR) Urine pH (5-6) Ur Specific [place] (1.005-1.025) Urine Protein (Negative) Urine Ketones (NEGATIVE) Urine Blood (0-5) [place]/ul Urine Nitrite (NEGATIVE) Urine Bilirubin (NEGATIVE) Urine Urobilinogen (0-1) mg/dL Ur Leukocyte Esterase (NEGATIVE) Urine WBC (Auto) (0-5) /HPF Urine RBC (Auto) (0-2) /HPF U Epithel Cells (Auto) (FEW) /HPF Urine Culture Reflexed (NO) Urine Glucose (NEGATIVE) mg/dL - Progress Progress: improved Air Movement: fair Progress Note: 07/31/18 00:45 Patient feeling markedly improved after Solu-Medrol and DuoNeb treatment. Rocephin 1 g IV has been ordered for this patient. She does not feel like she needs another breathing treatment she has an occasional wheeze. Oxygenation is 96% on 2 L she states she uses 3 L at home. Chest x-ray shows a right lower lobe pneumonia patient's troponin is normal EKG sinus rhythm 80 beats per minute left axis deviation no acute ST or T wave changes are noted patient's venous gases pH 7.35 PCO2 60 this is on arrival patient's lactic acid is 0.8 chest x-ray shows a right lower lobe pneumonia CBC white blood cell 8.4 hemoglobin 12.2 hematocrit 41.8 platelets 162 patient's BNP was within normal limits Patient states she wants to go home she states she has home oxygen she has albuterol at home she has CPAP at home. Will go ahead and discharge patient she states that her family doctor, Dr. Schmidt has ordered a repeat prescription for Levaquin. We'll send patient home with tapering dose of prednisone patient to continue Levaquin as prescribed by Dr. Schmidt, continue albuterol treatments continue oxygen. And followup with Dr. Schmidt. She is to return for acute distress severe symptoms or for any problems. Patient will be advised to quit smoking. - Departure Departure Disposition: Home Clinical Impression: COPD exacerbation, Shortness of breath Right lower lobe pneumonia Qualifiers: Pneumonia type: due to unspecified organism Qualified Code(s): J18.1 - Lobar pneumonia, unspecified organism Condition: Fair Critical Care Time: No Referrals: DENISE SCHMIDT [Primary Care Provider] - Instructions: Pneumonia, Adult (DC) Additional Instructions: Return home. Antibiotics as prescribed by Dr. Schmidt. Tapering dose of prednisone as prescribed. Continue your home oxygen as well as your albuterol/duo neb treatments. Followup with Dr. Schmidt. Use your CPAP as directed. Quit smoking. Return for acute distress severe symptoms or for any problems.
[2018-07-30] MEDS ORDERED: solu-MEDROL 125 MG ONE (23:13)
[2018-07-30 23:30] LABS: BASOPHIL % 0.2 % (0.0-0.4); Basophil (Absolute #) 0.02 (0-0.4); Eosinophil % 3.2 % (0.00-5.0); Eosinophil (Absolute #) 0.27 (0-0.5); Granulocyte Absolute (ANC) 6.22 (1.4-6.9); Granulocytes % 74.6 % (36.0-66.0); Hematocrit 41.8 % (35-47); Hemoglobin 12.2 gm/dl (12.0-16.0); Lymphocyte (Absolute #) 1.21 (1.0-4.6); Lymphocytes % 14.5 % (24.0-44.0); Mean Cell Volume 92.1 fl (78-100); Mean Corpuscular Hemoglobin 26.9 pg (26-32); Mean Corpuscular Hgb Concent. 29.2 g/dl (32-36); Mean Platelet Volume 9.2 fl (6-9.5); Monocyte (Absolute #) 0.63 (0.0-1.3); Monocytes % 7.5 % (0.0-12.0); Platelet Count 162 K/mm3 (150-450); Red Blood Count 4.54 M/mm3 (4.1-5.4); Red Cell Distribution Width 19.1 % (11.5-14.0); White Blood Count 8.4 K/mm3 (4.0-10.5)
[2018-07-30 23:48] LABS: VBG BASE EXCESS 5.7 (-2.0-2.0); VBG HCO3- 33.1 meq/L (22-28); VBG O2 SATURATION 30.6 (95-100); VBG POTASSIUM 4.5 (3.5-5.1); VBG pH 7.35 (7.32-7.42)
[2018-07-30 23:49] LABS: VBG CARBOXYHEMOGLOBIN 7.7 % T HGB (0.0-6.9)
[2018-07-30 23:54] LABS: ALBUMIN 4.2 g/dL (3.5-5.0); ALKALINE PHOSPHATASE 115 U/L (38-126); ANION GAP 13.3 MEQ/L (5-15); BLOOD UREA NITROGEN 16 mg/dL (7-17); CHLORIDE 101 mmol/L (98-107); Calcium 9.4 mg/dL (8.4-10.2); Carbon Dioxide 30 mmol/L (22-30); Creatinine 1 0.97 mg/dL (0.52-1.04); Glucose 99 mg/dL (74-106); NT PRO BNP 459 pg/mL (0-900); Potassium 4.7 mmol/L (3.5-5.1); SGOT/AST 14 U/L (14-36); SGPT/ALT 8 U/L (0-35); SODIUM 140 mmol/L (137-145); Total Protein 7.7 g/dL (6.3-8.2)
[2018-07-31] MEDS ORDERED: ROCEPHIN 1 Gm-D5w 50 ml Bag** 1 G/50 ML IVPB IV STA (00:17)
[2018-07-31 00:24] LABS: Appearance CLEAR (CLEAR); Bilirubin NEGATIVE (NEGATIVE); Blood NEGATIVE Ery/ul (0-5); Glucose NEGATIVE (NEGATIVE); Ketones NEGATIVE (NEGATIVE); Leukocyte Esterase NEGATIVE (NEGATIVE); Nitrite NEGATIVE (NEGATIVE); Protein,Urine Dip NEGATIVE (Negative); Specific Gravity 1.012 (1.005-1.025); Urobilinogen NEGATIVE mg/dL (0-1)
[2018-07-31] MEDS ORDERED: ROCEPHIN 1 Gm-D5w 50 ml Bag** 1 G/50 ML IVPB IV ONE (00:41)
[2018-07-31 01:01] VITALS: BP 129/53; PULSE 81; O2SAT 98
--- NOTE | 2018-07-31 09:40 | XRAY ---
Indication: Cough, congestion, and wheezing. Comparison: April 25, 2017. Portable chest again demonstrates bibasilar infiltrates versus atelectasis, improved on the left. Remaining heart and lungs unremarkable again with left AICD. Bony thorax intact again with osteopenia and degenerative changes.
== END 2018-07-31 01:10 | disposition home or self-care (01) ==
LOC: ED 20:26
DX: J44.1 Chronic obstructive pulmonary disease with (acute) exacerbation (principal); R06.02 Shortness of breath; J18.1 Lobar pneumonia, unspecified organism; I25.810 Atherosclerosis of coronary artery bypass graft(s) without angina pectoris; I10 Essential (primary) hypertension; I25.2 Old myocardial infarction; M06.9 Rheumatoid arthritis, unspecified; G62.9 Polyneuropathy, unspecified; Z79.899 Other long term (current) drug therapy; G47.30 Sleep apnea, unspecified
CPT/HCPCS: 36000; 36415; 71045; 80053; 81001; 82805; 83605; 83880; 84484; 85025; 87040; 87077; 87186; 94150; 94640; 96365; 96374; 99284; J0696; J2930; A9270-GY

== ENCOUNTER 2018-10-17 07:51 | Day surgery (SDC) | payer MEDICARE ==
[2018-10-17] MEDS ORDERED: LIDOCAINE HCL 2% 100 MG/5 ML IJ ONE (07:52)
[2018-10-17] MEDS ORDERED: Depo-Medrol 40 MG/ML IM ONE (07:52)
[2018-10-17] MEDS ORDERED: DIPRIVAN 200 MG/20 ML IV ONE (09:33)
[2018-10-17] MEDS ORDERED: Lactated Ringers 1,000 ML IV ONE (15:51)
== END 2018-10-17 10:25 | disposition home or self-care (01) ==
LOC: SDC-PAIN 07:51
PROVIDERS: ATTEND Psychiatry & Neurology Pain Medicine
DX: Z53.09 Procedure and treatment not carried out because of other contraindication (principal)
CPT/HCPCS: J1030; J2704

== ENCOUNTER 2019-02-13 07:41 | Day surgery (SDC) | payer MEDICARE ==
[2019-02-13] MEDS ORDERED: Marcaine 0.5% SDV 10 ML IJ ONE (07:42)
[2019-02-13] MEDS ORDERED: Depo-Medrol 40 MG/ML IM ONE (07:42)
[2019-02-13] MEDS ORDERED: DIPRIVAN 200 MG/20 ML IV ONE (09:37)
[2019-02-13] MEDS ORDERED: Ketamine HCl 50 MG/ML ONE (09:38)
--- NOTE | 2019-02-13 11:12 | XRAY ---
Indication: Right shoulder injection. Intraoperative fluoroscopy was provided for 11 seconds. Single digital spot image submitted for interpretation demonstrates needle tip projecting over the superior right glenohumeral joint. Small amount of contrast injected for needle tip placement. Correlate with intraoperative findings/report.
--- NOTE | 2019-02-13 12:27 | XRAY ---
11 seconds fluoroscopy time in surgery for right shoulder intra-articular injection.
[2019-02-13] MEDS ORDERED: Lactated Ringers 1,000 ML IV ONE (16:16)
== END 2019-02-13 10:05 | disposition home or self-care (01) ==
LOC: SDC-PAIN 07:41
PROVIDERS: ATTEND Psychiatry & Neurology Pain Medicine
DX: M19.011 Primary osteoarthritis, right shoulder (principal); E11.9 Type 2 diabetes mellitus without complications; J44.9 Chronic obstructive pulmonary disease, unspecified; E78.00 Pure hypercholesterolemia, unspecified; I51.9 Heart disease, unspecified; M06.9 Rheumatoid arthritis, unspecified; G47.30 Sleep apnea, unspecified; Z79.899 Other long term (current) drug therapy
CPT/HCPCS: 73030; 77002; J1030; J2704

== ENCOUNTER 2019-04-10 10:17 | Day surgery (SDC) | payer MEDICARE ==
[2019-04-10] MEDS ORDERED: LIDOCAINE HCL 2% 100 MG/5 ML IJ ONE (10:18)
[2019-04-10] MEDS ORDERED: DIPRIVAN 200 MG/20 ML IV ONE (11:13)
[2019-04-10] MEDS ORDERED: Ketamine HCl 50 MG/ML ONE (11:13)
--- NOTE | 2019-04-10 12:15 | XRAY ---
Indication: Bilateral T7-T10 MBB. Intraoperative fluoroscopy was provided for 11 seconds. Single digital spot image submitted for interpretation demonstrates posterior needle tips projecting over the expected course of the left and right T7-T10 nerve roots. Correlate with intraoperative findings/report.
--- NOTE | 2019-04-10 12:19 | XRAY ---
11 seconds of fluoroscopy was used in surgery for a bilateral T7-T8, T8-T9, and T9-T10 MBB.
[2019-04-10] MEDS ORDERED: Lactated Ringers 1,000 ML IV ONE (15:29)
== END 2019-04-10 11:45 | disposition home or self-care (01) ==
LOC: SDC-PAIN 10:17
PROVIDERS: ATTEND Psychiatry & Neurology Pain Medicine
DX: M47.816 Spondylosis without myelopathy or radiculopathy, lumbar region (principal); E11.9 Type 2 diabetes mellitus without complications; I10 Essential (primary) hypertension; J44.9 Chronic obstructive pulmonary disease, unspecified; E78.00 Pure hypercholesterolemia, unspecified; M06.9 Rheumatoid arthritis, unspecified; G47.30 Sleep apnea, unspecified; E07.9 Disorder of thyroid, unspecified; I51.9 Heart disease, unspecified; Z79.899 Other long term (current) drug therapy
CPT/HCPCS: 64490; 64491; 64492; 72020; 77002; 82962; J2704

== ENCOUNTER 2019-09-15 21:31 | Emergency (ER) | payer MEDICARE ==
[2019-09-15] MEDS ORDERED: XYLOCAINE HCl Viscous MM ONE (21:32)
[2019-09-15] MEDS ORDERED: GI COCKTAIL 45 ML (Maalox/Lidocaine) PO ONE (21:39)
[2019-09-15] MEDS ORDERED: MAALOX ES 30 ML UNIT DOSE ONE (22:08)
[2019-09-15] MEDS ORDERED: XYLOCAINE HCl Viscous ONE (22:08)
[2019-09-15 22:17] LABS: Absolute Neutrophil Ct (ANC) 3.28 (1.4-6.9); BASOPHIL % 0.9 % (0.0-0.4); Basophil (Absolute #) 0.04 (0-0.4); Eosinophil % 5.5 % (0.00-5.0); Eosinophil (Absolute #) 0.25 (0-0.5); Hematocrit 41.1 % (35-47); Hemoglobin 11.6 gm/dl (12.0-16.0); Lymphocyte (Absolute #) 0.47 (1.0-4.6); Lymphocytes % 10.4 % (24.0-44.0); Mean Cell Volume 98.1 fl (78-100); Mean Corpuscular Hemoglobin 27.7 pg (26-32); Mean Corpuscular Hgb Concent. 28.2 g/dl (32-36); Mean Platelet Volume 9.1 fl (7.5-11.0); Monocyte (Absolute #) 0.49 (0.0-1.3); Monocytes % 10.8 % (0.0-12.0); Neutrophil % 72.4 % (36.0-66.0); Platelet Count 137 K/mm3 (150-450); Red Blood Count 4.19 M/mm3 (4.1-5.4); Red Cell Distribution Width 23.5 % (11.5-14.0); White Blood Count 4.5 K/mm3 (4.0-10.5)
--- NOTE | 2019-09-15 22:28 | ERPHSYRPT ---
- History of Present Illness Time Seen by Provider: 09/15/19 21:39 Patient Subjective Stated Complaint: "I started having heartburn this morning and it won't go away." Triage Nursing Assessment: Pt reported onset chest pain described as heartburn that started this morning. Pt denied headache/dizziness, nausea/vomiting/diarrhea. Pt reported taking all of her daily medications. Pupils 3mm reactive. Oral mucosa pink/moist. Neck supple non-tender without noted JVD. Symmetrical chest expansion. heart tones regular/clear. Lung sounds clear with adequate airflow. Abdome obese with past surgical scar noted. Noted cellulitis to the RLQ for which the patient is currently receiving IV infusions for. No noted dependent edema. Radial pulses equal bilateral. Physician History: This is a 64-year-old patient presenting to the ED for evaluation of heartburn -Patient states that she developed the heartburn this a.m. and it has progressively worsening States she has taken Prilosec x 2, nitrox2 with minimal relief of pain -Denies any chest pain/shortness of breath/abdominal pain/fever/nausea/vomiting Reports she has chronic cough and history of CHF She sees a java technical architect at [place] Patient states that she has had 5 stents and a sternectomy done in 2016 Is currently on Xarelto Patient uses 3 L of oxygen as needed at home Timing/Duration: today Activities at Onset: none Quality: burning Location: epigastric Chest Pain Radiation: no radiation Severity of Pain-Max: mild Severity of Pain-Current: mild Modifying Factors: Improves With: antacids Associated Symptoms: denies symptoms, heartburn, No nausea, No shortness of breath, No cough, No chills, No fever, No swelling/lump in chest Prior Chest Pain/Cardiac Workup: non-cardiac, cardiac cath Nitro Today/Relief: 0.4 mg x 2 Aspirin Treatment Today: no aspirin today Allergies/Adverse Reactions: sulfamethoxazole [From Bactrim] Allergy (Verified 09/15/19 21:34) unable to remember trimethoprim [From Bactrim] Allergy (Verified 09/15/19 21:34) Home Medications: Furosemide [Lasix] 40 mg PO DAILY 01/08/17 [History] Gabapentin [Neurontin] 600 mg PO UD 01/08/17 [History] Levothyroxine Sodium 175 mcg PO DAILY 01/08/17 [History] Omeprazole 20 mg PO BID 01/08/17 [History] Pravastatin Sodium 20 mg PO HS 01/08/17 [History] Rivaroxaban [Xarelto] 20 mg PO DAILY 01/08/17 [History] Metoprolol Tartrate 12.5 mg PO BID 04/25/17 [History] Potassium Chloride 20 meq PO DAILY 04/25/17 [History] Tiotropium Br/Olodaterol HCl [Stiolto Respimat Inhal [place]] 1 puff IH DAILY 04/25/17 [History] Methotrexate Sodium 2.5 mg [Trexall 2.5 mg] 5 tab PO WEEKLY 01/02/18 [History] Nitroglycerin 0.4 mg Tablet [Nitrostat 0.4 MG Tablet] 0.4 mg SL Q5MIN PRN MR X 3 PRN 01/02/18 [History] Sacubitril/Valsartan [Entresto 24 mg-26 mg Tablet] 1 each PO DAILY 01/02/18 [His tory] Gabapentin [Neurontin] 1,200 mg PO UD 01/03/18 [History] Aspirin 81 gm Chew [Baby Aspirin 81 mg Chew] 1 tab PO DAILY 09/15/19 [History] Oxycodone HCl/Acetaminophen [Oxycodon-Acetaminophen 7.5-325] 1 tab PO Q6H PRN 09/15/19 [History] Hx Tetanus, Diphtheria Vaccination/Date Given: Yes Hx Influenza Vaccination/Date Given: Yes Hx Pneumococcal Vaccination/Date Given: Yes Travel Risk - International Travel Have you traveled outside of the country in past 3 weeks: No (N) If Yes, where;: N - Coronavirus Screening Are you exhibiting any of the following symptoms?: No Close contact with a COVID-19 positive Pt in past 14-21 Days: No - Review of Systems Constitutional: No Symptoms Eyes: No Symptoms Ears, Nose, & Throat: No Symptoms Respiratory: No Symptoms, Cough (chronic cough) Cardiac: No Symptoms Abdominal/Gastrointestinal: Abdominal Pain Genitourinary Symptoms: No Symptoms Musculoskeletal: No Symptoms Skin: No Symptoms Neurological: No Symptoms Psychological: No Symptoms Endocrine: No Symptoms All Other Systems: Reviewed and Negative - Past Medical History Pertinent Past Medical History: Yes Neurological History: Peripheral Neuropathy, Other ENT History: Cataracts Cardiac History: Congestive Heart Failure, Coronary Artery Disease, High Cholesterol, Hypertension, Other Respiratory History: CHF, COPD Endocrine Medical History: Other Musculoskeletal History: Osteoarthritis GI Medical History: Hernia History: No Pertinent History Psycho-Social History: No Pertinent History Female Reproductive Disorders: No Pertinent History Other Medical History: CABG X 2 AND REMOVAL OF STERNUM 2016. CARDIAC STENTS X 5. VASCULAR SURGERY WITH VEINS "TIED OFF" - Past Surgical History Past Surgical History: Yes Neuro Surgical History: No Pertinent History Cardiac: Angioplasty, CABG, Cardiac Catheterization, Cardiac Stent, Internal Defibrillator, Pacemaker, Vascular Surgery, Other Respiratory: No Pertinent History Gastrointestinal: Cholecystectomy Genitourinary: No Pertinent History Musculoskeletal: Other Female Surgical History: Hysterectomy Other Surgical History: pt had CABG in July 2015, had sternum removed in 2016 due to infection, Pt states her breast bones are held together with the muscles from her breasts. She has had varicose veins tied off. She states they were not stripped. She has also had bilateral carpal tunnel surgery. And she has had surgery on her big toe . Pt wears a brace on her left leg due to neuropathy - Social History Smoking Status: Current every day smoker How long have you smoked: age 14 Exposure to second hand smoke: Yes Alcohol Use: None Drug Use: none Patient Lives Alone: Yes Significant Family History: no pertinent family hx - Nursing Vital Signs Nursing Vital Signs: Initial Vital Signs Temperature 98.4 F 09/15/19 21:31 Pulse Rate 90 09/15/19 21:31 Respiratory Rate 16 09/15/19 21:31 Blood Pressure 110/58 09/15/19 21:31 O2 Sat by Pulse Oximetry 87 L 09/15/19 21:31 Pain Scale Pain Intensity 6 - Physical Exam General Appearance: no apparent distress Eye Exam: PERRL/EOMI, eyes nml inspection Ears, Nose, Throat Exam: normal ENT inspection, TMs normal, pharynx normal Neck Exam: normal inspection, non-tender, supple, full range of motion Respiratory Exam: normal breath sounds, lungs clear, No chest tenderness, No respiratory distress, No accessory muscle use Cardiovascular Exam: regular rate/rhythm, normal heart sounds, normal peripheral pulses Gastrointestinal/Abdomen Exam: soft, normal bowel sounds, No tenderness, No distention, No mass Back Exam: normal inspection Extremity Exam: normal inspection Neurologic Exam: alert, oriented x 3, cooperative, public relations writer II-XII nml as tested Skin Exam: normal color, warm, dry Lymphatic Exam: No adenopathy SpO2 Interpretation: O2 applied SpO2: 87 O2 Delivery: Nasal Cannula - Course EKG Interpreted by Me: RATE, Sinus Rhythm, NORMAL AXIS, NORMAL INTERVALS, NORMAL QRS, NORMAL ST-T Rhythm Strip: Normal Sinus Rhythm Ordered Tests: Active Orders 24 hr Category Date Time Status EKG-ER Only STAT Care 09/15/19 21:39 Active CHEST WITHOUT CONTRAST [CT] Stat Exams 09/15/19 21:43 Taken CBC W DIFF Stat Lab 09/15/19 22:10 Completed CK-Creatinine Phosphokinase Stat Lab 09/15/19 22:10 Completed CMP Stat Lab 09/15/19 22:10 Completed NT PRO BNP Stat Lab 09/15/19 22:10 Completed TROPONIN Q3H Lab 09/15/19 22:10 Completed TROPONIN Q3H Lab 09/16/19 00:45 Ordered TROPONIN Q3H Lab 09/16/19 03:45 Ordered TROPONIN Q3H Lab 09/16/19 06:45 Ordered TROPONIN Q3H Lab 09/16/19 09:45 Ordered Medication Summary Discontinued Medications Generic Name Dose Route Start Last Admin Trade Name Freq PRN Reason Stop Dose Admin Al Hydrox/Mg Hydrox/Simethicone Confirm 09/15/19 22:08 Maalox Es 30 Ml Unit Dose Administered 09/15/19 22:09 Dose 30 ml .ROUTE .STK-MED ONE Lidocaine HCl Confirm 09/15/19 22:08 Xylocaine Hcl Viscous * Administered 09/15/19 22:09 Dose 1 ml .ROUTE .STK-MED ONE Magnesium Hydroxide 45 ml 09/15/19 21:39 09/15/19 22:10 Gi Cocktail 45 Ml (Maalox/Lidocaine) PO 09/15/19 21:40 45 ml STAT ONE Administration Lab/Rad Data: Laboratory Result Diagrams 09/15/19 22:10 09/15/19 22:10 Laboratory Results 09/15/19 09/15/19 09/15/19 Range/Units 22:10 22:10 22:10 WBC (4.0-10.5) K/mm3 RBC (4.1-5.4) M/mm3 Hgb (12.0-16.0) gm/dl Hct (35-47) % MCV (78-100) fl MCH (26-32) pg MCHC (32-36) g/dl RDW (11.5-14.0) % Plt Count (150-450) K/mm3 MPV (7.5-11.0) fl Gran % (36.0-66.0) % Eos # (Auto) (0-0.5) Absolute Lymphs (auto) (1.0-4.6) Absolute Monos (auto) (0.0-1.3) Lymphocytes % (24.0-44.0) % Monocytes % (0.0-12.0) % Eosinophils % (0.00-5.0) % Basophils % (0.0-0.4) % Absolute Granulocytes (1.4-6.9) Basophils # (0-0.4) Sodium 142 (137-145) mmol/L Potassium 4.1 (3.5-5.1) mmol/L Chloride 107 (98-107) mmol/L Carbon Dioxide 27 (22-30) mmol/L Anion Gap 12.0 (5-15) MEQ/L BUN 20 H (7-17) mg/dL Creatinine 1.09 H (0.52-1.04) mg/dL Estimated GFR 53.5 ML/MIN Glucose 114 H (74-106) mg/dL Calcium 8.6 (8.4-10.2) mg/dL Total Bilirubin 0.50 (0.2-1.3) mg/dL AST 17 (14-36) U/L ALT 8 (0-35) U/L Alkaline Phosphatase 91 (38-126) U/L Creatine Kinase 33 (30-135) U/L Troponin I < 0.012 (0.000-0.034) ng/mL NT-Pro-B Natriuret Pep 2620 H (0-900) pg/mL Serum Total Protein 6.9 (6.3-8.2) g/dL Albumin 3.9 (3.5-5.0) g/dL 09/15/19 Range/Units 22:10 WBC 4.5 (4.0-10.5) K/mm3 RBC 4.19 (4.1-5.4) M/mm3 Hgb 11.6 L (12.0-16.0) gm/dl Hct 41.1 (35-47) % MCV 98.1 (78-100) fl MCH 27.7 (26-32) pg MCHC 28.2 L (32-36) g/dl RDW 23.5 H (11.5-14.0) % Plt Count 137 L (150-450) K/mm3 MPV 9.1 (7.5-11.0) fl Gran % 72.4 H (36.0-66.0) % Eos # (Auto) 0.25 (0-0.5) Absolute Lymphs (auto) 0.47 L (1.0-4.6) Absolute Monos (auto) 0.49 (0.0-1.3) Lymphocytes % 10.4 L (24.0-44.0) % Monocytes % 10.8 (0.0-12.0) % Eosinophils % 5.5 H (0.00-5.0) % Basophils % 0.9 (0.0-0.4) % Absolute Granulocytes 3.28 (1.4-6.9) Basophils # 0.04 (0-0.4) Sodium (137-145) mmol/L Potassium (3.5-5.1) mmol/L Chloride (98-107) mmol/L Carbon Dioxide (22-30) mmol/L Anion Gap (5-15) MEQ/L BUN (7-17) mg/dL Creatinine (0.52-1.04) mg/dL Estimated GFR ML/MIN Glucose (74-106) mg/dL Calcium (8.4-10.2) mg/dL Total Bilirubin (0.2-1.3) mg/dL AST (14-36) U/L ALT (0-35) U/L Alkaline Phosphatase (38-126) U/L Creatine Kinase (30-135) U/L Troponin I (0.000-0.034) ng/mL NT-Pro-B Natriuret Pep (0-900) pg/mL Serum Total Protein (6.3-8.2) g/dL Albumin (3.5-5.0) g/dL - Progress Progress Note: 09/15/19 22:29 This is a 64-year-old patient presenting to the ED for management of heartburn Evaluated in ED room 3 Vital signs stable on arrival EKG- no evidence of ischemia Workup Labs: CBC, CMP, tropinins, CPK, BNP Results: CMP shows mildly elevated 1.09, BNP 2620 , all other labs WNL Imaging CT chest without contrast- negative for infiltrate, absent sternum, no acute findings Medications given - GI cocktail 09/15/19 23:15 [place] much better after receiving GI cocktail BNP elevated, probably patient's baseline, he is on 40 mg of Lasix Patient to follow-up with primary care physician in the morning Stable discharge 09/15/19 23:17 - Departure Departure Disposition: Home (in stable condition) Clinical Impression: GERD (gastroesophageal reflux disease) Condition: Stable Critical Care Time: No Referrals: TALON RICO [Primary Care Provider] - Instructions: Acid Reflux and GERD in Adults (DC) Additional Instructions: Discharge/Care Plan FORRESTPALMA COFFEY was seen on 09/15/19 in the Emergency Room. The patient was counseled regarding Diagnosis,Lab results, Imaging studies, need for follow up and when to return to the Emergency Room. Prescriptions given: Discharge Note I have spoken with the patient and/or caregivers. I have explained the patient's condition, diagnosis and treatment plan based on the information available to me at this time. I have answered the patient's and/or caregiver's questions and addressed any concerns. The patient and/or caregivers have as good understanding of the patient's diagnosis, condition and treatment plan as can be expected at this point. The vital signs have been stable. The patient's condition is stable and appropriate for discharge from the emergency department. The patient will pursue further outpatient evaluation with the primary care physician or other designated or consulting physician as outlined in the discharge instructions. The patient and/or caregivers are agreeable to this plan of care and follow-up instructions have been explained in detail. The patient and/or caregivers have received these instruction. The patient/and or caregivers are aware that any significant change in condition or worsening of symptoms should prompt an immediate return to this or the closest emergency department or call 911.
[2019-09-15 22:38] LABS: ALBUMIN 3.9 g/dL (3.5-5.0); BILIRUBIN,TOTAL 0.5 mg/dL (0.2-1.3); Calcium 8.6 mg/dL (8.4-10.2); Creatinine 1 1.09 mg/dL (0.52-1.04); Potassium 4.1 mmol/L (3.5-5.1); Total Protein 6.9 g/dL (6.3-8.2)
[2019-09-15 22:47] LABS: CK-Creatinine Phosphokinase 33 U/L (30-135); NT PRO BNP 2620 pg/mL (0-900)
[2019-09-15 23:09] VITALS: BP 124/66; PULSE 90
[2019-09-15 23:21] VITALS: O2SAT 87
[2019-09-16 00:52] LABS: Slide Review 1 YES
--- NOTE | 2019-09-16 09:07 | XRAY ---
Indication: Chest pain. Heartburn. Multiple contiguous axial images obtained through the chest without contrast as ordered. Comparison: January 02, 2018. Lungs again demonstrates mild pulmonary emphysema, mild lateral dependent atelectasis, scattered fibrosis/scarring bilaterally, and right upper lobe calcified granuloma. Posterior medial left lower lobe demonstrates new 10 mm subpleural noncalcified nodularity. No infiltrate or effusion. Heart remains enlarged again with CABG surgery, and left-sided AICD. Stable mediastinal and right hilar calcified nodes. Interval enlarging subcarinal node today measuring 1.9 x 3.4 cm, previously 1.5 x 1.9 cm. No hiatal hernia. Bony thorax again demonstrates osteopenia, moderate degenerative changes throughout the spine, and multiple old bilateral rib fractures. Limited upper abdomen again demonstrates fatty liver and hepatic/splenic calcified granulomas. Impression: 1. No acute cardiopulmonary abnormalities on this noncontrast exam. 2. New indeterminant left lower lobe 10 mm noncalcified nodule. Recommend follow-up per Fleischner guidelines. 3. Enlarging 1.9 x 3.4 cm subcarinal adenopathy. 4. Stable cardiomegaly, pulmonary emphysema, scattered atelectasis/scarring, chronic bony findings, and evidence for old granulomatous disease. Comment: Preliminary interpretation was made by [facility] who does not report subcarinal adenopathy and cardiomegaly.
== END 2019-09-15 23:35 | disposition home or self-care (01) ==
LOC: ED 21:31
DX: K21.9 Gastro-esophageal reflux disease without esophagitis (principal); R10.13 Epigastric pain; Z79.899 Other long term (current) drug therapy; Z79.891 Long term (current) use of opiate analgesic; I50.9 Heart failure, unspecified; I25.10 Atherosclerotic heart disease of native coronary artery without angina pectoris; E78.00 Pure hypercholesterolemia, unspecified; I10 Essential (primary) hypertension; J44.9 Chronic obstructive pulmonary disease, unspecified; R50.9 Fever, unspecified
CPT/HCPCS: 36415; 71250; 80053; 82550; 83880; 84484; 85025; 93005; 96365; 96366; 99211; 99284; A9270-GY; J3370

== ENCOUNTER 2019-10-23 09:22 | Day surgery (SDC) | payer MEDICARE ==
[2019-10-23] MEDS ORDERED: Depo-Medrol 40 MG/ML IM ONE (09:23)
[2019-10-23] MEDS ORDERED: BUPIVACAINE 0.5% VIAL IJ ONE (09:23)
[2019-10-23] MEDS ORDERED: DIPRIVAN 200 MG/20 ML IV ONE (10:16)
[2019-10-23] MEDS ORDERED: Ketamine HCl 50 MG/ML ONE (10:16)
--- NOTE | 2019-10-23 12:03 | XRAY ---
Indication: Bilateral T7-T10 MBB. Intraoperative fluoroscopy was provided for 26 seconds. Single digital spot image submitted for interpretation demonstrates posterior needle tips projecting over the expected course of the left and right T7-T10 nerve roots. Correlate with intraoperative findings/report.
--- NOTE | 2019-10-23 12:05 | XRAY ---
26 seconds fluoroscopy time in surgery for bilateral T7-T10 MBB.
[2019-10-23] MEDS ORDERED: Lactated Ringers 1,000 ML IV ONE (14:33)
== END 2019-10-23 10:45 | disposition home or self-care (01) ==
LOC: SDC-PAIN 09:22
PROVIDERS: ATTEND Psychiatry & Neurology Pain Medicine
DX: M47.814 Spondylosis without myelopathy or radiculopathy, thoracic region (principal); G47.30 Sleep apnea, unspecified; E11.9 Type 2 diabetes mellitus without complications; J44.9 Chronic obstructive pulmonary disease, unspecified; M06.9 Rheumatoid arthritis, unspecified; I10 Essential (primary) hypertension; E78.00 Pure hypercholesterolemia, unspecified; Z79.899 Other long term (current) drug therapy
CPT/HCPCS: 64490; 64491; 64492; 72020; 77002; 82962; J1030; J2704

== ENCOUNTER 2019-11-27 07:58 | Day surgery (SDC) | payer MEDICARE ==
[2019-11-27] MEDS ORDERED: BUPIVACAINE 0.5% VIAL IJ ONE (07:59)
[2019-11-27] MEDS ORDERED: Xylocaine 1% Vial 30 ML PF IJ ONE (07:59)
[2019-11-27] MEDS ORDERED: Depo-Medrol 40 MG/ML IM ONE (07:59)
[2019-11-27] MEDS ORDERED: DIPRIVAN 200 MG/20 ML IV ONE (08:35)
[2019-11-27] MEDS ORDERED: Ketamine HCl 50 MG/ML ONE (08:36)
--- NOTE | 2019-11-27 12:21 | XRAY ---
Indication: Right T7-T10 RFA. Intraoperative fluoroscopy was provided for 1 minute 31 seconds. 2 digital spot images submitted for interpretation demonstrates posterior needle tips projecting over the expected course of the right T7-T10 nerve roots. Correlate with intraoperative findings/report. Incidental overlying cardiac pacer lead.
--- NOTE | 2019-11-27 12:25 | XRAY ---
1 minute and 31 seconds fluoroscopy time in surgery for right T7-T10 RFA.
[2019-11-27] MEDS ORDERED: Lactated Ringers 1,000 ML IV ONE (15:27)
== END 2019-11-27 10:45 | disposition home or self-care (01) ==
LOC: SDC-PAIN 07:58
PROVIDERS: ATTEND Psychiatry & Neurology Pain Medicine
DX: M47.814 Spondylosis without myelopathy or radiculopathy, thoracic region (principal); G47.30 Sleep apnea, unspecified; E11.9 Type 2 diabetes mellitus without complications; J44.9 Chronic obstructive pulmonary disease, unspecified; Z79.899 Other long term (current) drug therapy
CPT/HCPCS: 64635; 64636; 72072; 77002; 82962; J1030; J2001; J2704

== ENCOUNTER 2019-12-04 13:50 | Day surgery (SDC) | payer MEDICARE ==
[2019-12-04] MEDS ORDERED: Xylocaine 1% Vial 30 ML PF IJ ONE (13:51)
[2019-12-04] MEDS ORDERED: BUPIVACAINE 0.5% VIAL IJ ONE (13:51)
[2019-12-04] MEDS ORDERED: Depo-Medrol 40 MG/ML IM ONE (13:51)
[2019-12-04] MEDS ORDERED: Lactated Ringers 1,000 ML IV ONE (15:13)
--- NOTE | 2019-12-04 16:25 | XRAY ---
Indication: T7-T10 RFA. Intraoperative fluoroscopy was provided for 47 seconds. 2 digital spot images submitted for interpretation demonstrates posterior needle tips projecting over the expected left T7-T10 nerve roots. Correlate with intraoperative findings/report. Incidental overlying cardiac pacer lead.
--- NOTE | 2019-12-04 16:35 | XRAY ---
47 seconds fluoroscopy time in surgery for left T7-T10 RFA.
== END 2019-12-04 15:23 | disposition home or self-care (01) ==
LOC: SDC-PAIN 13:50
PROVIDERS: ATTEND Psychiatry & Neurology Pain Medicine
DX: M47.814 Spondylosis without myelopathy or radiculopathy, thoracic region (principal); E11.9 Type 2 diabetes mellitus without complications; G47.30 Sleep apnea, unspecified; I10 Essential (primary) hypertension; J44.9 Chronic obstructive pulmonary disease, unspecified; Z79.899 Other long term (current) drug therapy
CPT/HCPCS: 64633; 64634; 72072; 77002; 82962; J1030; J2001

== ENCOUNTER 2020-02-22 13:27 | Emergency (ER) | payer MEDICARE ==
--- NOTE | 2020-02-22 13:31 | ERPHSYRPT ---
- History of Present Illness Time Seen by Provider: 02/22/20 13:31 Source: patient Exam Limitations: no limitations Physician History: This is a 65-year-old white female who has had a history of cardiac valve replacement, congestive heart failure and placement of a pacem kennedy/defibrillator. The most recent change of battery and unit was in October 2018. Patient is completely asymptomatic. However, at approximately 2:00 in the afternoon through the night until approximately 7:00 this morning she could hear 5 different episodes of a siren she feels is coming from the pacemaker defibrillator. Patient denies any shock symptoms. Since 7:00 this morning she has not heard this sound again. The doctor's office and [employer] recommended that she come into the emergency department for evaluation. Timing/Duration: yesterday, resolved prior to arrival Associated Symptoms: denies symptoms Allergies/Adverse Reactions: sulfamethoxazole [From Bactrim] Allergy (Verified 02/22/20 14:01) unable to remember trimethoprim [From Bactrim] Allergy (Verified 02/22/20 14:01) Home Medications: Furosemide [Lasix] 40 mg PO DAILY 01/08/17 [History] Gabapentin [Neurontin] 600 mg PO UD 01/08/17 [History] Levothyroxine Sodium 175 mcg PO DAILY 01/08/17 [History] Omeprazole 20 mg PO BID 01/08/17 [History] Pravastatin Sodium 20 mg PO HS 01/08/17 [History] Rivaroxaban [Xarelto] 20 mg PO DAILY 01/08/17 [History] Metoprolol Tartrate 12.5 mg PO BID 04/25/17 [History] Potassium Chloride 20 meq PO DAILY 04/25/17 [History] Tiotropium Br/Olodaterol HCl [Stiolto Respimat Inhal [place]] 1 puff IH DAILY 04/25/17 [History] Methotrexate Sodium 2.5 mg [Trexall 2.5 mg] 5 tab PO WEEKLY 01/02/18 [History] Nitroglycerin 0.4 mg Tablet [Nitrostat 0.4 MG Tablet] 0.4 mg SL Q5MIN PRN MR X 3 PRN 01/02/18 [History] Sacubitril/Valsartan [Entresto 24 mg-26 mg Tablet] 1 each PO DAILY 01/02/18 [History] Gabapentin [Neurontin] 1,200 mg PO UD 01/03/18 [History] Aspirin 81 gm Chew [Baby Aspirin 81 mg Chew] 1 tab PO DAILY 09/15/19 [History] Oxycodone HCl/Acetaminophen [Oxycodon-Acetaminophen 7.5-325] 1 tab PO Q6H PRN 09/15/19 [History] Hx Tetanus, Diphtheria Vaccination/Date Given: Yes Hx Influenza Vaccination/Date Given: Yes Hx Pneumococcal Vaccination/Date Given: Yes Travel Risk - International Travel Have you traveled outside of the country in past 3 weeks: No - Coronavirus Screening Are you exhibiting any of the following symptoms?: No Close contact with a COVID-19 positive Pt in past 14-21 Days: No - Review of Systems Constitutional: Weakness (Chronic and unchanged) Eyes: No Symptoms Ears, Nose, & Throat: No Symptoms Respiratory: No Symptoms Cardiac: No Symptoms Abdominal/Gastrointestinal: No Symptoms Genitourinary Symptoms: No Symptoms Musculoskeletal: No Symptoms Skin: No Symptoms Neurological: No Symptoms Psychological: No Symptoms Endocrine: No Symptoms Hematologic/Lymphatic: No Symptoms Immunological/Allergic: No Symptoms All Other Systems: Reviewed and Negative - Past Medical History Pertinent Past Medical History: Yes Neurological History: Peripheral Neuropathy, Other ENT History: Cataracts Cardiac History: Congestive Heart Failure, Coronary Artery Disease, High Cholesterol, Hypertension, Other Respiratory History: CHF, COPD Endocrine Medical History: Other Musculoskeletal History: Osteoarthritis GI Medical History: Hernia History: No Pertinent History Psycho-Social History: No Pertinent History Female Reproductive Disorders: No Pertinent History Other Medical History: CABG X 2 AND REMOVAL OF STERNUM 2016. CARDIAC STENTS X 5. VASCULAR SURGERY WITH VEINS "TIED OFF" - Past Surgical History Past Surgical History: Yes Neuro Surgical History: No Pertinent History Cardiac: Angioplasty, CABG, Cardiac Catheterization, Cardiac Stent, Internal Defibrillator, Pacemaker, Vascular Surgery, Other Respiratory: No Pertinent History Gastrointestinal: Cholecystectomy Genitourinary: No Pertinent History Musculoskeletal: Other Female Surgical History: Hysterectomy Other Surgical History: pt had CABG in July 2015, had sternum removed in 2016 due to infection, Pt states her breast bones are held together with the muscles from her breasts. She has had varicose veins tied off. She states they were not stripped. She has also had bilateral carpal tunnel surgery. And she has had surgery on her big toe . Pt wears a brace on her left leg due to neuropathy - Social History Smoking Status: Current every day smoker How long have you smoked: age 14 Exposure to second hand smoke: Yes Alcohol Use: None Drug Use: none Patient Lives Alone: Yes Significant Family History: no pertinent family hx - Nursing Vital Signs Nursing Vital Signs: Initial Vital Signs Temperature 98.1 F 02/22/20 13:48 Pulse Rate 86 02/22/20 13:48 Respiratory Rate 18 02/22/20 13:48 Blood Pressure 142/67 02/22/20 13:48 O2 Sat by Pulse Oximetry 95 02/22/20 13:48 Pain Scale Pain Intensity 0 - Physical Exam General Appearance: no apparent distress, alert, anxiety Eye Exam: PERRL/EOMI, eyes nml inspection Ears, Nose, Throat Exam: normal ENT inspection, moist mucous membranes Neck Exam: normal inspection, non-tender, supple, full range of motion Respiratory Exam: normal breath sounds, lungs clear, airway intact, No chest tenderness, No respiratory distress Cardiovascular Exam: regular rate/rhythm, normal heart sounds, normal peripheral pulses Gastrointestinal/Abdomen Exam: soft, normal bowel sounds, No tenderness Pelvic Exam: not done Rectal Exam: not done Back Exam: normal inspection, normal range of motion, No CVA tenderness, No vertebral tenderness Extremity Exam: normal inspection, normal range of motion, pelvis stable Neurologic Exam: alert, oriented x 3, cooperative, property site manager II-XII nml as tested, normal mood/affect, nml cerebellar function, nml station & gait, sensation nml Skin Exam: normal color, warm, dry Lymphatic Exam: No adenopathy SpO2 Interpretation: normal O2 Delivery: Room Air Ordered Tests: Active Orders 24 hr Category Date Time Status Marketing Regional Consultant STAT Care 02/22/20 14:04 Active EKG-ER Only STAT Care 02/22/20 14:03 Active IV Insertion STAT Care 02/22/20 14:03 Active Pulse Oximetry (ED) STAT Care 02/22/20 14:03 Active CHEST 1 VIEW (PORTABLE) Stat Exams 02/22/20 14:04 Ordered CBC W DIFF Stat Lab 02/22/20 14:15 Completed CMP Stat Lab 02/22/20 14:15 Completed TROPONIN Q3H Lab 02/22/20 14:15 Completed TROPONIN Q3H Lab 02/22/20 17:15 Ordered TROPONIN Q3H Lab 02/22/20 20:15 Ordered TROPONIN Q3H Lab 02/22/20 23:15 Ordered TROPONIN Q3H Lab 02/23/20 02:15 Ordered Lab/Rad Data: Laboratory Result Diagrams 02/22/20 14:15 02/22/20 14:15 Laboratory Results 02/22/20 02/22/20 02/22/20 Range/Units 14:15 14:15 14:15 WBC 7.7 (4.0-10.5) K/mm3 RBC 4.24 (4.1-5.4) M/mm3 Hgb 13.6 (12.0-16.0) gm/dl Hct 44.3 (35-47) % MCV 104.5 H (78-100) fl MCH 32.1 H (26-32) pg MCHC 30.7 L (32-36) g/dl RDW 17.5 H (11.5-14.0) % Plt Count 142 L (150-450) K/mm3 MPV 8.9 (7.5-11.0) fl Gran % 79.0 H (36.0-66.0) % Eos # (Auto) 0.22 (0-0.5) Absolute Lymphs (auto) 0.80 L (1.0-4.6) Absolute Monos (auto) 0.55 (0.0-1.3) Lymphocytes % 10.4 L (24.0-44.0) % Monocytes % 7.1 (0.0-12.0) % Eosinophils % 2.9 (0.00-5.0) % Basophils % 0.6 (0.0-0.4) % Absolute Granulocytes 6.08 (1.4-6.9) Basophils # 0.05 (0-0.4) Sodium 136 L (137-145) mmol/L Potassium 4.8 (3.5-5.1) mmol/L Chloride 103 (98-107) mmol/L Carbon Dioxide 30 (22-30) mmol/L Anion Gap 7.2 (5-15) MEQ/L BUN 15 (7-17) mg/dL Creatinine 0.64 (0.52-1.04) mg/dL Estimated GFR > 60.0 ML/MIN Glucose 109 H (74-106) mg/dL Calcium 8.9 (8.4-10.2) mg/dL Total Bilirubin 0.50 (0.2-1.3) mg/dL AST 17 (14-36) U/L ALT 9 (0-35) U/L Alkaline Phosphatase 90 (38-126) U/L Troponin I < 0.012 (0.000-0.034) ng/mL Serum Total Protein 7.1 (6.3-8.2) g/dL Albumin 4.0 (3.5-5.0) g/dL - Progress Progress: unchanged, re-examined Progress Note: 02/22/20 15:22 The patient's [employer] device was interrogated. Amber from [email or web address] evaluated the interrogation. The SVC lead showed high impedance. No shocks or other abnormal findings are present on the interrogation of the device. Amber recommends evaluation with her [employer] on 02/24/2020. No other changes or recommendations were provided. 02/22/20 15:26 Chest x-ray shows no acute cardiopulmonary process. The cardiac pacemaker lead appears to be in the appropriate position. Counseled pt/family regarding: lab results, diagnosis, need for follow-up, rad results - Departure Departure Disposition: Home Clinical Impression: Encounter for interrogation of cardiac pacemaker Condition: Stable Critical Care Time: No Referrals: TALON RICO [Primary Care Provider] - Additional Instructions: Follow-up with your [employer] on 02/23/2030. Continue your medications as prescribed. Return to the emergency department for any questions or concerns.
[2020-02-22 14:22] LABS: Absolute Neutrophil Ct (ANC) 6.08 (1.4-6.9); BASOPHIL % 0.6 % (0.0-0.4); Basophil (Absolute #) 0.05 (0-0.4); Eosinophil % 2.9 % (0.00-5.0); Eosinophil (Absolute #) 0.22 (0-0.5); Hematocrit 44.3 % (35-47); Hemoglobin 13.6 gm/dl (12.0-16.0); Lymphocytes % 10.4 % (24.0-44.0); Mean Cell Volume 104.5 fl (78-100); Mean Corpuscular Hemoglobin 32.1 pg (26-32); Mean Corpuscular Hgb Concent. 30.7 g/dl (32-36); Mean Platelet Volume 8.9 fl (7.5-11.0); Monocyte (Absolute #) 0.55 (0.0-1.3); Monocytes % 7.1 % (0.0-12.0); Platelet Count 142 K/mm3 (150-450); Red Blood Count 4.24 M/mm3 (4.1-5.4); Red Cell Distribution Width 17.5 % (11.5-14.0); White Blood Count 7.7 K/mm3 (4.0-10.5)
[2020-02-22 14:38] LABS: ALKALINE PHOSPHATASE 90 U/L (38-126); ANION GAP 7.2 MEQ/L (5-15); BLOOD UREA NITROGEN 15 mg/dL (7-17); CHLORIDE 103 mmol/L (98-107); Calcium 8.9 mg/dL (8.4-10.2); Carbon Dioxide 30 mmol/L (22-30); Creatinine 1 0.64 mg/dL (0.52-1.04); EST GLOMERULAR FILTRATION RATE > 60.0 ML/MIN; Glucose 109 mg/dL (74-106); Potassium 4.8 mmol/L (3.5-5.1); SGOT/AST 17 U/L (14-36); SGPT/ALT 9 U/L (0-35); SODIUM 136 mmol/L (137-145); Total Protein 7.1 g/dL (6.3-8.2)
[2020-02-22 15:46] VITALS: BP 144/72; PULSE 77; O2SAT 98
--- NOTE | 2020-02-22 17:35 | XRAY ---
Indication: Pacemaker malfunction. Comparison: March 26, 2019. Portable chest demonstrates stable intact left AICD with new cardiomegaly, vascular congestion, patchy interstitial alveolar opacities, and small bibasilar effusions favoring cardiac decompensation. Superimposed pneumonia not completely excluded.
== END 2020-02-22 15:58 | disposition home or self-care (01) ==
LOC: ED 13:27
DX: Z45.018 Encounter for adjustment and management of other part of cardiac pacemaker (principal)
CPT/HCPCS: 36000; 36415; 71045; 80053; 84484; 85025; 93005; 93041; 94760; 99284

== ENCOUNTER 2020-05-05 23:06 | Emergency (ER) | payer MEDICARE ==
[2020-05-05 23:20] LABS: A-aADO2 604; ABG HEMOGLOBIN 14.5; ABG POTASSIUM 4.5 (3.5-5.1); ARTERIAL BLOOD GAS BASE EXCESS 5.4 (-2.0-2.0); ARTERIAL BLOOD GAS FIO2 100 %; ARTERIAL BLOOD GAS PCO2 42 mmHg (35-45); ARTERIAL BLOOD GAS PEEP 7.5 cmH2O; ARTERIAL BLOOD GAS PO2 57 mmHg (75-100); ARTERIAL BLOOD GAS VENT MODE CPAP; ARTERIAL BLOOD GAS pH 7.46 (7.35-7.45); HCO3- 29.9 (22-28); HGB O2 SAT 82.5 g/dF (94-100)
[2020-05-05 23:21] LABS: CARBOXYHEMOGLOBIN 8.3 % THgb (0.0-6.9)
[2020-05-05] MEDS ORDERED: Zosyn 3.375 GM Vial 3.375 GM in Sodium Chloride 100ML MINI-BAG PLUS 100 ML IV ONE (23:28)
--- NOTE | 2020-05-05 23:28 | ERPHSYRPT ---
- History of Present Illness Time Seen by Provider: 05/05/20 23:10 Source: patient Exam Limitations: no limitations Physician History: Patient is a 65-year-old female presents to our ED via EMS for evaluation of altered mental status. Upon EMS arrival patient was found to be unresponsive and hypoxic. Patient was placed on a CPAP. EMS reported the patient had coffee-ground emesis. Upon arrival to our ED patient gradually became more alert and responsive. Patient was conversant. She denied abdominal pain. No trauma. Patient was protecting her airway. Patient later vomited. Patient sats dropped. Patient was then intubated. Timing/Duration: today Severity: severe Modifying Factors: Improves With: nothing Associated Symptoms: nausea, vomiting, shortness of breath, fever Allergies/Adverse Reactions: No Known Drug Allergies Allergy (Unverified 02/22/20 15:23) Home Medications: Aspirin 81 gm Chew [Baby Aspirin 81 mg Chew] 1 tab PO DAILY 05/06/20 [History] Famotidine 20 mg [Pepcid 20 MG] 20 mg PO HS 05/06/20 [History] Folic Acid 1 mg [Folate 1 mg] 1 mg PO DAILY 05/06/20 [History] Gabapentin 1,200 mg PO UD 05/06/20 [History] Gabapentin 600 mg PO UD 05/06/20 [History] Levothyroxine Sodium 100 Mcg [Synthroid 100 Mcg] 175 mcg PO DAILY 05/06/20 [History] Metoprolol Tartrate 25 mg [Lopressor 25MG Tab] 12.5 mg PO BID 05/06/20 [History] Oxycodone HCl/Acetaminophen [Oxycodon-Acetaminophen 7.5-325] 1 tab PO Q6H PRN PRN 05/06/20 [History] PANTOPRAZOLE 40 mg Tablet [Protonix 40MG Tablet] 40 mg PO DAILY 05/06/20 [History] Potassium Chloride [Klor-Con M20] 1 tab PO DAILY 05/06/20 [History] Pramipexole Di-HCl [Mirapex] 0.5 mg PO UD 05/06/20 [History] Pramipexole Di-HCl [Mirapex] 1 mg PO UD 05/06/20 [History] Pravastatin Sodium 20 mg PO HS 05/06/20 [History] Rivaroxaban [Xarelto] 20 mg PO DAILY 05/06/20 [History] Sacubitril/Valsartan [Entresto 24 mg-26 mg Tablet] 1 tab PO BID 05/06/20 [History] Hx Tetanus, Diphtheria Vaccination/Date Given: Yes Hx Influenza Vaccination/Date Given: Yes Hx Pneumococcal Vaccination/Date Given: Yes - Review of Systems All Other Systems: Unable due to condition - Past Medical History Pertinent Past Medical History: Yes Neurological History: Peripheral Neuropathy, Other ENT History: Cataracts Cardiac History: Congestive Heart Failure, Coronary Artery Disease, High Cholesterol, Hypertension, Other Respiratory History: CHF, COPD Endocrine Medical History: Other Musculoskeletal History: Osteoarthritis GI Medical History: Hernia History: No Pertinent History Psycho-Social History: No Pertinent History Female Reproductive Disorders: No Pertinent History Other Medical History: CABG X 2 AND REMOVAL OF STERNUM 2016. CARDIAC STENTS X 5. VASCULAR SURGERY WITH VEINS "TIED OFF" - Past Surgical History Past Surgical History: Yes Neuro Surgical History: No Pertinent History Cardiac: Angioplasty, CABG, Cardiac Catheterization, Cardiac Stent, Internal Defibrillator, Pacemaker, Vascular Surgery, Other Respiratory: No Pertinent History Gastrointestinal: Cholecystectomy Genitourinary: No Pertinent History Musculoskeletal: Other Female Surgical History: Hysterectomy Other Surgical History: pt had CABG in July 2015, had sternum removed in 2015 due to infection, Pt states her breast bones are held together with the muscles from her breasts. She has had varicose veins tied off. She states they were not stripped. She has also had bilateral carpal tunnel surgery. And she has had surgery on her big toe . Pt wears a brace on her left leg due to neuropathy - Social History Smoking Status: Current every day smoker How long have you smoked: age 14 Exposure to second hand smoke: Yes Alcohol Use: None Drug Use: none Patient Lives Alone: Yes Significant Family History: no pertinent family hx - Nursing Vital Signs Nursing Vital Signs: Initial Vital Signs Temperature 103.3 F 05/05/20 23:07 Pulse Rate 133 H 05/05/20 23:07 Respiratory Rate 36 H 05/05/20 23:07 Blood Pressure 167/111 05/05/20 23:07 O2 Sat by Pulse Oximetry 95 05/05/20 23:07 Pain Scale Pain Intensity 0 - Physical Exam General Appearance: no apparent distress, alert, lethargy, other Eye Exam: PERRL/EOMI, eyes nml inspection Ears, Nose, Throat Exam: normal ENT inspection, TMs normal, pharynx normal, moist mucous membranes Neck Exam: normal inspection, non-tender, supple, full range of motion Respiratory Exam: normal breath sounds, lungs clear, No respiratory distress Cardiovascular Exam: regular rate/rhythm, normal heart sounds, normal peripheral pulses, other (patient has no sternum. Sternum resected in 2016) Gastrointestinal/Abdomen Exam: soft, normal bowel sounds, No tenderness, No mass Back Exam: normal inspection, normal range of motion, No CVA tenderness, No vertebral tenderness Extremity Exam: normal inspection, normal range of motion, pelvis stable Neurologic Exam: alert, oriented x 3, cooperative, normal mood/affect, sensation nml, other (Neurologic assessment was performed during the period of time while patient was awake and alert prior to vomiting and intubation.), No motor deficits Skin Exam: normal color, warm, dry, No rash Lymphatic Exam: No adenopathy SpO2 Interpretation: normal SpO2: 94 O2 Delivery: Room Air Procedures - Intubation Intubation Indications: respiratory distress Intubation Method: orotracheal Tube Size (cm): 7.5 Medications: Etomidate, Succinylcholine C-Spine: maintained Endotracheal Tube Confirmation: bilateral breath sounds, positive end tidal CO2, good rise & fall of chest, stable or inc of O2 sat Intubation Complications: no complications (Patient vomited prior to intubation not during. Patient was suctioned prior to intubation.) Performed By: ED Physician Post Intubation Xray: Yes - Course Nursing assessment & vital signs reviewed: Yes EKG Interpreted by Me: RATE ([id number]), Sinus Tach, NORMAL AXIS, NORMAL INTERVALS - Radiology Exams Chest X-ray Interpretation: Teleradiologist Report (Cardiomegaly. Findings on chest x-ray compatible with CHF. Cannot exclude superimposed infiltrate in the lung bases.) Other X-ray Interpretation: Teleradiologist Report (New endotracheal tube with distal tip 2.5 cm above the ruddy. 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 STAT Care 05/05/20 23:11 Active Catheter-[place] STAT Care 05/05/20 23:14 Active EKG-ER Only STAT Care 05/05/20 23:11 Active IV Insertion STAT Care 05/05/20 23:11 Active IV Insertion-2nd Peripheral STAT Care 05/05/20 23:19 Active Pulse Oximetry (ED) STAT Care 05/05/20 23:11 Active CHEST 1 VIEW (PORTABLE) Routine Exams 05/06/20 01:33 Taken CHEST 1 VIEW (PORTABLE) Stat Exams 05/05/20 23:11 Taken CHEST 1 VIEW (PORTABLE) Stat Exams 05/06/20 01:21 Taken HEAD WITHOUT CONTRAST [CT] Stat Exams 05/05/20 23:14 Taken ABG [ARTERIAL BLOOD GASES] Stat Lab 05/05/20 23:13 Completed ABG [ARTERIAL BLOOD GASES] Stat Lab 05/06/20 02:00 Completed ACETAMINOPHEN Stat Lab 05/05/20 23:35 Completed ARTERIAL BLOOD GASES Stat Lab 05/06/20 01:00 Completed BLOOD CULTURE Stat Lab 05/05/20 23:35 Received CBC W DIFF Stat Lab 05/05/20 23:11 Completed CMP Stat Lab 05/05/20 23:35 Completed ETHYL ALCOHOL Stat Lab 05/05/20 23:35 Completed INFLUENZA A+B ROHAN Stat Lab 05/05/20 23:25 Completed Lactic Acid Stat Lab 05/05/20 23:14 Completed MAGNESIUM Stat Lab 05/05/20 23:35 Completed Manual Differential NC Stat Lab 05/05/20 23:11 Completed NT PRO BNP Stat Lab 05/05/20 23:35 Completed OCCULT BLOOD, EMESIS Stat Lab 05/06/20 01:54 Completed PROTIME WITH INR Stat Lab 05/05/20 23:35 Completed PTT Stat Lab 05/05/20 23:35 Completed SALICYLATE Stat Lab 05/05/20 23:35 Completed TROPONIN Q3H Lab 05/05/20 23:35 Completed TROPONIN Q3H Lab 05/06/20 02:13 Completed TSH [TSH, 3RD Generation] Stat Lab 05/05/20 23:35 Completed UA W/RFX UR CULTURE Stat Lab 05/05/20 23:18 Completed Urine Triage Profile Stat Lab 05/05/20 23:18 Completed Intubation [Ventilator Management] STAT RT 05/06/20 02:20 Active Oxygen High Flow per RT 50% RT 05/06/20 00:23 Completed Medication Summary Generic Name Dose Route Start Last Admin Trade Name Freq PRN Reason Stop Dose Admin Nitroglycerin/Dextrose 250 mls @ 1.5 mls/hr 05/06/20 00:27 05/06/20 00:31 Ntg 0.2mg/Ml In D5w Glass IV 06/05/20 00:26 5 mcg/min .Q24H PRN 1.5 mls/hr CHEST PAIN Administration Protocol 5 MCG/MIN Propofol 100 mls @ 3.231 mls/hr 05/06/20 01:27 05/06/20 02:17 Propofol 1000 Mg/100 Ml Bottle IV 06/05/20 01:26 20 mcg/kg/min .Q24H PRN 12.924 mls/hr sedation Titration Protocol 5 MCG/KG/MIN Fentanyl Citrate 1,500 mcg/ 150 mls @ 10.77 mls/hr 05/06/20 02:00 05/06/20 01:58 Sodium Chloride IV 05/11/20 01:59 0.46 mcg/kg/hr .[id number] AMISH 5 mls/hr Administration Protocol 1 MCG/KG/HR Pantoprazole Sodium 80 mg/ 500 mls @ 50 mls/hr 05/06/20 02:15 05/06/20 02:22 Sodium Chloride IV 06/05/20 02:14 50 mls/hr .Q10H AMISH 50 mls/hr Administration Discontinued Medications Generic Name Dose Route Start Last Admin Trade Name Nancy PRN Reason Stop Dose Admin Acetaminophen Confirm 05/05/20 23:52 [place] 650 Mg Administered 05/05/20 23:53 Dose 650 mg .ROUTE .STK-MED ONE Acetaminophen 650 mg 05/06/20 00:02 05/06/20 00:04 [place] 650 Mg WI 05/06/20 00:03 650 mg STAT ONE Administration Fentanyl Citrate Confirm 05/06/20 01:42 Fentanyl 500 Mcg/10 Ml Vial Administered 05/06/20 01:43 Dose 1,500 mcg IV .STK-MED ONE Furosemide 40 mg 05/06/20 00:25 05/06/20 00:36 Lasix 40 Mg/4 Ml IV 05/06/20 00:26 40 mg STAT ONE Administration Furosemide Confirm 05/06/20 00:26 Lasix 40 Mg/4 Ml Administered 05/06/20 00:27 Dose 40 mg .ROUTE .STK-MED ONE Furosemide Confirm 05/06/20 00:35 Lasix 40 Mg/4 Ml Administered 05/06/20 00:36 Dose 40 mg .ROUTE .STK-MED ONE Piperacillin Sod/Tazobactam 100 mls @ 200 mls/hr 05/05/20 23:28 05/06/20 00:03 Sod 3.375 gm/ Sodium Chloride IV 05/05/20 23:57 200 mls/hr STAT ONE Administration Vancomycin HCl 1 gm in 200 mls @ 125 mls/hr 05/05/20 23:29 05/06/20 01:48 Vancomycin 1 Gram/200 Ml Bag IV 05/06/20 01:04 Infused STAT ONE Infusion Sodium Chloride Confirm 05/05/20 23:43 Sodium Chloride 100ml Mini-Bag Plus Administered 05/05/20 23:44 Dose 100 mls @ ud IV .STK-MED ONE Vancomycin HCl Confirm 05/05/20 23:43 Vancomycin 1 Gram/200 Ml Bag Administered 05/05/20 23:44 Dose 1 gm in 200 mls @ ud IV .STK-MED ONE Propofol Confirm 05/06/20 01:23 Propofol 1000 Mg/100 Ml Bottle Administered 05/06/20 01:24 Dose 100 mls @ ud IV .STK-MED ONE Sodium Chloride Confirm 05/06/20 01:46 Sodium Chloride 0.9% 150 Ml Administered 05/06/20 01:47 Dose 150 mls @ ud IV .STK-MED ONE Sodium Chloride Confirm 05/06/20 02:16 Sodium Chloride 0.9% 500 Ml Administered 05/06/20 02:17 Dose 500 mls @ ud IV .STK-MED ONE Pantoprazole Sodium Confirm 05/06/20 02:16 Protonix 40 Mg Iv Administered 05/06/20 02:17 Dose 80 mg IV .STK-MED ONE Piperacillin Sod/Tazobactam Sod Confirm 05/05/20 23:42 Zosyn 3.375 Gm Vial Administered 05/05/20 23:43 Dose 3.375 gm IV .STK-MED ONE Lab/Rad Data: Laboratory Result Diagrams 05/05/20 23:11 05/05/20 23:35 Laboratory Results 05/06/20 05/06/20 05/06/20 Range/Units 02:13 02:00 01:54 WBC (4.0-10.5) K/mm3 RBC (4.1-5.4) M/mm3 Hgb (12.0-16.0) gm/dl Hct (35-47) % MCV (78-100) fl MCH (26-32) pg MCHC (32-36) g/dl RDW (11.5-14.0) % Plt Count (150-450) K/mm3 MPV (7.5-11.0) fl Segmented Neutrophils (36.0-66.0) % Band Neutrophils (0.0-2.0) % Lymphocytes (Manual) (24-44) % Monocytes (Manual) (0.0-12.0) % Eosinophils (Manual) (0.00-3.0) % Platelet Estimate (NORMAL) RBC Morphology Polychromasia Anisocytosis Macrocytosis PT (9.95-12.35) SECONDS INR (0.8-3.0) APTT (25.3-37.0) SECONDS Puncture Site LEFT BRACHIAL pCO2 67 H* (35-45) mmHg pO2 150 H* (75-100) mmHg Base Excess 1.2 (-2.0-2.0) O2 Saturation 93.6 L (94-100) g/dF ABG pH 7.26 L (7.35-7.45) ABG HCO3 30.1 H* (22-28) ABG O2 Sat (Measured) 99.2 (95-100) % Vasu Test YES A-a Gradient 479 a/A Ratio 0.24 Hemoglobin 14.7 Carboxyhemoglobin 4.8 (0.0-6.9) % THgb Methemoglobin 0.9 L (1.4-1.5) % Potassium 4.4 (3.5-5.1) Temperature 37.0 C POC O2 Flow Rate 100 % Vent Mode A/C Tidal Volume 500 cc PEEP 5.0 cmH2O Sodium (137-145) mmol/L Chloride (98-107) mmol/L Carbon Dioxide (22-30) mmol/L Anion Gap (5-15) MEQ/L BUN (7-17) mg/dL Creatinine (0.52-1.04) mg/dL Estimated GFR ML/MIN Glucose (74-106) mg/dL Lactic Acid (0.4-2.0) Calcium (8.4-10.2) mg/dL Magnesium (1.6-2.3) mg/dL Total Bilirubin (0.2-1.3) mg/dL AST (14-36) U/L ALT (0-35) U/L Alkaline Phosphatase (38-126) U/L Troponin I 0.083 H* (0.000-0.034) ng/mL NT-Pro-B Natriuret Pep (0-900) pg/mL Serum Total Protein (6.3-8.2) g/dL Albumin (3.5-5.0) g/dL TSH 3rd Generation (0.47-4.68) mIU/L Urine Color (YELLOW) Urine Appearance (CLEAR) Urine pH (5-6) Ur Specific [place] (1.005-1.025) Urine Protein (Negative) Urine Ketones (NEGATIVE) Urine Blood (0-5) [place]/ul Urine Nitrite (NEGATIVE) Urine Bilirubin (NEGATIVE) Urine Urobilinogen (0-1) mg/dL Ur Leukocyte Esterase (NEGATIVE) Urine WBC (Auto) (0-5) /HPF Urine RBC (Auto) (0-2) /HPF U Epithel Cells (Auto) (FEW) /HPF Urine Bacteria (Auto) (NEGATIVE) /HPF Urine Culture Reflexed (NO) Urine Glucose (NEGATIVE) mg/dL Emesis for Blood POSITIVE (Negative) Salicylates (2-20) mg/dL Urine Opiates Level (NEGATIVE) Ur Methadone (NEGATIVE) Acetaminophen (10-30) ug/ml Urine Barbiturates (NEGATIVE) Ur Phencyclidine (PCP) (NEGATIVE) Urine Amphetamine (NEGATIVE) U Benzodiazepine Level (NEGATIVE) Urine Cocaine (NEGATIVE) Urine Marijuana (THC) (NEGATIVE) Ethyl Alcohol (0-10) mg/dL Influenza Type A Ag (NEGATIVE) Influenza Type B Ag (NEGATIVE) SARS-CoV-2 (PCR) (NEGATIVE) 05/06/20 05/06/20 05/05/20 Range/Units 01:00 00:30 23:35 WBC (4.0-10.5) K/mm3 RBC (4.1-5.4) M/mm3 Hgb (12.0-16.0) gm/dl Hct (35-47) % MCV (78-100) fl MCH (26-32) pg MCHC (32-36) g/dl RDW (11.5-14.0) % Plt Count (150-450) K/mm3 MPV (7.5-11.0) fl Segmented Neutrophils (36.0-66.0) % Band Neutrophils (0.0-2.0) % Lymphocytes (Manual) (24-44) % Monocytes (Manual) (0.0-12.0) % Eosinophils (Manual) (0.00-3.0) % Platelet Estimate (NORMAL) RBC Morphology Polychromasia Anisocytosis Macrocytosis PT (9.95-12.35) SECONDS INR (0.8-3.0) APTT (25.3-37.0) SECONDS Puncture Site lb pCO2 51 H (35-45) mmHg pO2 64 L (75-100) mmHg Base Excess 4.7 H (-2.0-2.0) O2 Saturation 86.7 L (94-100) g/dF ABG pH 7.39 (7.35-7.45) ABG HCO3 30.9 H* (22-28) ABG O2 Sat (Measured) 92.1 L (95-100) % Vasu Test yes A-a Gradient 585 a/A Ratio 0.10 Hemoglobin 15.6 Carboxyhemoglobin 5.4 (0.0-6.9) % THgb Methemoglobin 0.5 L (1.4-1.5) % Potassium 4.8 (3.5-5.1) Temperature 37.0 C POC O2 Flow Rate 100 % Vent Mode Tidal Volume cc PEEP cmH2O Sodium (137-145) mmol/L Chloride (98-107) mmol/L Carbon Dioxide (22-30) mmol/L Anion Gap (5-15) MEQ/L BUN (7-17) mg/dL Creatinine (0.52-1.04) mg/dL Estimated GFR ML/MIN Glucose (74-106) mg/dL Lactic Acid (0.4-2.0) Calcium (8.4-10.2) mg/dL Magnesium (1.6-2.3) mg/dL Total Bilirubin (0.2-1.3) mg/dL AST (14-36) U/L ALT (0-35) U/L Alkaline Phosphatase (38-126) U/L Troponin I (0.000-0.034) ng/mL NT-Pro-B Natriuret Pep (0-900) pg/mL Serum Total Protein (6.3-8.2) g/dL Albumin (3.5-5.0) g/dL TSH 3rd Generation (0.47-4.68) mIU/L Urine Color (YELLOW) Urine Appearance (CLEAR) Urine pH (5-6) Ur Specific [place] (1.005-1.025) Urine Protein (Negative) Urine Ketones (NEGATIVE) Urine Blood (0-5) [place]/ul Urine Nitrite (NEGATIVE) Urine Bilirubin (NEGATIVE) Urine Urobilinogen (0-1) mg/dL Ur Leukocyte Esterase (NEGATIVE) Urine WBC (Auto) (0-5) /HPF Urine RBC (Auto) (0-2) /HPF U Epithel Cells (Auto) (FEW) /HPF Urine Bacteria (Auto) (NEGATIVE) /HPF Urine Culture Reflexed (NO) Urine Glucose (NEGATIVE) mg/dL Emesis for Blood (Negative) Salicylates < 1.0 L (2-20) mg/dL Urine Opiates Level (NEGATIVE) Ur Methadone (NEGATIVE) Acetaminophen < 10 L (10-30) ug/ml Urine Barbiturates (NEGATIVE) Ur Phencyclidine (PCP) (NEGATIVE) Urine Amphetamine (NEGATIVE) U Benzodiazepine Level (NEGATIVE) Urine Cocaine (NEGATIVE) Urine Marijuana (THC) (NEGATIVE) Ethyl Alcohol < 10 (0-10) mg/dL Influenza Type A Ag (NEGATIVE) Influenza Type B Ag (NEGATIVE) SARS-CoV-2 (PCR) NEGATIVE (NEGATIVE) 05/05/20 05/05/20 05/05/20 Range/Units 23:35 23:35 23:35 WBC (4.0-10.5) K/mm3 RBC (4.1-5.4) M/mm3 Hgb (12.0-16.0) gm/dl Hct (35-47) % MCV (78-100) fl MCH (26-32) pg MCHC (32-36) g/dl RDW (11.5-14.0) % Plt Count (150-450) K/mm3 MPV (7.5-11.0) fl Segmented Neutrophils (36.0-66.0) % Band Neutrophils (0.0-2.0) % Lymphocytes (Manual) (24-44) % Monocytes (Manual) (0.0-12.0) % Eosinophils (Manual) (0.00-3.0) % Platelet Estimate (NORMAL) RBC Morphology Polychromasia Anisocytosis Macrocytosis PT 24.0 H (9.95-12.35) SECONDS INR 2.11 (0.8-3.0) APTT 35.3 (25.3-37.0) SECONDS Puncture Site pCO2 (35-45) mmHg pO2 (75-100) mmHg Base Excess (-2.0-2.0) O2 Saturation (94-100) g/dF ABG pH (7.35-7.45) ABG HCO3 (22-28) ABG O2 Sat (Measured) (95-100) % Vasu Test A-a Gradient a/A Ratio Hemoglobin Carboxyhemoglobin (0.0-6.9) % THgb Methemoglobin (1.4-1.5) % Potassium (3.5-5.1) Temperature C POC O2 Flow Rate % Vent Mode Tidal Volume cc PEEP cmH2O Sodium (137-145) mmol/L Chloride (98-107) mmol/L Carbon Dioxide (22-30) mmol/L Anion Gap (5-15) MEQ/L BUN (7-17) mg/dL Creatinine (0.52-1.04) mg/dL Estimated GFR ML/MIN Glucose (74-106) mg/dL Lactic Acid (0.4-2.0) Calcium (8.4-10.2) mg/dL Magnesium (1.6-2.3) mg/dL Total Bilirubin (0.2-1.3) mg/dL AST (14-36) U/L ALT (0-35) U/L Alkaline Phosphatase (38-126) U/L Troponin I 0.022 (0.000-0.034) ng/mL NT-Pro-B Natriuret Pep (0-900) pg/mL Serum Total Protein (6.3-8.2) g/dL Albumin (3.5-5.0) g/dL TSH 3rd Generation 3.670 (0.47-4.68) mIU/L Urine Color (YELLOW) Urine Appearance (CLEAR) Urine pH (5-6) Ur Specific [place] (1.005-1.025) Urine Protein (Negative) Urine Ketones (NEGATIVE) Urine Blood (0-5) [place]/ul Urine Nitrite (NEGATIVE) Urine Bilirubin (NEGATIVE) Urine Urobilinogen (0-1) mg/dL Ur Leukocyte Esterase (NEGATIVE) Urine WBC (Auto) (0-5) /HPF Urine RBC (Auto) (0-2) /HPF U Epithel Cells (Auto) (FEW) /HPF Urine Bacteria (Auto) (NEGATIVE) /HPF Urine Culture Reflexed (NO) Urine Glucose (NEGATIVE) mg/dL Emesis for Blood (Negative) Salicylates (2-20) mg/dL Urine Opiates Level (NEGATIVE) Ur Methadone (NEGATIVE) Acetaminophen (10-30) ug/ml Urine Barbiturates (NEGATIVE) Ur Phencyclidine (PCP) (NEGATIVE) Urine Amphetamine (NEGATIVE) U Benzodiazepine Level (NEGATIVE) Urine Cocaine (NEGATIVE) Urine Marijuana (THC) (NEGATIVE) Ethyl Alcohol (0-10) mg/dL Influenza Type A Ag (NEGATIVE) Influenza Type B Ag (NEGATIVE) SARS-CoV-2 (PCR) (NEGATIVE) 05/05/20 05/05/20 05/05/20 Range/Units 23:35 23:25 23:18 WBC (4.0-10.5) K/mm3 RBC (4.1-5.4) M/mm3 Hgb (12.0-16.0) gm/dl Hct (35-47) % MCV (78-100) fl MCH (26-32) pg MCHC (32-36) g/dl RDW (11.5-14.0) % Plt Count (150-450) K/mm3 MPV (7.5-11.0) fl Segmented Neutrophils (36.0-66.0) % Band Neutrophils (0.0-2.0) % Lymphocytes (Manual) (24-44) % Monocytes (Manual) (0.0-12.0) % Eosinophils (Manual) (0.00-3.0) % Platelet Estimate (NORMAL) RBC Morphology Polychromasia Anisocytosis Macrocytosis PT (9.95-12.35) SECONDS INR (0.8-3.0) APTT (25.3-37.0) SECONDS Puncture Site pCO2 (35-45) mmHg pO2 (75-100) mmHg Base Excess (-2.0-2.0) O2 Saturation (94-100) g/dF ABG pH (7.35-7.45) ABG HCO3 (22-28) ABG O2 Sat (Measured) (95-100) % Vasu Test A-a Gradient a/A Ratio Hemoglobin Carboxyhemoglobin (0.0-6.9) % THgb Methemoglobin (1.4-1.5) % Potassium 4.5 (3.5-5.1) Temperature C POC O2 Flow Rate % Vent Mode Tidal Volume cc PEEP cmH2O Sodium 137 (137-145) mmol/L Chloride 99 (98-107) mmol/L Carbon Dioxide 29 (22-30) mmol/L Anion Gap 13.4 (5-15) MEQ/L BUN 16 (7-17) mg/dL Creatinine 0.81 (0.52-1.04) mg/dL Estimated GFR > 60.0 ML/MIN Glucose 179 H (74-106) mg/dL Lactic Acid (0.4-2.0) Calcium 9.6 (8.4-10.2) mg/dL Magnesium 1.9 (1.6-2.3) mg/dL Total Bilirubin 0.80 (0.2-1.3) mg/dL AST 17 (14-36) U/L ALT 10 (0-35) U/L Alkaline Phosphatase 106 (38-126) U/L Troponin I (0.000-0.034) ng/mL NT-Pro-B Natriuret Pep 7490 H (0-900) pg/mL Serum Total Protein 8.1 (6.3-8.2) g/dL Albumin 4.5 (3.5-5.0) g/dL TSH 3rd Generation (0.47-4.68) mIU/L Urine Color (YELLOW) Urine Appearance (CLEAR) Urine pH (5-6) Ur Specific [place] (1.005-1.025) Urine Protein (Negative) Urine Ketones (NEGATIVE) Urine Blood (0-5) [place]/ul Urine Nitrite (NEGATIVE) Urine Bilirubin (NEGATIVE) Urine Urobilinogen (0-1) mg/dL Ur Leukocyte Esterase (NEGATIVE) Urine WBC (Auto) (0-5) /HPF Urine RBC (Auto) (0-2) /HPF U Epithel Cells (Auto) (FEW) /HPF Urine Bacteria (Auto) (NEGATIVE) /HPF Urine Culture Reflexed (NO) Urine Glucose (NEGATIVE) mg/dL Emesis for Blood (Negative) Salicylates (2-20) mg/dL Urine Opiates Level NEGATIVE (NEGATIVE) Ur Methadone NEGATIVE (NEGATIVE) Acetaminophen (10-30) ug/ml Urine Barbiturates NEGATIVE (NEGATIVE) Ur Phencyclidine (PCP) NEGATIVE (NEGATIVE) Urine Amphetamine NEGATIVE (NEGATIVE) U Benzodiazepine Level NEGATIVE (NEGATIVE) Urine Cocaine NEGATIVE (NEGATIVE) Urine Marijuana (THC) NEGATIVE (NEGATIVE) Ethyl Alcohol (0-10) mg/dL Influenza Type A Ag NEGATIVE (NEGATIVE) Influenza Type B Ag POSITIVE (NEGATIVE) SARS-CoV-2 (PCR) (NEGATIVE) 05/05/20 05/05/20 05/05/20 Range/Units 23:18 23:14 23:13 WBC (4.0-10.5) K/mm3 RBC (4.1-5.4) M/mm3 Hgb (12.0-16.0) gm/dl Hct (35-47) % MCV (78-100) fl MCH (26-32) pg MCHC (32-36) g/dl RDW (11.5-14.0) % Plt Count (150-450) K/mm3 MPV (7.5-11.0) fl Segmented Neutrophils (36.0-66.0) % Band Neutrophils (0.0-2.0) % Lymphocytes (Manual) (24-44) % Monocytes (Manual) (0.0-12.0) % Eosinophils (Manual) (0.00-3.0) % Platelet Estimate (NORMAL) RBC Morphology Polychromasia Anisocytosis Macrocytosis PT (9.95-12.35) SECONDS INR (0.8-3.0) APTT (25.3-37.0) SECONDS Puncture Site LEFT RADIAL pCO2 42 (35-45) mmHg pO2 57 L (75-100) mmHg Base Excess 5.4 H (-2.0-2.0) O2 Saturation 82.5 L (94-100) g/dF ABG pH 7.46 H (7.35-7.45) ABG HCO3 29.9 H* (22-28) ABG O2 Sat (Measured) 91.0 L (95-100) % Vasu Test YES A-a Gradient 604 a/A Ratio 0.09 Hemoglobin 14.5 Carboxyhemoglobin 8.3 H* (0.0-6.9) % THgb Methemoglobin 1.0 L (1.4-1.5) % Potassium 4.5 (3.5-5.1) Temperature 37.0 C POC O2 Flow Rate 100 % Vent Mode CPAP Tidal Volume cc PEEP 7.5 cmH2O Sodium (137-145) mmol/L Chloride (98-107) mmol/L Carbon Dioxide (22-30) mmol/L Anion Gap (5-15) MEQ/L BUN (7-17) mg/dL Creatinine (0.52-1.04) mg/dL Estimated GFR ML/MIN Glucose (74-106) mg/dL Lactic Acid 1.1 (0.4-2.0) Calcium (8.4-10.2) mg/dL Magnesium (1.6-2.3) mg/dL Total Bilirubin (0.2-1.3) mg/dL AST (14-36) U/L ALT (0-35) U/L Alkaline Phosphatase (38-126) U/L Troponin I (0.000-0.034) ng/mL NT-Pro-B Natriuret Pep (0-900) pg/mL Serum Total Protein (6.3-8.2) g/dL Albumin (3.5-5.0) g/dL TSH 3rd Generation (0.47-4.68) mIU/L Urine Color YELLOW (YELLOW) Urine Appearance CLEAR (CLEAR) Urine pH 8.0 (5-6) Ur Specific [place] 1.013 (1.005-1.025) Urine Protein 100 (Negative) Urine Ketones NEGATIVE (NEGATIVE) Urine Blood NEGATIVE (0-5) [place]/ul Urine Nitrite NEGATIVE (NEGATIVE) Urine Bilirubin NEGATIVE (NEGATIVE) Urine Urobilinogen NEGATIVE (0-1) mg/dL Ur Leukocyte Esterase NEGATIVE (NEGATIVE) Urine WBC (Auto) NONE (0-5) /HPF Urine RBC (Auto) NONE (0-2) /HPF U Epithel Cells (Auto) NONE (FEW) /HPF Urine Bacteria (Auto) NONE (NEGATIVE) /HPF Urine Culture Reflexed NO (NO) Urine Glucose NEGATIVE (NEGATIVE) mg/dL Emesis for Blood (Negative) Salicylates (2-20) mg/dL Urine Opiates Level (NEGATIVE) Ur Methadone (NEGATIVE) Acetaminophen (10-30) ug/ml Urine Barbiturates (NEGATIVE) Ur Phencyclidine (PCP) (NEGATIVE) Urine Amphetamine (NEGATIVE) U Benzodiazepine Level (NEGATIVE) Urine Cocaine (NEGATIVE) Urine Marijuana (THC) (NEGATIVE) Ethyl Alcohol (0-10) mg/dL Influenza Type A Ag (NEGATIVE) Influenza Type B Ag (NEGATIVE) SARS-CoV-2 (PCR) (NEGATIVE) 05/05/20 Range/Units 23:11 WBC 18.6 H (4.0-10.5) K/mm3 RBC 5.09 (4.1-5.4) M/mm3 Hgb 14.9 (12.0-16.0) gm/dl Hct 51.7 H (35-47) % MCV 101.6 H (78-100) fl MCH 29.3 (26-32) pg MCHC 28.8 L (32-36) g/dl RDW 18.3 H (11.5-14.0) % Plt Count 183 (150-450) K/mm3 MPV 9.8 (7.5-11.0) fl Segmented Neutrophils 77 H (36.0-66.0) % Band Neutrophils 12 H (0.0-2.0) % Lymphocytes (Manual) 7 L (24-44) % Monocytes (Manual) 3 (0.0-12.0) % Eosinophils (Manual) 1 (0.00-3.0) % Platelet Estimate NORMAL (NORMAL) RBC Morphology ABNORMAL Polychromasia 1+ Anisocytosis 1+ Macrocytosis 1+ PT (9.95-12.35) SECONDS INR (0.8-3.0) APTT (25.3-37.0) SECONDS Puncture Site pCO2 (35-45) mmHg pO2 (75-100) mmHg Base Excess (-2.0-2.0) O2 Saturation (94-100) g/dF ABG pH (7.35-7.45) ABG HCO3 (22-28) ABG O2 Sat (Measured) (95-100) % Vasu Test A-a Gradient a/A Ratio Hemoglobin Carboxyhemoglobin (0.0-6.9) % THgb Methemoglobin (1.4-1.5) % Potassium (3.5-5.1) Temperature C POC O2 Flow Rate % Vent Mode Tidal Volume cc PEEP cmH2O Sodium (137-145) mmol/L Chloride (98-107) mmol/L Carbon Dioxide (22-30) mmol/L Anion Gap (5-15) MEQ/L BUN (7-17) mg/dL Creatinine (0.52-1.04) mg/dL Estimated GFR ML/MIN Glucose (74-106) mg/dL Lactic Acid (0.4-2.0) Calcium (8.4-10.2) mg/dL Magnesium (1.6-2.3) mg/dL Total Bilirubin (0.2-1.3) mg/dL AST (14-36) U/L ALT (0-35) U/L Alkaline Phosphatase (38-126) U/L Troponin I (0.000-0.034) ng/mL NT-Pro-B Natriuret Pep (0-900) pg/mL Serum Total Protein (6.3-8.2) g/dL Albumin (3.5-5.0) g/dL TSH 3rd Generation (0.47-4.68) mIU/L Urine Color (YELLOW) Urine Appearance (CLEAR) Urine pH (5-6) Ur Specific [place] (1.005-1.025) Urine Protein (Negative) Urine Ketones (NEGATIVE) Urine Blood (0-5) [place]/ul Urine Nitrite (NEGATIVE) Urine Bilirubin (NEGATIVE) Urine Urobilinogen (0-1) mg/dL Ur Leukocyte Esterase (NEGATIVE) Urine WBC (Auto) (0-5) /HPF Urine RBC (Auto) (0-2) /HPF U Epithel Cells (Auto) (FEW) /HPF Urine Bacteria (Auto) (NEGATIVE) /HPF Urine Culture Reflexed (NO) Urine Glucose (NEGATIVE) mg/dL Emesis for Blood (Negative) Salicylates (2-20) mg/dL Urine Opiates Level (NEGATIVE) Ur Methadone (NEGATIVE) Acetaminophen (10-30) ug/ml Urine Barbiturates (NEGATIVE) Ur Phencyclidine (PCP) (NEGATIVE) Urine Amphetamine (NEGATIVE) U Benzodiazepine Level (NEGATIVE) Urine Cocaine (NEGATIVE) Urine Marijuana (THC) (NEGATIVE) Ethyl Alcohol (0-10) mg/dL Influenza Type A Ag (NEGATIVE) Influenza Type B Ag (NEGATIVE) SARS-CoV-2 (PCR) (NEGATIVE) - Progress Progress: improved Progress Note: 05/06/20 02:51 While patient was in our ED, she became more alert. Patient was conversant protecting her airway. However patient had a bout of emesis. Emesis was coffee-ground appearing. Shortly thereafter she began to desaturate. Patient was then intubated. See procedural note for details. Patient was influenza B positive. Chest x-ray showed pneumonia and pulmonary congestion consistent with CHF. Patient was febrile at 105. Patient received a Tylenol suppository. Cold packs were applied to the groin area and axillary area to help cool patient. Vancomycin and Zosyn infused. TSH was ordered to assess for possible thyroid storm but TSH resulted as normal. Patient's emesis tested positive for occult blood. Patient on Coumadin. INR is therapeutic. Protonix drip was initiated. BNP was elevated 7400. Patient received nitro drip and 40 mg of Lasix for congestive heart failure. Initial troponin within normal limits. Subsequent troponin marginally elevated at 0.08. No STEMI on EKG. Patient currently intubated and ventilated. X-ray performed. X-ray reveals ET tube to be 2.9 cm above ruddy. NG tube in place. Patient is on a propofol and fentanyl drip. In light of patient's initial presentation of altered mental status and history of Coumadin use CT head was ordered. CT head negative for acute intracranial pathology. Case discussed with Dr. Grimes, [facility]. 05/06/20 02:57 05/06/20 03:01 plan of care discussed with patient's daughter. She agrees with transfer to [facility] for further evaluation and treatment. Counseled pt/family regarding: lab results, diagnosis, rad results - Departure Departure Disposition: Transfer Clinical Impression: Fever, Influenza B, CHF (congestive heart failure), Pneumonia, Sinus tach ycardia, Respiratory distress, Hypoxia, Elevated brain natriuretic peptide (BNP) level, Altered mental status, GI bleed, Elevated troponin I level Condition: Stable Critical Care Time: Yes Critical Care Time(excluding separately billable procedures): Critical 75-104 mins Referrals: TALON RICO [Primary Care Provider] - Instructions: Heart Failure
[2020-05-05] MEDS ORDERED: VANCOMYCIN 1 GRAM/200 ML BAG 1 GM/200 ML PIGGYBACK IV ONE ×2 (23:29→23:43)
[2020-05-05] MEDS ORDERED: Zosyn 3.375 GM Vial IV ONE (23:42)
[2020-05-05] MEDS ORDERED: Sodium Chloride 100ML MINI-BAG PLUS 100 ML IV ONE (23:43)
[2020-05-05 23:44] LABS: Hematocrit 51.7 % (35-47); Hemoglobin 14.9 gm/dl (12.0-16.0); Mean Cell Volume 101.6 fl (78-100); Mean Corpuscular Hemoglobin 29.3 pg (26-32); Mean Corpuscular Hgb Concent. 28.8 g/dl (32-36); Mean Platelet Volume 9.8 fl (7.5-11.0); Platelet Count 183 K/mm3 (150-450); Red Blood Count 5.09 M/mm3 (4.1-5.4); Red Cell Distribution Width 18.3 % (11.5-14.0); White Blood Count 18.6 K/mm3 (4.0-10.5)
[2020-05-05] MEDS ORDERED: FEVERALL 650 MG ONE (23:52)
[2020-05-05 23:54] LABS: Appearance CLEAR (CLEAR); Bilirubin NEGATIVE (NEGATIVE); Blood NEGATIVE Ery/ul (0-5); Glucose NEGATIVE (NEGATIVE); Ketones NEGATIVE (NEGATIVE); Leukocyte Esterase NEGATIVE (NEGATIVE); Nitrite NEGATIVE (NEGATIVE); Protein,Urine Dip 100 (Negative); Specific Gravity 1.013 (1.005-1.025); Urobilinogen NEGATIVE mg/dL (0-1)
[2020-05-05 23:58] LABS: INR 2.11 (0.8-3.0)
[2020-05-06 00:01] LABS: PTT 35.3 SECONDS (25.3-37.0)
[2020-05-06] MEDS ORDERED: FEVERALL 650 MG PR ONE (00:02)
[2020-05-06 00:04] LABS: ABG SITE LEFT RADIAL; ALLEN TEST OK? YES
[2020-05-06 00:06] LABS: ACETAMINOPHEN < 10 ug/ml (10-30); ETHYL ALCOHOL < 10 mg/dL (0-10); SALICYLATE < 1.0 mg/dL (2-20)
[2020-05-06 00:08] LABS: INFLUENZA A NEGATIVE (NEGATIVE); INFLUENZA B POSITIVE (NEGATIVE)
[2020-05-06 00:11] LABS: ALBUMIN 4.5 g/dL (3.5-5.0); ALKALINE PHOSPHATASE 106 U/L (38-126); ANION GAP 13.4 MEQ/L (5-15); BLOOD UREA NITROGEN 16 mg/dL (7-17); CHLORIDE 99 mmol/L (98-107); Calcium 9.6 mg/dL (8.4-10.2); Carbon Dioxide 29 mmol/L (22-30); Creatinine 1 0.81 mg/dL (0.52-1.04); EST GLOMERULAR FILTRATION RATE > 60.0 ML/MIN; Glucose 179 mg/dL (74-106); MAGNESIUM 1.9 mg/dL (1.6-2.3); NT PRO BNP 7490 pg/mL (0-900); Potassium 4.5 mmol/L (3.5-5.1); SGOT/AST 17 U/L (14-36); SGPT/ALT 10 U/L (0-35); SODIUM 137 mmol/L (137-145); Total Protein 8.1 g/dL (6.3-8.2)
[2020-05-06 00:16] LABS: Amphetamine,Urine NEGATIVE (NEGATIVE); Barbiturate,Urine NEGATIVE (NEGATIVE); Benzodiazepine,Urine NEGATIVE (NEGATIVE); Cocaine,Urine NEGATIVE (NEGATIVE); Methadone,Urine NEGATIVE (NEGATIVE); Opiate,Urine NEGATIVE (NEGATIVE); PCP,Urine NEGATIVE (NEGATIVE); THC,Urine NEGATIVE (NEGATIVE)
[2020-05-06 00:18] LABS: BAND 12 % (0.0-2.0); Eosinophil 1 % (0.00-3.0); Lymphocytes 7 % (24-44); Macrocytosis 1+; Monocyte 3 % (0.0-12.0); Neutrophils 77 % (36.0-66.0); Platelet Estimate NORMAL (NORMAL); Polychromasia 1+; Total Cells Counted 100
[2020-05-06 00:19] LABS: ANISOCYTOSIS 1+
[2020-05-06] MEDS ORDERED: Lasix 40 MG/4 ML IV ONE (00:25)
[2020-05-06] MEDS ORDERED: Lasix 40 MG/4 ML ONE ×2 (00:26→00:35)
[2020-05-06] MEDS ORDERED: Ntg 0.2MG/Ml in D5W GLASS*** 250 ML IV PRN (00:27)
[2020-05-06] MEDS ORDERED: Ntg 0.2MG/Ml in D5W GLASS*** 250 ML IV ONE (00:28)
[2020-05-06] MEDS ORDERED: Amidate 20 MG/10 ML IV ONE (01:17)
[2020-05-06] MEDS ORDERED: Quelicin Fliptop 200 MG/10 ML IJ ONE (01:18)
[2020-05-06] MEDS ORDERED: Propofol 1000 mg/100 ml Bottle 100 ML IV ONE (01:23)
[2020-05-06] MEDS ORDERED: Propofol 1000 mg/100 ml Bottle 100 ML IV PRN (01:27)
[2020-05-06] MEDS ORDERED: FENTANYL 500 MCG/10 ML VIAL IV ONE (01:42)
[2020-05-06] MEDS ORDERED: Sodium Chloride 0.9% 150 ML 150 ML IV ONE (01:46)
[2020-05-06 01:49] LABS: A-aADO2 585; ABG HEMOGLOBIN 15.6; ABG POTASSIUM 4.8 (3.5-5.1); ALLEN TEST OK? yes; ARTERIAL BLD GAS O2 SATURATION 92.1 % (95-100); ARTERIAL BLOOD GAS BASE EXCESS 4.7 (-2.0-2.0); ARTERIAL BLOOD GAS FIO2 100 %; ARTERIAL BLOOD GAS PCO2 51 mmHg (35-45); ARTERIAL BLOOD GAS PO2 64 mmHg (75-100); ARTERIAL BLOOD GAS pH 7.39 (7.35-7.45); CARBOXYHEMOGLOBIN 5.4 % THgb (0.0-6.9); HCO3- 30.9 (22-28); HGB O2 SAT 86.7 g/dF (94-100); Methhemoglobin 0.5 % (1.4-1.5)
[2020-05-06] MEDS ORDERED: SUBLIMAZE 1000 Mcg/ 20 Ml*** 1,500 MCG in Sodium Chloride 0.9% 150 ML 120 ML IV SCH (02:00)
[2020-05-06 02:06] LABS: A-aADO2 479; ABG HEMOGLOBIN 14.7; ABG POTASSIUM 4.4 (3.5-5.1); ARTERIAL BLD GAS O2 SATURATION 99.2 % (95-100); ARTERIAL BLD GAS TIDAL VOLUME 500 cc; ARTERIAL BLOOD GAS BASE EXCESS 1.2 (-2.0-2.0); ARTERIAL BLOOD GAS FIO2 100 %; ARTERIAL BLOOD GAS PO2 150 mmHg (75-100); ARTERIAL BLOOD GAS VENT MODE A/C; ARTERIAL BLOOD GAS pH 7.26 (7.35-7.45); CARBOXYHEMOGLOBIN 4.8 % THgb (0.0-6.9); HCO3- 30.1 (22-28); HGB O2 SAT 93.6 g/dF (94-100); Methhemoglobin 0.9 % (1.4-1.5)
[2020-05-06 02:07] LABS: ABG SITE LEFT BRACHIAL; ARTERIAL BLOOD GAS PCO2 67 mmHg (35-45)
[2020-05-06 02:08] LABS: ALLEN TEST OK? YES
[2020-05-06] MEDS ORDERED: PROTONIX 40 MG IV*** 80 MG in Sodium Chloride 0.9% 500 ML 500 ML IV SCH (02:15)
[2020-05-06] MEDS ORDERED: PROTONIX 40 MG IV IV ONE (02:16)
[2020-05-06] MEDS ORDERED: Sodium Chloride 0.9% 500 ML 500 ML IV ONE (02:16)
[2020-05-06 03:53] VITALS: BP 94/57; PULSE 113
[2020-05-06 03:54] VITALS: O2SAT 94
--- NOTE | 2020-05-06 09:07 | XRAY ---
Indication: Short of breath. Unresponsive. Comparison: February 22, 2020. Portable chest again demonstrates cardiomegaly with worsening vascular congestion, pulmonary edema, and small bibasilar effusions favoring cardiac decompensation/CHF. Superimposed pneumonia not completely excluded. Stable osteopenia and left AICD. Comment: Preliminary interpretation was made by [facility]. No critical discrepancy.
--- NOTE | 2020-05-06 09:09 | XRAY ---
In: Found unresponsive. Multiple contiguous axial images obtained through the head without contrast. Comparison: July 16, 2013. Study slightly degraded by motion artifact throughout. No gross acute intracranial hemorrhage, abnormal extra-axial fluid collection, or mass effect. Fourth ventricle is midline without hydrocephalus. [place]-white matter differentiation preserved. Bony calvarium intact. Mild mucosal thickening left maxillary sinus. Remaining visualized paranasal sinuses and mastoid air cells are clear. Impression: Motion artifact. No gross new/acute intracranial abnormalities. Incidental left maxillary sinus disease. Comment: Preliminary interpretation was made by [facility]. No critical discrepancy.
--- NOTE | 2020-05-06 09:11 | XRAY ---
Indication: Respiratory distress. Comparison: Taken earlier in the day. Portable chest again demonstrates cardiomegaly, vascular congestion, and small bibasilar effusions with marked worsening diffuse bilateral interstitial alveolar opacities favoring worsening cardiac decompensation/CHF or fluid overload. Again superimposed pneumonia not completely excluded. Comment: Preliminary interpretation was made by [facility]. No critical discrepancy.
--- NOTE | 2020-05-06 09:13 | XRAY ---
Indication: To placement. Comparison: Taken earlier in the day. Portable chest demonstrates new endotracheal tube tip 3 cm above the ruddy and new NG tube traversing chest with tip presumed in the stomach. Remaining chest unchanged again with cardiomegaly, vascular congestion, small bibasilar effusions, and marked diffuse bilateral interstitial alveolar opacities. Comment: Preliminary interpretation was made by [facility]. No critical discrepancy.
== END 2020-05-06 03:40 | disposition short-term general hospital (02) ==
LOC: ED 23:06
DX: R41.82 Altered mental status, unspecified (principal); J10.00 Influenza due to other identified influenza virus with unspecified type of pneumonia; J80 Acute respiratory distress syndrome; K92.2 Gastrointestinal hemorrhage, unspecified; R11.2 Nausea with vomiting, unspecified; R50.9 Fever, unspecified; E78.5 Hyperlipidemia, unspecified; I10 Essential (primary) hypertension; I50.9 Heart failure, unspecified; R00.0 Tachycardia, unspecified; R09.02 Hypoxemia; R79.89 Other specified abnormal findings of blood chemistry; R77.8 Other specified abnormalities of plasma proteins; F17.210 Nicotine dependence, cigarettes, uncomplicated; Z79.01 Long term (current) use of anticoagulants
CPT/HCPCS: 36000; 36415; 36600; 51702; 70450; 71045; 80053; 80307; 81001; 82271; 82375; 82803; 83605; 83735; 83880; 84443; 84484; 85025; 85610; 85730; 87040; 87400; 93005; 93041; 94002; 94760; 96365; 96366; 96367; 96368; 96374; 99285; 99291; 99292; G0480; U0003; 87077; 87186; 96360; J0330; J1940; J2704; J3010; A9270-GY; J3370